=== PATIENT | female | born 1975 | race Caucasian/White ===

== ENCOUNTER 2023-08-16 12:54 | Outpatient (OUT) | payer BC, SELFPAY ==
[2023-08-16 14:22] LABS: Alanine Aminotransferase 22 U/L (14-59); Albumin Globulin Ratio 0.8; Albumin Level 3.6 g/dL (3.4-5.0); Alkaline Phosphatase 126 U/L (46-116); Anion Gap 12.7; Aspartate Amino Transferase 21 U/L (15-37); BUN Creatinine Ratio 13.2; Bilirubin Total 0.8 mg/dL (0.2-1.0); Calcium 9.2 mg/dL (8.5-10.1); Carbon Dioxide 27.5 mmol/L (21.0-32.0); Chloride 103 mmol/L (98-107); Chol HDL Ratio 2.8; Cholesterol 127 mg/dL (<=200); Estimated GFR (African America >60 (>=60); Estimated GFR (Non-African Ame >60 (>=60); Free T3 2.84 pg/mL (2.18-3.98); Globulin 4.3 g/dL; Glucose 73 mg/dL (74-106); HDL Cholesterol 45 mg/dL (40-60); Potassium 4.2 mmol/L (3.5-5.1); Sodium 139 mmol/L (136-145); Thyroid Stimulating Hormone 1.707 uIU/mL (0.358-3.740); Total Protein 7.9 g/dL (6.4-8.2); Triglycerides 75 mg/dL (<=150)
[2023-08-16 15:02] LABS: Basophils Absolute Auto 0.1 10^3/uL (0.0-0.1); Basophils Percent Auto 0.7 % (0.2-2.0); Eosinophils Absolute Auto 0.1 10^3/uL (0.0-0.7); Hematocrit 45.5 % (36.0-48.0); Hemoglobin 15.3 g/dL (12.0-16.0); Immature Granulocytes Abs Auto 0.01 10^3/uL (0.00-0.03); Immature Granulocytes Pct Auto 0.1 % (0.0-0.5); Lymphocytes Absolute Auto 2.4 10^3/uL (1.2-3.8); Mean Corpuscular HGB Conc 33.6 g/dL (29.9-35.2); Mean Corpuscular Hemoglobin 28.8 pg (26.7-34.0); Mean Corpuscular Volume 85.5 fL (81.0-99.0); Mean Platelet Volume 9.6 fL (9.5-13.5); Monocytes Absolute Auto 0.3 10^3/uL (0.3-0.8); Monocytes Percent Auto 3.2 % (1.7-12.0); Neutrophils Absolute Auto 6.1 10^3/uL (1.4-6.5); Platelet Count 232 10^3/uL (150-450); Red Blood Count 5.32 10^6/uL (4.20-5.40); Red Cell Distribution Width 12.5 % (11.0-15.0)
[2023-08-16 15:41] LABS: Estimated Average Glucose 103 mg/dL; Glycohemoglobin A1C 5.2 % (4.5-6.2)
[2023-08-18 12:11] LABS: Insulin 7.7 uIU/mL (2.6-24.9)
== END 2023-08-16 12:55 | disposition home or self-care (01) ==
LOC: LAB 13:01
PROVIDERS: PCP Nurse Practitioner Family; Visit Provider Nurse Practitioner Family
DX: Z00.00 Encounter for general adult medical examination without abnormal findings (principal)
CPT/HCPCS: 36415; 80053; 80061; 82306; 82607; 83036; 83525; 83540; 84436; 84443; 84481; 85025

== ENCOUNTER 2023-09-13 10:30 | Emergency (ER) | payer BC, SELFPAY ==
[2023-09-13] VITALS (14 sets, daily range): BP systolic 102–131; BP diastolic 70–84; PULSE 60–71; RESP 7–22; TEMP 36.6; O2SAT 99–100; BMI 23.4
--- OUTSIDE RECORDS SUMMARY | 2023-09-13 10:37 | XMS_ITS | CCD ---
Author Name Unknown Address [address] [place] [address] Organization [facility] Care Team Providers Care 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 Name Role Phone DARLING ., DR MCGRATH Consulting Unavailable DARLING ., DR MCGRATH Attending Unavailable DARLING ., DR MCGRATH Admitting Unavailable HOUSE, DR GRANT Primary Care Unavailable BETHANY, [place] Consulting Unavailable GALO, ANGELITA Consulting Unavailable HOUSE, DR GRANT Attending Unavailable HOUSE, DR GRANT Admitting Unavailable PEARSON, DR GRANT Primary Care Unavailable PEARSON, DR GRANT Consulting Unavailable PEARSON, DR GRANT Attending Unavailable PEARSON, DR GRANT Admitting Unavailable HOUSE, DR GRANT Primary Care Unavailable HOUSE, DR GRANT Attending Unavailable HOUSE, DR ENOC Peaceitting Unavailable PEARSON, DR GRANT Primary Care Unavailable MAXIMILIANO Hernandez Attending Provider DO Enoc Cardenas Primary Care Provider MAKEDA Jin Referring Provid er MAXIMILIANO Hernandez Attending Provider DO Enoc Cardenas Primary Care Provider MAKEDA Jin Referring Provid er MAKEDA Jin Referring Provid er MD Racheal Fernandez Attending Provider [phone] NO FAMILY, PHYSICIAN Primary Care Provider Unava ilable MD Bill Pnio Attending Provider Unavailable Primary Care Provider Unavailabl Enoc Fuentes DO Primary Care Provider BILL PINO Referring Unavailable MEL PAINTING Attending Unavailable BILL PINO Referring Unavailable NO FAMILY, PHYSICIAN Primary Care Provider Unava ilable MD Bill Pino Attending Provider Bill Pino Admitting Unavail able Bill Pino Attending Unavail able NO FAMILY, PHYSICIAN Primary Care Unavailable Bill Pino Admitting Unavail able Bill Pino Attending Unavail able NO FAMILY, PHYSICIAN Primary Care Unavailable JimRacheal granger Admitting Unavailable Racheal Fernandez Attending Unavailable Estefania Jin Referring Unava ilable NO FAMILY, PHYSICIAN Primary Care Unavailable Bill Pino Admitting Unavail able Bill Pino Attending Unavail able NO FAMILY, PHYSICIAN Primary Care Unavailable Allergies Allergy Classification Reported Allergen(s) Allergy Type Date of Onset Reaction(s) Facility (7 sources) Aspirin; Translations: [ASPIRIN] Drug Allergy 3 Swelling [facility] Repository (8 sources) Latex; Translations: [LATEX] Propensity to adverse reactions 3 [facility] (2 sources) Aspirin Drug Allergy 3 [facility] (1 source) Aspirin Drug Allergy 3 [facility] Repository Medications Current Medications Medication Drug Class(es) Dates Sig (Normalized) Sig (Original) atenolol 100 mg oral tablet (7 sources) beta-Adrenergic Tyra Start: 01-05-20 take 100 mg by mouth once daily Atenolol Active 100 MG PO Daily January 03, 2023 11:00pm atorvastatin 40 mg oral tablet (7 sources) HMG-CoA Reductase Inhibitor Start: 01-05-20 End: 08-31-19 take 40 mg by mouth once daily Atorvastatin Active 40 MG PO Daily January 03, 2023 11:00pm citalopram 20 mg oral tablet (7 sources) Serotonin Reuptake Inhibitor Start: 01-05-20 take 20 mg by mouth once daily Citalopram Active 20 MG PO Daily January 03, 2023 11:00pm clindamycin 300 mg oral capsule (2 sources) Lincosamide Antibacterial Start: 05-16-20 take 600 mg by mouth three times daily Clindamycin Hcl Active 600 MG PO Three times daily 12 May 15, 2023 11:00pm clopidogrel 75 mg oral tablet (7 sources) P2Y12 Platelet Inhibitor Start: 01-05-20 End: 03-03-20 take 75 mg by mouth once daily Clopidogrel Active 75 MG PO Daily January 03, 2023 11:00pm cyanocobalamin (Vitamin B-12) 1,000 mcg/mL oral liquid (1 source) take 1 mL by mouth every 30 days cyanocobalamin (Vitamin B-12) 1,000 mcg/mL oral liquid 1 mL (1,000 mcg) every 30 (thirty) days. 0 Active hydroCHLOROthiazide 12.5 mg oral tablet (7 sources) Thiazide Diuretic Start: 01-05-20 take 12.5 mg by mouth once daily Hydrochlorothiazide Active 12.5 MG PO Daily January 03, 2023 11:00pm magnesium oxide 400 mg oral tablet (5 sources) Start: 04-02-20 take 400 mg by mouth once daily Magnesium Oxide Active 400 MG PO Daily April 01, 2023 11:00pm valsartan 320 mg oral tablet (7 sources) Angiotensin 2 Receptor Tyra Start: 01-05-20 take 320 mg by mouth once daily Valsartan Active 320 MG PO Daily January 03, 2023 11:00pm vitamin b12 1 mg/ml injectable solution (3 sources) Vitamin B12 Start: 05-14-20 inject 1000 ug by intramuscular injection every month Cyanocobalamin (Vitamin B-12) Active 1000 MCG IM every month May 13, 2023 11:00pm Start: 05-14-2023 inject 1000 ug by in tramuscular injection every month Cyanocobalamin (Vitamin B-12) (Cyanacobalamin) 1,000 mcg/mL Solution Active 1000 MCG IM every month May 14, 2023 12:00am Completed/Discontinued Medications Medication Drug Class(es) Dates Sig (Normalized) Sig (Original) 24 hr nicotine 0.875 mg/hr transdermal system (2 sources) Cholinergic Nicotinic Agonist Start: 03-06-2023 End: 07-23-2023 apply 1 dose transdermal route every twenty-four hours nicotine (Nicoderm CQ) 21 mg/24 hr patch apply 1 patch to CLEAN, DRY, AND INTACT SKIN REMOVE AND REPLACE every 24 hours for 4 WEEKS 0 03/06/2023 07/23/2023 Discontinued (Med List Cleanup) Start: 03-04-2023 apply 21 mg transder mal route once daily, then apply 14 mg transdermal route once daily, then apply 7 mg transdermal route once daily nicotine 21-14-7 mg/24 hr patch, TD daily, sequential 21 mg patch once daily for 4 weeks, then 14 mg patch once daily for 2 weeks, then 7 mg patch once daily for 2 weeks 56 each 0 03/04/2023 Active Problems Active Problems Problem Classification Problem Date Documented Date Episodic/Chronic Acute cerebrovascular disease (15 sources) Cerebral infarction, unspecified; Translations: [Other cerebral infarction due to occlusion or stenosis of small artery] Onset: 07-18-2022 02-01-2023 Chronic Disorders of lipid metabolism (13 sources) Hyperlipidemia; Translations: [Hyperlipidemia, unspecified] Onset: 07-23-2023 02-01-2023 Chronic Essential hypertension (18 sources) Essential (primary) hypertension; Translations: [Hypertensive disorder] Onset: 02-01-2022 Chronic Hypertension with complications and secondary hypertension (1 source) Hypertensive urgency; Translations: [HYPERTENSIVE URGENCY] Onset: 07-18-2022 Chronic Late effects of cerebrovascular disease (4 sources) 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; Translations: [HEMIPLG FLW UNS CEREBRVSC DZ LT DOM] Onset: 07-31-2022 Chronic Menopausal disorders (1 source) Menopausal and female climacteric states; Translations: [MENOPAUSAL FE CLIMACTERIC STATES] Onset: 02-06-2022 Chronic Nutritional deficiencies (9 sources) Subacute combined degeneration of spinal cord; Translations: [Deficiency of other specified B group vitamins] 02-01-2023 Episodic Other circulatory disease (4 sources) Presence of other cardiac implants and grafts; Translations: [Other specified cardiac device in situ] Onset: 07-23-2023 07-23-2023 Chronic Paralysis (1 source) Hemiplegia, unspecified affecting left nondominant side; Translations: [HEMIPL UNS AFFECT LT NONDOM SIDE] Onset: 07-18-2022 Chronic Residual codes; unclassified (1 source) Acquired absence of both cervix and uterus; Translations: [ACQUIRED ABSENCE BOTH CERVIX AND UTERUS] Onset: 07-18-2022 Episodic Residual codes; unclassified (5 sources) H/O: miscarriage; Translations: [Personal history of other complications of , childbirth and the puerperium] 02-01-2023 Episodic Residual codes; unclassified (4 sources) Personal history of other complications of , childbirth and the puerperium; Translations: [Personal history of other genital system and obstetric disorders] 02-08-2023 Episodic Residual codes; unclassified (2 sources) Body mass index 20-24 - normal; Translations: [Body mass index (BMI) 24.0-24.9, adult] Onset: 07-23-2023 07-23-2023 Episodic Residual codes; unclassified (2 sources) Body mass index (BMI) 24.0-24.9, adult; Translations: [Body mass index (BMI) 24.0-24.9, adult] Onset: 07-23-2023 Episodic Syncope (9 sources) Syncope; Translations: [Syncope and collapse] 02-01-2023 Episodic Unclassified (1 source) CONTACT W/AND (SUSP) EXPOS COVID-19; Translations: [CONTACT W/AND (SUSP) EXPOS COVID-19] Onset: 07-18-2022 Unclassified (1 source) Encounter for preprocedural laboratory examination; Translations: [Encounter for preprocedural laboratory examination] Onset: 05-14-2023 Unclassified (1 source) Other sequelae of cerebral infarction; Translations: [Other sequelae of cerebral infarction] Onset: 04-30-2023 Past or Other Problems Problem Classification Problem Date Documented Date Episodic/Chronic Mood disorders (1 source) Mood disorders Onset: 03-04-2023 03-04-2023 Other circulatory disease (1 source) History of cerebrovascular accident; Translations: [Personal history of transient ischemic attack (TIA), and cerebral infarction without residual deficits] Onset: 08-28-2022 08-28-2022 Episodic Other connective tissue disease (1 source) Neurological symptom; Translations: [Unspecified symptoms and signs involving the nervous system] Onset: 07-15-2022 07-15-2022 Episodic Other nervous system disorders (5 sources) Anesthesia of skin; Translations: [ANESTHESIA OF SKIN] Onset: 07-15-2022 Episodic Unclassified (1 source) Onset: 04-30-2023 04-30-2023 Results Test Name Value Interpretation Reference Range Facility Basic Metabolic Panelon 10-3 Anion gap [Moles/Vol] 11.8 mmol/L Normal 6.0-15.0 [facility] Comment on above: Performed By: #### C BC, PT, BMP #### [facility] [address] [place] [address] [place] Calcium [Mass/Vol] 9.5 mg/dL Normal 8.6-10.3 [facility] Comment on above: Result Comment: PERF ORMED BY: [place] [address] PATHOLOGIST MUSIC PUBLISHER ANGELA MENDOZA M.D. Performed By: #### C BC, PT, BMP #### [facility] [address] [place] [address] [place] Chloride [Moles/Vol] 104 mmol/L Normal 98-107 [facility] Comment on above: Performed By: #### C BC, PT, BMP #### [facility] [address] [place] [address] [place] CO2 [Moles/Vol] 28.0 mmol/L Normal 21.0-31.0 [facility] Comment on above: Performed By: #### C BC, PT, BMP #### [place] [address] [place] Creatinine [Mass/Vol] 1.00 mg/dL Normal 0.60-1.20 [facility] Comment on above: Performed By: #### C BC, PT, BMP #### [place] [address] [place] GFR/1.73 sq M.predicted MDRD (S/P/Bld) [Vol rate/Area] mL/min/{1.73_m2} Normal [facility] Comment on above: Performed By: #### C BC, PT, BMP #### [facility] [address] [place] [address] [place] Glucose [Mass/Vol] 73 mg/dL Normal 70-100 [facility] Comment on above: Result Comment: [place] om Glucose Reference Range is dependent on time and content of last meal. Glucose of more than 200 mg/dL in a nonstressed, ambulatory subject supports the diagnosis of Diabetes Mellitus. ADA recommended reference range Performed By: #### C BC, PT, BMP #### [facility] [address] Potassium [Moles/Vol] 3.8 mmol/L Normal 3.5-5.1 [facility] Comment on above: Performed By: #### C BC, PT, BMP #### [facility] [address] [place] [address] [place] Sodium [Moles/Vol] 140 mmol/L Normal 136-145 [facility] Comment on above: Performed By: #### C BC, PT, BMP #### [facility] [address] Urea nitrogen [Mass/Vol] 14 mg/dL Normal 7-25 [facility] Comment on above: Performed By: #### C BC, PT, FERMIN #### [facility] [address] Basophils Auto (Bld) [#/Vol] Ordered By: Bill Pino on 05-14-2023 Basophils (Bld) [#/Vol] 0.0 10*3/uL 0.0-0.2 [facility] Basophils/100 WBC Auto (Bld) Ordered By: Bill Pino on 05-14-2023 Basophils/100 WBC (Bld) 0.4 % . [facility] Calcium [Mass/volume] in Ser um or PlasmaOrdered By: Bill Pino on 05-14-2023 Calcium [Mass/Vol] 9.5 mg/dL 8.6-10.3 [facility] Carbon dioxide, total [Moles /volume] in Serum or PlasmaOrdered By: Bill Pino on 05-14-2023 CO2 [Moles/Vol] 28.0 mmol/L 21.0-31.0 [facility] Chloride [Moles/volume] in S nehal or PlasmaOrdered By: Bill Pino on 05-14-2023 Chloride [Moles/Vol] 104 mmol/L 98-107 [facility] Complete Blood Count Auto Di ffon 05-14-2023 Basophils (Bld) [#/Vol] 0.0 10*3/uL Normal 0.0-0.2 [facility] Comment on above: Result Comment: PERF ORMED BY: [place] [address] PATHOLOGIST MUSIC PUBLISHER ANGELA MENDOZA M.D. Performed By: #### C BC, PT, BMP #### [address] Basophils/100 WBC (Bld) 0.4 % Normal . [facility] Comment on above: Performed By: #### C BC, PT, BMP #### [address] Eosinophils (Bld) [#/Vol] 0.0 10*3/uL Normal 0.0-0.45 [facility] Comment on above: Performed By: #### C YAAKOV PT, BMP #### [address] Eosinophils/100 WBC (Bld) 0.7 % Normal . [facility] Comment on above: Performed By: #### C BC, PT, BMP #### [address] Erythrocyte distribution width (RBC) [Ratio] 13.1 % Normal 11.9-15.3 [facility] Comment on above: Performed By: #### C YAAKOV, PT, BMP #### [address] Hematocrit (Bld) [Volume fraction] 39.7 % Normal 34.0-46.4 [facility] Comment on above: Performed By: #### C BC, PT, BMP #### [address] Hemoglobin (Bld) [Mass/Vol] 13.6 g/dL Normal 11.8-15.4 [facility] Comment on above: Performed By: #### C BC, PT, BMP #### [address] Lymphocytes (Bld) [#/Vol] 1.9 10*3/uL Normal 1.00-4.8 [facility] Comment on above: Performed By: #### C BC, PT, BMP #### [facility] [address] [place] [address] [place] Lymphocytes/100 WBC (Bld) 27.3 % Normal . [facility] Comment on above: Performed By: #### C BC, PT, BMP #### [facility] [address] [place] [address] [place] MCH (RBC) [Entitic mass] 28.9 pg Normal 24.7-34.3 [facility] Comment on above: Performed By: #### C BC, PT, BMP #### [facility] [address] MCV (RBC) [Entitic vol] 84.3 fL Normal 80-100 [facility] Comment on above: Performed By: #### C YAAKOV, PT, BMP #### [facility] [address] Mean Corpuscular HGB Conc 34.3 g/dL Normal 32.0-35.0 [facility] Comment on above: Performed By: #### C YAAKOV, PT, BMP #### [facility] [address] [place] [address] [place] Monocytes (Bld) [#/Vol] 0.4 10*3/uL Normal 0.0-0.8 [facility] Comment on above: Performed By: #### C BC, PT, BMP #### [facility] [address] [place] [address] [place] Monocytes/100 WBC (Bld) 5.4 % Normal . [facility] Comment on above: Performed By: #### C BC, PT, BMP #### [facility] [address] [place] [address] [place] Neutrophils (Bld) [#/Vol] 4.6 10*3/uL Normal 1.8-7.7 [facility] Comment on above: Performed By: #### C BC, PT, BMP #### [facility] [address] [place] [address] [place] Neutrophils/100 WBC (Bld) 66.2 % Normal . [facility] Comment on above: Performed By: #### C BC, PT, BMP #### [facility] [address] NRBC% 0.1 /100{WBC} Normal 0-0.5 [facility] Comment on above: Performed By: #### C BC, PT, BMP #### [facility] [address] Platelet mean volume (Bld) [Entitic vol] 8.1 fL Normal 6.3-10.7 [facility] Comment on above: Performed By: #### C BC, PT, BMP #### [facility] [address] Platelets (Bld) [#/Vol] 229 10*3/uL Normal 150-450 [facility] Comment on above: Performed By: #### C BC, PT, BMP #### [address] RBC (Bld) [#/Vol] 4.70 10*6/uL Normal 3.60-5.00 [facility] Comment on above: Performed By: #### C BC, PT, BMP #### [facility] [address] [place] [address] WBC (Bld) [#/Vol] 6.9 10*3/uL Normal 3.8-11.6 [facility] Comment on above: Performed By: #### C BC, PT, BMP #### [facility] [address] [place] [address] Creatinine [Mass/volume] in Serum or PlasmaOrdered By: Bill Pino on 05-14-2023 Creatinine [Mass/Vol] 1.00 mg/dL 0.60-1.20 [facility] Eosinophils Auto (Bld) [#/Vo l]Ordered By: Bill Pino on 05-14-2023 Eosinophils (Bld) [#/Vol] 0.0 10*3/uL 0.0-0.45 [facility] Eosinophils/100 WBC Auto (Bl d)Ordered By: Bill Pino on 05-14-2023 Eosinophils/100 WBC (Bld) 0.7 % . [facility] Erythrocyte distribution wid th Auto (RBC) [Ratio]Ordered By: Bill Pino on 05-14-2023 Erythrocyte distribution width (RBC) [Ratio] 13.1 % 11.9-15.3 [facility] Glucose [Mass/volume] in Ser um or PlasmaOrdered By: Bill Pino on 05-14-2023 Glucose [Mass/Vol] 73 mg/dL 70-100 [facility] Comment on above: ADA recommended refe rence rangeRandom Glucose Reference Range is dependent on time and content of last meal. Glucose of more than 200 mg/dL in a nonstressed, ambulatory subject supports the diagnosis of Diabetes Mellitus. Hematocrit Auto (Bld) [Volum e fraction]Ordered By: Bill Pino on 05-14-2023 Hematocrit (Bld) [Volume fraction] 39.7 % 34.0-46.4 [facility] Hemoglobin [Mass/volume] in BloodOrdered By: Bill Pino on 05-14-2023 Hemoglobin (Bld) [Mass/Vol] 13.6 g/dL 11.8-15.4 [facility] INR in Platelet poor plasma by Coagulation assayOrdered By: Bill Pino on 05-14-2023 INR Coag (PPP) [Relative time] 1.0 {INR} [facility] Comment on above: INR Therapeutic Rang e A) Pre- and Peroperative OAT started two weeks before surgery. NOT HIP SURGERY: 1.5 - 2.5 HIP SURGERY: 2 - 3B) Primary and secondary prevention of venous THROMBOSIS: 2 - 3C) Active venous thrombosis, pulmonary embolismand prevention of recurrent venous thrombosis: 2 - 3D) Prevention of arterial thromboembolismincluding patients with mechanical heart valves: 3 - 4.5 Leukocytes [#/volume] correc rosemarie for nucleated erythrocytes in Blood by Automated counOrdered By: Bill Pino on 05-14-2023 WBC corrected for nucl RBC Auto (Bld) [#/Vol] 6.9 10*3/uL 3.8-11.6 [facility] Lymphocytes Auto (Bld) [#/Vo l]Ordered By: Bill Pino on 05-14-2023 Lymphocytes (Bld) [#/Vol] 1.9 10*3/uL 1.00-4.8 [facility] Lymphocytes/100 WBC Auto (Bl d)Ordered By: Bill Pino on 05-14-2023 Lymphocytes/100 WBC (Bld) 27.3 % . [facility] MCH Auto (RBC) [Entitic mass ]Ordered By: Bill Pino on 05-14-2023 MCH (RBC) [Entitic mass] 28.9 pg 24.7-34.3 [facility] MCHC Auto (RBC) [Mass/Vol]Or dered By: Bill Pino on 05-14-2023 MCHC (RBC) [Mass/Vol] 34.3 g/dL 32.0-35.0 [facility] MCV Auto (RBC) [Entitic vol] Ordered By: Bill Pino on 05-14-2023 MCV (RBC) [Entitic vol] 84.3 fL 80-100 [facility] Monocytes Auto (Bld) [#/Vol] Ordered By: Bill Pino on 05-14-2023 Monocytes (Bld) [#/Vol] 0.4 10*3/uL 0.0-0.8 [facility] Monocytes/100 WBC Auto (Bld) Ordered By: Bill Pino on 05-14-2023 Monocytes/100 WBC (Bld) 5.4 % . [facility] Neutrophils Auto (Bld) [#/Vo l]Ordered By: Bill Pino on 05-14-2023 Neutrophils (Bld) [#/Vol] 4.6 10*3/uL 1.8-7.7 [facility] Neutrophils/100 WBC Auto (Bl d)Ordered By: Bill Pino on 05-14-2023 Neutrophils/100 WBC (Bld) 66.2 % . [facility] No Panel InformationOrdered By: Bill Pino on 05-14-2023 Estimated GFR (CKD-EPI) > 60.0 mL/Min [facility] Creatinine Clearance (Chem N/A [facility] Nucleated erythrocytes [Pres ence] in Blood by Automated countOrdered By: Bill Pino on 05-14-2023 Nucleated RBC Auto Ql (Bld) 0.1 /100{WBC} 0-0.5 [facility] Platelet mean volume Auto (B ld) [Entitic vol]Ordered By: Bill Pino on 05-14-2023 Platelet mean volume (Bld) [Entitic vol] 8.1 fL 6.3-10.7 [facility] Platelets Auto (Bld) [#/Vol] Ordered By: Bill Pino on 05-14-2023 Platelets (Bld) [#/Vol] 229 10*3/uL 150-450 [facility] Potassium [Moles/volume] in Serum or PlasmaOrdered By: Bill Pino on 05-14-2023 Potassium [Moles/Vol] 3.8 mmol/L 3.5-5.1 [facility] Prothrombin Time INRon 05-14 INR Coag (PPP) [Relative time] 1.0 {INR} Normal [facility] Comment on above: Result Comment: INR Therapeutic Range A) Pre- and Peroperative OAT started two weeks before surgery. NOT HIP SURGERY: 1.5 - 2.5 HIP SURGERY: 2 - 3 B) Primary and secondary prevention of venous THROMBOSIS: 2 - 3 C) Active venous thrombosis, pulmonary embolism and prevention of recurrent venous thrombosis: 2 - 3 D) Prevention of arterial thromboembolism including patients with mechanical heart valves: 3 - 4.5 PERFORMED BY: [place] [address] PATHOLOGIST MUSIC PUBLISHER ANGELA MENDZOA M.D. Performed By: #### C BC, PT, BMP #### [facility] [address] [place], [place] [id number] [facility] PT Coag (PPP) [Time] 12.4 s Normal 9.0-12.9 [facility] Comment on above: Result Comment: A he matocrit value greater than 55% may lead to inaccurate results in coagulation testing. Patients having hematocrit values >55% require a special collection tube for coagulation studies. Please contact the laboratory at [phone] for redraw instructions. Performed By: #### C BC, PT, BMP #### [facility] [address] [place], [place] [id number] [facility] Prothrombin time (PT)Ordered By: Bill Pino on 05-14-2023 PT Coag (PPP) [Time] 12.4 s 9.0-12.9 [facility] Comment on above: A hematocrit value g reater than 55% may lead to inaccurate results in coagulation testing. Patients having hematocrit values >55% require a special collection tube for coagulation studies. Please contact the laboratory at [phone] for redraw instructions. RBC Auto (Bld) [#/Vol]Ordere d By: Bill Pino on 05-14-2023 RBC (Bld) [#/Vol] 4.70 10*6/uL 3.60-5.00 [facility] Serum or plasma anion gap de terminationOrdered By: Bill Pino on 05-14-2023 Anion gap [Moles/Vol] 11.8 mmol/L 6.0-15.0 [facility] Sodium [Moles/volume] in Ser um or PlasmaOrdered By: Bill Pino on 05-14-2023 Sodium [Moles/Vol] 140 mmol/L 136-145 [facility] Urea nitrogen [Mass/volume] in Serum or PlasmaOrdered By: Bill Pino on 05-14-2023 Urea nitrogen [Mass/Vol] 14 mg/dL 7-25 [facility] WBC Auto (Bld) [#/Vol]Ordere d By: Bill Pino on 05-14-2023 WBC (Bld) [#/Vol] 6.9 10*3/uL 3.8-11.6 [facility] XR chest 2V*on 05-14-2023 XR chest 2V* [facility] [place] [address] XRay Report Signed Patient: Melvina Jameson MR#: [id number] : 1975 Acct:[id number] Age/Sex: 47 / F ADM Date: 05/14/23 Loc: Room: Type: [facility] Attending Dr: Bill Pino MD Copies to: Bill Pino MD Ordering Provider: Bill Pino MD Date of Service: 05/14/23 XR/XR chest 2V*: pre-assessment of anatomy Chest 2 views CLINICAL HISTORY: Preop loop recorder. COMPARISON: None FINDINGS: Heart normal size. Lungs are clear. No free air. XR/XR chest 2V* IMPRESSION: NO ACUTE CARDIOPULMONARY ABNORMALITY. Impression dictated by: Pablito Collazo Jr., Keaton05/14/2023 2:05 PM Dictation Location: [place] [address] Transcribed By: [facility] 05/14/231404 Dictated By: Pablito Collazo Jr, DO 05/14/231404 Signed By: 05/14/231404 Normal [facility] Homocysteine, Plasma/Serumon 04-06-2023 Homocysteine, Plasma/Serum 14.5 umol/L Normal 0.0-14.5 [facility] Comment on above: Order Comment: REDRA W Result Comment: Perf ormed at: [address] [id number] Casing Inspector: Toni Gonzalez PhD, Phone: [phone] PERFORMED BY: [place] [address] PATHOLOGIST MUSIC PUBLISHER ANGELA MENDOAZ M.D. Performed By: #### C BC, PT, BMP #### [address] Serum or plasma homocysteine measurement (moles/volume)Ordered By: Racheal Fernandez on 04-06-2023 Homocysteine [Moles/Vol] 14.5 umol/L 0.0-14.5 [facility] Comment on above: Performed at: [facility] [address] [id number] Director: Toni Gonzalez PhD, Phone: [phone] Methylmalonic Acidon 023 Methylmalonic Acid 126 Normal 0-378 [facility] Comment on above: Result Comment: This test was developed and its performance characteristics determined by [employer]. It has not been cleared or approved by the Food and Drug Administration. Performed at: [address] [id number] Casing Inspector: Tisha Lo MD, Phone: [phone] PERFORMED BY: [place] [id number] PATHOLOGIST MUSIC PUBLISHER ANGELA MENDOZA M.D. Performed By: #### C BC, PT, BMP #### [address] Serum or plasma methylmalona te measurement (moles/volume)Ordered By: Racheal Fernandez on 03-27-2023 Methylmalonate [Moles/Vol] 126 nmol/L 0-378 [facility] Comment on above: This test was develo ped and its performance characteristicsdetermined by [employer]. It has not been cleared orapproved by the Food and Drug Administration.Performed at: [address] [id number] Director: Tisha Lo MD, Phone: [phone] Activated partial thrombopla stin time (aPTT) in platelet poor plasma by coagulation aOrdered By: Lian Hernandez on 02-01-2023 aPTT Coag (PPP) [Time] 28.5 s 25.1-36.5 [facility] Albumin [Mass/volume] in Ser um or PlasmaOrdered By: Lian Hernandez on 02-01-2023 Albumin [Mass/Vol] 3.7 g/dL 2.9-4.4 [facility] Anti-Thrombin III Antigenon 02-01-2023 Anti-Thrombin III Antigen 118 % Normal 72-124 [facility] Comment on above: Result Comment: This test was developed and its performance characteristics determined by [employer]. It has not been cleared or approved by the Food and Drug Administration. Performed at: [address] [id number] Casing Inspector: Tisha Lo MD, Phone: [phone] PERFORMED BY: [place] [address] PATHOLOGIST MUSIC PUBLISHER ANGELA MENDOZA M.D. Performed By: #### C BC, PT, BMP #### [facility] [address] [place], [place] [id number] [facility] Antithrombin antigen actual/ normal in platelet poor plasma by immunologic methodOrdered By: Lian Hernandez on 02-01-2023 Antithrombin Ag actual/normal IA (PPP) [Relative mass conc] 118 % 72-124 [facility] Comment on above: This test was develo ped and its performance characteristicsdetermined by [facility]. It has not been cleared orapproved by the Food and Drug Administration.Performed at: [address] [id number] Director: Tisha Lo MD, Phone: [phone] Basophils Auto (Bld) [#/Vol] Ordered By: Racheal Fernandez on 02-01-2023 Basophils (Bld) [#/Vol] 0.1 10*3/uL 0.0-0.2 [facility] Basophils/100 WBC Auto (Bld) Ordered By: Racheal Fernandez on 02-01-2023 Basophils/100 WBC (Bld) 0.9 % . [facility] Complete Blood Count Auto Di ffon 02-01-2023 Basophils (Bld) [#/Vol] 0.1 10*3/uL Normal 0.0-0.2 [facility] Comment on above: Result Comment: PERF ORMED BY: [facility] [address] [place] [address] PATHOLOGIST MUSIC PUBLISHER ANGELA MENDOZA M.D. Performed By: #### F ER, [id number], FE and TIBC, CBC #### [facility] [address] [place] [address] [place] Basophils/100 WBC (Bld) 0.9 % Normal . [facility] Comment on above: Performed By: #### F ER, [id number], FE and TIBC, CBC #### [facility] [address] [place] [address] [place] Eosinophils (Bld) [#/Vol] 0.1 10*3/uL Normal 0.0-0.45 [facility] Comment on above: Performed By: #### F ER, [id number], FE and TIBC, CBC #### [facility] [address] [place] [address] [place] Eosinophils/100 WBC (Bld) 1.5 % Normal . [facility] Comment on above: Performed By: #### F ER, [id number], FE and TIBC, CBC #### [address] Erythrocyte distribution width (RBC) [Ratio] 12.8 % Normal 11.9-15.3 [facility] Comment on above: Performed By: #### F ER, [id number], FE and TIBC, CBC #### [address] Hematocrit (Bld) [Volume fraction] 39.0 % Normal 34.0-46.4 [facility] Comment on above: Performed By: #### F ER, [id number], FE and TIBC, CBC #### [address] Hemoglobin (Bld) [Mass/Vol] 13.5 g/dL Normal 11.8-15.4 [facility] Comment on above: Performed By: #### F ER, [id number], FE and TIBC, CBC #### [address] Lymphocytes (Bld) [#/Vol] 2.1 10*3/uL Normal 1.00-4.8 [facility] Comment on above: Performed By: #### F ER, [id number], FE and TIBC, CBC #### [address] Lymphocytes/100 WBC (Bld) 32.6 % Normal . [facility] Comment on above: Performed By: #### F ER, [id number], FE and TIBC, CBC #### [address] MCH (RBC) [Entitic mass] 28.9 pg Normal 24.7-34.3 [facility] Comment on above: Performed By: #### F ER, [id number], FE and TIBC, CBC #### [address] MCV (RBC) [Entitic vol] 83.3 fL Normal 80-100 [facility] Comment on above: Performed By: #### F ER, [id number], FE and TIBC, CBC #### [address] Mean Corpuscular HGB Conc 34.6 g/dL Normal 32.0-35.0 [facility] Comment on above: Performed By: #### F ER, [id number], FE and TIBC, CBC #### [address] Monocytes (Bld) [#/Vol] 0.3 10*3/uL Normal 0.0-0.8 [facility] Comment on above: Performed By: #### F ER, [id number], FE and TIBC, CBC #### [address] Monocytes/100 WBC (Bld) 4.5 % Normal . [facility] Comment on above: Performed By: #### F ER, [id number], FE and TIBC, CBC #### [address] Neutrophils (Bld) [#/Vol] 3.9 10*3/uL Normal 1.8-7.7 [facility] Comment on above: Performed By: #### F ER, [id number], FE and TIBC, CBC #### [address] Neutrophils/100 WBC (Bld) 60.5 % Normal . [facility] Comment on above: Performed By: #### F ER, [id number], FE and TIBC, CBC #### [address] NRBC% 0.2 /100{WBC} Normal 0-0.5 [facility] Comment on above: Performed By: #### F ER, [id number], FE and TIBC, CBC #### [address] Platelet mean volume (Bld) [Entitic vol] 8.1 fL Normal 6.3-10.7 [facility] Comment on above: Performed By: #### F ER, [id number], FE and TIBC, CBC #### [facility] [address] Platelets (Bld) [#/Vol] 237 10*3/uL Normal 150-450 [facility] Comment on above: Performed By: #### F ER, [id number], FE and TIBC, CBC #### [facility] [address] RBC (Bld) [#/Vol] 4.68 10*6/uL Normal 3.60-5.00 [facility] Comment on above: Performed By: #### F ER, [id number], FE and TIBC, CBC #### [facility] [address] WBC (Bld) [#/Vol] 6.4 10*3/uL Normal 3.8-11.6 [facility] Comment on above: Performed By: #### F ER, [id number], FE and TIBC, CBC #### [facility] [address] Eosinophils Auto (Bld) [#/Vo l]Ordered By: Racheal Fernandez on 02-01-2023 Eosinophils (Bld) [#/Vol] 0.1 10*3/uL 0.0-0.45 [facility] Eosinophils/100 WBC Auto (Bl d)Ordered By: Racheal Fernandez on 02-01-2023 Eosinophils/100 WBC (Bld) 1.5 % . [facility] Erythrocyte distribution wid th Auto (RBC) [Ratio]Ordered By: Racheal Fernandez on 02-01-2023 Erythrocyte distribution width (RBC) [Ratio] 12.8 % 11.9-15.3 [facility] Ferritinon 02-01-2023 Ferritin [Mass/Vol] 62.4 ng/mL Normal 11.0-306.8 [facility] Comment on above: Performed By: #### F ER, [id number], FE and TIBC, CBC #### [facility] [address] Ferritin [Mass/volume] in Se rum or PlasmaOrdered By: Racheal Fernandez on 02-01-2023 Ferritin [Mass/Vol] 62.4 ng/mL 11.0-306.8 [facility] Folate [Mass/volume] in Seru m or PlasmaOrdered By: Racheal Fernandez on 02-01-2023 Folate [Mass/Vol] 6.9 ng/mL >5.9 [facility] Comment on above: Folate reference ran ge: >5.9 ng/mlThe WHO technical consultation on folate and vitamin [id number] has determined that folate concentrations lessthan 4 ng/ml are considered deficient. Hematocrit Auto (Bld) [Volum e fraction]Ordered By: Racheal Fernandez on 02-01-2023 Hematocrit (Bld) [Volume fraction] 39.0 % 34.0-46.4 [facility] Hemoglobin [Mass/volume] in BloodOrdered By: Racheal Fernandez on 02-01-2023 Hemoglobin (Bld) [Mass/Vol] 13.5 g/dL 11.8-15.4 [facility] IgA [Mass/volume] in Serum o r PlasmaOrdered By: Lian Hernandez on 02-01-2023 IgA [Mass/Vol] 318 mg/dL 87-352 [facility] IgE [Units/volume] in Serum or PlasmaOrdered By: Lian Hernandez on 02-01-2023 IgE Qn 87 [IU]/mL 6-495 [facility] Comment on above: Performed at: - [facility] [address] [id number] Director: Toni Gonzalez PhD, Phone: [phone] at: - [facility] [address] [id number] Director: Tisha Lo MD, Phone: [phone] IgG [Mass/volume] in Serum o r PlasmaOrdered By: Lian Hernandez on 02-01-2023 IgG [Mass/Vol] 1264 mg/dL [id number] [facility] IgM [Mass/volume] in Serum o r PlasmaOrdered By: Lian Hernandez on 02-01-2023 IgM [Mass/Vol] 196 mg/dL 26-217 [facility] Immunoglobulin light chains. kappa.free [Mass/volume] in SerumOrdered By: Racheal Fernandez on 02-01-2023 Immunoglobulin light chains.kappa.free (S) [Mass/Vol] 35.3 mg/L 3.3-19.4 [facility] Immunoglobulin light chains. kappa.free/Immunoglobulin light chains.lambda.free [MassOrdered By: Racheal Fernandez on 02-01-2023 Immunoglobulin light chains.kappa.free/Immu noglobulin light chains.lambda.free (S) [Mass ratio] 1.59 0.26-1.65 [facility] Comment on above: Performed at: - [facility] [place], [place] [id number] Director: Toni Gonzalez PhD, Phone: [phone] Immunoglobulin light chains. lambda.free [Mass/volume] in Serum or PlasmaOrdered By: Racheal Fernandez on 02-01-2023 Immunoglobulin light chains.lambda.free [Mass/Vol] 22.2 mg/L 5.7-26.3 [facility] Immunoglobulins A/E/G/M, Qno n 02-01-2023 Immunoglobulin A, Serum 318 mg/dL Normal 87-352 [facility] Comment on above: Performed By: #### C BC, PT, BMP #### [facility] [address] [place] [address] [facility] Immunoglobulin E 87 Normal 6-495 [facility] Comment on above: Result Comment: Perf ormed at: - [facility] [address] [place], [place] [id number] Casing Inspector: Toni Gonzalez PhD, Phone: [phone] Performed at: - [facility] [id number] Casing Inspector: Tisha Lo MD, Phone: [phone] Performed By: #### C BC, PT, BMP #### [facility] [address] [place] [address] [place] Immunoglobulin G 1264 mg/dL Normal 586-1602 [facility] Comment on above: Performed By: #### C BC, PT, BMP #### [facility] [address] [place] [address] [place] Immunoglobulin M, Serum 196 mg/dL Normal 26-217 [facility] Comment on above: Performed By: #### C BC, PT, BMP #### [facility] [address] [place] [address] [place] Iron [Mass/volume] in Serum or PlasmaOrdered By: Racheal Fernandez on 02-01-2023 Iron [Mass/Vol] 95 ug/dL 50-212 [facility] Iron and TIBC Profileon 01-13 % Iron Saturation 30.5 % Normal 20-50 [facility] Comment on above: Performed By: #### F ER, [id number], FE and TIBC, CBC #### [facility] [address] [place] [address] [facility] Iron [Mass/Vol] 95 ug/dL Normal 50-212 [facility] Comment on above: Performed By: #### F ER, [id number], FE and TIBC, CBC #### [facility] [address] [place] [address] [place] Total Iron Binding Capacity 311 ug/dL Normal 255-450 [facility] Comment on above: Performed By: #### F ER, [id number], FE and TIBC, CBC #### [facility] [address] [place] [address] [place] Transferrin [Mass/Vol] 222 mg/dL Normal 203-362 [facility] Comment on above: Performed By: #### F ER, [id number], FE and TIBC, CBC #### [facility] [address] [place] [address] [place] Iron binding capacity [Mass/ volume] in Serum or PlasmaOrdered By: Racheal Fernandez on 02-01-2023 Iron binding capacity [Mass/Vol] 311 ug/dL 255-450 [facility] Iron saturation [Mass Fracti on] in Serum or PlasmaOrdered By: Racheal Fernandez on 02-01-2023 Iron saturation [Mass fraction] 30.5 % 20-50 [facility] Laboratory - CoagulationOrde red By: Lian Hernandez on 02-01-2023 PT Coag (PPP) [Time] 12.0 s 9.0-12.9 [facility] Leukocytes [#/volume] correc rosemarie for nucleated erythrocytes in Blood by Automated counOrdered By: Racheal Fernandez on 02-01-2023 WBC corrected for nucl RBC Auto (Bld) [#/Vol] 6.4 10*3/uL 3.8-11.6 [facility] Lymphocytes Auto (Bld) [#/Vo l]Ordered By: Racheal Fernandez on 02-01-2023 Lymphocytes (Bld) [#/Vol] 2.1 10*3/uL 1.00-4.8 [facility] Lymphocytes/100 WBC Auto (Bl d)Ordered By: Racheal Fernandez on 02-01-2023 Lymphocytes/100 WBC (Bld) 32.6 % . [facility] MCH Auto (RBC) [Entitic mass ]Ordered By: Racheal Fernandez on 02-01-2023 MCH (RBC) [Entitic mass] 28.9 pg 24.7-34.3 [facility] MCHC Auto (RBC) [Mass/Vol]Or dered By: Racheal Fernandez on 02-01-2023 MCHC (RBC) [Mass/Vol] 34.6 g/dL 32.0-35.0 [facility] MCV Auto (RBC) [Entitic vol] Ordered By: Racheal Fernandez on 02-01-2023 MCV (RBC) [Entitic vol] 83.3 fL 80-100 [facility] Monocytes Auto (Bld) [#/Vol] Ordered By: Racheal Fernandez on 02-01-2023 Monocytes (Bld) [#/Vol] 0.3 10*3/uL 0.0-0.8 [facility] Monocytes/100 WBC Auto (Bld) Ordered By: Racheal Fernandez on 02-01-2023 Monocytes/100 WBC (Bld) 4.5 % . [facility] Neutrophils Auto (Bld) [#/Vo l]Ordered By: Racheal Fernandez on 02-01-2023 Neutrophils (Bld) [#/Vol] 3.9 10*3/uL 1.8-7.7 [facility] Neutrophils/100 WBC Auto (Bl d)Ordered By: Racheal Fernandez on 02-01-2023 Neutrophils/100 WBC (Bld) 60.5 % . [facility] No Panel InformationOrdered By: Lian Hernandez on 02-01-2023 Protein Electrophoresis M-Javier Not observed g/dL Not Observed [facility] Protein Electrophoresis Note See comment . [facility] Comment on above: Protein electrophore sis scan will follow via computer,mail, or private branch exchange installer delivery.Performed at: [facility] [employer] [place] [id number] Director: Toni Gonzalez PhD, Phone: [phone] Nucleated erythrocytes [Pres ence] in Blood by Automated countOrdered By: Racheal Fernandez on 02-01-2023 Nucleated RBC Auto Ql (Bld) 0.2 /100{WBC} 0-0.5 [facility] Partial Thromboplastin Timeo n 02-01-2023 aPTT Coag (Bld) [Time] 28.5 s Normal 25.1-36.5 [facility] Comment on above: Result Comment: PERF ORMED BY: [place] [address] PATHOLOGIST MUSIC PUBLISHER ANGELA MENDOZA M.D. Performed By: #### A T3AG, IMM GAME, SPE #### [facility] , #### PT, PTT #### [facility] [address] [place] [address] Platelet mean volume Auto (B ld) [Entitic vol]Ordered By: Racheal Fernandez on 02-01-2023 Platelet mean volume (Bld) [Entitic vol] 8.1 fL 6.3-10.7 [facility] Platelet poor plasma interna tional normalized ratio (INR) by coagulation assay (relatOrdered By: Lian Hernandez on 02-01-2023 INR Coag (PPP) [Relative time] 1.0 {INR} [facility] Comment on above: INR Therapeutic Rang e A) Pre- and Peroperative OAT started two weeks before surgery. NOT HIP SURGERY: 1.5 - 2.5 HIP SURGERY: 2 - 3B) Primary and secondary prevention of venous THROMBOSIS: 2 - 3C) Active venous thrombosis, pulmonary embolismand prevention of recurrent venous thrombosis: 2 - 3D) Prevention of arterial thromboembolismincluding patients with mechanical heart valves: 3 - 4.5 Platelets Auto (Bld) [#/Vol] Ordered By: Racheal Fernandez on 02-01-2023 Platelets (Bld) [#/Vol] 237 10*3/uL 150-450 [facility] Protein Electrophoresis, Ser umon 02-01-2023 Albumin [Mass/Vol] 3.7 g/dL Normal 2.9-4.4 [facility] Comment on above: Performed By: #### C BC, PT, BMP #### [facility] [address] Albumin/Globulin [Mass ratio] 1.0 {ratio} Normal 0.7-1.7 [facility] Comment on above: Performed By: #### C BC, PT, BMP #### [facility] [address] Ydgtk-1-Cysedauo 0.3 g/dL Normal 0.0-0.4 [facility] Comment on above: Performed By: #### C BC, PT, BMP #### [facility] [address] Gdhmz-8-Gcomujlq 0.9 g/dL Normal 0.4-1.0 [facility] Comment on above: Performed By: #### C BC, PT, BMP #### [facility] [address] [place] [address] [place] Beta Globulin 1.2 g/dL Normal 0.7-1.3 [facility] Comment on above: Performed By: #### C BC, PT, BMP #### [facility] [address] Gamma Globulin 1.2 g/dL Normal 0.4-1.8 [facility] Comment on above: Performed By: #### C BC, PT, BMP #### [facility] [address] [place] [address] [place] Globulin (S) [Mass/Vol] 3.6 g/dL Normal 2.2-3.9 [facility] Comment on above: Performed By: #### C BC, PT, BMP #### [address] M-Javier Not Observed Normal Not Observed [facility] Comment on above: Performed By: #### C BC, PT, BMP #### [address] Protein [Mass/Vol] 7.3 g/dL Normal 6.0-8.5 [facility] Comment on above: Performed By: #### C BC, PT, BMP #### [address] SPE-Note Normal . [facility] Comment on above: Result Comment: Prot ein electrophoresis scan will follow via computer, mail, or private branch exchange installer delivery. Performed at: [facility] [address] [id number] Casing Inspector: Toni Gonzalez PhD, Phone: [phone] PERFORMED BY: [place] [address] PATHOLOGIST MUSIC PUBLISHER ANGELA MENDOZA M.D. Performed By: #### C BC, PT, BMP #### [address] Protein [Mass/volume] in Ser um or PlasmaOrdered By: Lian Hernandez on 02-01-2023 Protein [Mass/Vol] 7.3 g/dL 6.0-8.5 [facility] Prothrombin Time INRon 02-01 INR Coag (PPP) [Relative time] 1.0 {INR} Normal [facility] Comment on above: Result Comment: INR Therapeutic Range A) Pre- and Peroperative OAT started two weeks before surgery. NOT HIP SURGERY: 1.5 - 2.5 HIP SURGERY: 2 - 3 B) Primary and secondary prevention of venous THROMBOSIS: 2 - 3 C) Active venous thrombosis, pulmonary embolism and prevention of recurrent venous thrombosis: 2 - 3 D) Prevention of arterial thromboembolism including patients with mechanical heart valves: 3 - 4.5 Performed By: #### A T3AG, IMM GAME, SPE #### [facility] , #### PT, PTT #### [facility] [address] PT Coag (PPP) [Time] 12.0 s Normal 9.0-12.9 [facility] Comment on above: Performed By: #### A T3AG, IMM GAME, SPE #### [facility] , #### PT, PTT #### [facility] [address] RBC Auto (Bld) [#/Vol]Ordere d By: Racheal Fernandez on 02-01-2023 RBC (Bld) [#/Vol] 4.68 10*6/uL 3.60-5.00 [facility] Serum globulin measurement ( mass/volume)Ordered By: Lian Hernandez on 02-01-2023 Globulin (S) [Mass/Vol] 3.6 g/dL 2.2-3.9 [facility] Serum or plasma albumin/glob ulin mass ratioOrdered By: Lian Hernandez on 02-01-2023 Albumin/Globulin [Mass ratio] 1.0 {ratio} 0.7-1.7 [facility] Serum or plasma alpha 1 glob ulin measurement by electrophoresis (mass/volume)Ordered By: Lian Hernandez on 02-01-2023 Alpha 1 globulin Elph [Mass/Vol] 0.3 g/dL 0.0-0.4 [facility] Serum or plasma alpha 2 glob ulin measurement by electrophoresis (mass/volume)Ordered By: Lian Hernandez on 02-01-2023 Alpha 2 globulin Elph [Mass/Vol] 0.9 g/dL 0.4-1.0 [facility] Serum or plasma beta globuli n measurement by electrophoresis (mass/volume)Ordered By: Lian Hernandez on 02-01-2023 Beta globulin Elph [Mass/Vol] 1.2 g/dL 0.7-1.3 [facility] Serum or plasma gamma globul in measurement by electrophoresis (mass/volume)Ordered By: Lian Hernandez on 02-01-2023 Gamma globulin Elph [Mass/Vol] 1.2 g/dL 0.4-1.8 [facility] Transferrin [Mass/volume] in Serum or PlasmaOrdered By: Racheal Fernandez on 02-01-2023 Transferrin [Mass/Vol] 222 mg/dL 203-362 [facility] Vit. B12/Folate Profileon Cobalamin (Vitamin B12) [Mass/Vol] 219 pg/mL Normal 180-914 [facility] Comment on above: Performed By: #### F ER, [id number], FE and TIBC, CBC #### [facility] [address] Folate 6.9 ng/mL Normal >5.9 [facility] Comment on above: Result Comment: Zonia te reference range: >5.9 ng/ml The WHO technical consultation on folate and vitamin b12 deficiencies has determined that folate concentrations less than 4 ng/ml are considered deficient. PERFORMED BY: [place] [address] PATHOLOGIST MUSIC PUBLISHER ANGELA MENDOZA M.D. Performed By: #### F ER, [id number], FE and TIBC, CBC #### [facility] [address] [place] [address] Vitamin B12 ser/plasOrdered By: Racheal Fernandez on 02-01-2023 Cobalamin (Vitamin B12) [Mass/Vol] 219 pg/mL 180-914 [facility] WBC Auto (Bld) [#/Vol]Ordere d By: Racheal Fernandez on 02-01-2023 WBC (Bld) [#/Vol] 6.4 10*3/uL 3.8-11.6 [facility] Anticardiolipin Ab, IgA,Qnon 01-07-2023 Anticardiolipin Ab, IgA,Qn <9 Normal 0-11 [facility] Comment on above: Result Comment: Nega tive: <12 Indeterminate: 12 - 20 Low-Med Positive: >20 - 80 High Positive: >80 Performed at: [facility] [address] [place] [id number] Casing Inspector: Toni Gonzalez PhD, Phone: [phone] Performed By: #### C BC, PT, BMP #### [facility] [address] [place] [address] [place] Anticardiolipin Ab, IgG,Qnon 01-07-2023 Anticardiolipin Ab, IgG,Qn <9 Normal 0-14 [facility] Comment on above: Result Comment: Nega tive: <15 Indeterminate: 15 - 20 Low-Med Positive: >20 - 80 High Positive: >80 Performed By: #### C BC, PT, BMP #### [facility] [address] [place] [id number] [place] Anticardiolipin Ab, IgM,Qnon 01-07-2023 Anticardiolipin Ab, IgM,Qn <9 Normal 0-12 [facility] Comment on above: Result Comment: Nega tive: <13 Indeterminate: 13 - 20 Low-Med Positive: >20 - 80 High Positive: >80 Performed By: #### C BC, PT, BMP #### [facility] [address] [place] [id number] [place] Beta 2 Glycoprotein I Ab IgG /Mon 01-07-2023 Beta 2 Glycoprotein I Ab, IgG <9 Normal 0-20 [facility] Comment on above: Result Comment: Resu lt Units: GPI IgG units The reference interval reflects a 3SD or 99th percentile interval, which is thought to represent a potentially clinically significant result in accordance with the International Consensus Statement on the classification criteria for definitive antiphospholipid syndrome (APS). J Thromb Haem 2006;4:295-306. Performed By: #### C BC, PT, BMP #### [facility] [address] [place] [id number] [place] Beta 2 Glycoprotein I Ab, IgM <9 Normal 0-32 [facility] Comment on above: Result Comment: Resu lt Units: GPI IgM units The reference interval reflects a 3SD or 99th percentile interval, which is thought to represent a potentially clinically significant result in accordance with the International Consensus Statement on the classification criteria for definitive antiphospholipid syndrome (APS). J Thromb Haem 2006;4:295-306. Performed at: [address], [place] [id number] Casing Inspector: Tisha Lo MD, Phone: [phone] Performed By: #### C BC, PT, BMP #### [facility] [address] Beta 2 glycoprotein 1 IgG Ab [Units/volume] in SerumOrdered By: Lian Hernandez on 01-07-2023 Beta 2 glycoprotein 1 IgG Qn (S) <9 0-20 [facility] Comment on above: Result Units: GPI Ig G unitsThe reference interval reflects a 3SD or 99th percentileinterval, which is thought to represent a potentiallyclinically significant result in accordance with theInternational Consensus Statement on the classificationcriteria for definitive antiphospholipid syndrome (APS). JThromb Haem 2006;4:295-306. Beta 2 glycoprotein 1 IgM Ab [Units/volume] in SerumOrdered By: Lian Hernandez on 01-07-2023 Beta 2 glycoprotein 1 IgM Qn (S) <9 0-32 [facility] Comment on above: Result Units: GPI Ig M unitsThe reference interval reflects a 3SD or 99th percentileinterval, which is thought to represent a potentiallyclinically significant result in accordance with theInternational Consensus Statement on the classificationcriteria for definitive antiphospholipid syndrome (APS). JThromb Haem 2006;4:295-306.Performed at: [facility] [id number] Director: Tisha Lo MD, Phone: [phone] Cardiolipin IgA Ab [Units/vo lume] in Serum by ImmunoassayOrdered By: Lian Hernandez on 01-07-2023 Cardiolipin IgA IA Qn (S) <9 APL U/mL 0-11 [facility] Comment on above: Negative: <12 Indete rminate: 12 - 20 Low-Med Positive: >20 - 80 High Positive: >80Performed at: [facility] [id number] Director: Toni Gonzalez PhD, Phone: [phone] Cardiolipin IgG Ab [Units/vo lume] in Serum by ImmunoassayOrdered By: Lian Hernandez on 01-07-2023 Cardiolipin IgG IA Qn (S) <9 GPL U/mL 0-14 [facility] Comment on above: Negative: <15 Indete rminate: 15 - 20 Low-Med Positive: >20 - 80 High Positive: >80 Cardiolipin IgM Ab [Units/vo lume] in Serum by ImmunoassayOrdered By: Lian Hernandez on 01-07-2023 Cardiolipin IgM IA Qn (S) <9 MPL U/mL 0-12 [facility] Comment on above: Negative: <13 Indete rminate: 13 - 20 Low-Med Positive: >20 - 80 High Positive: >80 F5 gene mutations found [Frederic ntifier] in Blood or Tissue by Molecular genetics methodOrdered By: Lian Hernandez on 01-07-2023 F5 gene targeted mutation analysis Molgen Nom (Bld/Tiss) See comment . [facility] Comment on above: Result: c.1601G>A (p .[id number]) - Not DetectedThis result is not associated with an increased risk for venousthromboembolism. See Additional Clinical Information andComments.Additional Clinical Information:Venous thromboembolism is a multifactorial diseaseinfluenced by genetic, environmental, and circumstantialrisk factors. The c.1601G>A (p. Ogl572Eyj) variant in theF5 gene, commonly referred to as Factor V Leiden, is agenetic risk factor for venous thromboembolism.Heterozygous carriers of this variant have a 6- to 8-foldincreased risk for venous thromboembolism. Individualshomozygous for this variant (ie, with a copy of the varianton each chromosome) have an approximately 80-fold increasedrisk for venous thromboembolism. Individuals who carry dionicio c.*97G>A variant in the F2 gene and Factor V Leiden havean approximately 20-fold increased risk for venousthromboembolism. Risks are likely to be even higher in morecomplex genotype combinations involving the F2 c.*97G>Avariant and Factor V Leiden (PMID: 47721122). Additionalrisk factors include but are not limited to: deficiency ofprotein C, protein S, or antithrombin III, age, male sex,personal or family history of deep vein thromboembolism,smoking, surgery, prolonged immobilization, malignantneoplasm, tamoxifen treatment, raloxifene treatment, oralcontraceptive use, hormone replacement therapy, andpregnancy. Management of thrombotic risk and thromboticevents should follow established guidelines and fit theclinical circumstance. This result cannot predict theoccurrence or recurrence of a thrombotic event.Comment:Genetic counseling is recommended to discuss thepotential clinical implications of positive results, aswell as recommendations for testing family members.Genetic Coordinators are available for health careproviders to discuss results at [phone] ([phone]).Test Details:Variant Analyzed: c.1601G>A (p. [id number]), referred toas Factor V LeidenMethods/Limitations:DNA analysis of the F5 gene (NM_000130.5) was performedby PCR amplification followed by restriction enzymeanalysis. The diagnostic sensitivity is >99%. Results mustbe combined with clinical information for the most accurateinterpretation. Molecular-based testing is highly accurate,but as in any laboratory test, diagnostic errors may occur.False positive or false negative results may occur forreasons that include genetic variants, blood transfusions,bone marrow transplantation, somatic or tissue-specificmosaicism, mislabeled samples, or erroneous representationof family relationships.This test was developed and its performance characteristicsdetermined by [facility]. It has not been cleared orapproved by the Food and Drug Administration.References:Juliette Smith, Erika STOCKTON, Carmelo R, Martina WW, Victoriano JH; ACMGProfessional Practice and Guidelines Committee. Addendum:[employer] consensus statement onfactor V Leiden mutation testing. [facility]. 2020Sep 16.doi: 10.1038/[id number]-k. PMID: 04562420.Sara MILLAN. Factor V Leiden Thrombophilia. 1998November 25(Updated 2017Jul 18). In: Tony MP, Juanita HH, Mimi RA,et al., editors. Yuliya(R) (Internet). [place] ([place]):[facility], [place]; 4550-5489. Availablefrom: https://www.ncbi.nlm.nih.gov/books/QHF2383/Mil Smith, Erika STOCKTON, Mina X, Felix B, Vaishali EB, Catrina P,Tra CS; ACMG Laboratory Care Transition Mgr Committee.Venous thromboembolism laboratory testing (factor V Leidenand factor II c.*97G>A), 2018 update: a technical standardof the [employer] [employer] and Genomics(ACMG). [facility]. 2018 Jun;20(12):3486-8980. doi:10.1038/[id number]-s. Epub 2017Apr 18. PMID: 29884479. Factor II DNA Analysison Additional Information Theresa Durand, PhD Normal . [facility] Comment on above: Result Comment: Perf ormed at: TG - [facility] [address] [facility], [place], [place] [id number] Casing Inspector: Trever Figueredo [facility], Phone: [phone] PERFORMED BY: [place] [address] PATHOLOGIST MUSIC PUBLISHER ANGELA MENDOZA M.D. Performed By: #### C BC, PT, BMP #### [address] Factor II, DNA Analysis Normal . [facility] Comment on above: Result Comment: Resu lt: c.*97G>A - Not Detected This result is not associated with an increased risk for venous thromboembolism. See Additional Clinical Information and Comments. Additional Clinical Information: Venous thromboembolism is a multifactorial disease influenced by genetic, environmental, and circumstantial risk factors. The c.*97G>A variant in the F2 gene is a genetic risk factor for venous thromboembolism. Heterozygous carriers have a 2- to 4-fold increased risk for venous thromboembolism. Homozygotes for the c.*97G>A variant are rare. The annual risk of VTE in homozygotes has been reported to be 1.1%/year. Individuals who carry both a c.*97G>A variant in the F2 gene and a c.1601G>A (p. Tyf759Amg) variant in the F5 gene (commonly referred to as Factor V Leiden) have an approximately 20- fold increased risk for venous thromboembolism. Risks are likely to be even higher in more complex genotype combinations involving the F2 c.*97G>A variant and Factor V Leiden (PMID: 49319246). Additional risk factors include but are not limited to: deficiency of protein C, protein S, or antithrombin III, age, male sex, personal or family history of deep vein thromboembolism, smoking, surgery, prolonged immobilization, malignant neoplasm, tamoxifen treatment, raloxifene treatment, oral contraceptive use, hormone replacement therapy, and . Management of thrombotic risk and thrombotic events should follow established guidelines and fit the clinical circumstance. This result cannot predict the occurrence or recurrence of a thrombotic event. Comments: Genetic counseling is recommended to discuss the potential clinical implications of positive results, as well as recommendations for testing family members. Genetic Coordinators are available for health care providers to discuss results at [phone] Test Details: Variant analyzed: c.*97G>A, previously referred to as [id number] Methods/Limitations: DNA analysis of the F2 gene (NM_000506.5) was performed by PCR amplification followed by restriction enzyme analysis. The diagnostic sensitivity is >99%. Results must be combined with clinical information for the most accurate interpretation. Molecular-based testing is highly accurate, but as in any laboratory test, diagnostic errors may occur. False positive or false negative results may occur for reasons that include genetic variants, blood transfusions, bone marrow transplantation, somatic or tissue-specific mosaicism, mislabeled samples, or erroneous representation of family relationships. This test was developed and its performance characteristics determined by [facility]. It has not been cleared or approved by the Food and Drug Administration. References: Juliette Smith, Erika STOCKTON, Carmelo R, Martina WW, Victoriano JH; ACMG Professional Practice and Guidelines Committee. Addendum: [employer] consensus statement on factor V Leiden mutation testing. [facility]. 2020Sep 16. doi: 10.1038/[id number]-t. PMID: 33772782. Sara MILLAN. Prothrombin Thrombophilia. 2005Feb 05 [Updated 2020Aug 18]. In: Tony MP, Juanita HH, Mimi RA, et al., editors. Yuliya(R) [Internet]. [place] ([place]): [facility]; 0668-9569. Available from: https://www.ncbi.nlm.nih.gov/books/END7052/ Mil Smith, Erika STOCKTON, Mina X, Felix B, Vaishali EB, Catrina P, Tra CS; ACMG Laboratory Care Transition Mgr Committee. Venous thromboembolism laboratory testing (factor V Leiden and factor II c.*97G>A), 2018 update: a technical standard of the [employer] (ACMG). [facility] Med. 2018 Jun;20(12):4380-6990. doi: 10.1038/[id number]-e. Epub 2017Apr 18. PMID: 76689418. Performed By: #### C BC, PT, BMP #### [facility] [address] Factor V Leiden Mutationon 0 01-07-2023 Factor V Leiden Normal . [facility] Comment on above: Result Comment: Resu lt: c.1601G>A (p.Vlc385Xcw) - Not Detected This result is not associated with an increased risk for venous thromboembolism. See Additional Clinical Information and Comments. Additional Clinical Information: Venous thromboembolism is a multifactorial disease influenced by genetic, environmental, and circumstantial risk factors. The c.1601G>A (p. Fyf505Inx) variant in the F5 gene, commonly referred to as Factor V Leiden, is a genetic risk factor for venous thromboembolism. Heterozygous carriers of this variant have a 6- to 8-fold increased risk for venous thromboembolism. Individuals homozygous for this variant (ie, with a copy of the variant on each chromosome) have an approximately 80-fold increased risk for venous thromboembolism. Individuals who carry both a c.*97G>A variant in the F2 gene and Factor V Leiden have an approximately 20-fold increased risk for venous thromboembolism. Risks are likely to be even higher in more complex genotype combinations involving the F2 c.*97G>A variant and Factor V Leiden (PMID: 34495968). Additional risk factors include but are not limited to: deficiency of protein C, protein S, or antithrombin III, age, male sex, personal or family history of deep vein thromboembolism, smoking, surgery, prolonged immobilization, malignant neoplasm, tamoxifen treatment, raloxifene treatment, oral contraceptive use, hormone replacement therapy, and . Management of thrombotic risk and thrombotic events should follow established guidelines and fit the clinical circumstance. This result cannot predict the occurrence or recurrence of a thrombotic event. Comment: Genetic counseling is recommended to discuss the potential clinical implications of positive results, as well as recommendations for testing family members. Genetic Coordinators are available for health care providers to discuss results at [phone] Test Details: Variant Analyzed: c.1601G>A (p. Kyq975Tiy), referred to as Factor V Leiden Methods/Limitations: DNA analysis of the F5 gene (NM_000130.5) was performed by PCR amplification followed by restriction enzyme analysis. The diagnostic sensitivity is >99%. Results must be combined with clinical information for the most accurate interpretation. Molecular-based testing is highly accurate, but as in any laboratory test, diagnostic errors may occur. False positive or false negative results may occur for reasons that include genetic variants, blood transfusions, bone marrow transplantation, somatic or tissue-specific mosaicism, mislabeled samples, or erroneous representation of family relationships. This test was developed and its performance characteristics determined by [facility]. It has not been cleared or approved by the Food and Drug Administration. References: Juliette Smith, Erika STOCKTON, Carmelo R, Martina WW, Victoriano MARY; ACMG Professional Practice and Guidelines Committee. Addendum: [employer] [employer] consensus statement on factor V Leiden mutation testing. [facility]. 2020Sep 16. doi: 10.1038/[id number]-l. PMID: 24478231. Sara MILLAN. Factor V Leiden Thrombophilia. 1998November 25 (Updated 2017Jul 18). In: Tony MP, Juanita HH, Mimi RA, et al., editors. Yuliya(R) (Internet). [place] ([place]): [facility]; 3564-2614. Available from: https://www.ncbi.nlm.nih.gov/books/FJA2045/ Mil Smith, Erika STOCKTON, Mina X, Felix B, Vaishali EB, Catrina P, Tra CS; ACMG Laboratory Care Transition Mgr Committee. Venous thromboembolism laboratory testing (factor V Leiden and factor II c.*97G>A), 2018 update: a technical standard of the [employer] [employer] (ACMG). [facility] Med. 2017;20(12):0331-0191. doi: 10.1038/[id number]-q. Ep2017Apr 18. PMID: 18986094. Performed By: #### C BC, PT, BMP #### [facility] [address] Reviewed by: Theresa Durand, PhD Normal . [facility] Comment on above: Result Comment: Perf ormed at: TG - [facility] [address] [facility], [place], [place] [id number] Casing Inspector: Trever Figueredo [facility], Phone: [phone] Performed By: #### C BC, PT, BMP #### [facility] [address] Free protein S measurementOr dered By: Lian Hernandez on 01-07-2023 Protein S Free Ag IA Qn (PPP) 109 % 61-136 [facility] Comment on above: Performed at: [facility] [address] [id number] Director: Tisha Lo MD, Phone: [phone] Functional protein C measure mentOrdered By: Lian Hernandez on 01-07-2023 Protein C actual/normal Chromogenic method (PPP) [Rel catalytic activity/Vol] 116 % 73-180 [facility] Comment on above: Performed at: [address] [id number] Director: Tisha Lo MD, Phone: [phone] Lupus Anticoagulant Compon 0 01-07-2023 Dilute Prothrombin Time (dPt) 34.9 Normal 0.0-47.6 [facility] Comment on above: Performed By: #### C BC, PT, BMP #### [facility] [address] dPT Confirm Ratio 1.07 Normal 0.00-1.34 [facility] Comment on above: Performed By: #### C BC, PT, BMP #### [facility] [address] DRVVT Lupus 33.9 Normal 0.0-47.0 [facility] Comment on above: Performed By: #### C BC, PT, BMP #### [facility] [address] [place] [address] Interpretation Comment: Normal . [facility] Comment on above: Result Comment: No l upus anticoagulant was detected. Performed at: BN - [facility] [address] [place], [place] [id number] Casing Inspector: Tisha Lo MD, Phone: [phone] PERFORMED BY: [place] [address] PATHOLOGIST MUSIC PUBLISHER ANGELA MENDOZA M.D. Performed By: #### C BC, PT, BMP #### [address] PTT-LA 29.7 Normal 0.0-43.5 [facility] Comment on above: Performed By: #### C BC, PT, BMP #### [facility] [address] [place] [address] Thrombin Time 16.3 Normal 0.0-23.0 [facility] Comment on above: Performed By: #### C BC, PT, BMP #### [facility] [address] [place] [address] Lupus anticoagulant [Interpr etation] in Platelet poor plasmaOrdered By: Lian Hernandez on 01-07-2023 Lupus anticoagulant (PPP) [Interp] Comment: . [facility] Comment on above: No lupus anticoagula nt was detected.Performed at: [facility] [address] [id number] Director: Tisha Lo MD, Phone: [phone] No Panel InformationOrdered By: Lian Hernandez on 01-07-2023 Factor II DNA Analysis Comment Theresa durand, phd . [facility] Comment on above: Performed at: [facility] [id number] [place], [place] [id number] Director: Trever Figueredo [facility], Phone: [phone] Factor V Leiden Interpretation Theresa durand, phd . [facility] Comment on above: Performed at: [facility] [id number] [place], [place] [id number] Director: Trever Figueredo [facility], Phone: [phone] Factor V Leiden Mutation Note N/A [facility] Functional Protein S 102 % 63-140 [facility] Comment on above: Protein S activity m ay be falsely increased (masking anabnormal, low result) in patients receiving direct Xainhibitor (e.g., rivaroxaban, apixaban, edoxaban) or adirect thrombin inhibitor (e.g., dabigatran) anticoagulanttreatment due to assay interference by these drugs.Performed at: - [address] [id number] Director: Tisha Lo MD, Phone: [phone] Platelet poor plasma ratio o f lupus anticoagulant-sensitive activated partial thromboOrdered By: Lian Hernandez on 01-07-2023 aPTT.lupus sensitive.excess phospholipid actual/normal Coag (PPP) [Relative time] 34.9 sec 0.0-47.6 [facility] Protein C Antigenon 01-08-20 Protein C Antigen 96 % Normal 60-150 [facility] Comment on above: Result Comment: Perf ormed at: [address] [id number] Casing Inspector: Tisha Lo MD, Phone: [phone] PERFORMED BY: [place] [address] PATHOLOGIST MUSIC PUBLISHER ANGELA MENDOZA M.D. Performed By: #### C BC, PT, BMP #### [address] Protein C Functionalon 01-07 Protein C Functional 116 % Normal 73-180 [facility] Comment on above: Result Comment: Perf ormed at: [address] [id number] Casing Inspector: Tisha Lo MD, Phone: [phone] PERFORMED BY: [place] [address] PATHOLOGIST MUSIC PUBLISHER ANGELA MENDOZA M.D. Performed By: #### C BC, PT, BMP #### [facility] [address] [place] [id number] [facility] Protein C antigen assayOrder ed By: Lian Hernandez on 01-07-2023 Protein C Ag actual/normal IA (PPP) [Relative mass conc] 96 % 60-150 [facility] Comment on above: Performed at: - [facility] [address] [id number] Director: Tisha Lo MD, Phone: [phone] Protein S Antigenon 01-08-20 23 Protein S, Free 109 % Normal 61-136 [facility] Comment on above: Result Comment: Perf ormed at: - [facility] [address] [id number] Casing Inspector: Tisha Lo MD, Phone: [phone] PERFORMED BY: [place] [address] PATHOLOGIST MUSIC PUBLISHER ANGELA MENDOZA M.D. Performed By: #### C BC, PT, BMP #### [facility] [address] [place], [place] [id number] [place] Protein S, Total 133 % Normal 60-150 [facility] Comment on above: Result Comment: This test was developed and its performance characteristics determined by [facility]. It has not been cleared or approved by the Food and Drug Administration. Performed By: #### C BC, PT, BMP #### [facility] [address] [place], [place] [address] [place] Protein S Functionalon 01-07 Protein S Functional 102 % Normal 63-140 [facility] Comment on above: Result Comment: Prot ein S activity may be falsely increased (masking an abnormal, low result) in patients receiving direct Xa inhibitor (e.g., rivaroxaban, apixaban, edoxaban) or a direct thrombin inhibitor (e.g., dabigatran) anticoagulant treatment due to assay interference by these drugs. Performed at: - [facility] [address] [id number] Casing Inspector: Tisha Lo MD, Phone: [phone] PERFORMED BY: [place] [address] PATHOLOGIST MUSIC PUBLISHER ANGELA MENDOZA M.D. Performed By: #### C BC, PT, BMP #### [facility] [address] Protein S measurement in phillip telet poor plasma by coagulation assay (units/volume)Ordered By: Lian Hernandez on 01-07-2023 Protein S Coag Qn (PPP) 133 % 60-150 [facility] Comment on above: This test was develo ped and its performance characteristicsdetermined by [facility]. It has not been cleared orapproved by the Food and Drug Administration. Prothrombin gene [id number] mut ation detectionOrdered By: Lian Hernandez on 01-07-2023 F2 gene targeted mutation analysis Molgen Nom (Bld/Tiss) See comment . [facility] Comment on above: Result: c.*97G>A - N ot DetectedThis result is not associated with an increased risk for venousthromboembolism. See Additional Clinical Information andComments.Additional Clinical Information:Venous thromboembolism is a multifactorial disease influenced bygenetic, environmental, and circumstantial risk factors. The c.*97G>Avariant in the F2 gene is a genetic risk factor for venousthromboembolism. Heterozygous carriers have a 2- to 4-fold increasedrisk for venous thromboembolism. Homozygotes for the c.*97G>A variantare rare. The annual risk of VTE in homozygotes has been reported ricki 1.1%/year. Individuals who carry both a c.*97G>A variant in theF2 gene and a c.1601G>A (p. Lxd691Mfw) variant in the F5 gene(commonly referred to as Factor V Leiden) have an approximately 20-fold increased risk for venous thromboembolism. Risks are likely rikci even higher in more complex genotype combinations involving theF2 c.*97G>A variant and Factor V Leiden (PMID: 96393571). Additionalrisk factors include but are not limited to: deficiency of protein C,protein S, or antithrombin III, age, male sex, personal or familyhistory of deep vein thromboembolism, smoking, surgery, prolongedimmobilization, malignant neoplasm, tamoxifen treatment, raloxifenetreatment, oral contraceptive use, hormone replacement therapy, andpregnancy. Management of thrombotic risk and thrombotic events shouldfollow established guidelines and fit the clinical circumstance. Thisresult cannot predict the occurrence or recurrence of a thromboticevent.Comments:Genetic counseling is recommended to discuss the potential clinicalimplications of positive results, as well as recommendations fortesting family members.Genetic Coordinators are available for health care providers to discussresults at [phone] Details:Variant analyzed: c.*97G>A, previously referred to as [id number]/Limitations:DNA analysis of the F2 gene (NM_000506.5) was performed by PCRamplification followed by restriction enzyme analysis. The diagnosticsensitivity is >99%. Results must be combined with clinicalinformation for the most accurate interpretation. Molecular-basedtesting is highly accurate, but as in any laboratory test, diagnosticerrors may occur. False positive or false negative results may occurfor reasons that include genetic variants, blood transfusions, bonemarrow transplantation, somatic or tissue-specific mosaicism,mislabeled samples, or erroneous representation of familyrelationships.This test was developed and its performance characteristics determinedby [employer]. It has not been cleared or approved by the Food and DrugAdministration.References:Juliette S, Erika STOCKTON, Carmelo R, Martina WW, Victoriano JH; [employer] ProfessionalPractice and Guidelines Committee. Addendum: [employer] [employer] consensus statement on factor V Leiden mutationtesting. [facility] Med. 2020Sep 16. doi: 10.1038/[id number]-e.PMID: 38148062.Sara MILLAN. Prothrombin Thrombophilia. 2005Feb 05[Updated 2020Aug 18]. In: Tony MP, Juanita HH, Mimi RA, et al.,editors. Yuliya(R) [Internet]. [place] ([place]): [employer]; 2078-7609. Available from:https://www.ncbi.nlm.nih.gov/books/RHS2965/Mil Smith, Erika STOCKTON, Mina X, Felix B, Vaishali EB, Catrina P, Tra CS;[facility] Laboratory Care Transition Mgr Committee. Venous thromboembolismlaboratory testing (factor V Leiden and factor II c.*97G>A),2018 update: a technical standard of the [employer] [employer] ([employer]MG). [facility] Med. 2018 Jun;20(12):0080-3391.doi: 10.1038/[id number]-t. Epub 2017Apr 18. PMID: [id number]. Screening dilute Everardo's v iper venom time (DRVVT) with reflex to confirmatory testOrdered By: Lian Hernandez on 01-07-2023 dRVVT Coag (PPP) [Time] 33.9 s 0.0-47.0 [facility] Screening lupus anticoagulan t-sensitive activated partial thromboplastin time (aPTT)Ordered By: Lian Hernandez on 01-07-2023 aPTT.lupus sensitive Coag (PPP) [Time] 29.7 sec 0.0-43.5 [facility] TT plasOrdered By: Lian carrero on 01-07-2023 Thrombin time Coag (PPP) [Time] 16.3 sec 0.0-23.0 [facility] aPTT.lupus sensitive/aPTT.froy pus sensitive W excess phospholipid (screen to confirm raOrdered By: Lian Hernandez on 01-07-2023 aPTT.lupus sensitive/aPTT.lupus sensitive W excess phospholipid Coag (PPP) [Ratio] 1.07 Ratio 0.00-1.34 [facility] CBC AUTO DIFFon 07-15-2022 BASO # 0.0 103/ul Normal 0.0-0.1 [facility] Comment on above: Performed By: #### C BC #### [facility] [address] [address] [address] Naina Suarez Basophils/100 WBC (Bld) 0.5 % Normal 0.2-2.0 [facility] Comment on above: Performed By: #### C BC #### [facility] [address] [address] [address] Naina Suarez EO # 0.1 103/ul Normal 0.0-0.7 [facility] Comment on above: Performed By: #### C BC #### [facility] [address] [place] [address] Dr. Naina Suarez Eosinophils/100 WBC (Bld) 1.6 % Normal 0.9-7.0 [facility] Comment on above: Performed By: #### C BC #### [facility] [address] [place] [address] Dr. Naina Suarez Erythrocyte distribution width (RBC) [Ratio] 13.2 % Normal 11.0-15.0 [facility] Comment on above: Performed By: #### C BC #### [facility] [address] [place] [address] Dr. Naina Suarez Hematocrit (Bld) [Volume fraction] 44.5 % Normal 36.0-48.0 [facility] Comment on above: Performed By: #### C BC #### [facility] [address] [place] [address] Dr. Naina Suarez Hemoglobin (Bld) [Mass/Vol] 14.9 g/dL Normal 12.0-16.0 [facility] Comment on above: Performed By: #### C BC #### [facility] [address] [place] [address] Dr. Naina Suarez IG # 0.01 10e3/ul Normal 0.00-0.03 [facility] Comment on above: Performed By: #### C BC #### [facility] [address] [place] [address] Dr. Naina Suarez IG % 0.2 % Normal 0.0-0.5 [facility] Comment on above: Performed By: #### C BC #### [facility] [address] [place] [address] Dr. Naina Suarez LYMPH # 1.7 103/ul Normal 1.2-3.8 [facility] Comment on above: Performed By: #### C BC #### [facility] [address] [place] [address] Dr. Naina Suarez Lymphocytes/100 WBC (Bld) 28.3 % Normal 20.5-60.0 [facility] Comment on above: Performed By: #### C BC #### [facility] [address] [place] [address] Dr. Naina Suarez MANUAL DIFF REQ NO Normal [facility] Comment on above: Performed By: #### C BC #### [facility] [address] [place] [address] Dr. Naina Suarez MCH (RBC) [Entitic mass] 29.3 pg Normal 26.7-34.0 [facility] Comment on above: Performed By: #### C BC #### [facility] [address] [place] [address] Dr. Naina Suarez MCHC (RBC) [Mass/Vol] 33.5 g/dL Normal 29.9-35.2 [facility] Comment on above: Performed By: #### C BC #### [facility] [address] [place] [address] Dr. Naina Suarez MCV (RBC) [Entitic vol] 87.6 fL Normal 81.0-99.0 [facility] Comment on above: Performed By: #### C BC #### [facility] [address] [place] [address] Dr. Naina Suarez MONO # 0.3 103/ul Normal 0.3-0.8 [facility] Comment on above: Performed By: #### C BC #### [facility] [address] [place] [address] Dr. Naina Suarez Monocytes/100 WBC (Bld) 4.7 % Normal 1.7-12.0 [facility] Comment on above: Performed By: #### C BC #### [facility] [address] [place] [address] Dr. Naina Suarez NEUT # 4.0 103/ul Normal 1.4-6.5 [facility] Comment on above: Performed By: #### C BC #### [facility] [address] [place] [address] Dr. Naina Suarez Neutrophils/100 WBC (Bld) 64.7 % Normal 43.0-75.0 [facility] Comment on above: Performed By: #### C BC #### [facility] [address] [place] [address] Dr. Naina Suarez Platelet mean volume (Bld) [Entitic vol] 9.2 fL Critically low 9.5-13.5 [facility] Comment on above: Performed By: #### C BC #### [facility] [address] [address] [address] Naina Suarez PLT 253 103/ul Normal 150-450 [facility] Comment on above: Performed By: #### C BC #### [facility] [address] [address] [address] Naina Suarez RBC 5.08 106/ul Normal 4.20-5.40 [facility] Comment on above: Performed By: #### C BC #### [facility] [address] [address] [address] Naina Suarez WBC 6.1 103/ul Normal 4.0-11.0 [facility] Comment on above: Performed By: #### C BC #### [facility] [address] [place] [address] HEAD WO CONon 07-15-2022 CT HEAD WO CON CT head without cont rast CLINICAL: Headache. Left-sided numbness with headaches and chills. TECHNIQUE: Contiguous transaxial images were obtained from skull base to vertex without administration of intravenous contrast. Dose reduction: mA and/or kV are were adjusted by automated exposure control software based upon patients height and weight. FINDINGS: There are no prior exams for comparison There is no focal scalp soft tissue swelling or acute calvarial fracture. The visualized globes and orbits are grossly normal. Visualized paranasal sinuses are clear. Bilateral mastoid air cells are clear. The ventricles and sulci are normal and symmetric bilaterally. There is a 7 x 11 mm hypoattenuating focus within the right thalamus. There is right paramedian occipital hypoattenuation. There is a left basal ganglia lacunar infarct. There is no acute intracranial hemorrhage. There is no extra-axial fluid collection. IMPRESSION: 1. Hypoattenuation of the right thalamus as well as the right paramedian occipital lobe. Findings are most consistent with late acute-subacute ischemia/infarct within the right [place] distribution. Recommend follow-up brain MRI. 2. No acute intracranial hemorrhage. 3. Old left basal ganglia lacunar infarct. I discussed critical findings with Dr. Hastings in the emergency department at 12:15 PM on 07/15/2022. Electronically authenticated by: MONTANA SIMS Date: 2022-07-15 12:19 Normal [facility] CTA HEAD WO W CONon 07-15-19 23 CTA HEAD WO W CON Begin Addendum # 1 I discussed the above findings via phone call with Dr. Ayden Hastings at 3:03 PM Eastern standard time on 07/15/2022. Original Report CTA HEAD/NECK. HISTORY: Cerebrovascular accident COMPARISON: TECHNIQUE: CT angiogram of the head and neck obtained after administration of 75 mL of nonionic intravenous contrast material, Isovue-300. Multiplanar and volume rendered 3-D reformats were created. NASCET criteria was used for evaluation of luminal stenosis. 3-D vascular images were constructed on a separate workstation. FINDINGS: THORACIC AORTA: Normal. There is a normal anatomy at the origin of the great vessels. RIGHT COMMON CAROTID ARTERY: No significant stenosis. RIGHT EXTERNAL CAROTID ARTERY: No significant stenosis. RIGHT INTERNAL CAROTID ARTERY: No significant stenosis. LEFT COMMON CAROTID ARTERY: No significant stenosis. LEFT EXTERNAL CAROTID ARTERY: No significant stenosis. LEFT INTERNAL CAROTID ARTERY: No significant stenosis. RIGHT VERTEBRAL ARTERY: No significant stenosis. LEFT VERTEBRAL ARTERY: No significant stenosis. [place]: The bilateral intracranial internal carotid arteries, anterior cerebral arteries, middle cerebral arteries and anterior and posterior communicating arteries are normal. POSTERIOR INTRACRANIAL CIRCULATION: There is occlusion of the right [place] P1, P2 and P3. There is some reconstitution of the P4 segment. No intracranial aneurysm measuring least 2 mm identified. No intracranial AVM. LUNG APICES: The lung apices are clear. SOFT TISSUES: The prevertebral soft tissues are normal. No soft tissue inflammation. OSSEOUS STRUCTURES: No acute osseous abnormality throughout the imaged axial skeleton and skull base. IMPRESSION: 1. Occlusion of the right [place] P1, P2 and P3 segments. 2. Acute right [place] distribution infarct without acute hemorrhage. Provider was notified via stat call que. Normal [facility] Covid-19 PCR (CVDTBH)on SARS-CoV-2 (COVID-19) RNA CIARA+probe Ql (Unsp spec) Not detected Normal NOT DETECTED [facility] Comment on above: Result Comment: When diagnostic testing is negative, the possibility of a false negative should be considered in the context of a patient's recent exposures and the presence of clinical signs and symptoms consistent with SARS-CoV-2. This test is not yet approved or cleared by the [place] FDA. When there are no FDA-approved or cleared tests available, and other criteria are met, FDA can make tests available under an emergency access mechanism called an Emergency Use Authorization (EUA). The EUA for this test is supported by the Business Support of Health and Human Service's declaration that circumstances exist to justify the emergency use of in vitro diagnostics for the detection and/or diagnosis of the virus that causes COVID-19. This EUA will remain in effect for the duration of the COVID-19 declaration justifying emergency of IVDs, unless it is terminated or revoked by the FDA (after which the test may no longer be used). Performed By: #### C VDTB ####[facility] [id number] [address]. Naina Suarez PROF CHEM 8 (BAS METB)on Anion gap [Moles/Vol] 11.5 mmol/L Normal [facility] Comment on above: Performed By: #### B MP #### [facility] [address] [place] [address] Dr. Naina Suarez Calcium [Mass/Vol] 8.6 mg/dL Normal 8.5-10.1 [facility] Comment on above: Performed By: #### B MP #### [facility] [address] [place] [address] Dr. Naina Suarez Chloride [Moles/Vol] 104 mmol/L Normal 98-107 [facility] Comment on above: Performed By: #### B MP #### [facility] [address] [place] [address] Dr. Naina Suarez CO2 [Moles/Vol] 26.3 mmol/L Normal 21.0-32.0 [facility] Comment on above: Performed By: #### B MP #### [facility] [address] [place] [address] Dr. Naina Suarez Creatinine [Mass/Vol] 0.81 mg/dL Normal 0.55-1.02 [facility] Comment on above: Performed By: #### B MP #### [facility] [address] [address] [address] Naina Suarez EGFR-AF NORWEGIAN >60 Normal >=60 [facility] Comment on above: Performed By: #### B MP #### [facility] [address] [address] [address] Naina Suarez EGFR-NON AF NORWEGIAN >60 Normal >=60 [facility] Comment on above: Performed By: #### B MP #### [facility] [address] [address] [address] Naina Suarez Glucose [Mass/Vol] 82 mg/dL Normal 74-106 [facility] Comment on above: Performed By: #### B MP #### [facility] [address] [place] [address] Dr. Naina Suarez Potassium [Moles/Vol] 3.8 mmol/L Normal 3.5-5.1 [facility] Comment on above: Performed By: #### B MP #### [facility] [address] [address] [address] Naina Suarez Sodium [Moles/Vol] 138 mmol/L Normal 136-145 [facility] Comment on above: Performed By: #### B MP #### [facility] [address] [address] [address] Naina Suarez Urea nitrogen [Mass/Vol] 8.0 mg/dL Normal 7.0-18.0 [facility] Comment on above: Performed By: #### B MP #### [facility] [address] [address] [address] Naina Suarez Urea nitrogen/Creatinine [Mass ratio] 9.9 mg/mg Normal [facility] Comment on above: Performed By: #### B MP #### [facility] [address] [place] [address] Dr. Naina Suarez FSHon 02-02-2022 FSH 8.6 mIU/mL Normal [facility] Comment on above: Result Comment: Adul t Female: Follicular phase 3.5 - 12.5 Ovulation phase 4.7 - 21.5 Luteal phase 1.7 - 7.7 Postmenopausal 25.8 - 134.8 Performed By: #### L BCFSH #### [facility] [address] [place] [address] Dr. Naina Suarez CBC AUTO DIFFon 02-01-2022 BASO # 0.1 103/ul Normal 0.0-0.1 [facility] Comment on above: Performed By: #### C BC #### [facility] [address] [place] [address] Dr. Naina Suarez Basophils/100 WBC (Bld) 0.6 % Normal 0.2-2.0 [facility] Comment on above: Performed By: #### C BC #### [facility] [address] [place] [address] Dr. Naina Suarez EO # 0.2 103/ul Normal 0.0-0.7 [facility] Comment on above: Performed By: #### C BC #### [facility] [address] [place] [address] Dr. Naina Suarez Eosinophils/100 WBC (Bld) 2.1 % Normal 0.9-7.0 [facility] Comment on above: Performed By: #### C BC #### [facility] [address] [place] [address] Dr. Naina Suarez Erythrocyte distribution width (RBC) [Ratio] 13.3 % Normal 11.0-15.0 [facility] Comment on above: Performed By: #### C BC #### [facility] [address] [place] [address] Dr. Naina Suarez Hematocrit (Bld) [Volume fraction] 44.4 % Normal 36.0-48.0 [facility] Comment on above: Performed By: #### C BC #### [facility] [address] [place] [address] Dr. Naina Suarez Hemoglobin (Bld) [Mass/Vol] 14.8 g/dL Normal 12.0-16.0 [facility] Comment on above: Performed By: #### C BC #### [facility] [address] [place] [address] Dr. Naina Suarez IG # 0.02 10e3/ul Normal 0.00-0.03 [facility] Comment on above: Performed By: #### C BC #### [facility] [address] [place] [address] Dr. Naina Suarez IG % 0.2 % Normal 0.0-0.5 [facility] Comment on above: Performed By: #### C BC #### [facility] [address] [place] [address] Dr. Naina Suarez LYMPH # 2.2 103/ul Normal 1.2-3.8 [facility] Comment on above: Performed By: #### C BC #### [facility] [address] [place] [address] Dr. Naina Suarez Lymphocytes/100 WBC (Bld) 26.2 % Normal 20.5-60.0 [facility] Comment on above: Performed By: #### C BC #### [facility] [address] [place] [address] Dr. Naina Suarez MANUAL DIFF REQ NO Normal [facility] Comment on above: Performed By: #### C BC #### [facility] [address] [place] [address] Dr. Naina Suarez MCH (RBC) [Entitic mass] 29.2 pg Normal 26.7-34.0 [facility] Comment on above: Performed By: #### C BC #### [facility] [address] [place] [address] Dr. Naina Suarez MCHC (RBC) [Mass/Vol] 33.3 g/dL Normal 29.9-35.2 [facility] Comment on above: Performed By: #### C BC #### [facility] [address] [place] [address] Dr. Niana Suarez MCV (RBC) [Entitic vol] 87.7 fL Normal 81.0-99.0 [facility] Comment on above: Performed By: #### C BC #### [facility] [address] [place] [address] Dr. Naina Suarez MONO # 0.5 103/ul Normal 0.3-0.8 [facility] Comment on above: Performed By: #### C BC #### [facility] [address] [place] [address] Dr. Naina Suarez Monocytes/100 WBC (Bld) 5.6 % Normal 1.7-12.0 [facility] Comment on above: Performed By: #### C BC #### [facility] [address] [place] [address] Dr. Naina Suarez NEUT # 5.4 103/ul Normal 1.4-6.5 [facility] Comment on above: Performed By: #### C BC #### [facility] [address] [place] [address] Dr. Naina Suarez Neutrophils/100 WBC (Bld) 65.3 % Normal 43.0-75.0 [facility] Comment on above: Performed By: #### C BC #### [facility] [address] [place] [address] Dr. Naina Suarez Platelet mean volume (Bld) [Entitic vol] 9.4 fL Critically low 9.5-13.5 [facility] Comment on above: Performed By: #### C BC #### [facility] [address] [place] [address] Dr. Naina Suarez PLT 295 103/ul Normal 150-450 [facility] Comment on above: Performed By: #### C BC #### [facility] [address] [place] [address] Dr. Naina Suarez RBC 5.06 106/ul Normal 4.20-5.40 [facility] Comment on above: Performed By: #### C BC #### [facility] [address] [place] [address] Dr. Naina Suarez WBC 8.3 103/ul Normal 4.0-11.0 [facility] Comment on above: Performed By: #### C BC #### [facility] [address] [place] [address] Dr. Naina Suarez PROF 14(COMP METB)on 022 Albumin [Mass/Vol] 3.8 g/dL Normal 3.4-5.0 [facility] Comment on above: Performed By: #### T SH, CMP, T4 #### [facility] [address] [place] [address] Dr. Naina Suarez Albumin/Globulin [Mass ratio] 1.0 {ratio} Normal [facility] Comment on above: Performed By: #### T SH, CMP, T4 #### [facility] [address] [address] [address] Naina Suarez ALP [Catalytic activity/Vol] 101 U/L Normal 46-116 [facility] Comment on above: Performed By: #### T SH, CMP, T4 #### [facility] [address] [place] [address] Dr. Naina Suarez ALT [Catalytic activity/Vol] 23 U/L Normal 14-59 [facility] Comment on above: Performed By: #### T SH, CMP, T4 #### [facility] [address] [place] [address] Dr. Naina Suarez Anion gap [Moles/Vol] 12.4 mmol/L Normal [facility] Comment on above: Performed By: #### T SH, CMP, T4 #### [facility] [address] [place] [address] Dr. Naina Suarez AST [Catalytic activity/Vol] 17 U/L Normal 15-37 [facility] Comment on above: Performed By: #### T SH, CMP, T4 #### [facility] [address] [place] [address] Dr. Naina Suarez Bilirubin [Mass/Vol] 0.3 mg/dL Normal 0.2-1.0 [facility] Comment on above: Performed By: #### T SH, CMP, T4 #### [facility] [address] [place] [address] Dr. Naina Suarez Calcium [Mass/Vol] 9.1 mg/dL Normal 8.5-10.1 [facility] Comment on above: Performed By: #### T SH, CMP, T4 #### [facility] [address] [place] [address] Dr. Naina Suarez Chloride [Moles/Vol] 104 mmol/L Normal 98-107 [facility] Comment on above: Performed By: #### T TOÑITO CMP, T4 #### [facility] [address] [place] [address] Dr. Naina Suarez CO2 [Moles/Vol] 27.6 mmol/L Normal 21.0-32.0 [facility] Comment on above: Performed By: #### T SH, CMP, T4 #### [facility] [address] [address] [address] Naina Suarez Creatinine [Mass/Vol] 0.83 mg/dL Normal 0.55-1.02 [facility] Comment on above: Performed By: #### T TOÑITO CMP, T4 #### [facility] [address] [place] [address] Dr. Naina Suarez EGFR-AF NORWEGIAN >60 Normal >=60 [facility] Comment on above: Performed By: #### T TOÑITO CMP, T4 #### [facility] [address] [place] [address] Dr. Naina Suarez EGFR-NON AF NORWEGIAN >60 Normal >=60 [facility] Comment on above: Performed By: #### T TOÑITO CMP, T4 #### [facility] [address] [place] [address] Dr. Naina Suarez Globulin (S) [Mass/Vol] 3.9 g/dL Normal [facility] Comment on above: Performed By: #### T TOÑITO CMP, T4 #### [facility] [address] [place] [address] Dr. Naina Suarez Glucose [Mass/Vol] 102 mg/dL Normal 74-106 [facility] Comment on above: Performed By: #### T TOÑITO CMP, T4 #### [facility] [address] [place] [address] Dr. Naina Suarez Potassium [Moles/Vol] 4.0 mmol/L Normal 3.5-5.1 [facility] Comment on above: Performed By: #### T SH, CMP, T4 #### [facility] [address] [place] [address] Dr. Naina Suarez Protein [Mass/Vol] 7.7 g/dL Normal 6.4-8.2 [facility] Comment on above: Performed By: #### T TOÑITO CMP, T4 #### [facility] [address] [place] [address] Dr. Naina Suarez Sodium [Moles/Vol] 140 mmol/L Normal 136-145 [facility] Comment on above: Performed By: #### T TOÑITO CMP, T4 #### [facility] [address] [place] [address] Dr. Naina Suarez Urea nitrogen [Mass/Vol] 9.0 mg/dL Normal 7.0-18.0 [facility] Comment on above: Performed By: #### T TOÑITO CMP, T4 #### [facility] [address] [place] [address] Dr. Naina Suarez Urea nitrogen/Creatinine [Mass ratio] 10.8 mg/mg Normal [facility] Comment on above: Performed By: #### T TOÑITO CMP, T4 #### [facility] [address] [place] [address] Dr. Naina Suarez T4on 02-01-2022 T4 [Mass/Vol] 8.60 ug/dL Normal 4.80-13.90 [facility] Comment on above: Performed By: #### T TOÑITO CMP, T4 #### [facility] [address] [place] [address] Dr. Naina Suarez TSHon 02-01-2022 TSH 3.083 uIU/mL Normal 0.358-3.740 [facility] Comment on above: Performed By: #### T TOÑITO CMP, T4 #### [facility] [address] [place] [address] Dr. Naina Suarez Vital Signs Date Time Vital Sign Value Performing Clinician Facility 07-23-2023 14:14-0500 Body height 165.1 cm Mel HOWELL Work Phone: [facility] 07-23-2023 14:14-0500 Body mass index (BMI) [Ratio] 24.79 kg/m2 Mel HOWELL Work Phone: [facility] 07-23-2023 14:14-0500 Body weight 67.59 kg Mel [employer]ting SALES SUPERINTENDENT-TRANSPORTATION SECURITY SCREENER Work Phone: [facility] 07-23-2023 14:14-0500 Diastolic blood pressure 82 mm[Hg] [employer] SALES SUPERINTENDENT-TRANSPORTATION SECURITY SCREENER Work Phone: [facility] 07-23-2023 14:14-0500 Heart rate 68 /min Mel [employer] SALES SUPERINTENDENT-TRANSPORTATION SECURITY SCREENER Work Phone: [facility] 07-23-2023 14:14-0500 Systolic blood pressure 102 mm[Hg] Mle [employer]ting SALES SUPERINTENDENT-TRANSPORTATION SECURITY SCREENER Work Phone: [facility] 05-16-2023 14:45-0400 Diastolic blood pressure 78 mm[Hg] PA-C Estefania Jin Work Phone: [facility] 05-16-2023 14:45-0400 Heart rate 60 /min PA-C Estefania Jin Work Phone: [facility] 05-16-2023 14:45-0400 Respiratory rate 20 /min PA-C Estefania Jin Work Phone: [facility] 05-16-2023 14:45-0400 SaO2% (BldA) [Mass fraction] 100 % PA-Larissa Jin Work Phone: [facility] 05-16-2023 14:45-0400 Systolic blood pressure 126 mm[Hg] PA-C Estefania Jin Work Phone: [facility] 05-16-2023 11:54-0400 Body height 167.64 cm PA-C Estefania Jin Work Phone: [facility] 05-16-2023 11:54-0400 Body temperature 98.3 [degF] PA-C Estefania Jin Work Phone: [facility] 05-16-2023 11:54-0400 Body weight 67 kg MAKEDA Jin Work Phone: [facility] 04-02-2023 14:14-0400 Body temperature 97.3 [degF] DO Enoc House Work Phone: [facility] 04-02-2023 14:14-0400 Body weight 66.22 kg DO Enoc House Work Phone: [facility] 04-02-2023 14:14-0400 Diastolic blood pressure 77 mm[Hg] DO Enoc House Work Phone: [facility] 04-02-2023 14:14-0400 Heart rate 63 /min DO Enoc House Work Phone: [facility] 04-02-2023 14:14-0400 Respiratory rate 16 /min DO Enoc House Work Phone: [facility] 04-02-2023 14:14-0400 SaO2% (BldA) [Mass fraction] 100 % DO Enoc House Work Phone: [facility] 04-02-2023 14:14-0400 Systolic blood pressure 113 mm[Hg] DO Enoc House Work Phone: [facility] 02-01-2023 14:12-0400 Body height 167.59 cm DO Enoc House Work Phone: [facility] 02-01-2023 09:18-0400 Body temperature 98.3 [degF] DO Enoc House Work Phone: [facility] 02-01-2023 09:18-0400 Body weight 67.13 kg DO Enoc House Work Phone: [facility] 02-01-2023 09:18-0400 Diastolic blood pressure 52 mm[Hg] DO Enoc House Work Phone: [facility] 02-01-2023 09:18-0400 Heart rate 66 /min DO Enoc House Work Phone: [facility] 02-01-2023 09:18-0400 Respiratory rate 16 /min DO Enoc Cardenas Work Phone: [facility] 02-01-2023 09:18-0400 Systolic blood pressure 149 mm[Hg] DO [facility] Work Phone: [facility] 01-07-2023 13:19-0400 SaO2% (BldA) [Mass fraction] 100 % DO [facility] Work Phone: [facility] Encounters Encounter Date Encounter Type Care Provider Facility Start: 09-02-2023 End: 09-02[facility] Start: 09-02-2023 End: 09-02-2023 ambulatory PHYSICIAN NO [facility] Work Phone: Start: 09-02-2023 End: 09-02-2023 Patient encounter procedure PHYSICIAN NO [facility]-Pacemaker Check Start: 07-23-2023 End: 07-23-2023 ambulatory [facility] Amb[facility] Start: 07-23-2023 End: 07-23-2023 Office outpatient visit 15 minutes [facility] SALES SUPERINTENDENT-TRANSPORTATION SECURITY SCREENER Work Phone: [facility] Comment on above: Essential hypertensi on (Primary Dx); Cryptogenic stroke (CMS/HCC); Implantable loop recorder present; Mixed hyperlipidemia; BMI 24.0-24.9, adult Start: 07-22-2023 Telephone encounter Claudette Springer RN [facility] Start: 05-23-2023 End: 05-23-2023 ambulatory [facility] Ambulatory Start: 05-16-2023 End: 05-16-2023 ambulatory Bill Pino Facility:[facility] Start: 05-16-2023 End: 05-16-2023 Admission to same day surgery center MAKEDA Jin Work Phone: [facility] Coordinator Work Phone: Start: 05-16-2023 End: 05-16-2023 ambulatory MAKEDA Jin Work Phone: [facility] Work Phone: Start: 05-14-2023 End: 05-14-2023 ambulatory Bill Pino Facility:[facility] Start: 05-14-2023 End: 05-14-2023 ambulatory MAKEDA Jin Work Phone: [facility] Work Phone: Start: 05-14-2023 End: 05-14-2023 Patient encounter procedure MAKEDA Jin Work Phone: [facility] [employer] Work Phone: Start: 04-30-2023 ambulatory Racheal Fernandez Facility:[facility] Start: 04-30-2023 Registered Recurring MAKEDA Jin Work Phone: [facility] Work Phone: Start: 04-02-2023 End: 04-02-2023 ambulatory DO Enoc Cardenas Work Phone: [facility] Work Phone: Start: 04-02-2023 End: 04-02-2023 Registered Recurring DO Enoc House Work Phone: [facility] Work Phone: Start: 02-08-2023 End: 02-08-2023 ambulatory DO Enoc House Work Phone: [facility] Work Phone: Start: 02-08-2023 End: 02-08-2023 Registered Recurring DO Enoc House Work Phone: [facility] Work Phone: Start: 07-31-2022 End: 08-24-[address] ENOC CARDENAS Facility:[facility] Start: 07-15-2022 End: 07-15-[address] AYDEN HASTINGS . Facility:[facility] Start: 02-01-2022 End: 02-02-[address] ENOC CARDENAS Facility:[facility] Procedures Date Procedure Procedure Detail Performing Clinician Start: 07-23-2023 FOLLOW UP IN CARDIOLOGY BILL PINO Start: 05-23-2023 FOLLOW UP IN CARDIOLOGY BILL PINO Start: 05-16-2023 CL LOOP Insert of Ev ent Recorder MAKEDA Jin Work Phone: Start: 05-14-2023 Plain chest X-ray MAKEDA Jin Work Phone: Start: 03-04-2023 Adult depression screening assessment Claudette Springer RN Plan of Treatment Date Care Activity Detail Author Start: 2025 Zoster Vaccines (1 of 2) Zoste r Vaccines (1 of 2) [facility] Start: 04-22-2024 End: 04-22-2024 Patient encounter procedure 04/22/2024 1:20 PM EDT Office Visit [facility] [address] [place] [id number] Bill Pino MD [address] [place] [address] [facility] Start: 03-04-2024 Adult BMI Screening Adult BMI Screen ing [facility] Start: 03-04-2024 Depression Screening Depression Scre ening [facility] Start: 03-04-2024 Tobacco Screening Tobacco Screening [facility] Start: 05-16-2023 [facility] Start: 03-15-2023 COVID-19 Vaccine () COVID-19 Vaccine () [facility] Start: 03-15-2023 Influenza vaccination [facility] Start: 02-01-2023 [facility] Start: 03-02-2021 COVID-19 Vaccine (3 - Pfizer series) COVID-19 Vaccine (3 - Pfizer series) [facility] Start: 2015 Screening for malign ant neoplasm of breast Mammogram [facility] Start: 1997 DTaP/Tdap/Td Vaccine s (1 - Tdap) DTaP/Tdap/Td Vaccines (1 - Tdap) [facility] Start: 1996 Screening for malign ant neoplasm of cervix [facility] Start: 1994 DTaP,Tdap and Td Vaccines (1 - Tdap) DTaP,Tdap and Td Vaccines (1 - Tdap) [facility] [employer] [facility] Start: 1993 Hepatitis C screening Hepatitis C Sc [facility] Start: 1976 MMR Vaccines (1 of 1 - Standard series) MMR Vaccines (1 of 1 - Standard series) [facility] Start: 1975 Hepatitis B Vaccines (1 of 3 - 3-dose series) Hepatitis B Vaccines (1 of 3 - 3-dose series) [facility] Start: 1975 HIV screening HIV Screening [facility] Start: 1975 Lipid panel Lipid Panel [facility] Start: 1975 Screening for malign ant neoplasm of colon [facility] Start: 1975 Tobacco Counseling Tobacco Counselin g [facility] Start: 1975 Yearly Adult Physical Yearly Adult P hysical [facility] Albumin [Mass/volume ] in Serum or Plasma [facility] Albumin/Globulin ratio [facility] Electrophoresis: [id number] [facility] Electrophoresis: [id number] [facility] Electrophoresis: beta-globulin [facility] Electrophoresis: joel ma globulin [facility] Globulin [Mass/volum e] in Serum [facility] Homocysteine [Moles/volume] in Serum or Plasma [facility] Protein [Mass/volume ] in Serum or Plasma [facility] Immunizations Immunization Date Immunization Notes Care Provider Bob pritchard 01-05-2021 COVID-19 mRNA, Comirnaty (NXE) MAKEDA Jin Work Phone: [facility] 12-15-2020 COVID-19 mRNA, Comirnaty (NXE) MAKEDA Jin Work Phone: [facility] Payers Date Payer Category Payer Unknown [id number] 2022 Self-pay 2021 Unknown [id number] 1975 Unknown [id number] 2.16.84 [id number] 1975 Unknown [id number] 2.16.84 [id number] 1975 Unknown [id number] 2.16.84 [id number] 1975 Unknown [id number] 2.16.84 [id number] 1975 Unknown [id number] 2.16.8 [id number] 1975 Unknown [id number] 2.16.8 [id number] 1959 Unknown [id number] Unknown [id number] 2.16.8 [id number] Unknown [id number] 2.16.8 [id number] Unknown [id number] 2.16.8 [id number] Unknown [id number] 2.16.8 [id number] Social History Date Type Detail Facility Start: 01-07-2023 End: 04-02-2023 Tobacco smoking status UTIS Smoker (finding) [facility] Start: 1975 Sex Assigned At Female F [facility] Start: 05-14-2023 End: 05-16-2023 Tobacco smoking status UTIS Ex-smoker (finding) [facility] End: 03-15-2023 History of tobacco use Cigarette Smoker [facility] Work Phone: Start: 07-16-2022 End: 04-30-2023 Tobacco use and exposure Smokeless tobacco non-user [facility] Work Phone: Start: 07-23-2023 Alcohol intake Lifetime non-d cherelle (finding) [facility] Work Phone: Start: 07-18-2022 End: 07-23-2023 History of Social function [facility] Work Phone: Start: 07-18-2022 End: 07-23-2023 Tobacco use panel [facility] Work Phone: Start: 1975 Sex Assigned At Not on file [facility] Work Phone: Start: 2023 End: 07-23-2023 Exposure to SARS-CoV-2 (event) Not sure [facility] Start: 07-16-2022 Tobacco smoking stat us [facility] Start: 03-04-2023 Alcohol intake Ex-drinker (finding) [facility] Adolescent depressio n screening assessment 9 [facility] [employer] [facility] Start: 07-16-2022 Alcohol Comment social [facility] [employer] [facility] Medical Equipment Procedure Code Equipment Code Equipment Origin al Text Equipment Identifier Dates CL LOOP RECORDER ASSERT-IQ EL+ FDA Start: 05-16-2023 Goals Date Patient Goal Desired Activity /State Clinical Notes 01-07-2023 to 07-24-2023 Assessment & Plan Note - LYNDA Martino - 07/24/2023 1:17 PM ESTAssessment & Plan Note - LYNDA Martino - 07/24/2023 1:17 PM ESTPatient Instructions Note Date & Type Note Facility 07-24-2023 Evaluation + Plan note Associated Problem(s): Cardiac and Vasculature Apr [address] Pino She is an individual who in July 2022 suffered a stroke. Review of MRI demonstrates ischemic injury in the lateral right thalamus, posterior limb right internal capsule, inferior medial right posterior temporal lobe, and occipital lobes. This would suggest an embolic event and she underwent thorough evaluation. Specifically she had echocardiography and transesophageal echocardiography with contrast demonstrating no evidence of atrial or ventricular shunting through PFO or ASD or VSD. She also underwent cerebral angiography, CT scan and MRI. No identifiable cause of her stroke. She was seen also in consultation by hematology. They found no findings to explain a prothrombotic state. May 2022 TTE LVEF 60 to 65% No prior ischemic evaluation No documented arrhythmia to date [facility] Work Phone: 07-24-2023 Evaluation + Plan note Associated Problem(s): Implantable loop recorder present May 16, 2023 uneventful implant implantable loop recorder. July 17, 2022 device interrogation no evidence of atrial fibrillation [facility] Work Phone: 07-24-2023 Miscellaneous Notes Associated Problem(s): Cardiac and Vasculature Apr [address] Pino She is an individual who in July 2022 suffered a stroke. Review of MRI demonstrates ischemic injury in the lateral right thalamus, posterior limb right internal capsule, inferior medial right posterior temporal lobe, and occipital lobes. This would suggest an embolic event and she underwent thorough evaluation. Specifically she had echocardiography and transesophageal echocardiography with contrast demonstrating no evidence of atrial or ventricular shunting through PFO or ASD or VSD. She also underwent cerebral angiography, CT scan and MRI. No identifiable cause of her stroke. She was seen also in consultation by hematology. They found no findings to explain a prothrombotic state. May 2022 TTE LVEF 60 to 65% No prior ischemic evaluation No documented arrhythmia to date Associated Problem(s): Implantable loop recorder present May 16, 2023 uneventful implant implantable loop recorder. July 17, 2022 device interrogation no evidence of atrial fibrillation Associated Problem(s): Mixed hyperlipidemia Moderate intensity statin She has a new PCP and will be obtaining annual wellness labs in the near future Associated Problem(s): Essential hypertension Optimal in office documented in this encounter [facility] Work Phone: 07-24-2023 Evaluation + Plan note Associated Problem(s): Mixed hyperlipidemia Moderate intensity statin She has a new PCP and will be obtaining annual wellness labs in the near future [facility] Work Phone: 07-24-2023 Evaluation + Plan note Associated Problem(s): Essential hypertension Optimal in office [facility] Work Phone: 07-23-2023 History of Presen t illness Narrative Chief Complaint No concerns Reason for Visit Patient presents to the office today for outpatient follow-up for cardiovascular procedure follow-up. Last evaluated in clinic by Dr. Viveros April 2023 Presents today ambulatory with steady gait. Accompanied by patient Patient denies any hospitalizations or significant changes to interval medical history since last office follow-up. History of Present Illness Patient is extremely 48-year-old female who presents without active cardiovascular complaints. May 16, 2023 uneventful ILR implant. Site reviewed today and is well-healed and unremarkable. There was a device interrogation sent in last week with no evidence of atrial fibrillation. From an activity standpoint she does housework like vacuuming and mopping, is able to go to the grocery store without any type of exertional complaints. Has no stairs at home. No routine exercise. 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 She denies any type of exertional chest pain, no dyspnea on exertion. She denies any change in exercise capacity or functional tolerance. Patient reports that overall has no complaint(s) of chest pain, chest pressure/discomfort, dyspnea, exertional chest pressure/discomfort, fatigue, irregular heart beat, lower extremity edema, orthopnea, and palpitations The importance of primary prevention reviewed: HTN: Optimally treated HLD: Treated DM: Denies Smoker: Quit smoking April 2023 BMI: Reviewed the merits of healthy lifestyle choices on overall cardiovascular health. No prior ischemic evaluation. Current daily activity greater than 4 METS without concerning symptoms. Echocardiogram normal LVEF, no wall motion abnormality. Review of Systems Cardiovascular: Negative for chest pain, dyspnea on exertion, irregular heartbeat, leg swelling, near-syncope, orthopnea, palpitations, paroxysmal nocturnal dyspnea and syncope. Visit Vitals BP 102/82 (BP Location: Left arm, Patient Position: Sitting) Pulse 68 Ht 1.651 m (5' 5 ) Wt 67.6 kg (149 lb) BMI 24.79 kg/m Smoking Status Former BSA 1.76 m Physical Exam Vitals and nursing note reviewed. HENT: Head: Normocephalic. Cardiovascular: Rate and Rhythm: Normal rate and regular rhythm. Heart sounds: Normal heart sounds. Pulmonary: Effort: Pulmonary effort is normal. Breath sounds: Normal breath sounds. Abdominal: Palpations: Abdomen is soft. Musculoskeletal: Right lower leg: No edema. Left lower leg: No edema. Skin: General: Skin is warm and dry. Neurological: General: No focal deficit present. Mental Status: She is alert. Psychiatric: Mood and Affect: Mood normal. Behavior: Behavior normal. Allergies Allergen Reactions Aspirin Hives Latex Hives Current Outpatient Medications Medication Instructions atenolol (TENORMIN) 100 mg, oral, Daily atorvastatin (LIPITOR) 40 mg, oral, Daily citalopram (CELEXA) 20 mg, oral, Daily clopidogrel (PLAVIX) 75 mg, oral, Every morning cyanocobalamin (VITAMIN B-12) 1,000 mcg, Every 30 days hydroCHLOROthiazide (HYDRODIURIL) 12.5 mg, oral, Daily magnesium oxide (MAG-OX) 400 mg, oral, Daily valsartan (DIOVAN) 320 mg, oral, Daily Assessment: Essential hypertension Optimal in office Mixed hyperlipidemia Moderate intensity statin She has a new PCP and will be obtaining annual wellness labs in the near future Implantable loop recorder present May 16, 2023 uneventful implant implantable loop recorder. July 17, 2022 device interrogation no evidence of atrial fibrillation Cardiac and Vasculature Apr [address] Pino She is an individual who in July 2022 suffered a stroke. Review of MRI demonstrates ischemic injury in the lateral right thalamus, posterior limb right internal capsule, inferior medial right posterior temporal lobe, and occipital lobes. This would suggest an embolic event and she underwent thorough evaluation. Specifically she had echocardiography and transesophageal echocardiography with contrast demonstrating no evidence of atrial or ventricular shunting through PFO or ASD or VSD. She also underwent cerebral angiography, CT scan and MRI. No identifiable cause of her stroke. She was seen also in consultation by hematology. They found no findings to explain a prothrombotic state. May 2022 TTE LVEF 60 to 65% No prior ischemic evaluation No documented arrhythmia to date Plan: Through informed decision making process incorporating patients unique circumstances, the following treatment plan will be initiated: 1. Prescription drug management of cardiovascular medication for efficacy, adherence to treatment, side effect assessment and polypharmacy. Current treatment clinically warranted and to continue without modifications. 2. Return for follow-up; in the interim, contact the office if new symptoms arise. Dr. Pino 9 months Mel Painting MSN, SALES SUPERINTENDENT-TRANSPORTATION SECURITY SCREENER, PMP-[facility] Please excuse any errors in grammar or translation related to this dictation. Voice recognition software was utilized to prepare this document. documented in this encounter [facility] Work Phone: 07-23-2023 Instructions LYNDA Martino - 07/23/2023 3:00 PM EST Please bring all medicines, vitamins, and herbal supplements with you when you come to the office. Prescriptions will not be filled unless you are compliant with your follow up appointments or have a follow up appointment scheduled as per instruction of your physician. Refills should be requested at the time of your visit. PLAN: Through informed decision making process incorporating patients unique circumstances, the following treatment plan will be initiated: 1. Prescription drug management of cardiovascular medication for efficacy, adherence to treatment, side effect assessment and polypharmacy. Current treatment clinically warranted and to continue without modifications. 2. Return for follow-up; in the interim, contact the office if new symptoms arise. Dr. Pino 9 months documented in this encounter [facility] Work Phone: 07-22-2023 Miscellaneous Notes Per Aug 2023 recall, patient is due for routine follow up with [facility]. Please call to schedule appt. Called patient and her number has been disconnected Called significant other and left Vm Attempted patients significant other and no answer Going to mail a letter documented in this encounter [facility] 07-22-2023 Telephone encounter Note Per Aug 2023 recall, patient is due for routine follow up with [facility]. Please call to schedule appt. [facility] [employer] [facility] 07-22-2023 Telephone encounter Note Called patient and her number has been disconnected Called significant other and left [facility] Telephone encounter Note Attempted patients significant other and no answer [facility] to mail a [facility] Progress note Note Date/Time February 01, 2023 9:24[facility] [place] [id number] Hem/Onc Follow Up Note - OP Signed Patient: Melvina Jameson MR#: [id number] : 1975 Acct:[id number] Age/Sex: 47 / F Type: REG RCR Copies to: DO Estefania Evans PA-C~ Subjective Date/Time of Service: Date of Service: 02/01/2023 Time of Service: 09:23 Chief Complaint: Patient is here today for a 3 week follow up visit and go over labwork HPI: 02/01/2023: Melvina is here with her mother for follow-up of results of work-up for hypercoagulability. 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 Hysterectomy for endometriosis but no history of malignancy. She notes that she stopped smoking with her stroke diagnosis. She has residual left hand and arm numbness and lack of coordinationas well as slight left facial droop. No speech deficits and no significant swallow deficits (although declined speech therapy evaluation). She remains on Plavix and notes easy bruisability. She reports that she is tired with frequentlightheadedness and feels cold all the time . She did report a syncopal episode 2 days ago while working in the yard but did not report this to anyone. She reports that she did have prior work-up with echo, event monitor, and has follow-up with neurology next month. I reviewed her laboratories from [facility] showing elevated homocystine of 21. She did not have a recent CBC, iron studies, or B12/folate testing therefore these were ordered today. Hemoglobin normal at 13.5, iron saturation 30.5 with ferritin 62.4. Vitamin B12low end of normal range at 219 and folate normal at 6.9. Due to recent lightheadedness and fatigue, I recommended weekly B12 IM x8 weeks and we will reevaluate at that time to review her symptoms. Her hypercoagulability work-up by MOSES TAYLOR [facility] showed normal lupus anticoagulant testing, normal anticardiolipin and beta-2 glycoprotein testing, normal protein C antigen and activity, normal free and total protein S antigen and activity, and AntithrombinIII is still pending. Serum protein electrophoresis was ordered and not reported. Factor V Leiden and prothrombin gene mutations both returned negative. -- At this time I recommend indefinite clopidogrel with atorvastatin and antihypertensives as prescribed by neurology. We will reassess 2-month homocystine and methylmalonic acid after loading doses of B12. She will be contacted with phone visit to review her results when serum protein electrophoresis resulted to determine if further work-up in hematology is required. Moderate complexity 35-minute follow-up for complex medical testing. INITIAL CONSULT WITH EMMA HERNANDEZ: Melvina Jameson is a 47 year old female seen at the request of Estefania Jin PA-C ([facility]) regarding further evaluation of hypercoagulable condition and history of multiple miscarriages. The patient was apparently in her usual state of health until around July 14, 2022. She reportedly felt fatigued and laid down to take a nap, when she awoke at 7:00 pm she noted acute onset left sided weakness and numbness. She initially thought she pinched a nerve, but her symptoms persisted and she presented to [facility] emergency department on 07/14/2022. 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 She underwent thorough evaluation with no identifiable source; although was noted to have risk factors including: Hypertension, hyperlipidemia, smoking. She was initiated on statin therapy with Lipitor and antiplatelet therapy (Plavix). Hyper coagulable work-up was done on 07/16/2022 which was essentially negative. She has no previous history of thrombosis or malignancy. Echocardiogram was unremarkable with 65% ejection fraction; negative bubble study and negative lower extremity Doppler. 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 Presently, she is being followed by [facility] neurology every 6 months. 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 She has intentionally lost approximately 40 pounds since her stroke 6 months ago; she was previously consuming a [address] Pepper daily; she has decreased this to approximately 5-6 cans. She has reduced her nicotine use to 5cigarettes or less per day with eventual goal to completely stop smoking. She does not drink alcohol. She does use recreational edibles/Gummies at nighttime as needed to assist with sleep, as well as, anxiety/depression. She reports no significant bleeding history; she does note history of 6 early term miscarriages; all less than 12 weeks gestation. Overall, she is 6,para 1. She is now status post hysterectomy for endometriosis. She specificallydenies any issues with headaches, fever/chills, night sweats, unintentional weight loss, abdominal pain, nausea/vomiting, diarrhea/constipation, melena, hematochezia, bright red blood per rectum, skin rash, easy bruising/bleeding, orlower extremity edema. - Summary of Therapies Summary of Therapies: Vitamin B12 1 mg weekly x8 weeks--02/01/2023 ROS Details: All systems reviewed & no additional complaints except as documented Subjective/ROS - Narrative: CONSTITUTIONAL: Persistent fatigue as per HPI, negative for fever or night sweats. HEAD AND NECK: Negative for changes in hearing and vision. Negative for mouth ulcers, nasal congestion and nasal drainage. PULMONARY: Negative for chest pain, cough and dyspnea. CARDIOVASCULAR: Negative for claudication and irregular heartbeat/palpitations. Positive for lightheadedness and syncope 2 days ago. GASTROINTESTINAL: Negative for abdominal pain, constipation, decreased appetite,diarrhea, nausea or vomiting. GENITOURINARY: Negative for dysuria and hematuria. ENDOCRINE: Negative for cold intolerance and heat intolerance. CENTRAL NERVOUS SYSTEM: Negative for gait disturbance and headache. Positive for persistent abnormal coordination of left hand and left facial droop. No significant speech or swallow deficits. PSYCHIATRIC: Negative for anxiety or depression. DERMATOLOGICAL: Negative for pruritus and rash. Negative for suspicious skin lesions. MUSCULOSKELETAL: Negative for back pain and bone/joint symptoms. HEMATOLOGICAL: Negative for bleeding and easy bruising. Negative for history of transfusion or thromboembolic disease ALLERGY: Negative for environmental allergies and food allergies. PMFSH - History Attestation statement: The following information was validated with the patient. Source: Old Records Reviewed - Medical History Medical History: Medical History (Last Reviewed 02/01/23 @ 14:11 by Racheal Fernandez MD) Anxiety Depression Endometriosis History of ischemic right GREENS CUTTER stroke Hyperlipidemia Hypertension - Surgical History Surgical History: Surgical History (Last Reviewed 02/01/23 @ 14:11 by Racheal Fernandez MD) H/O hand surgery H/O: hysterectomy History of hip surgery - Family History Family History: Family History (Last Reviewed 02/01/23 @ 14:11 by Racheal Fernandez MD) Father Lung cancer Grandparent Breast cancer Mother Lupus - Social History Smoking Status: Current every day smoker Tobacco Type: cigarettes Substance Use Type: Marijuana Home Medications & Allergies Allergies aspirin Adverse Reaction (Verified 02/01/23 09:18) Swelling latex Adverse Reaction (Verified 02/01/23 09:18) Itching Home Medications atenolol 100 mg tablet 100 mg PO DAILY 01/04/23 [History Confirmed 02/01/23] atorvastatin 40 mg tablet 40 mg PO DAILY 01/04/23 [History Confirmed 02/01/23] citalopram 20 mg tablet 20 mg PO DAILY 01/04/23 [History Confirmed 02/01/23] clopidogrel 75 mg tablet 75 mg PO DAILY 01/04/23 [History Confirmed 02/01/23] hydrochlorothiazide 12.5 mg tablet 12.5 mg PO DAILY 01/04/23 [History Confirmed 02/01/23] valsartan 320 mg tablet 320 mg PO DAILY 01/04/23 [History Confirmed 02/01/23] Objective - Height/Weight Height/Weight: Weight 67.132 kg - Vital Signs Vital Signs: 02/01/23 09:18 Temperature 98.3 F Pulse Rate [Left Brachial] 66 Respiratory Rate 16 Blood Pressure [Left Arm] 149/52 H Oxygen Delivery Method Room Air Physical Exam Narrative: GENERAL: Alert, pleasant, no acute distress. ECOG PERFORMANCE STATUS: 1 PAIN: 0 out of 10 GENERAL: Well-developed well-nourished in no acute distress, fluent speech HEENT: Head is normocephalic, atraumatic. Very slight facial droop left lower face. No scleral icterus. Oral mucosa is pink and moist. No lesions or exudate. NECK: Supple without adenopathy or thyromegaly. HEART: Regular rate and rhythm. S1 and S2 normal. LUNGS: Lungs clear to auscultation bilaterally. No wheezes or crackles. ABDOMEN: Abdomen soft, nontender, nondistended. No hepatosplenomegaly. Bowel sounds present x4 quadrants. BACK:Full ROM; No CVA tenderness. EXTREMITIES: Warm and dry. No edema, clubbing or cyanosis. 4/5 muscle strength; left upper extremity - sensation intact; otherwise 5/5 muscle strength NEUROLOGICAL: No focal or sensory deficits. Patient with 4+/5 weakness in left upper extremity; reports that it feels like her hand is going to sleep ; alert and oriented x3, ambulates independently - ECOG Performance Status ECOG Score: 1 Results - Labs Labs: 02/01/2023: Hemoglobin normal at 13.5, iron saturation 30.5 with ferritin 62.4. Vitamin B12 low end of normal range at 219 and folate normal at 6.9. 01/07/2023: normal lupus anticoagulant testing, normal anticardiolipin and beta-2glycoprotein testing, normal protein C antigen and activity, normal free and total protein S antigen and activity, and Antithrombin III is still pending. Serum protein electrophoresis was ordered and not reported. Factor V Leiden andprothrombin gene mutations both returned negative. Outside Labs: 07/18/2022: White blood cells 8200, hemoglobin 15.6, hematocrit 45.7, MCV 87, platelet count 240,000 Sodium 137, potassium 3.7, BUN 9, creatinine 0.79, glucose 84, calcium 9.3 Beta-2 glycoprotein antibodies all undetectable NAY screen with reflex negative Homocystine elevated 20.91 TSH 4.14 (normal) Anticardiolipin antibodies all undetectable Dilute Everardo viper venom time negative for lupus anticoagulant Total cholesterol 197, HDL cholesterol 32, LDL 146 Hemoglobin A1c 5.0 - Impressions Outside imaging: MRI brain 07/2022: Acute ischemia involving the lateral right thalamus, punctate focus within the posterior limb right internal capsule, as well as portions of the inferior medial right posterior temporal lobe and occipital lobes [GREENS CUTTER territory] Assessment and Plan (1) Right thalamic stroke As noted above, patient underwent initial hypercoagulable work up while hospitalized at [facility] on 07/16/2022 while she was hospitalized for acute onset left sided weakness; subsequently diagnosed with a right thalamic stroke secondary to GREENS CUTTER occlusion; risk factors include: hyperlipidemia, nicotine use and hypertension. She has history of 6 early term miscarriages; she is 7, para 1. No miscarriages after 20 weeks. No significant bleeding history. Subsequent work up revealed no identifiable cause of stroke and hypercoagulable studies were negative at that time. She had no evidence of atrial fibrillation or lower extremity DVT. No previous history of venous thrombosis. ECHo was unremarkable with EF - 65%; negative bubble study and no evidence of arrhythmia on cardiac Holter monitoring. We will re-evaluate and repeat lupus anticoagulant testing, as the initial testing was done 6 months ago. She maintains Plavix and Lipitor; not taking ASA secondary to allergy. She has significantly changed her diet and has lost ~ 40 pounds (intentionally) since July 2022; she does not drink alcohol and has reduced her nicotine use; now down to smoking ~ 5 cigarettes per day. She previously consumed a 12 pack of regular soda; but has cut back to about 5-6 sodas per day. --Discussed with Dr. Fisher; Will check hypercoagulable work up to include: Lupus anticoagulant panel; factor II?prothrombin gene, factor V Leiden, protein FILM RECORDIST, PT/INR, PTT, Antithrombin III gene mutation, beta-2 glycoprotein's, anticardiolipin antibodies, quantitative immunoglobulins and SPEP. --Follow-up in approximately 3-4 weeks to review. 02/01/2022: Here for evaluation of hypercoagulability work-up. All testing for lupus anticoagulant/anticardiolipin/beta-2 glycoprotein's remain negative. Protein C, protein S, prothrombin gene mutation and factor V Leiden all returnednegative. Antithrombin III is not resulted and is still pending. Serum proteinelectrophoresis was not performed by lab and was sent for repeat testing today. --In review of prior labs at [facility], she was noted to have elevated homocystine. In addition she has persistent fatigue and had a syncopalepisode 2 days ago. I sent vitamin B12 and folate which returned with low normal range vitamin B12 at 217. Given her ongoing neurologic symptoms and fatigue I am setting up weekly B12 1 mg IM x8 weeks and we will follow-up symptoms with her at that time. We will also review serum protein electrophoresis as soon as this is resulted and consider bone marrow biopsy if clonality is identified. The patient is to continue Plavix for management of stroke and follow-up with neurology as previously scheduled in 1 month. 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 She has low normal range B12 and persistent fatigue with syncopal episode earlier this week. I am setting up weekly B12 x8 weeks to see if some of her residual fatigue and neurologic deficits improved. Reevaluate in 8 weeks. (3) Syncope Patient reported a syncopal episode 2 days ago and did not present for evaluation. I advised her that she should go to ER if she has recurrent episode. She has had an event monitor and echocardiogram during work-up for herstroke. She has evaluation with neurology within the month. I also advised keeping a symptom log with her blood pressure log to review with neurology at the time of follow-up. (4) Hypertension Qualifiers: Hypertension type: primary hypertension Qualified Code(s): I10 - Essential (primary) hypertension Still moderately hypertensive on 3 medications; follow up with PCP to address any changes in medication/as needed. I advised keeping home blood pressure log due to syncope earlier this week. We will readdress after B12 repletion noted above. (5) Hyperlipidemia Moderately elevated LDL; low HDL. Maintain statin therapy, as well as, anti platelet therapy with Plavix under the direction of neurology. (6) History of miscarriage 6, para 1; history of 6 early term miscarriages; all <20 weeks gestation. Hypercoagulable work-up was negative for antiphospholipid antibody syndrome. Patient is now status post hysterectomy for endometriosis. - Time with Patient Time Spent with Patient (Follow Up Visit): 35 minutes - Moderate complexity visit for follow-up complex medical testing Coordination of Care & Counseling Time: Greater than 50% of time spent with patient was for coordination of care (as documented) and [id number] counseling of patient and/or family. Dictated By: Racheal Fernandez MD DD/ 0923 Signed By: <Electronically signed by MD Racheal Fernandez> 02/01/23 1430 [facility] Work Phone: [phone] 543-193906-26-2023 Consult note Author Lian Hernandez [facility] January 07, 2023 4:17pm Note Date/Time January 07, 2023 2:34 pm [facility] at [address] [address] Hem/Onc Consult Note - OP Signed Patient: Melvina Jameson MR#: [id number] : 1975 Acct:[id number] Age/Sex: 47 / F Type: REG RCR Copies to: DO Estefania Evans PA-C~ HPI Date/Time of Service: Date of Service: 01/07/2023 Time of Service: 14:33 Referring Provider/PCP: Referring Provider: Estefania Jin PA-C PCP: Enoc Cardenas DO - History of Present Illness Reason for Consultation: 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 The patient was apparently in her usual state of health until around July 14, 2022. She reportedly felt fatigued and laid down to take a nap, when she awoke at 7:00 pm she noted acute onset left sided weakness and numbness. She initially thought she pinched a nerve, but her symptoms persisted and she presented to [facility] emergency department on 07/14/2022. 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 She underwent thorough evaluation with no identifiable source; although was noted to have risk factors including: Hypertension, hyperlipidemia, smoking. She was initiated on statin therapy with Lipitor and antiplatelet therapy (Plavix). Hyper coagulable work-up was done on 07/16/2022 which was essentially negative. She has no previous history of thrombosis or malignancy. Echocardiogram was unremarkable with 65% ejection fraction; negative bubble study and negative lower extremity Doppler. 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 Presently, she is being followed by [facility] neurology every 6 months. 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 She has intentionally lost approximately 40 pounds since her stroke 6 months ago; she was previously consuming a [address] daily; she has decreased this to approximately 5-6 cans. She has reduced her nicotine use to 5cigarettes or less per day with eventual goal to completely stop smoking. She does not drink alcohol. She does use recreational edibles/Gummies at nighttime as needed to assist with sleep, as well as, anxiety/depression. She reports no significant bleeding history; she does note history of 6 early term miscarriages; all less than 12 weeks gestation. Overall, she is 7,para 1. She is now status post hysterectomy for endometriosis. She specificallydenies any issues with headaches, fever/chills, night sweats, unintentional weight loss, abdominal pain, nausea/vomiting, diarrhea/constipation, melena, hematochezia, bright red blood per rectum, skin rash, easy bruising/bleeding, orlower extremity edema. [facility] - Medical History Medical History: Medical History (Last Reviewed 01/07/23 @ 13:13 by Cindy Zacarias) Anxiety Depression Endometriosis History of ischemic right GREENS CUTTER stroke Hyperlipidemia Hypertension - Surgical History Surgical History: Surgical History (Last Reviewed 01/07/23 @ 13:13 by Cindy Zacarias) H/O hand surgery H/O: hysterectomy History of hip surgery - Family History Family History: Family History (Last Updated 01/07/23 @ 13:14 by Cindy Zacarias) Father Lung cancer Grandparent Breast cancer Mother Lupus - Social History Smoking Status: Current every day smoker Tobacco Type: cigarettes Substance Use Type: Marijuana Home Medications & Allergies Allergies aspirin Adverse Reaction (Verified 01/07/23 13:11) Swelling latex Adverse Reaction (Verified 01/07/23 13:11) Itching Home Medications atenolol 100 mg tablet 100 mg PO DAILY 01/04/23 [History Confirmed 01/07/23] atorvastatin 40 mg tablet 40 mg PO DAILY 01/04/23 [History Confirmed 01/07/23] citalopram 20 mg tablet 20 mg PO DAILY 01/04/23 [History Confirmed 01/07/23] clopidogrel 75 mg tablet 75 mg PO DAILY 01/04/23 [History Confirmed 01/07/23] hydrochlorothiazide 12.5 mg tablet 12.5 mg PO DAILY 01/04/23 [History Confirmed 01/07/23] valsartan 320 mg tablet 320 mg PO DAILY 01/04/23 [History Confirmed 01/07/23] Subjective Data - Diagnosis DIAGNOSIS: 1.) Right thalamic stroke 2.) History of miscarriage Subjective/ROS - Narrative: As per the HPI, otherwise 10 point review of systems is negative. Objective - Resuscitation Status Resuscitation Status: Full Code - Height/Weight Height/Weight: Weight 68.492 kg - Vital Signs Vital Signs: 01/07/23 13:19 Temperature 97.8 F Pulse Rate [Left Brachial] 78 Respiratory Rate 16 Blood Pressure [Left Arm] 119/82 02 Sat by Pulse Oximetry 100 Oxygen Delivery Method Room Air Physical Exam Narrative: PHYSICAL EXAMINATION: GENERAL: [Alert, pleasant, no acute distress.] PAIN: [0 ] out of 10[ ] ECOG PERFORMANCE STATUS: [0 ] HEENT: [Head is normocephalic, atraumatic. No scleral icterus. Oral mucosa is pink and moist. No lesions or exudate.] NECK: [Supple without adenopathy or thyromegaly.] HEART: [Regular rate and rhythm. S1 and S2 normal.] LUNGS: [Lungs clear to auscultation bilaterally. No wheezes or crackles.] ABDOMEN: [Abdomen soft, nontender, nondistended. No hepatosplenomegaly. Bowel sounds present x4 quadrants.] BACK: [Full ROM; No CVA tenderness.] EXTREMITIES: [Warm and dry. No edema, clubbing or cyanosis. 4/5 muscle strength; left upper extremity - sensation intact; otherwise 5/5 muscle strength] NEUROLOGICAL: [No focal or sensory deficits. Patient with 4/5/ weakness in left upper extremity; reports that it feels like her hand is going to sleep ; alert and oriented x3] - ECOG Performance Status ECOG Score: 0 Assessment and Plan (1) Right thalamic stroke As noted above, patient underwent initial hypercoagulable work up while hospitalized at [facility] on 07/16/2022 while she was hospitalized for acute onset left sided weakness; subsequently diagnosed with a right thalamic stroke secondary to GREENS CUTTER occlusion; risk factors include: hyperlipidemia, nicotine use and hypertension. She has history of 6 early term miscarriages; she is 7, para 1. No miscarriages after 20 weeks. No significant bleeding history. Subsequent work up revealed no identifiable cause of stroke and hypercoagulable studies were negative at that time. She had no evidence of atrial fibrillation or lower extremity DVT. No previous history of venous thrombosis. ECHo was unremarkable with EF - 65%; negative bubble study and no evidence of arrhythmia on cardiac Holter monitoring. We will re-evaluate and repeat lupus anticoagulant testing, as the initial testing was done 6 months ago. She maintains Plavix and Lipitor; not taking ASA secondary to allergy. She has significantly changed her diet and has lost ~ 40 pounds (intentionally) since July 2022; she does not drink alcohol and has reduced her nicotine use; now down to smoking ~ 5 cigarettes per day. She previously consumed a 12 pack of regular soda; but has cut back to about 5-6 sodas per day. Discussed with Dr. Fisher; Will check hypercoagulable work up to include: Lupus anticoagulant panel; factor II?prothrombin gene, factor V Leiden, protein FILM RECORDIST, PT/INR, PTT, Antithrombin III gene mutation, beta-2 glycoprotein's, anticardiolipin antibodies, quantitative immunoglobulins and SPEP. Follow-up in approximately 3-4 weeks to review. (2) Hypertension Recently under control; follow up with PCP to address any changes in medication/as needed. (3) Hyperlipidemia Moderately elevated LDL; low HDL. Maintain statin therapy, as well as, anti platelet therapy with Plavix under the direction of neurology. (4) History of miscarriage 7, para 1; history of 6 early term miscarriages; all <20 weeks gestation. Patient is now status post hysterectomy for endometriosis. - Time with Patient Coordination of Care & Counseling Time: Greater than 50% of time spent with patient was for coordination of care (as documented) and [id number] counseling of patient and/or family. 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 Syncope acute History of miscarriage chron ic Hyperlipidemia chronic Hypertension chronic Right thalamic stroke chroni c [facility] Work Phone: Evaluation note* Diagnosis Essential hypertension- Primary Unspecified essential hypertension Cryptogenic stroke (CMS/HCC) Implantable loop recorder present Mixed hyperlipidemia BMI 24.0-24.9, adult documented in this encounter [facility] Work Phone: Evaluation noteNo assessment information available [facility] Work Phone: Hospital Discharge instructions Additional Instructions DISCHARGE INSTRUCTIONS FOR Loop Recorder INSTRUCTIONS 1. Incision should be kept clean and dry. Please notify us if the site becomes red, swollen, develops drainage, or if you begin having a fever or chills before your 1 week appointment. 2. May shower- avoid running water directly on your incision. 3. Do NOT stop antibiotics. If you have problems with them, please call. 4. Call with any symptoms of dizziness, lightheadedness, or passing out. 5. You may use the involved arm but you must avoid reaching backwards with the involved arm for [address] your loop recorder card in your wallet/purse to carry with you at all times. 7. You may resume driving. 8. Continue all your home medications and the prescribed antibiotics per the medication reconciliation form. APPOINTMENT: 1. Office visit with nurse for incision check in the [facility] Office on 05/23/2023 at 10:30am. 2. Pacemaker/ICD clinic appointment at [facility] on 08/07/2023 at 9:00am. 3. Office visit with Mel Painting NP at the [facility] Office on 08/12/2023 at 10:30am . [][facility] Work Phone: InstructionsNot on filedocumented in this encounter [facility] SystemProgress note Author Reina Goss [facility] April 02, 2023 2:53pm Note Date/Time April 02, 2023 2:20pm [facility] at [address] [address] Hem/Onc Follow Up Note - OP Signed Patient: Melvina Jameson MR#: [id number] : 1975 Acct:[id number] Age/Sex: 47 / F Type: REG RCR Copies to: DO Estefania Evans PA-C~ Subjective Date/Time of Service: Date of Service: 04/02/2023 Time of Service: 14:19 Chief Complaint: Patient is here today for a 6 week follow up visit for neuromyelopathy d/t Vitamin B12 deficiency HPI: 04/02/2023: Melvina presents for follow-up for her B12 deficiency. She feels better overall, but still has some issues that neurology is working up, as well as continued numbness/tingling in her left arm. She does note sitting/looking ather computer all day for work and discussed getting further work-up and evaluation of her neck and back. She is to get a loop recorder placed soon, and has started taking magnesium for her headaches. She has some stomach cramping with this, but otherwise tolerating ok. Her MMA is reviewed today and WNL. Giventhis, she may initiate monthly B12 injections thru primary care and follow-up with us as needed. 02/01/2023: Melvina is here with her mother for follow-up of results of work-up for hypercoagulability. 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 Hysterectomy for endometriosis but no history of malignancy. She notes that she stopped smoking with her stroke diagnosis. She has residual left hand and arm numbness and lack of coordinationas well as slight left facial droop. No speech deficits and no significant swallow deficits (although declined speech therapy evaluation). She remains on Plavix and notes easy bruisability. She reports that she is tired with frequentlightheadedness and feels cold all the time . She did report a syncopal episode 2 days ago while working in the yard but did not report this to anyone. She reports that she did have prior work-up with echo, event monitor, and has follow-up with neurology next month. I reviewed her laboratories from [facility] showing elevated homocystine of 21. She did not have a recent CBC, iron studies, or B12/folate testing therefore these were ordered today. Hemoglobin normal at 13.5, iron saturation 30.5 with ferritin 62.4. Vitamin B12low end of normal range at 219 and folate normal at 6.9. Due to recent lightheadedness and fatigue, I recommended weekly B12 IM x8 weeks and we will reevaluate at that time to review her symptoms. Her hypercoagulability work-up by [facility] showed normal lupus anticoagulant testing, normal anticardiolipin and beta-2 glycoprotein testing, normal protein C antigen and activity, normal free and total protein S antigen and activity, and AntithrombinIII is still pending. Serum protein electrophoresis was ordered and not reported. Factor V Leiden and prothrombin gene mutations both returned negative. -- At this time I recommend indefinite clopidogrel with atorvastatin and antihypertensives as prescribed by neurology. We will reassess 2-month homocystine and methylmalonic acid after loading doses of B12. She will be contacted with phone visit to review her results when serum protein electrophoresis resulted to determine if further work-up in hematology is required. Moderate complexity 35-minute follow-up for complex medical testing. INITIAL CONSULT WITH EMMA HERNANDEZ: Melvina Jameson is a 47 year old female seen at the request of Estefania Jin PA-C ([facility]) regarding further evaluation of hypercoagulable condition and history of multiple miscarriages. The patient was apparently in her usual state of health until around July 14, 2022. She reportedly felt fatigued and laid down to take a nap, when she awoke at 7:00 pm she noted acute onset left sided weakness and numbness. She initially thought she pinched a nerve, but her symptoms persisted and she presented to [facility] emergency department on 07/14/2022. 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 She underwent thorough evaluation with no identifiable source; although was noted to have risk factors including: Hypertension, hyperlipidemia, smoking. She was initiated on statin therapy with Lipitor and antiplatelet therapy (Plavix). Hyper coagulable work-up was done on 07/16/2022 which was essentially negative. She has no previous history of thrombosis or malignancy. Echocardiogram was unremarkable with 65% ejection fraction; negative bubble study and negative lower extremity Doppler. 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 Presently, she is being followed by [facility] neurology every 6 months. 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 She has intentionally lost approximately 40 pounds since her stroke 6 months ago; she was previously consuming a 12 pack of DrChristine Lafleur daily; she has decreased this to approximately 5-6 cans. She has reduced her nicotine use to 5cigarettes or less per day with eventual goal to completely stop smoking. She does not drink alcohol. She does use recreational edibles/Gummies at nighttime asneeded to assist with sleep, as well as, anxiety/depression. She reports no significant bleeding history; she does note history of 6 early term miscarriages; all less than 12 weeks gestation. Overall, she is 6,para 1. She is now status post hysterectomy for endometriosis. She specificallydenies any issues with headaches, fever/chills, night sweats, unintentional weight loss, abdominal pain, nausea/vomiting, diarrhea/constipation, melena, hematochezia, bright red blood per rectum, skin rash, easy bruising/bleeding, orlower extremity edema. - Summary of Therapies Summary of Therapies: Vitamin B12 1 mg weekly x8 weeks--02/01/2023 ROS Details: All systems reviewed & no additional complaints except as documented PMFSH - Medical History Medical History: Medical History (Last Reviewed 02/01/23 @ 14:11 by Racheal Fernandez MD) Anxiety Depression Endometriosis History of ischemic right GREENS CUTTER stroke Hyperlipidemia Hypertension - Surgical History Surgical History: Surgical History (Last Reviewed 02/01/23 @ 14:11 by Racheal Fernandez MD) H/O hand surgery H/O: hysterectomy History of hip surgery - Family History Family History: Family History (Last Reviewed 02/01/23 @ 14:11 by Racheal Fernandez MD) Father Lung cancer Grandparent Breast cancer Mother Lupus - Social History Smoking Status: Current every day smoker Tobacco Type: cigarettes Substance Use Type: Marijuana Home Medications & Allergies Allergies aspirin Adverse Reaction (Verified 02/01/23 09:18) Swelling latex Adverse Reaction (Verified 02/01/23 09:18) Itching Home Medications atenolol 100 mg tablet 100 mg PO DAILY 01/04/23 [History Confirmed 04/02/23] atorvastatin 40 mg tablet 40 mg PO DAILY 01/04/23 [History Confirmed 04/02/23] citalopram 20 mg tablet 20 mg PO DAILY 01/04/23 [History Confirmed 04/02/23] clopidogrel 75 mg tablet 75 mg PO DAILY 01/04/23 [History Confirmed 04/02/23] hydrochlorothiazide 12.5 mg tablet 12.5 mg PO DAILY 01/04/23 [History Confirmed 04/02/23] valsartan 320 mg tablet 320 mg PO DAILY 01/04/23 [History Confirmed 04/02/23] magnesium oxide 400 mg PO DAILY 04/02/23 [History Confirmed 04/02/23] Objective - Height/Weight Height/Weight: Height 5 ft 5.98 in Weight 66.224 kg - Vital Signs Vital Signs: 04/02/23 14:14 Temperature 97.3 F L Pulse Rate [Left Brachial] 63 Respiratory Rate 16 Blood Pressure [Left Arm] 113/77 02 Sat by Pulse Oximetry 100 Oxygen Delivery Method Room Air Physical Exam Narrative: GENERAL: Well-developed well-nourished in no acute distress, fluent speech HEART: Regular rate and rhythm. S1 and S2 normal. LUNGS: Lungs clear to auscultation bilaterally. No wheezes or crackles. EXTREMITIES: Warm and dry. No edema, clubbing or cyanosis. Results - Labs Labs: Diagram of Most Recent CBC and CMP 02/01/23 10:50 Labs - Last 7 Days 03/27/23 16:33: Methylmalonic Acid 126 Assessment and Plan (1) Right thalamic stroke As noted above, patient underwent initial hypercoagulable work up while hospitalized at [facility] on 07/16/2022 while she was hospitalized for acute onset left sided weakness; subsequently diagnosed with a right thalamic stroke secondary to GREENS CUTTER occlusion; risk factors include: hyperlipidemia, nicotine use and hypertension. She has history of 6 early term miscarriages; she is 7, para 1. No miscarriages after 20 weeks. No significant bleeding history. Subsequent work up revealed no identifiable cause of stroke and hypercoagulable studies were negative at that time. She had no evidence of atrial fibrillation or lower extremity DVT. No previous history of venous thrombosis. ECHo was unremarkable with EF - 65%; negative bubble study and no evidence of arrhythmia on cardiac Holter monitoring. We will re-evaluate and repeat lupus anticoagulant testing, as the initial testing was done 6 months ago. She maintains Plavix and Lipitor; not taking ASA secondary to allergy. She has significantly changed her diet and has lost ~ 40 pounds (intentionally) since July 2022; she does not drink alcohol and has reduced her nicotine use; now down to smoking ~ 5 cigarettes per day. She previously consumed a 12 pack of regular soda; but has cut back to about 5-6 sodas per day. --Discussed with Dr. Fisher; Will check hypercoagulable work up to include: Lupus anticoagulant panel; factor II?prothrombin gene, factor V Leiden, protein FILM RECORDIST, PT/INR, PTT, Antithrombin III gene mutation, beta-2 glycoprotein's, anticardiolipin antibodies, quantitative immunoglobulins and SPEP. --Follow-up in approximately 3-4 weeks to review. 02/01/2022: Here for evaluation of hypercoagulability work-up. All testing for lupus anticoagulant/anticardiolipin/beta-2 glycoprotein's remain negative. Protein C, protein S, prothrombin gene mutation and factor V Leiden all returnednegative. Antithrombin III is not resulted and is still pending. Serum proteinelectrophoresis was not performed by lab and was sent for repeat testing today. --In review of prior labs at [facility], she was noted to have elevated homocystine. In addition she has persistent fatigue and had a syncopalepisode 2 days ago. I sent vitamin B12 and folate which returned with low normal range vitamin B12 at 217. Given her ongoing neurologic symptoms and fatigueI am setting up weekly B12 1 mg IM x8 weeks and we will follow-up symptoms with her at that time. We will also review serum protein electrophoresis as soon as this is resulted and consider bone marrow biopsy if clonality is identified. The patient is to continue Plavix for management of stroke and follow-up with neurology as previously scheduled in 1 month. 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 She has low normal range B12 and persistent fatigue with syncopal episode earlier this week. I am setting up weekly B12 x8 weeks to see if some of her residual fatigue and neurologic deficits improved. Reevaluate in 8 weeks. 04/02/2023: Overall improvement in symptoms. Energy level is ok. She has not had any new syncopal episodes or other new symptoms. We will plan for her to initiate monthly B12 injections with primary care, once she is established. Her left arm numbness/tingling could possibly be related to a neck or back issue, pinched nerve, etc. and she agrees. She will get this looked at and states she does sit and look at her computer all day for work, so very well could be related to this. She may follow-up with us as needed, but does not need routine follow-up. If she cannot get into a new pcp before her next B12 injection is due, we can schedule that here until she gets established. (3) Syncope (4) Hypertension Qualifiers: Hypertension type: primary hypertension Qualified Code(s): I10 - Essential (primary) hypertension (5) Hyperlipidemia (6) History of miscarriage - Time with Patient Time Spent with Patient (Follow Up Visit): 35 minutes - Moderate complexity visit for follow-up complex medical testing Coordination of Care & Counseling Time: Greater than 50% of time spent with patient was for coordination of care (as documented) and [id number] counseling of patient and/or family. Dictated By: Reina Goss APRN DD/ 1419 Signed By: <Electronically signed by MAXIMILIANO Goss> 04/02/23 1453 [facility] Work Phone: Reason for referral (narrative)* Consultation (Routine) - Authorized Specialty Diagnoses / Procedures Referred By Contangela t Referred To Contact Cardiology Diagnoses Implantable loop recorder present Procedures Follow Up In Cardiology Mel Painting APRN-CNP [address] [address] Bill Pino MD 703 [facility] 2, [address] [address] Referral ID Status Reason Start Date Expiration Date V isits Requested Visits Authorized [id number] Authorized 07/23/2023 07/22/2024 1 1 [facility] Work Phone: Summary Purpose Family History No Family History Records Found Relationship Condition Age at Onset Recorded Date/T frieda father Malignant neoplasm of lung Unknown grandparent Malignant neoplasm of breast Unknown Not Specified Lupus Unknown Relationship Condition Age at Onset Recorded Date/T frieda father Malignant neoplasm of lung Unknown grandparent Malignant neoplasm of breast Unknown Not Specified Lupus Unknown grandparent Malignant neoplasm of ovary Unknown Relationship Condition Age at Onset Recorded Date/T frieda father Malignant neoplasm of lung Unknown grandparent Malignant neoplasm of breast Unknown Not Specified Lupus Unknown grandparent Malignant neoplasm of ovary Unknown father Malignant neoplasm Unknown Unknown Advance Directives No Advanced Directives Records Found Advance Directive Response Recorded Date/ Time Advance Directives No January 03 3:46pm Latest Code Status on File Code Status Date Activated Date Inactivated Comments Full Code 07/15/2022 6:22 PM 07/18/2022 5:08 PM Advance Directive Response Recorded Date/ Time Advance Directives No January 03 2:46pm Chief Complaint and Reason for Visit Chief Complaint Cryptogenic stroke Reason for Visit 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 Syncope History of miscarriage Hyperlipidemia Hypertension Right thalamic stroke Chief Complaint Cryptogenic stroke Cryptogenic Stroke Reason for Visit 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 Syncope History of miscarriage Hyperlipidemia Hypertension Right thalamic stroke Chief Complaint Cryptogenic stroke Cryptogenic Stroke Cryptogenic Stroke Reason for Visit 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 Syncope History of miscarriage Hyperlipidemia Hypertension Right thalamic stroke Chief Complaint I63.9 Additional Source Comments INFORMATION SOURCE (unrecogn ized section and content) DATE CREATED AUTHOR 09/15/[address] [facility] pital DATE CREATED AUTHOR AUTHOR'S ORGANIZ ATION 07/28/2023 [facility] DATE CREATED AUTHOR AUTHOR'S ORGANIZ ATION 09/03/2023 [facility] Care Teams (unrecognized sec tion and content) Team Status: Active Member Role Status Dates PHYSICIAN NO FAMILY Primary Care Provider Active Team Status: Inactive Member Role Status Dates PHYSICIAN NO FAMILY Primary Care Provider Active Start: September 02, 2023 End: September 02, 2023 Bill Pino MD Attending Provider Active Start: September 02, 2023 End: September 02, 2023 Team Status: Active Member Role Status Dates Enoc Cardenas DO Primary Care Provider Active Team Status: Active Member Role Status Dates Lian Hernandez APRN Attending Provider Active Enoc Cardenas DO Primary Care Provider Active Estefania Jin PA-C Referring Provider Angela pickett Team Status: Active Member Role Status Dates Estefania Jin PA-C Referring Provider Angela Fernandez MD Attending Provider Active PHYSICIAN NO FAMILY Primary Care Provider Active Team Status: Inactive Member Role Status Dates PHYSICIAN NO FAMILY Primary Care Provider Active Bill Pino MD Attending Provider Active 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 Relationship Specialty Start Date End Date [employer] [address] [place] [address] PCP - General Family Medicine 09/05/22 Goals (unrecognized section and content) Goals may be documented in a n alternate sectionGoals may be documented in an alternate sectionGoals may be documented in an alternate sectionNot on filedocumented as of this encounterGoals may be documented in an alternate section Reason for Visit (unrecogniz ed section and content) Reason Comments Follow-up LOOP recorder follow up Specialty Diagnoses / Procedures Referred By Kasie t Referred To Contact Cardiology Diagnoses Cryptogenic stroke (CMS/HCC) Procedures Follow Up In Cardiology Bill Pino MD 703 [facility] 2, [address] [address] Referral ID Status Reason Start Date Expiration Date V isits Requested Visits Authorized [id number] Authorized 04/30/2023 04/29/2024 1 1 FOR RECORDS PERTAINING TO PATIENTS WHO ARE OR HAVE BEEN ENROLLED IN A CHEMICAL DEPENDENCY/SUBSTANCEABUSE PROGRAM, SOME INFORMATION MAY BE OMITTED. This clinical summary was aggregated from multiple sources. Caution should be exercised in using it in the provision of clinical care. This summary normalizes information from multiple sources, and as a consequence, information in this document may materially change the coding, format and clinical context of patient data. In addition, data may be omitted in some cases. CLINICAL DECISIONS SHOULD BE BASED ON THE PRIMARY CLINICAL RECORDS. [employer] provides no warranty or guarantee of the accuracy or completeness of information in this document.
--- NOTE | 2023-09-13 10:55 | XR_ITS ---
The [address] [address] Patient Name: ARMANDO PINA MRN: [id number] date: 1975 Sex: F Assigned Patient Location: ER Current Patient Location: ER Accession/Order Number: [id number] Exam Date: 09/13/2023 11:39 Report Date: 09/13/2023 12:03 At the request of: ROBEL GARCIA Procedure: XR chest 2V EXAMINATION: XR chest 2V, 09/13/2023 11:39 AM EST HISTORY: lightheaded COMPARISON: None. TECHNIQUE: PA and lateral views of the chest were obtained. FINDINGS: Medical devices: Cardiac loop recorder within the left anterior chest wall. Cardiomediastinal silhouette is within normal limits. The lungs are clear. No pleural effusion or pneumothorax. No acute bony or soft tissue abnormalities. XR/XR chest 2V IMPRESSION: 1. No acute cardiopulmonary abnormality. Electronically authenticated by: DAVID POWERS Date: 09/13/2023 12:03
--- NOTE | 2023-09-13 10:55 | ECG_ITS ---
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
--- NOTE | 2023-09-13 10:56 | ED_ITS ---
HPI - General Adult General Chief complaint: Arrhythmia/Palpitations Stated complaint: DIFFICULTY BREATHING Time Seen by Provider: 09/13/23 10:54 Source: patient and family Mode of arrival: Wheelchair Limitations: no limitations History of Present Illness HPI narrative: Patient is a 48-year-old female who is presenting to the Emergency Room today with chief complaint of lightheaded, dizziness, and mild palpitations. 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 Patient has had a recent history of a stroke or she has left-sided deficits that she is in therapy still 4. Patient has some sensorimotor deficits to her left lower upper extremity with her forearm, wrist and hand. Patient does take Plavix, no aspirin. Patient was at work, no vertigo. No chest pain or shortness of breath. Patient was concerned so she came to the Emergency Room for evaluation. No dull pain, nausea vomiting. No fall, no head injury, no headache. Mother and brother at bedside. Patient's arts manager is Dr. Palmer, Patient's neurologist is in [place]. . All systems are negative except as noted/marked. All systems reviewed and otherwise negative. . Nurses note and vital signs reviewed and patient is not hypoxic. General: The patient appears well and in no apparent distress. Patient is resting comfortably on cart. Patient is not toxic, lethargic, or listless Skin: Warm, dry, no pallor noted. There is no rash noted. No petechiae, purpura. Head: Normocephalic, atraumatic; No carotid bruits bilateral. Eye: Normal conjunctiva, no drainage, EOMI. PERRL Ears, Nose, Mouth, and Throat: oral mucosa is moist. Nares patent. Mouth without vesicles. Cardiovascular: Regular Rate and Rhythm, no murmur, gallop, rub Respiratory: Patient is in no distress, no accessory muscle use, lungs are clear to auscultation, no wheezing, rales or rhonchi Back: non-tender, no CVA tenderness bilaterally to percussion. No CT LS midline pain GI: soft, no tenderness to palpation, no masses appreciated. No rebound, guarding, or rigidity noted. No flank pain bilateral, No distention Musculoskeletal: Patient has full range of motion of all of the extremities, no motor, sensory, or focal neurological deficits Neurological: A&O x3, normal speech, Residual weakness to left forearm, hand and wrist, no new acute strokelike signs or symptoms. Psychiatric: Cooperative Related Data Home Medications Medication Instructions Recorded Confirmed atenolol 100 mg tablet 100 mg PO Q24H 09/13/23 09/13/23 atorvastatin 40 mg tablet 40 mg PO DAILY 09/13/23 09/13/23 citalopram 20 mg tablet 20 mg PO DAILY 09/13/23 09/13/23 clopidogrel 75 mg tablet 75 mg PO DAILY 09/13/23 09/13/23 hydrochlorothiazide 12.5 mg tablet 12.5 mg PO DAILY 09/13/23 09/13/23 valsartan 320 mg tablet 320 mg PO DAILY 09/13/23 09/13/23 Allergies Allergy/AdvReac Type Severity Reaction Status Date / Time acetaminophen Allergy Intermediate Hives Verified 09/13/23 10:40 latex Allergy Mild Hives Verified 09/13/23 10:40 [facility] Social History Smoking status: Current every day smoker Exam Constitutional Vital Signs, click to edit/add: Last Vital Signs Temp 97.8 F 09/13/23 10:34 Pulse 60 09/13/23 11:25 Resp 19 09/13/23 11:21 BP 113/74 09/13/23 11:25 Pulse Ox 99 09/13/23 11:15 O2 Del Method Room Air 09/13/23 10:34 Course Vital Signs Vital signs: Vital Signs Temperature 97.8 F 09/13/23 10:34 Pulse Rate 69 09/13/23 10:34 Respiratory Rate 20 09/13/23 10:34 Blood Pressure 131/84 09/13/23 10:34 Pulse Oximetry 100 09/13/23 10:34 Oxygen Delivery Method Room Air 09/13/23 10:34 Temperature 97.8 F 09/13/23 10:34 Pulse Rate 60 09/13/23 11:25 Respiratory Rate 19 09/13/23 11:21 Blood Pressure 113/74 09/13/23 11:25 Pulse Oximetry 99 09/13/23 11:15 Oxygen Delivery Method Room Air 09/13/23 10:34 Medical Decision Making MDM Narrative Medical decision making narrative: Patient's EKG, chest x-ray, lab work showed no acute findings. Patient has no acute strokelike signs or symptoms. Patient felt that he is that no acute findings were noted. Patient no vertigo. The patient has any other acute concerns, she'll follow up with Dr. Palmer. Patient does take several blood pressure medications, she has not had any changes in her medications recently. Patient feels safe going home. Patient does feel better after 1 L of IV fluid. Lab Data Labs: Lab Results 09/13/23 09/13/23 Range/Units 10:55 11:50 WBC 6.8 (4.0-11.0) 10^3/uL RBC 4.78 (4.20-5.40) 10^6/uL Hgb 13.4 (12.0-16.0) g/dL Hct 40.4 (36.0-48.0) % MCV 84.5 (81.0-99.0) fL MCH 28.0 (26.7-34.0) pg MCHC 33.2 (29.9-35.2) g/dL RDW 12.2 (11.0-15.0) % Plt Count 265 (150-450) 10^3/uL MPV 9.1 L (9.5-13.5) fL Neut % (Auto) 58.3 (43.0-75.0) % Lymph % (Auto) 34.8 (20.5-60.0) % [place] % (Auto) 5.2 (1.7-12.0) % Eos % (Auto) 1.2 (0.9-7.0) % Baso % (Auto) 0.4 (0.2-2.0) % Neut # (Auto) 4.0 (1.4-6.5) 10^3/uL Lymph # (Auto) 2.4 (1.2-3.8) 10^3/uL [place] # (Auto) 0.4 (0.3-0.8) 10^3/uL Eos # (Auto) 0.1 (0.0-0.7) 10^3/uL Baso # (Auto) 0.0 (0.0-0.1) 10^3/uL Abs Immat Gran (auto) 0.01 (0.00-0.03) 10^3/uL Imm/Tot Granulo (auto) 0.1 (0.0-0.5) % Sodium 139 (136-145) mmol/L Potassium 3.8 (3.5-5.1) mmol/L Chloride 101 (98-107) mmol/L Carbon Dioxide 27.5 (21.0-32.0) mmol/L Anion Gap 14.3 BUN 14.0 (7.0-18.0) mg/dL Creatinine 1.07 H (0.55-1.02) mg/dL Est GFR ( Amer) >60 (>=60) Est GFR (Non-Af Amer) 55 L (>=60) BUN/Creatinine Ratio 13.1 Glucose 68 L (74-106) mg/dL Calcium 9.1 (8.5-10.1) mg/dL Total Bilirubin 0.8 (0.2-1.0) mg/dL AST 19 (15-37) U/L ALT 27 (14-59) U/L Alkaline Phosphatase 124 H (46-116) U/L Troponin I High Sens 25.2 (4.0-51.3) pg/mL NT-Pro-B Natriuret Pep 78.0 (<=450.0) pg/mL Total Protein 8.0 (6.4-8.2) g/dL Albumin 3.7 (3.4-5.0) g/dL Globulin 4.3 g/dL Albumin/Globulin Ratio 0.9 Urine Color Yellow (YELLOW) Urine Clarity Clear (CLEAR) Urine pH 8.0 (5.0-9.0) Ur Specific [place] 1.020 (1.005-1.025) Urine Protein Negative (NEG/TRACE) mg/dL Urine Glucose (UA) Negative (NEGATIVE) mg/dL Urine Ketones Negative (NEGATIVE) mg/dL Urine Occult Blood Negative (NEGATIVE) Urine Nitrite Negative (NEGATIVE) Urine Bilirubin Negative (NEGATIVE) Urine Urobilinogen 0.2 (0.2-1.0) EU/dL Ur Leukocyte Esterase Negative (NEGATIVE) Urine RBC 0-2 (0-2) #/HPF Urine WBC 0-2 A (NONE SEEN) #/HPF Ur Squamous Epith Cells Few A (NONE/RARE) #/LPF Urine Crystals None seen (None Seen) #/HPF Urine Bacteria Trace A (NONE SEEN) #/HPF Urine Casts None seen (NONE SEEN) #/LPF Urine Mucus None seen (NONE SEEN) ECG Data Attestation: I personally reviewed and interpreted this ECG as follows: (EKG interpretation. Normal sinus rhythm at 66 beats a minute. Normal axis deviation. No acute ST elevation, no acute ectopy. QTc of 416.) Discharge Plan Discharge Chief Complaint: Arrhythmia/Palpitations Clinical Impression: Palpitations, Dizziness, Light-headedness Patient Disposition: Home, Self-Care Time of Disposition Decision: 12:56 Condition: Good Prescriptions / Home Meds: No Action atorvastatin 40 mg tablet 40 mg PO DAILY atenolol 100 mg tablet 100 mg PO Q24H clopidogrel 75 mg tablet 75 mg PO DAILY citalopram 20 mg tablet 20 mg PO DAILY valsartan 320 mg tablet 320 mg PO DAILY hydrochlorothiazide 12.5 mg tablet 12.5 mg PO DAILY Instructions: Heart Palpitations (ED), Lightheadedness (ED), Dizziness (ED) Additional Instructions: Increase fluids. Follow-up with Dr. Palmer if any other acute concerns. Continue medication as prescribed Referrals: BECK ELIZONDO [Primary Care Provider] - 1 week Discharge Date/Time: 09/13/23 13:07 Stand Alone Forms: Portal Instructions
[2023-09-13 11:02] LABS: Basophils Percent Auto 0.4 % (0.2-2.0); Eosinophils Absolute Auto 0.1 10^3/uL (0.0-0.7); Eosinophils Percent Auto 1.2 % (0.9-7.0); Hematocrit 40.4 % (36.0-48.0); Hemoglobin 13.4 g/dL (12.0-16.0); Immature Granulocytes Abs Auto 0.01 10^3/uL (0.00-0.03); Immature Granulocytes Pct Auto 0.1 % (0.0-0.5); Lymphocytes Absolute Auto 2.4 10^3/uL (1.2-3.8); Lymphocytes Percent Auto 34.8 % (20.5-60.0); Mean Corpuscular HGB Conc 33.2 g/dL (29.9-35.2); Mean Corpuscular Volume 84.5 fL (81.0-99.0); Mean Platelet Volume 9.1 fL (9.5-13.5); Monocytes Absolute Auto 0.4 10^3/uL (0.3-0.8); Monocytes Percent Auto 5.2 % (1.7-12.0); Neutrophils Percent Auto 58.3 % (43.0-75.0); Platelet Count 265 10^3/uL (150-450); Red Blood Count 4.78 10^6/uL (4.20-5.40); Red Cell Distribution Width 12.2 % (11.0-15.0); White Blood Count 6.8 10^3/uL (4.0-11.0)
[2023-09-13] MEDS: 0.9 % SODIUM CHLORIDE 1,000 ML 1000 ML IV (11:25)
[2023-09-13 11:32] LABS: Alanine Aminotransferase 27 U/L (14-59); Albumin Globulin Ratio 0.9; Albumin Level 3.7 g/dL (3.4-5.0); Alkaline Phosphatase 124 U/L (46-116); Anion Gap 14.3; Aspartate Amino Transferase 19 U/L (15-37); BUN Creatinine Ratio 13.1; Bilirubin Total 0.8 mg/dL (0.2-1.0); Calcium 9.1 mg/dL (8.5-10.1); Carbon Dioxide 27.5 mmol/L (21.0-32.0); Chloride 101 mmol/L (98-107); Estimated GFR (African America >60 (>=60); Estimated GFR (Non-African Ame 55 (>=60); Globulin 4.3 g/dL; Glucose 68 mg/dL (74-106); Potassium 3.8 mmol/L (3.5-5.1); Sodium 139 mmol/L (136-145); Troponin I High Sensitivity 25.2 pg/mL (4.0-51.3)
[2023-09-13 12:00] LABS: Bilirubin Urine NEGATIVE (NEGATIVE); Blood Urine NEGATIVE (NEGATIVE); Clarity Urine CLEAR (CLEAR); Color Urine YELLOW (YELLOW); Glucose Urine UA NEGATIVE (NEGATIVE); Ketones Urine NEGATIVE (NEGATIVE); Leukocyte Esterase Urine NEGATIVE (NEGATIVE); Nitrite Urine NEGATIVE (NEGATIVE); Protein Urine NEGATIVE (NEG/TRACE); Urobilinogen Urine 0.2 EU/dL (0.2-1.0)
[2023-09-13 12:09] LABS: RBC Urine 0-2 #/HPF (0-2); WBC Urine 0-2 #/HPF (NONE SEEN)
[2023-09-13 12:10] LABS: Bacteria Urine TRACE #/HPF (NONE SEEN); Cast Seen? NONE SEEN #/LPF (NONE SEEN); Crystals Seen? None Seen #/HPF (None Seen); Mucus Urine NONE SEEN (NONE SEEN); Squamous Epithelial Cell Urine FEW #/LPF (NONE/RARE)
== END 2023-09-13 13:07 | disposition home or self-care (01) ==
PROVIDERS: Emergency Provider Emergency Medicine; PCP Nurse Practitioner Family
DX: R00.2 Palpitations (principal); R42 Dizziness and giddiness; F17.210 Nicotine dependence, cigarettes, uncomplicated; I69.398 Other sequelae of cerebral infarction; Z79.899 Other long term (current) drug therapy; Z79.02 Long term (current) use of antithrombotics/antiplatelets
CPT/HCPCS: 36415; 71046; 80053; 81001; 83880; 84484; 85025; 93005; 99285

== ENCOUNTER 2024-06-09 10:36 | Outpatient (OUT) | payer BC, SELFPAY ==
--- OUTSIDE RECORDS SUMMARY | 2024-06-09 11:01 | XMS_ITS | CCD ---
[facility] Providers Care Taper Machine Name Role Phone DARLING ., DR MCGRATH Consulting Unavailable HAY ., DR MCGRATH Attending Unavailable HAY ., DR MCGRATH Admitting Unavailable HOUSE, DR GRANT Primary Care Unavailable GELBART, [place] Consulting Unavailable GALO, ANGELITA Consulting Unavailable HOUSE, DR GRANT Attending Unavailable HOUSE, DR GRANT Admitting Unavailable HOUSE, DR GRANT Primary Care Unavailable HOUSE, DR GRANT Consulting Unavailable HOUSE, DR GRANT Attending Unavailable HOUSE, DR GRANT Admitting Unavailable HOUSE, DR GRANT Primary Care Unavailable HOUSE, DR GRANT Attending Unavailable HOUSE, DR ENOC Peaceitting Unavailable HOUSE, DR GRANT Primary Care Unavailable MAXIMILIANO Hernandez Attending Provider DO Enoc Cardenas Primary Care Provider [phone] MAKEDA Jin Referring Provid er MAXIMILIANO Hernandez Attending Provider DO Enoc Cardenas Primary Care Provider MAKEDA Jin Referring Provid er MAKEDA Jin Referring Provid er MD Racheal Fernandez Attending Provider [phone] NO FAMILY, PHYSICIAN Primary Care Provider Unava MD Wilberto Ma Attending Provider Unavailable Primary Care Provider Unavailabl e Enoc Cardenas DO Primary Care Provider NO FAMILY, PHYSICIAN Primary Care Provider Unava MD Wilberto Ma Attending Provider NO FAMILY, PHYSICIAN Primary Care Provider Unava MD Wilberto Ma Attending Provider WILBERTO PINO Attending Unavailable WILBERTO PINO Referring Unavailable WILBERTO PINO Referring Unavailable MEL PAINTING Attending Unavailable WILBERTO PINO Referring Unavailable NO FAMILY, PHYSICIAN Primary Care Unavailable Wilberto Pino Admitting Unavail able Wilberto Pino Attending Unavail able Wilberto Pino Admitting Unavail able Wilberto Pino Attending Unavail able NO FAMILY, PHYSICIAN Primary Care Unavailable Mel Painting Admitting Unavailable Mel Painting Attending Unavailable NO FAMILY, PHYSICIAN Primary Care Unavailable NO FAMILY, PHYSICIAN Primary Care Unavailable Wilberto Pino Admitting Unavail able Wilberto Pino Attending Unavail able Allergies Allergy Classification Reported Allergen(s) Allergy Type Date of Onset Reaction(s) Facility (10 sources) Aspirin; Translations: [ASPIRIN] Drug Allergy 3 Swelling [facility] Repository (11 sources) Latex; Translations: [LATEX] Propensity to adverse reactions [address] [facility] (2 sources) Aspirin Drug Allergy 3 [facility] (1 source) Aspirin Drug Allergy 3 [facility] Repository Medications Current Medications Medication Drug Class(es) Dates Sig (Normalized) Sig (Original) atenolol 100 mg oral tablet (10 sources) beta-Adrenergic Tyra Start: 01-04-2023 take 1 tablet by mouth once daily Atenolol 100 mg Tablet Active 100 MG PO Daily January 03, 2023 11:00pm atorvastatin 40 mg oral tablet (10 sources) HMG-CoA Reductase Inhibitor Start: 01-04-2023 End: 08-31-2023 take 1 tablet by mouth once daily Atorvastatin 40 mg Tablet Active 40 MG PO Daily January 03, 2023 11:00pm citalopram 20 mg oral tablet (10 sources) Serotonin Reuptake Inhibitor Start: 01-04-2023 take 1 tablet by mouth once daily Citalopram 20 mg Tablet Active 20 MG PO Daily January 03, 2023 11:00pm clindamycin 300 mg oral capsule (5 sources) Lincosamide Antibacterial Start: 05-16-2023 take 2 capsules by mouth three times daily Clindamycin Hcl 300 mg capsule Active 600 MG PO Three times daily 12 May 15, 2023 11:00pm Start: 05-16-2023 take 600 mg by mouth three times daily Clindamycin Hcl Active 600 MG PO Three times daily 12 May 16, 2023 12:00am clopidogrel 75 mg oral tablet (10 sources) P2Y12 Platelet Inhibitor Start: 01-04-2023 End: 03-03-2024 take 1 tablet by mouth once daily Clopidogrel 75 mg Tablet Active 75 MG PO Daily January 03, 2023 11:00pm cyanocobalamin (Vitamin B-12) 1,000 mcg/mL oral liquid (1 source) take 1 mL by mouth every 30 days cyanocobalamin (Vitamin B-12) 1,000 mcg/mL oral liquid 1 mL (1,000 mcg) every 30 (thirty) days. 0 Active hydroCHLOROthiazide 12.5 mg oral tablet (10 sources) Thiazide Diuretic Start: 01-04-2023 take 1 tablet by mouth once daily Hydrochlorothiazide 12.5 mg Tablet Active 12.5 MG PO Daily January 03, 2023 11:00pm magnesium oxide 400 mg oral tablet (8 sources) Start: 04-02-2023 take 1 tablet by mouth once daily Magnesium Oxide 400 mg magnesium Tablet Active 400 MG PO Daily April 01, 2023 11:00pm valsartan 320 mg oral tablet (10 sources) Angiotensin 2 Receptor Tyra Start: 01-04-2023 take 1 tablet by mouth once daily Valsartan 320 mg Tablet Active 320 MG PO Daily January 03, 2023 11:00pm vitamin b12 1 mg/ml injectable solution (6 sources) Vitamin B12 Start: 05-14-2023 inject 1000 ug by intramuscular injection every month Cyanocobalamin (Vitamin B-12) 1,000 mcg/mL Solution Active 1000 MCG IM every month May 13, 2023 11:00pm Start: 05-14-2023 inject 1000 ug by in tramuscular injection every month Cyanocobalamin (Vitamin B-12) Active [...] Date Documented Date Episodic/Chronic Acute cerebrovascular disease (17 sources) Cerebral infarction, unspecified; Translations: [Other cerebral infarction due to occlusion or stenosis of small artery] Onset: 07-18-2022 02-01-2023 Chronic Conduction disorders (1 source) Encounter for adjustment and management of other cardiac device; Translations: [Encounter for adjustment and management of other cardiac device] Onset: 01-07-2024 Chronic Disorders of lipid metabolism (16 sources) Hyperlipidemia; Translations: [Hyperlipidemia, unspecified] Onset: 07-23-2023 02-01-2023 Chronic Essential hypertension (20 sources) Essential (primary) hypertension; Translations: [Hypertensive disorder] [...] CLIMACTERIC STATES] Onset: 02-06-2022 Chronic Nutritional deficiencies (12 sources) Subacute combined degeneration of spinal cord; Translations: [Deficiency of other specified B group vitamins] 02-01-2023 Episodic Other circulatory disease (4 sources) Presence of other cardiac implants and grafts; Translations: [Other specified cardiac device in situ] Onset: 07-23-2023 07-23-2023 Chronic Other nervous system disorders (4 sources) Anesthesia of skin; Translations: [ANESTHESIA OF SKIN] Onset: 07-15-2022 Episodic Paralysis (1 source) Hemiplegia, unspecified affecting left nondominant side; Translations: [HEMIPL UNS AFFECT LT NONDOM SIDE] Onset: 07-18-2022 Chronic Residual codes; unclassified (1 source) Acquired absence of both cervix and uterus; Translations: [ACQUIRED ABSENCE BOTH CERVIX AND UTERUS] Onset: 07-18-2022 Episodic Residual codes; unclassified (8 sources) H/O: miscarriage; Translations: [Personal history of [...] (BMI) 24.0-24.9, adult] Onset: 07-23-2023 07-23-2023 Episodic Syncope (12 sources) Syncope; Translations: [Syncope and collapse] 02-01-2023 Episodic Unclassified (1 source) CONTACT W/AND (SUSP) EXPOS COVID-19; Translations: [CONTACT W/AND (SUSP) EXPOS COVID-19] Onset: 07-18-2022 Unclassified (1 source) Encounter for adjustment and management of other cardiac device; Translations: [Encounter for adjustment and management of other cardiac device] Onset: 09-02-2023 Past or Other Problems Problem Classification Problem [...] the nervous system] Onset: 07-15-2022 07-15-2022 Episodic Residual codes; unclassified (2 sources) Body mass index (BMI) 24.0-24.9, adult; Translations: [Body mass index (BMI) 24.0-24.9, adult] Onset: 07-23-2023 Episodic Unclassified (1 source) Onset: 04-30-2023 04-30-2023 Results Test Name Value Interpretation Reference Range Facility Basophils Auto (Bld) [#/Vol] Ordered By: Wilberto Pino on 05-14-2023 Basophils (Bld) [#/Vol] 0.0 10*3/uL 0.0-0.2 [facility] Basophils/100 WBC Auto (Bld) Ordered By: Wilberto Pino on 05-14-2023 Basophils/100 WBC (Bld) 0.4 % . [facility] Calcium [Mass/volume] in Ser um or PlasmaOrdered By: Wilberto Pino on 05-14-2023 Calcium [Mass/Vol] 9.5 mg/dL 8.6-10.3 [facility] Carbon dioxide, total [Moles /volume] in Serum or PlasmaOrdered By: Wilberto Pino on 05-14-2023 CO2 [Moles/Vol] 28.0 mmol/L 21.0-31.0 [facility] Chloride [Moles/volume] in S nehal or PlasmaOrdered By: Wilberto Pino on 05-14-2023 Chloride [Moles/Vol] 104 mmol/L 98-107 [facility] Creatinine [Mass/volume] in Serum or PlasmaOrdered By: Wilberto Pino on 05-14-2023 Creatinine [Mass/Vol] 1.00 mg/dL 0.60-1.20 [facility] Eosinophils Auto (Bld) [#/Vo l]Ordered By: Wilberto Pino on 05-14-2023 Eosinophils (Bld) [#/Vol] 0.0 10*3/uL 0.0-0.45 [facility] Eosinophils/100 WBC Auto (Bl d)Ordered By: Wilberto Pino on 05-14-2023 Eosinophils/100 WBC (Bld) 0.7 % . [facility] Erythrocyte distribution wid th Auto (RBC) [Ratio]Ordered By: Wilberto Pino on 05-14-2023 Erythrocyte distribution width (RBC) [Ratio] 13.1 % 11.9-15.3 [facility] Glucose [Mass/volume] in Ser um or PlasmaOrdered By: Wilberto Pino on 05-14-2023 Glucose [Mass/Vol] 73 mg/dL 70-100 [facility] Comment on above: ADA recommended refe rence rangeRandom Glucose Reference Range is dependent on time and content of last meal. Glucose of more than 200 mg/dL in a nonstressed, ambulatory subject supports the diagnosis of Diabetes Mellitus. Hematocrit Auto (Bld) [Volum e fraction]Ordered By: Wilberto Pino on 05-14-2023 Hematocrit (Bld) [Volume fraction] 39.7 % 34.0-46.4 [facility] Hemoglobin [Mass/volume] in BloodOrdered By: Wilberto Pino on 05-14-2023 Hemoglobin (Bld) [Mass/Vol] 13.6 g/dL 11.8-15.4 [facility] INR in Platelet poor plasma by Coagulation assayOrdered By: Wilberto Pino on 05-14-2023 INR Coag (PPP) [Relative time] 1.0 {INR} [facility] Comment on above: INR Therapeutic Rang [...] erythrocytes in Blood by Automated counOrdered By: Wilberto Pino on 05-14-2023 WBC corrected for nucl RBC Auto (Bld) [#/Vol] 6.9 10*3/uL 3.8-11.6 [facility] Lymphocytes Auto (Bld) [#/Vo l]Ordered By: Wilberto Pino on 05-14-2023 Lymphocytes (Bld) [#/Vol] 1.9 10*3/uL 1.00-4.8 [facility] Lymphocytes/100 WBC Auto (Bl d)Ordered By: Wilberto Pino on 05-14-2023 Lymphocytes/100 WBC (Bld) 27.3 % . [facility] MCH Auto (RBC) [Entitic mass ]Ordered By: Wilberto Pino on 05-14-2023 MCH (RBC) [Entitic mass] 28.9 pg 24.7-34.3 [facility] MCHC Auto (RBC) [Mass/Vol]Or dered By: Wilberto Pino on 05-14-2023 MCHC (RBC) [Mass/Vol] 34.3 g/dL 32.0-35.0 [facility] MCV Auto (RBC) [Entitic vol] Ordered By: Wilberto Pino on 05-14-2023 MCV (RBC) [Entitic vol] 84.3 fL 80-100 [facility] Monocytes Auto (Bld) [#/Vol] Ordered By: Wilberto Pino on 05-14-2023 Monocytes (Bld) [#/Vol] 0.4 10*3/uL 0.0-0.8 [facility] Monocytes/100 WBC Auto (Bld) Ordered By: Wilberto Pino on 05-14-2023 Monocytes/100 WBC (Bld) 5.4 % . [facility] Neutrophils Auto (Bld) [#/Vo l]Ordered By: Wilberto Pino on 05-14-2023 Neutrophils (Bld) [#/Vol] 4.6 10*3/uL 1.8-7.7 [facility] Neutrophils/100 WBC Auto (Bl d)Ordered By: Wilberto Pino on 05-14-2023 Neutrophils/100 WBC (Bld) 66.2 % . [facility] No Panel InformationOrdered By: Wilberto Pino on 05-14-2023 Estimated GFR (CKD-EPI) > 60.0 mL/Min [facility] Creatinine Clearance (Chem N/A [facility] Nucleated erythrocytes [Pres ence] in Blood by Automated countOrdered By: Wilberto Pino on 05-14-2023 Nucleated RBC Auto Ql (Bld) 0.1 /100{WBC} 0-0.5 [facility] Platelet mean volume Auto (B ld) [Entitic vol]Ordered By: Wilberto Pino on 05-14-2023 Platelet mean volume (Bld) [Entitic vol] 8.1 fL 6.3-10.7 [facility] Platelets Auto (Bld) [#/Vol] Ordered By: Wilberto Pino on 05-14-2023 Platelets (Bld) [#/Vol] 229 10*3/uL 150-450 [facility] Potassium [Moles/volume] in Serum or PlasmaOrdered By: Wilberto Pino on 05-14-2023 Potassium [Moles/Vol] 3.8 mmol/L 3.5-5.1 [facility] Prothrombin time (PT)Ordered By: Wilberto Pino on 05-14-2023 PT Coag (PPP) [Time] 12.4 s 9.0-12.9 [facility] Comment on above: A hematocrit value g reater than 55% may lead to inaccurate results in coagulation testing. Patients having hematocrit values >55% require a special collection tube for coagulation studies. Please contact the laboratory at [phone] for redraw instructions. RBC Auto (Bld) [#/Vol]Ordere d By: Wilberto Pino on 05-14-2023 RBC (Bld) [#/Vol] 4.70 10*6/uL 3.60-5.00 [facility] Serum or plasma anion gap de terminationOrdered By: Wilberto Pino on 05-14-2023 Anion gap [Moles/Vol] 11.8 mmol/L 6.0-15.0 [facility] Sodium [Moles/volume] in Ser um or PlasmaOrdered By: Wilberto Pino on 05-14-2023 Sodium [Moles/Vol] 140 mmol/L 136-145 [facility] Urea nitrogen [Mass/volume] in Serum or PlasmaOrdered By: Wilberto Pino on 05-14-2023 Urea nitrogen [Mass/Vol] 14 mg/dL 7-25 [facility] WBC Auto (Bld) [#/Vol]Ordere d By: Wilberto Pino on 05-14-2023 WBC (Bld) [#/Vol] 6.9 10*3/uL 3.8-11.6 [facility] Serum or plasma homocysteine measurement (moles/volume)Ordered By: Racheal Fernandez on 04-06-2023 Homocysteine [Moles/Vol] 14.5 umol/L 0.0-14.5 [facility] Comment on above: Performed at: [address] [id number] Director: Toni Gonzalez PhD, Phone: [phone] Serum or plasma methylmalona te measurement (moles/volume)Ordered By: Racheal Fernandez on 03-27-2023 Methylmalonate [Moles/Vol] 126 nmol/L 0-378 [facility] Comment on above: This test was develo ped and its performance characteristicsdetermined by [employer]. It has not been cleared orapproved by the Food and Drug Administration.Performed at: [address] [id number] Director: Tisha Lo MD, Phone: [phone] Activated partial thrombopla stin time (aPTT) in platelet poor plasma by coagulation aOrdered By: Lian Hernandez on 02-01-2023 aPTT Coag (PPP) [Time] 28.5 s 25.1-36.5 [facility] Albumin [Mass/volume] in Ser um or PlasmaOrdered By: Lian Hernandez on 02-01-2023 Albumin [Mass/Vol] 3.7 g/dL 2.9-4.4 [facility] Antithrombin antigen actual/ normal in platelet poor plasma by immunologic methodOrdered By: Lian Hernandez on 02-01-2023 Antithrombin Ag actual/normal IA (PPP) [Relative mass conc] 118 % 72-124 [facility] Comment on above: This test was develo ped and its performance characteristicsdetermined by [employer]. It has not been cleared orapproved by the Food and Drug Administration.Performed at: [address] [id number] Director: Tisha Lo MD, Phone: [phone] Basophils Auto (Bld) [#/Vol] Ordered By: Racheal Fernandez on 02-01-2023 Basophils (Bld) [#/Vol] 0.1 10*3/uL 0.0-0.2 [facility] Basophils/100 WBC Auto (Bld) Ordered By: Racheal Fernandez on 02-01-2023 Basophils/100 WBC (Bld) 0.9 % . [facility] Eosinophils Auto (Bld) [#/Vo l]Ordered By: Racheal Fernandez on 02-01-2023 Eosinophils (Bld) [#/Vol] 0.1 10*3/uL 0.0-0.45 [facility] Eosinophils/100 WBC Auto (Bl d)Ordered By: Racheal Fernandez on 02-01-2023 Eosinophils/100 WBC (Bld) 1.5 % . [facility] Erythrocyte distribution wid th Auto (RBC) [Ratio]Ordered By: Racheal Fernandez on 02-01-2023 Erythrocyte distribution width (RBC) [Ratio] 12.8 % 11.9-15.3 [facility] Ferritin [Mass/volume] in Se rum or PlasmaOrdered By: Racheal Fernandez on 02-01-2023 Ferritin [Mass/Vol] 62.4 ng/mL 11.0-306.8 [facility] Folate [Mass/volume] in Seru m or PlasmaOrdered By: Racheal Fernandez on 02-01-2023 Folate [Mass/Vol] 6.9 ng/mL >5.9 [facility] Comment on above: Folate reference ran ge: >5.9 ng/mlThe WHO technical consultation on folate and vitamin [id number] has determined that folate concentrations lessthan 4 ng/ml are considered deficient. Hematocrit Auto (Bld) [Volum e fraction]Ordered By: Racheal Fernandez on 02-01-2023 Hematocrit (Bld) [Volume fraction] 39.0 % 34.0-46.4 [facility] Hemoglobin [Mass/volume] in BloodOrdered By: Racheal Fernandez on 02-01-2023 Hemoglobin (Bld) [Mass/Vol] 13.5 g/dL 11.8-15.4 [facility] IgA [Mass/volume] in Serum o r PlasmaOrdered By: Lian Hernandez on 02-01-2023 IgA [Mass/Vol] 318 mg/dL 87-352 [facility] IgE [Units/volume] in Serum or PlasmaOrdered By: Lian Hernandez on 02-01-2023 IgE Qn 87 [IU]/mL 6-495 [facility] Comment on above: Performed at: [address] [id number] Director: Toni Gonzalez PhD, Phone: [phone] at: [facility] [id number] Director: Tisha Lo MD, Phone: [phone] IgG [Mass/volume] in Serum o r PlasmaOrdered By: Lian Hernandez on 02-01-2023 IgG [Mass/Vol] 1264 mg/dL 586-1602 [facility] IgM [Mass/volume] in Serum o r PlasmaOrdered By: Lian Hernandez on 02-01-2023 IgM [Mass/Vol] 196 mg/dL 26-217 [facility] Immunoglobulin light chains. kappa.free [Mass/volume] in SerumOrdered By: Racheal Fernnadez on 02-01-2023 Immunoglobulin light chains.kappa.free (S) [Mass/Vol] 35.3 mg/L 3.3-19.4 [facility] Immunoglobulin light chains. kappa.free/Immunoglobulin light chains.lambda.free [MassOrdered By: Racheal Fernandez on 02-01-2023 Immunoglobulin light chains.kappa.free/Immu noglobulin light chains.lambda.free (S) [Mass ratio] 1.59 0.26-1.65 [facility] Comment on above: Performed at: [facility] [id number] [place], [place] [id number] Director: Toni Gonzalez PhD, Phone: [phone] Immunoglobulin light chains. lambda.free [Mass/volume] in Serum or PlasmaOrdered By: Racheal Fernandez on 02-01-2023 Immunoglobulin light chains.lambda.free [Mass/Vol] 22.2 mg/L 5.7-26.3 [facility] Iron [Mass/volume] in Serum or PlasmaOrdered By: Racheal Fernandez on 02-01-2023 Iron [Mass/Vol] 95 ug/dL 50-212 [facility] Iron binding capacity [Mass/ volume] in Serum or PlasmaOrdered By: Racheal Fernandez on 02-01-2023 Iron binding capacity [Mass/Vol] 311 ug/dL 255-450 [facility] Iron saturation [Mass Fracti on] in Serum or PlasmaOrdered By: Racheal Fernandez on 02-01-2023 Iron saturation [Mass fraction] 30.5 % 20-50 [facility] Laboratory - CoagulationOrde red By: Lian Hernandez on 02-01-2023 PT Coag (PPP) [Time] 12.0 s 9.0-12.9 [facility] Leukocytes [#/volume] correc rosemarie for nucleated erythrocytes in Blood by Automated counOrdered By: Racheal Fernandez on 02-01-2023 WBC corrected for nucl RBC Auto (Bld) [#/Vol] 6.4 10*3/uL 3.8-11.6 [facility] Lymphocytes Auto (Bld) [#/Vo l]Ordered By: Racheal Fernandez on 02-01-2023 Lymphocytes (Bld) [#/Vol] 2.1 10*3/uL 1.00-4.8 [facility] Lymphocytes/100 WBC Auto (Bl d)Ordered By: Racheal Fernandez on 02-01-2023 Lymphocytes/100 WBC (Bld) 32.6 % . [facility] MCH Auto (RBC) [Entitic mass ]Ordered By: Racheal Fernandez on 02-01-2023 MCH (RBC) [Entitic mass] 28.9 pg 24.7-34.3 [facility] MCHC Auto (RBC) [Mass/Vol]Or dered By: Racheal Fernandez on 02-01-2023 MCHC (RBC) [Mass/Vol] 34.6 g/dL 32.0-35.0 [facility] MCV Auto (RBC) [Entitic vol] Ordered By: Racheal Fernandez on 02-01-2023 MCV (RBC) [Entitic vol] 83.3 fL 80-100 [facility] Monocytes Auto (Bld) [#/Vol] Ordered By: Racheal Fernandez on 02-01-2023 Monocytes (Bld) [#/Vol] 0.3 10*3/uL 0.0-0.8 [facility] Monocytes/100 WBC Auto (Bld) Ordered By: Racheal Fernandez on 02-01-2023 Monocytes/100 WBC (Bld) 4.5 % . [facility] Neutrophils Auto (Bld) [#/Vo l]Ordered By: Racheal Fernandez on 02-01-2023 Neutrophils (Bld) [#/Vol] 3.9 10*3/uL 1.8-7.7 [facility] Neutrophils/100 WBC Auto (Bl d)Ordered By: Racheal Fernandez on 02-01-2023 Neutrophils/100 WBC (Bld) 60.5 % . [facility] No Panel InformationOrdered By: Lian Hernandez on 02-01-2023 Protein Electrophoresis M-Javier Not observed g/dL Not Observed [facility] Protein Electrophoresis Note See comment . [facility] Comment on above: Protein electrophore sis scan will follow via computer,mail, or cardiology nurse delivery.Performed at: [facility] [place] [place] [id number] Director: Toni Gonzalez PhD, Phone: [phone] Nucleated erythrocytes [Pres ence] in Blood by Automated countOrdered By: Racheal Fernandez on 02-01-2023 Nucleated RBC Auto Ql (Bld) 0.2 /100{WBC} 0-0.5 [facility] Platelet mean volume Auto (B ld) [Entitic vol]Ordered By: Racheal Fernandez on 02-01-2023 Platelet mean volume (Bld) [Entitic vol] 8.1 fL 6.3-10.7 [facility] Platelet poor plasma interna tional normalized ratio (INR) by coagulation assay (relatOrdered By: Lian Hernandez on 02-01-2023 INR Coag (PPP) [Relative time] 1.0 {INR} [facility] Comment on above: INR Therapeutic Rang [...] 02-01-2023 Platelets (Bld) [#/Vol] 237 10*3/uL 150-450 [facility] Protein [Mass/volume] in Ser um or PlasmaOrdered By: Lian Hernandez on 02-01-2023 Protein [Mass/Vol] 7.3 g/dL 6.0-8.5 [facility] RBC Auto (Bld) [#/Vol]Ordere d By: Racheal Fernandez on 02-01-2023 RBC (Bld) [#/Vol] 4.68 10*6/uL 3.60-5.00 [facility] Serum globulin measurement ( mass/volume)Ordered By: Lian Hernandez on 02-01-2023 Globulin (S) [Mass/Vol] 3.6 g/dL 2.2-3.9 [facility] Serum or plasma albumin/glob ulin mass ratioOrdered By: Lian Hernandez on 02-01-2023 Albumin/Globulin [Mass ratio] 1.0 {ratio} 0.7-1.7 [facility] Serum or plasma alpha 1 glob ulin measurement by electrophoresis (mass/volume)Ordered By: Lian Hernandez on 02-01-2023 Alpha 1 globulin Elph [Mass/Vol] 0.3 g/dL 0.0-0.4 [facility] Serum or plasma alpha 2 glob ulin measurement by electrophoresis (mass/volume)Ordered By: Lian Hernandez on 02-01-2023 Alpha 2 globulin Elph [Mass/Vol] 0.9 g/dL 0.4-1.0 [facility] Serum or plasma beta globuli n measurement by electrophoresis (mass/volume)Ordered By: Lian Hernandez on 02-01-2023 Beta globulin Elph [Mass/Vol] 1.2 g/dL 0.7-1.3 [facility] Serum or plasma gamma globul in measurement by electrophoresis (mass/volume)Ordered By: Lian Hernandez on 02-01-2023 Gamma globulin Elph [Mass/Vol] 1.2 g/dL 0.4-1.8 [facility] Transferrin [Mass/volume] in Serum or PlasmaOrdered By: Racheal Fernandez on 02-01-2023 Transferrin [Mass/Vol] 222 mg/dL 203-362 [facility] Vitamin B12 ser/plasOrdered By: Racheal Fernandez on 02-01-2023 Cobalamin (Vitamin B12) [Mass/Vol] 219 pg/mL 180-914 [facility] WBC Auto (Bld) [#/Vol]Ordere d By: Racheal Fernandez on 02-01-2023 WBC (Bld) [#/Vol] 6.4 10*3/uL 3.8-11.6 [facility] Beta 2 glycoprotein 1 IgG Ab [Units/volume] in SerumOrdered By: Lian Hernandez on 01-07-2023 Beta 2 glycoprotein 1 IgG Qn (S) <9 0-20 [facility] Comment on above: Result Units: GPI [...] glycoprotein 1 IgM Qn (S) <9 0-32 [facility] Comment on above: Result Units: GPI Ig M unitsThe reference interval reflects a 3SD or 99th percentileinterval, which is thought to represent a potentiallyclinically significant result in accordance with theInternational Consensus Statement on the classificationcriteria for definitive antiphospholipid syndrome (APS). JThromb Haem 2006;4:295-306.Performed at: [employer] [id number] Director: Tisha Lo MD, Phone: [phone] Cardiolipin IgA Ab [Units/vo lume] in Serum by ImmunoassayOrdered By: Lian Hernandez on 01-07-2023 Cardiolipin IgA IA Qn (S) <9 APL U/mL 0-11 [facility] Comment on above: Negative: <12 Indete rminate: 12 - 20 Low-Med Positive: >20 - 80 High Positive: >80Performed at: [facility] [id number] Director: Toni Gonzalez PhD, Phone: [phone] Cardiolipin IgG Ab [Units/vo lume] in Serum by ImmunoassayOrdered By: Lian Hernandez on 01-07-2023 Cardiolipin IgG IA Qn (S) <9 GPL U/mL 0-14 [facility] Comment on above: Negative: <15 Indete rminate: 15 - 20 Low-Med Positive: >20 - 80 High Positive: >80 Cardiolipin IgM Ab [Units/vo lume] in Serum by ImmunoassayOrdered By: Lian Hernandez on 01-07-2023 Cardiolipin IgM IA Qn (S) <9 MPL U/mL 0-12 [facility] Comment on above: Negative: <13 Indete rminate: 13 - 20 Low-Med Positive: >20 - 80 High Positive: >80 F5 gene mutations found [Frederic ntifier] in Blood or Tissue by Molecular genetics methodOrdered By: Lian Hernandez on 01-07-2023 F5 gene targeted mutation analysis [employer] Nom (Bld/Tiss) See comment . [facility] Comment on above: Result: c.1601G>A (p .[id number]) - Not DetectedThis result is not associated with an increased risk for venousthromboembolism. See Additional Clinical Information andComments.Additional Clinical Information:Venous thromboembolism is a multifactorial diseaseinfluenced by genetic, environmental, and circumstantialrisk factors. The c.1601G>A (p. [id number]) variant in theF5 gene, commonly referred to [...] F2 c.*97G>Avariant and Factor V Leiden (PMID: 56138391). Additionalrisk factors include but are not limited [...] for health careproviders to discuss results at [phone] ([phone]).Test Details:Variant Analyzed: c.1601G>A (p. [id number]), referred toas Factor V LeidenMethods/Limitations:DNA analysis of [...] was developed and its performance characteristicsdetermined by [facility]. It has not been cleared orapproved by the Food and Drug Administration.References:Juliette S, Erika AK, Carmelo R, Martina WW, Victoriano JH; ACMGProfessional Practice and Guidelines Committee. Addendum:[employer] consensus statement onfactor V Leiden mutation testing. [facility]. 2020Sep 16.doi: 10.1038/[id number]-d. PMID: 01603364.Sara MILLAN. Factor V Leiden Thrombophilia. 1998November 25(Updated 2017Jul 18). In: Tony MP, Juanita HH, Mimi RA,et al., editors. Yuliya(R) (Internet). [place] ([place]):[facility], [place]; 1169-0250. Availablefrom: https://www.ncbi.nlm.nih.gov/books/PEL4505/Mil S, Erika AK, Mina X, Felix B, Vaishali EB, Catrina P,Tra CS; [facility] Laboratory Correspondence Clerk Committee.Venous thromboembolism laboratory testing (factor V Leidenand factor II c.*97G>A), 2018 update: a technical standardof the [employer] and Genomics(ACMG). [facility] Med. 2018 Jun;20(12):7589-2709. doi:10.1038/[id number]-z. Epub 2017Apr 18. PMID: 41601814. Free protein S measurementOr dered By: Lian Hernandez on 01-07-2023 Protein S Free Ag IA Qn (PPP) 109 % 61-136 [facility] Comment on above: Performed at: [facility] [address] [id number] Director: Tisha Lo MD, Phone: [phone] Functional protein C measure mentOrdered By: Lian Hernandez on 01-07-2023 Protein C actual/normal Chromogenic method (PPP) [Rel catalytic activity/Vol] 116 % 73-180 [facility] Comment on above: Performed at: [facility] [address] [id number] Director: Tisha Lo MD, Phone: [phone] Lupus anticoagulant [Interpr etation] in Platelet poor plasmaOrdered By: Lian Hernandez on 01-07-2023 Lupus anticoagulant (PPP) [Interp] Comment: . [facility] Comment on above: No lupus anticoagula nt was detected.Performed at: [place] [facility] [address] [id number] Director: Tisha Lo MD, Phone: [phone] No Panel InformationOrdered By: Lian Hernandez on 01-07-2023 Factor II DNA Analysis Comment Theresa durand, phd . [facility] Comment on above: Performed at: - [facility] [id number] [place], [place] [id number] Director: Trever Figueredo [facility], Phone: [phone] Factor V Leiden Interpretation Theresa durand, phd . [facility] Comment on above: Performed at: - [facility] [id number] [place], [place] [id number] Director: Trever Figueredo [facility], Phone: [phone] Factor V Leiden Mutation Note N/A [facility] Functional Protein S 102 % 63-140 [facility] Comment on above: Protein S activity m ay be falsely increased (masking anabnormal, low result) in patients receiving direct Xainhibitor (e.g., rivaroxaban, apixaban, edoxaban) or adirect thrombin inhibitor (e.g., dabigatran) anticoagulanttreatment due to assay interference by these drugs.Performed at: [place] [id number] Director: Tisha Lo MD, Phone: [phone] Platelet poor plasma ratio o f lupus anticoagulant-sensitive activated partial thromboOrdered By: Lian Hernandez on 01-07-2023 aPTT.lupus sensitive.excess phospholipid actual/normal Coag (PPP) [Relative time] 34.9 sec 0.0-47.6 [facility] Protein C antigen assayOrder ed By: Lian Hernandez on 01-07-2023 Protein C Ag actual/normal IA (PPP) [Relative mass conc] 96 % 60-150 [facility] Comment on above: Performed at: - [facility] [address] [id number] Director: Tisha Lo MD, Phone: [phone] Protein S measurement in phillip telet poor plasma by coagulation assay (units/volume)Ordered By: Lian Hernandez on 01-07-2023 Protein S Coag Qn (PPP) 133 % 60-150 [facility] Comment on above: This test was develo ped and its performance characteristicsdetermined by [facility]. It has not been cleared orapproved by the Food and Drug Administration. Prothrombin gene [id number] mut ation detectionOrdered By: Lian Hernandez on 01-07-2023 F2 gene targeted mutation analysis [employer] Nom (Bld/Tiss) See comment . [facility] Comment on above: Result: c.*97G>A - [...] in theF2 gene and a c.1601G>A (p. [id number]) variant in the F5 gene(commonly referred to as Factor V Leiden) have an approximately 20-fold increased risk for venous thromboembolism. Risks are likely ricki even higher in more complex genotype combinations involving theF2 c.*97G>A variant and Factor V Leiden (PMID: 35968491). Additionalrisk factors include but are not limited [...] for health care providers to discussresults at [phone] ([phone]).Test Details:Variant analyzed: c.*97G>A, previously referred to as [id number]/Limitations:DNA analysis of the F2 gene (NM_000506.5) was [...] was developed and its performance characteristics determinedby [facility]. It has not been cleared or approved by the Food and DrugAdministration.References:Juliette S, Erika STOCKTON, Carmelo R, Martina WW, Victoriano JH; ACMG ProfessionalPractice and Guidelines Committee. Addendum: [employer] consensus statement on factor V Leiden mutationtesting. Harm[facility] Med. 2020Sep 16. doi: 10.1038/[id number]-r.PMID: 66637384.Sara MILLAN. Prothrombin Thrombophilia. 2005Feb 05[Updated 2020Aug 18]. In: Tony MP, Juanita HH, Mimi RA, et al.,editors. Yuliya(R) [Internet]. [place] ([place]): [facility]; 1799-1076. Available from:https://www.[facility].nlm.nih.gov/books/DVB4785/Mil S, Erika STOCKTON, Mina X, Felix B, Vaishali EB, Catrina P, Tra CS;ACMG Laboratory Correspondence Clerk Committee. Venous thromboembolismlaboratory testing (factor V Leiden and factor II c.*97G>A),2018 update: a technical standard of the [employer]Gen[employer] and Genomics (ACMG). [facility] Med. 2018 Jun;20(12):6748-0969.doi: 10.1038/[id number]-g. Epub 2017Apr 18. PMID: 56789532. Screening dilute Everardo's v iper venom time (DRVVT) with reflex to confirmatory testOrdered By: Lian Hernandez on 01-07-2023 dRVVT Coag (PPP) [Time] 33.9 s 0.0-47.0 [facility] Screening lupus anticoagulan t-sensitive activated partial thromboplastin time (aPTT)Ordered By: Lian Hernandez on 01-07-2023 aPTT.lupus sensitive Coag (PPP) [Time] 29.7 sec 0.0-43.5 [facility] TT plasOrdered By: Lian carrero on 01-07-2023 Thrombin time Coag (PPP) [Time] 16.3 sec 0.0-23.0 [facility] aPTT.lupus sensitive/aPTT.froy pus sensitive W excess phospholipid (screen to confirm raOrdered By: Lian Hernandez on 01-07-2023 aPTT.lupus sensitive/aPTT.lupus sensitive W excess phospholipid Coag (PPP) [Ratio] 1.07 Ratio 0.00-1.34 [facility] CBC AUTO DIFFon 07-15-2022 BASO # 0.0 103/ul Normal 0.0-0.1 [facility] Comment on above: Performed By: #### C BC #### [facility] [address] [address] [address] Naina Suarez Basophils/100 WBC (Bld) 0.5 % Normal 0.2-2.0 [facility] Comment on above: Performed By: #### C BC #### [facility] [address] [address] [address] Naina Suarez EO # 0.1 103/ul Normal 0.0-0.7 [facility] Comment on above: Performed By: #### C BC #### [facility] [address] [place] [address] Dr. Naina Suarez Eosinophils/100 WBC (Bld) 1.6 % Normal 0.9-7.0 [facility] Comment on above: Performed By: #### C BC #### [facility] [address] [address] [address] Naina Suarez Erythrocyte distribution width (RBC) [Ratio] 13.2 % Normal 11.0-15.0 [facility] Comment on above: Performed By: #### C BC #### [facility] [address] [address] [address] Naina Suarez Hematocrit (Bld) [Volume fraction] 44.5 % Normal 36.0-48.0 [facility] Comment on above: Performed By: #### C BC #### [facility] [address] [place] [address] Dr. Naina Suarez Hemoglobin (Bld) [Mass/Vol] 14.9 g/dL Normal 12.0-16.0 [facility] Comment on above: Performed By: #### C BC #### [facility] [address] [place] [address] Dr. Naina Suarez IG # 0.01 10e3/ul Normal 0.00-0.03 [facility] Comment on above: Performed By: #### C BC #### [facility] [address] [place] [address] Dr. Naina Suarez IG % 0.2 % Normal 0.0-0.5 [facility] Comment on above: Performed By: #### C BC #### [facility] [address] [place] [address] Dr. Naina Suarez LYMPH # 1.7 103/ul Normal 1.2-3.8 [facility] Comment on above: Performed By: #### C BC #### [facility] [address] [place] [address] Dr. Naina Suarez Lymphocytes/100 WBC (Bld) 28.3 % Normal 20.5-60.0 [facility] Comment on above: Performed By: #### C BC #### [facility] [address] [place] [address] Dr. Naina Suarez MANUAL DIFF REQ NO Normal [facility] Comment on above: Performed By: #### C BC #### [facility] [address] [place] [address] Dr. Naina Suarez MCH (RBC) [Entitic mass] 29.3 pg Normal 26.7-34.0 [facility] Comment on above: Performed By: #### C BC #### [facility] [address] [place] [address] Dr. Naina Suarez MCHC (RBC) [Mass/Vol] 33.5 g/dL Normal 29.9-35.2 [facility] Comment on above: Performed By: #### C BC #### [facility] [address] [place] [address] Dr. Naina Suarez MCV (RBC) [Entitic vol] 87.6 fL Normal 81.0-99.0 [facility] Comment on above: Performed By: #### C BC #### [facility] [address] [place] [address] Dr. Naina Suarez MONO # 0.3 103/ul Normal 0.3-0.8 [facility] Comment on above: Performed By: #### C BC #### [facility] [address] [place] [address] Dr. Naina Suarez Monocytes/100 WBC (Bld) 4.7 % Normal 1.7-12.0 [facility] Comment on above: Performed By: #### C BC #### [facility] [address] [place] [address] Dr. Naina Suarez NEUT # 4.0 103/ul Normal 1.4-6.5 [facility] Comment on above: Performed By: #### C BC #### [facility] [address] [place] [address] Dr. Naina Suarez Neutrophils/100 WBC (Bld) 64.7 % Normal 43.0-75.0 [facility] Comment on above: Performed By: #### C BC #### [facility] [address] [place] [address] Dr. Naina Suarez Platelet mean volume (Bld) [Entitic vol] 9.2 fL Critically low 9.5-13.5 [facility] Comment on above: Performed By: #### C BC #### [facility] [address] [place] [address] Dr. Naina Suarez PLT 253 103/ul Normal 150-450 [facility] Comment on above: Performed By: #### C BC #### [facility] [address] [place] [address] Dr. Naina Suarez RBC 5.08 106/ul Normal 4.20-5.40 [facility] Comment on above: Performed By: #### C BC #### [facility] [address] [place] [address] Dr. Naina Suarez WBC 6.1 103/ul Normal 4.0-11.0 [facility] Comment on above: Performed By: #### C #### [facility] [address] [address] [address] HEAD WO CONon [...] with late acute-subacute ischemia/infarct within the right ELECTRO WINNING OPERATOR distribution. Recommend follow-up brain MRI. 2. No acute intracranial hemorrhage. 3. Old left basal ganglia lacunar infarct. I discussed critical findings with Dr. Starkey in the emergency department at 12:15 PM on 07/15/2022. Electronically authenticated by: [place] SIMS Date: 2022-07-15 12:19 Normal [facility] CTA HEAD WO W CONon 07-15-19 23 CTA HEAD WO W CON Begin Addendum # 1 I discussed the above findings via phone call with Dr. Ramila Starkey at 3:03 PM Eastern standard time on [...] stenosis. LEFT VERTEBRAL ARTERY: No significant stenosis. [place]: The bilateral intracranial internal carotid arteries, anterior cerebral arteries, middle cerebral arteries and anterior and posterior communicating arteries are normal. 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 There is some reconstitution of the P4 segment. No intracranial aneurysm measuring least 2 mm identified. No intracranial AVM. LUNG APICES: The lung apices are clear. SOFT TISSUES: The prevertebral soft tissues are normal. No soft tissue inflammation. OSSEOUS STRUCTURES: No acute osseous abnormality throughout the imaged axial skeleton and skull base. IMPRESSION: 1. 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 2. 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 Provider was notified via stat call que. Normal [facility] Covid-19 PCR (CVDTB)on SARS-CoV-2 (COVID-19) RNA CIARA+probe Ql (Unsp spec) Not detected Normal NOT DETECTED [facility] Comment on above: Result Comment: When diagnostic [...] for this test is supported by the [place] of Health and Human Service's declaration that [...] longer be used). Performed By: #### [facility] ####[facility] [id number] [place], [place] [address]UyDr. Naina Suarez PROF CHEM 8 (BAS METB)on Anion gap [Moles/Vol] 11.5 mmol/L Normal Th e [facility] Comment on above: Performed By: #### B MP #### [facility] [address] [address] [address] Naina Suarez Calcium [Mass/Vol] 8.6 mg/dL Normal 8.5-10.1 [facility] Comment on above: Performed By: #### B MP #### [facility] [address] [address] [address] Naina Suarez Chloride [Moles/Vol] 104 mmol/L Normal 98-107 [facility] Comment on above: Performed By: #### B MP #### [facility] [address] [address] [address] Naina Suarez CO2 [Moles/Vol] 26.3 mmol/L Normal 21.0-32.0 [facility] Comment on above: Performed By: #### B MP #### [facility] [address] [address] [address] Naina Suarez Creatinine [Mass/Vol] 0.81 mg/dL Normal 0.55-1.02 [facility] Comment on above: Performed By: #### B MP #### [facility] [address] [address] [address] Naina Suarez EGFR-AF DOMINICAN >60 Normal >=60 [facility] Comment on above: Performed By: #### B MP #### [facility] [address] [address] [address] Naina Suarez EGFR-NON AF DOMINICAN >60 Normal >=60 [facility] Comment on above: Performed By: #### B MP #### [facility] [address] [address] [address] Naina Suarez Glucose [Mass/Vol] 82 mg/dL Normal 74-106 [facility] Comment on above: Performed By: #### B MP #### [facility] [address] [place] [address] Dr. Naina Suarez Potassium [Moles/Vol] 3.8 mmol/L Normal 3.5-5.1 [facility] Comment on above: Performed By: #### B MP #### [facility] [address] [place] [address] Dr. Naina Suarez Sodium [Moles/Vol] 138 mmol/L Normal 136-145 [facility] Comment on above: Performed By: #### B MP #### [facility] [address] [place] [address] Dr. Naina Suarez Urea nitrogen [Mass/Vol] 8.0 mg/dL Normal 7.0-18.0 [facility] Comment on above: Performed By: #### B MP #### [facility] [address] [place] [address] Dr. Naina Suarez Urea nitrogen/Creatinine [Mass ratio] 9.9 mg/mg Normal [facility] Comment on above: Performed By: #### B MP #### [facility] [address] [place] [address] Dr. Naina Suarez FSHon 02-02-2022 FSH 8.6 mIU/mL Normal [facility] Comment on above: Result Comment: Adul t Female: Follicular phase 3.5 - 12.5 Ovulation phase 4.7 - 21.5 Luteal phase 1.7 - 7.7 Postmenopausal 25.8 - 134.8 Performed By: #### [facility] #### [facility] [address] [place] [address] Dr. Naina Suarez CBC AUTO DIFFon 02-01-2022 BASO # 0.1 103/ul Normal 0.0-0.1 [facility] Comment on above: Performed By: #### C BC #### [facility] [address] [place] [address] Dr. Naina Suarez Basophils/100 WBC (Bld) 0.6 % Normal 0.2-2.0 [facility] Comment on above: Performed By: #### C BC #### [facility] [address] [place] [address] Dr. Naina Suarez EO # 0.2 103/ul Normal 0.0-0.7 [facility] Comment on above: Performed By: #### C BC #### [facility] [address] [place] [address] Dr. Naina Suarez Eosinophils/100 WBC (Bld) 2.1 % Normal 0.9-7.0 [facility] Comment on above: Performed By: #### C BC #### [facility] [address] [place] [address] Dr. Naina Suarez Erythrocyte distribution width (RBC) [Ratio] 13.3 % Normal 11.0-15.0 [facility] Comment on above: Performed By: #### C BC #### [facility] [address] [place] [address] Dr. Naina Suarez Hematocrit (Bld) [Volume fraction] 44.4 % Normal 36.0-48.0 [facility] Comment on above: Performed By: #### C BC #### [facility] [address] [place] [address] Dr. Naina Suarez Hemoglobin (Bld) [Mass/Vol] 14.8 g/dL Normal 12.0-16.0 [facility] Comment on above: Performed By: #### C BC #### [facility] [address] [place] [address] Dr. Naina Suarez IG # 0.02 10e3/ul Normal 0.00-0.03 [facility] Comment on above: Performed By: #### C BC #### [facility] [address] [place] [address] Dr. Naina Suarez IG % 0.2 % Normal 0.0-0.5 [facility] Comment on above: Performed By: #### C BC #### [facility] [address] [place] [address] Dr. Naina Suarez LYMPH # 2.2 103/ul Normal 1.2-3.8 [facility] Comment on above: Performed By: #### C BC #### [facility] [address] [place] [address] Dr. Naina Suarez Lymphocytes/100 WBC (Bld) 26.2 % Normal 20.5-60.0 [facility] Comment on above: Performed By: #### C BC #### [facility] [address] [place] [address] Dr. Naina Suarez MANUAL DIFF REQ NO Normal [facility] Comment on above: Performed By: #### C BC #### [facility] [address] [place] [address] Dr. Naina Suarez MCH (RBC) [Entitic mass] 29.2 pg Normal 26.7-34.0 [facility] Comment on above: Performed By: #### C BC #### [facility] [address] [place] [address] Dr. Naina Suarez MCHC (RBC) [Mass/Vol] 33.3 g/dL Normal 29.9-35.2 [facility] Comment on above: Performed By: #### C BC #### [facility] [address] [place] [address] Dr. Naina Suarez MCV (RBC) [Entitic vol] 87.7 fL Normal 81.0-99.0 [facility] Comment on above: Performed By: #### C BC #### [facility] [address] [place] [address] Dr. Naina Suarez MONO # 0.5 103/ul Normal 0.3-0.8 [facility] Comment on above: Performed By: #### C BC #### [facility] [address] [place] [address] Dr. Naina Suarez Monocytes/100 WBC (Bld) 5.6 % Normal 1.7-12.0 [facility] Comment on above: Performed By: #### C BC #### [facility] [address] [place] [address] Dr. Naina Suarez NEUT # 5.4 103/ul Normal 1.4-6.5 [facility] Comment on above: Performed By: #### C BC #### [facility] [address] [place] [address] Dr. Naina Suarez Neutrophils/100 WBC (Bld) 65.3 % Normal 43.0-75.0 [facility] Comment on above: Performed By: #### C BC #### [facility] [address] [address] [address] Naina Suarez Platelet mean volume (Bld) [Entitic vol] 9.4 fL Critically low 9.5-13.5 [facility] Comment on above: Performed By: #### C BC #### [facility] [address] [address] [address] Naina Suarez PLT 295 103/ul Normal 150-450 [facility] Comment on above: Performed By: #### C BC #### [facility] [address] [place] [address] Dr. Naina Suarez RBC 5.06 106/ul Normal 4.20-5.40 [facility] Comment on above: Performed By: #### C BC #### [facility] [address] [place] [address] Dr. Naina Suarez WBC 8.3 103/ul Normal 4.0-11.0 [facility] Comment on above: Performed By: #### C BC #### [facility] [address] [place] [address] Dr. Naina Suarez PROF 14(COMP METB)on 022 Albumin [Mass/Vol] 3.8 g/dL Normal 3.4-5.0 [facility] Comment on above: Performed By: #### T SH, CMP, T4 #### [facility] [address] [place] [address] Dr. Naina Suarez Albumin/Globulin [Mass ratio] 1.0 {ratio} Normal [facility] Comment on above: Performed By: #### T SH, CMP, T4 #### [facility] [address] [place] [address] Dr. Naina Suarez ALP [Catalytic activity/Vol] 101 U/L Normal 46-116 [facility] Comment on above: Performed By: #### T SH, CMP, T4 #### [facility] [address] [place] [address] Dr. Naina Suarez ALT [Catalytic activity/Vol] 23 U/L Normal 14-59 [facility] Comment on above: Performed By: #### T SH, CMP, T4 #### [facility] [address] [address] [address] Naina Suarez Anion gap [Moles/Vol] 12.4 mmol/L Normal Th e [facility] Comment on above: Performed By: #### T SH, CMP, T4 #### [facility] [address] [address] [address] Naina Suarez AST [Catalytic activity/Vol] 17 U/L Normal 15-37 [facility] Comment on above: Performed By: #### T SH, CMP, T4 #### [facility] [facility] [address] [place] [address] Dr. Naina Suarez Bilirubin [Mass/Vol] 0.3 mg/dL Normal 0.2-1.0 [facility] Comment on above: Performed By: #### T SH, CMP, T4 #### [facility] [address] [place] [address] Dr. Naina Suarez Calcium [Mass/Vol] 9.1 mg/dL Normal 8.5-10.1 [facility] Comment on above: Performed By: #### T SH, CMP, T4 #### [facility] [address] [place] [address] Dr. Naina Suarez Chloride [Moles/Vol] 104 mmol/L Normal 98-107 [facility] Comment on above: Performed By: #### T SH, CMP, T4 #### [facility] [address] [place] [address] Dr. Naina Suarez CO2 [Moles/Vol] 27.6 mmol/L Normal 21.0-32.0 [facility] Comment on above: Performed By: #### T SH, CMP, T4 #### [facility] [address] [place] [address] Dr. Naina Suarez Creatinine [Mass/Vol] 0.83 mg/dL Normal 0.55-1.02 [facility] Comment on above: Performed By: #### T SH, CMP, T4 #### [facility] [address] [place] [address] Dr. Naina Suarez EGFR-AF DOMINICAN >60 Normal >=60 [facility] Comment on above: Performed By: #### T SH, CMP, T4 #### [facility] [address] [place] [address] Dr. Naina Suarez EGFR-NON AF DOMINICAN >60 Normal >=60 [facility] Comment on above: Performed By: #### T SH, CMP, T4 #### [facility] [address] [place] [address] Dr. Naina Suarez Globulin (S) [Mass/Vol] 3.9 g/dL Normal [facility] Comment on above: Performed By: #### T SH, CMP, T4 #### [facility] [address] [place] [address] Dr. Naina Suarez Glucose [Mass/Vol] 102 mg/dL Normal 74-106 [facility] Comment on above: Performed By: #### T SH, CMP, T4 #### [facility] [address] [place] [address] Dr. Naina Suarez Potassium [Moles/Vol] 4.0 mmol/L Normal 3.5-5.1 [facility] Comment on above: Performed By: #### T SH, CMP, T4 #### [facility] [address] [place] [address] Dr. Naina Suarez Protein [Mass/Vol] 7.7 g/dL Normal 6.4-8.2 [facility] Comment on above: Performed By: #### T SH, CMP, T4 #### [facility] [address] [place] [address] Dr. Naina Suarez Sodium [Moles/Vol] 140 mmol/L Normal 136-145 [facility] Comment on above: Performed By: #### T SH, CMP, T4 #### [facility] [address] [place] [address] Dr. Naina Suarez Urea nitrogen [Mass/Vol] 9.0 mg/dL Normal 7.0-18.0 [facility] Comment on above: Performed By: #### T SH, CMP, T4 #### [facility] [address] [place] [address] Dr. Naina Suarez Urea nitrogen/Creatinine [Mass ratio] 10.8 mg/mg Normal [facility] Comment on above: Performed By: #### T SH, CMP, T4 #### [facility] [address] [place] [address] Dr. Naina Suarez T4on 02-01-2022 T4 [Mass/Vol] 8.60 ug/dL Normal 4.80-13.90 [facility] Comment on above: Performed By: #### T SH, CMP, T4 #### [facility] [address] [place] [address] Dr. Naina Suarez TSHon 02-01-2022 TSH 3.083 uIU/mL Normal 0.358-3.740 [facility] Comment on above: Performed By: #### T SH, CMP, T4 #### [facility] [address] [place] [address] Dr. Naina Suarez Vital Signs Date Time Vital Sign Value Performing Clinician Facility 07-23-2023 14:14-0500 Body height 165.1 cm Mel Painting [employer] Work Phone: [facility] 07-23-2023 14:14-0500 Body mass index (BMI) [Ratio] 24.79 kg/m2 Mel Painting [employer] Work Phone: [facility] 07-23-2023 14:14-0500 Body weight 67.59 kg Mel Painting [employer] Work Phone: [facility] 07-23-2023 14:14-0500 Diastolic blood pressure 82 mm[Hg] Mel Painting [employer] Work Phone: [facility] 07-23-2023 14:14-0500 Heart rate 68 /min Mel Painting [employer] Work Phone: [facility] 07-23-2023 14:14-0500 Systolic blood pressure 102 mm[Hg] Mel Painting [employer] Work Phone: [facility] 05-16-2023 14:45-0400 Diastolic blood pressure 78 mm[Hg] PA-C Estefania Jin Work Phone: [facility] 05-16-2023 14:45-0400 Heart rate 60 /min PA-C Estefania Jin Work Phone: [facility] 05-16-2023 14:45-0400 Respiratory rate 20 /min PA-C Estefania Jin Work Phone: [facility] 05-16-2023 14:45-0400 SaO2% (BldA) [Mass fraction] 100 % PA-C Estefania Jin Work Phone: [facility] 05-16-2023 14:45-0400 Systolic blood pressure 126 mm[Hg] PA-C Estefania Jin Work Phone: [facility] 05-16-2023 11:54-0400 Body height 167.64 cm PA-C Estefania Jin Work Phone: [facility] 05-16-2023 11:54-0400 Body temperature 98.3 [degF] PA-C Estefania Jin Work Phone: [facility] 05-16-2023 11:54-0400 Body weight 67 kg PA-C Estefania Jin Work Phone: [facility] 04-02-2023 14:14-0400 Body temperature 97.3 [degF] DO Enoc House Work Phone: [facility] 04-02-2023 14:14-0400 Body weight 66.22 kg DO [facility]oc [facility] Work Phone: [facility] 04-02-2023 14:14-0400 Diastolic blood pressure 77 mm[Hg] DO [facility] Work Phone: [facility] 04-02-2023 14:14-0400 Heart rate 63 /min DO [facility] Work Phone: [facility] 04-02-2023 14:14-0400 Respiratory rate 16 /min DO [facility] Work Phone: [facility] 04-02-2023 14:14-0400 SaO2% (BldA) [Mass fraction] 100 % DO [facility] Work Phone: [facility] 04-02-2023 14:14-0400 Systolic blood pressure 113 mm[Hg] DO [facility] Work Phone: [facility] 02-01-2023 14:12-0400 Body height 167.59 cm DO [facility] Work Phone: [facility] 02-01-2023 09:18-0400 Body temperature 98.3 [degF] DO [facility] Work Phone: [facility] 02-01-2023 09:18-0400 Body weight 67.13 kg DO [facility] Work Phone: [facility] 02-01-2023 09:18-0400 Diastolic blood pressure 52 mm[Hg] DO [facility] Work Phone: [facility] 02-01-2023 09:18-0400 Heart rate 66 /min DO [facility] Work Phone: [facility] 02-01-2023 09:18-0400 Respiratory rate 16 /min DO [facility] Work Phone: [facility] 02-01-2023 09:18-0400 Systolic blood pressure 149 mm[Hg] DO [facility] Work Phone: [facility] 01-07-2023 13:19-0400 SaO2% (BldA) [Mass fraction] 100 % DO [facility] Work Phone: [facility] Encounters Encounter Date Encounter Type Care Provider Facility Start: 05-28-2024 End: 05-28-2024 ambulatory Mel Painting Facility:[facility] Start: 05-28-2024 Non-patient / Non-visit [facility] Start: 02-16-2024 End: 02-16-2024 ambulatory PHYSICIAN NO [facility] Work Phone: Start: 02-16-2024 End: 02-16-2024 Patient encounter procedure PHYSICIAN NO [facility]-Pacemaker Check Start: 01-07-2024 End: 01-07-2024 ambulatory PHYSICIAN NO [facility] Start: 01-07-2024 End: 01-07-2024 Patient encounter procedure PHYSICIAN NO [facility]-Pacemaker [facility] Start: 09-02-2023 End: 09-02-2023 Patient encounter procedure PHYSICIAN NO [facility]-Pac[facility] Start: 09-02-2023 End: 09-02-2023 ambulatory PHYSICIAN NO [facility] Work Phone: Start: 07-23-2023 End: 07-23-2023 Office outpatient visit 15 minutes Mel [facility] [employer] 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 Work Phone: [facility] Comment on above: Essential hypertensi on (Primary Dx); Cryptogenic stroke (CMS/HCC); Implantable loop recorder present; Mixed hyperlipidemia; BMI 24.0-24.9, adult Start: 07-23-2023 End: 07-23-2023 ambulatory MEL [facility] Start: 07-22-2023 Telephone encounter Claudette Springer RN [facility] Start: 05-23-2023 End: 05-23-2023 ambulatory [facility] Start: 05-16-2023 End: 05-16-2023 Admission to same day surgery center MAKEDA Jin Work Phone: [facility]-Assistant [employer] Coach Work Phone: Start: 05-16-2023 End: 05-16-2023 ambulatory MAKEDA Jin Work Phone: [facility] Work Phone: Start: 05-14-2023 End: 05-14-2023 ambulatory MAKEDA Jin Work Phone: [facility] Work Phone: Start: 05-14-2023 End: 05-14-2023 Patient encounter procedure MAKEDA Jin Work Phone: [facility]-Pre-Surgical Testing Work Phone: Start: 04-30-2023 End: 04-30-2023 Encounter for other preprocedural examination [facility] Start: 04-30-2023 End: 04-30-2023 ambulatory [facility] Start: 04-30-2023 End: 04-30-2023 Discharged Recurring [facility] Acute Work Phone: Start: 04-30-2023 Registered Recurring MAKEDA Jin Work Phone: [facility] Work Phone: Start: 04-02-2023 End: 04-02-2023 ambulatory DO Enoc [facility] Work Phone: [facility] Work Phone: Start: 04-02-2023 End: 04-02-2023 Registered Recurring DO [facility]oc [facility] Work Phone: [facility] Work Phone: Start: 02-08-2023 End: 02-08-2023 ambulatory DO Enoc [facility] Work Phone: [facility] Work Phone: Start: 02-08-2023 End: 02-08-2023 Registered Recurring DO [facility]oc [facility] Work Phone: [facility] Work Phone: Start: 07-31-2022 End: 08-24-[address] ENOC CARDENAS Facility:[facility] Start: 07-15-2022 End: 07-15-[address] RAMILA King Facility:[facility] Start: 02-01-2022 End: 02-02-[address] ENOC CARDENAS Facility:[facility] Procedures Date Procedure Procedure Detail Performing Clinician Start: 07-23-2023 FOLLOW UP IN CARDIOLOGY WILBERTO PINO Start: 05-23-2023 FOLLOW UP IN CARDIOLOGY WILBERTO PINO Start: 05-16-2023 CL LOOP Insert of Ev ent Recorder MAKEDA Jin Work Phone: Start: 05-14-2023 Plain chest X-ray MAKEDA Jin Work Phone: Start: 04-30-2023 LOOP RECORDER WILBERTO SILVA Start: 04-30-2023 ECG 12-LEAD WILBERTO APPLE Start: 03-04-2023 Adult depression screening assessment Claudette Springer RN Plan of Treatment Date Care Activity Detail Author Start: 2025 Zoster Vaccines (1 of 2) Zoste r Vaccines (1 of 2) [facility] Start: 04-22-2024 End: 04-22-2024 Patient encounter procedure 04/22/2024 1:20 PM EDT Office Visit [facility] [address] [facility] [address] [place] [id number] Wilberto Pino MD [address] [facility] [address] [place] [address] [facility] Start: 03-04-2024 Adult BMI Screening Adult BMI Screen ing [facility] Start: 03-04-2024 Depression Screening Depression Scre ening [facility] Start: 03-04-2024 Tobacco Screening Tobacco Screening [facility] Start: 05-16-2023 [facility] Start: 03-15-2023 COVID-19 Vaccine ( season) COVID-19 Vaccine () [facility] Start: 03-15-2023 Influenza vaccination [facility] Start: 02-01-2023 [facility] Start: 03-02-2021 COVID-19 Vaccine (3 - Pfizer series) COVID-19 Vaccine (3 - Pfizer series) [facility] Start: 2015 Screening for malign ant neoplasm of breast Mammogram [facility] Start: 1997 DTaP/Tdap/Td Vaccine s (1 - Tdap) DTaP/Tdap/Td Vaccines (1 - Tdap) [facility] Start: 1996 Screening for malign ant neoplasm of cervix [facility] Start: 1994 DTaP,Tdap and Td Vaccines (1 - Tdap) DTaP,Tdap and Td Vaccines (1 - Tdap) [facility] Advanced Brain Monitoring [facility] Start: 1993 Hepatitis C screening Hepatitis C Sc reening [facility] Start: 1976 MMR Vaccines (1 of 1 - Standard series) MMR Vaccines (1 of 1 - Standard series) [facility] Start: 1975 Hepatitis B Vaccines (1 of 3 - 3-dose series) Hepatitis B Vaccines (1 of 3 - 3-dose series) [facility] Start: 1975 HIV screening HIV Screening [facility] Start: 1975 Lipid panel Lipid Panel [facility] Start: 1975 Screening for malign ant neoplasm of colon [facility] Start: 1975 Tobacco Counseling Tobacco Counselin g [facility] Start: 1975 Yearly Adult Physical Yearly Adult P hysical [facility] Albumin [Mass/volume ] in Serum or Plasma [facility] Albumin/Globulin ratio [facility] Electrophoresis: [id number] [facility] Electrophoresis: [id number] [facility] Electrophoresis: beta-globulin [facility] Electrophoresis: joel ma globulin [facility] Globulin [Mass/volum e] in Serum [facility] Homocysteine [Moles/volume] in Serum or Plasma [facility] Protein [Mass/volume ] in Serum or Plasma [facility] Immunizations Immunization Date Immunization Notes Care Provider Bob pritchard 01-05-2021 COVID-19 mRNA, Comirnaty (Covarity) MAKEDA iJn Work Phone: [facility] 12-15-2020 COVID-19 mRNA, Comirnaty (Covarity) MAKEDA Jin Work Phone: [facility] Payers Date Payer Category Payer Self-pay 2023 Unknown [id number] 2021 Unknown [id number] 1975 Unknown [id number] 2.16.84 [id number] 1975 Unknown [id number] 2.16.84 [id number] 1975 Unknown [id number] 2.16.84 [id number] 1975 Unknown [id number] 2.16.84 [id number] 1975 Unknown [id number] 2.16.8 [id number] 1975 Unknown [id number] 2.16.8 [id number] 1975 Unknown [id number] 2.16.8 [id number] 1959 Unknown [id number] Unknown [id number] 2.16.8 [id number] Unknown [id number] 2.16.8 [id number] Unknown [id number] 2.16.8 [id number] Unknown [id number] 2.16.8 [id number] Social History Date Type Detail Facility Start: 01-07-2023 End: 04-02-2023 Tobacco smoking status NHIS Smoker (finding) [facility] Start: 1975 Sex Assigned At Female F [facility] Start: 05-14-2023 End: 05-16-2023 Tobacco smoking status NHIS Ex-smoker (finding) [facility] End: 03-15-2023 History of tobacco use Cigarette Smoker [facility] Work Phone: Start: 07-16-2022 End: 04-30-2023 Tobacco use and exposure Smokeless tobacco non-user [facility] Work Phone: Start: 07-23-2023 Alcohol intake Lifetime non-d cherelle (finding) [facility] Work Phone: Start: 07-18-2022 End: 07-23-2023 History of Social function [facility] Work Phone: Start: 07-18-2022 End: 07-23-2023 Tobacco use panel [facility] Work Phone: Start: 1975 Sex Assigned At Not on file [facility] Work Phone: Start: 2023 End: 07-23-2023 Exposure to SARS-CoV-2 (event) Not sure [facility] Start: 07-16-2022 Tobacco smoking stat us NHIS Smokes tobacco daily [facility] Start: 03-04-2023 Alcohol intake Ex-drinker (finding) [facility] Adolescent depressio n screening assessment [address] [facility] Start: 07-16-2022 Alcohol Comment social [facility] Start: 06-03-2024 End: 06-04-2024 Sex Female (finding) [facility] Medical Equipment Procedure Code Equipment Code Equipment Origin al Text Equipment Identifier Dates CL LOOP RECORDER ASSERT-IQ EL+ FDA Start: 05-16-2023 CL LOOP RECORDER ASSERT-IQ EL+ FDA Start: 05-16-2023 CL LOOP RECORDER ASSERT-IQ EL+ FDA Start: 05-16-2023 CL LOOP RECORDER ASSERT-IQ EL+ FDA Start: [...] ischemic evaluation No documented arrhythmia to date [facility] Work Phone: 07-24-2023 Evaluation + Plan note Associated Problem(s): Implantable loop recorder present May 16, 2023 uneventful implant implantable loop recorder. July 17, 2022 device interrogation no evidence of atrial fibrillation [facility] Work Phone: 07-24-2023 Miscellaneous Notes Associated [...] Optimal in office documented in this encounter [facility] Work Phone: 07-24-2023 Evaluation + Plan note Associated Problem(s): Mixed hyperlipidemia Moderate intensity statin She has a new PCP and will be obtaining annual wellness labs in the near future [facility] Work Phone: 07-24-2023 Evaluation + Plan note Associated Problem(s): Essential hypertension Optimal in office [facility] Work Phone: 07-23-2023 History of Presen [...] Dr. 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 Voice recognition software was utilized to prepare this document. documented in this encounter [facility] Work Phone: 07-23-2023 Instructions LYNDA Martino [...] Pino 9 months documented in this encounter [facility] Work Phone: 07-22-2023 Miscellaneous Notes Per Aug 2023 recall, patient is due for routine follow up with [facility]. Please call to schedule appt. Called patient and her number has been disconnected Called significant other and left Vm Attempted patients significant other and no answer Going to mail a letter documented in this encounter [facility] 07-22-2023 Telephone encounter Note Per Aug 2023 recall, patient is due for routine follow up with [facility]. Please call to schedule appt. [facility] 07-22-2023 Telephone encounter Note Called patient and her number has been disconnected Called significant other and left Vm [facility] 07-22-2023 Telephone encounter Note Attempted patients significant other and no answer Going to mail a letter [facility] 04-02-2023 Progress note Note Date/Time April 02, 2023 3:53pm [place] [address] Hem/Onc Follow Up Note - OP Signed Patient: Melvina Jameson MR#: [id number] : 1975 Acct:[id number] Age/Sex: 47 / F Type: REG RCR [...] next month. I reviewed her laboratories from [facility] showing elevated homocystine of 21. She [...] review her symptoms. Her hypercoagulability work-up by ELISA Hernandez showed normal lupus anticoagulant testing, normal anticardiolipin [...] at the request of Estefania Jin PA-C ([facility]) regarding further evaluation of hypercoagulable condition [...] her symptoms persisted and she presented to [facility] emergency department on 07/14/2022. She was urgently transferred to [facility] and subsequently diagnosed with a right ELECTRO WINNING OPERATOR occlusion and right thalamic stroke. She underwent [...] study and negative lower extremity Doppler. 30-day athletic monitor revealed no evidence of atrial fibrillation and/or other arrhythmia. Presently, she is being followed by [facility] neurology every 6 months. 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 She has intentionally lost approximately 40 pounds [...] Anxiety Depression Endometriosis History of ischemic right ELECTRO WINNING OPERATOR stroke Hyperlipidemia Hypertension - Surgical History Surgical [...] initial hypercoagulable work up while hospitalized at [facility] on 07/16/2022 while she was hospitalized for acute onset left sided weakness; subsequently diagnosed with a right thalamic stroke secondary to ELECTRO WINNING OPERATOR occlusion; risk factors include: hyperlipidemia, nicotine use [...] factor II?prothrombin gene, factor V Leiden, protein PULL WORKER, PT/INR, PTT, Antithrombin III gene mutation, beta-2 [...] today. --In review of prior labs at [facility], she was noted to have elevated [...] for coordination of care (as documented) and [id number] counseling of patient and/or family. 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 02/01/2023: Melvina is [...] next month. I reviewed her laboratories from [facility] showing elevated homocystine of 21. She did not have a recent CBC,iron studies, or B12/folate testing therefore these were ordered today. Hemoglobin normal at 13.5, iron saturation 30.5 with ferritin 62.4. Vitamin B12low end of normal range at 219 and folate normalat 6.9. Due to recent lightheadedness and fatigue, I recommended weekly B12 IM x8 weeks and we willreevaluate at that time to review her symptoms. Her hypercoagulability work-up by ELISA Hernandez showed normal lupus anticoagulant testing, normal anticardiolipin [...] female seen at the request of Estefania Medina PA-C ([facility]) regarding further evaluation of hypercoagulable [...] her symptoms persisted and she presented to [facility] emergency department on 07/14/2022. She was urgently transferred to [facility] and subsequently diagnosed with a right ELECTRO WINNING OPERATOR occlusion and right thalamic stroke. She underwent [...] study and negative lower extremity Doppler. 30-day athletic monitor revealed no evidence of atrial fibrillation and/or other arrhythmia. Presently, she is being followed by [facility] neurology every 6 months. 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 She has intentionally lost approximately 40 pounds since her stroke 6 months ago; she was previously consuming a [address] Lafleur daily; she has decreased this to approximately 5-6 cans. She hasreduced her nicotine use to 5cigarettes or less [...] any issues with headaches, fever/chills, night sweats, un intentional weight loss, abdominal pain, nausea/vomiting, diarrhea/constipation, melena, [...] Anxiety Depression Endometriosis History of ischemic right ELECTRO WINNING OPERATOR stroke Hyperlipidemia Hypertension - Surgical History Surgical [...] initial hypercoagulable work up while hospitalized at [facility] on 07/16/2022 while she was hospitalized for acute onset left sided weakness; subsequently diagnosed with a right thalamic stroke secondary to ELECTRO WINNING OPERATOR occlusion; risk factors include: hyperl ipidemia, nicotine use and hypertension. She has history [...] factor II?prothrombin gene, factor V Leiden, protein PULL WORKER, PT/INR, PTT, Antithrombin III gene mutation, beta-2 [...] today. --In review of prior labs at [facility], she was noted to have elevated homocystine. In addition she has persistent fatigue and had a syncopalepisode 2 days ago. I sent vitamin B12 and folate which returned with low normal range vitamin B12 at 217. Given her ongoing neurologic symptoms and fatigueI am setting up weekly B12 1 mg IM x8 weeks and we will follow-up symptoms with her at thattime. We will also review serum protein electrophoresis [...] for coordination of care (as documented) and quje-jb-dcut counseling of patient and/or family. Dictated By: Reina Goss APRN DD/ 1419 Signed By: 04/02/23 1453 [facility]07-21-2023 Progress note Author Racheal Fernandez [facility] Note Date/Time February 01, 2023 3:35 pm [facility] [place] [address] Hem/Onc Follow Up Note - OP Signed Patient: Melvina Jameson MR#: [id number] : 1975 Acct:[id number] Age/Sex: 47 / F Type: REG RCR [...] next month. I reviewed her laboratories from [facility] showing elevated homocystine of 21. She [...] review her symptoms. Her hypercoagulability work-up by ELISA Hernandez showed normal lupus anticoagulant testing, normal anticardiolipin [...] at the request of Estefania Jin PA-C ([facility]) regarding further evaluation of hypercoagulable [...] her symptoms persisted and she presented to [facility] emergency department on 07/14/2022. She was urgently transferred to [facility] and subsequently diagnosed with a right ELECTRO WINNING OPERATOR occlusion and right thalamic stroke. She underwent [...] study and negative lower extremity Doppler. 30-day athletic monitor revealed no evidence of atrial fibrillation and/or other arrhythmia. Presently, she is being followed by [facility] neurology every 6 months. 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 She has intentionally lost approximately 40 pounds [...] Anxiety Depression Endometriosis History of ischemic right ELECTRO WINNING OPERATOR stroke Hyperlipidemia Hypertension - Surgical History Surgical [...] right posterior temporal lobe and occipital lobes [ELECTRO WINNING OPERATOR territory] Assessment and Plan (1) Right thalamic stroke As noted above, patient underwent initial hypercoagulable work up while hospitalized at [facility] on 07/16/2022 while she was hospitalized for acute onset left sided weakness; subsequently diagnosed with a right thalamic stroke secondary to ELECTRO WINNING OPERATOR occlusion; risk factors include: hyperlipidemia, nicotine use [...] factor II?prothrombin gene, factor V Leiden, protein PULL WORKER, PT/INR, PTT, Antithrombin III gene mutation, beta-2 [...] today. --In review of prior labs at [facility], she was noted to have elevated [...] for coordination of care (as documented) and hfie-xd-nckc counseling of patient and/or family. Dictated By: Racheal Fernandez MD DD/ 2 Signed By: <Electronically signed by MD Racheal Fernandez> 02/01/23 1439 [facility] Work Phone: 1(540) 174-171407-21-2023 Progress note Author Racheal Fernandez [facility] February 01, 2023 2:35pm Note Date/Time February 01, 2023 9:24 am [facility] [place] [address] Hem/Onc Follow Up Note - OP Signed Patient: Melvina Jameson MR#: [id number] : 1975 Acct:[id number] Age/Sex: 47 / F Type: REG RCR [...] next month. I reviewed her laboratories from [facility] showing elevated homocystine of 21. She [...] review her symptoms. Her hypercoagulability work-up by ELISA Hernandez showed normal lupus anticoagulant testing, normal anticardiolipin [...] at the request of Estefania Jin PA-C ([facility]) regarding further evaluation of hypercoagulable condition [...] her symptoms persisted and she presented to [facility] emergency department on 07/14/2022. She was urgently transferred to [facility] and subsequently diagnosed with a right ELECTRO WINNING OPERATOR occlusion and right thalamic stroke. She underwent [...] study and negative lower extremity Doppler. 30-day athletic monitor revealed no evidence of atrial fibrillation and/or other arrhythmia. Presently, she is being followed by [facility] neurology every 6 months. 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 She has intentionally lost approximately 40 pounds [...] Anxiety Depression Endometriosis History of ischemic right ELECTRO WINNING OPERATOR stroke Hyperlipidemia Hypertension - Surgical History Surgical [...] right posterior temporal lobe and occipital lobes [ELECTRO WINNING OPERATOR territory] Assessment and Plan (1) Right thalamic stroke As noted above, patient underwent initial hypercoagulable work up while hospitalized at [facility] on 07/16/2022 while she was hospitalized for acute onset left sided weakness; subsequently diagnosed with a right thalamic stroke secondary to ELECTRO WINNING OPERATOR occlusion; risk factors include: hyperlipidemia, nicotine use [...] factor II?prothrombin gene, factor V Leiden, protein PULL WORKER, PT/INR, PTT, Antithrombin III gene mutation, beta-2 [...] today. --In review of prior labs at [facility], she was noted to have elevated [...] for coordination of care (as documented) and tpbf-ll-vtoy counseling of patient and/or family. Dictated By: Racheal Fernandez MD DD/ 2 Signed By: <Electronically signed by MD Racheal Fernandez> 02/01/23 8661 [facility] Work Phone: 1(671) 286-325307-21-2023 [facility] [address] [address] Hem/Onc Follow Up Note - OP Signed Patient: Melvina Jameson MR#: [id number] : 1975 Acct:[id number] Age/Sex: 47 / F Type: REG RCR Copies to: DO Estefania Evans PA-C~ Subjective Date/Time of Service: Date of Service: 02/01/2023 Time of Service: 09: Chief Complaint: Patient is here today for [...] next month. I reviewed her laboratories from [facility] showing elevated homocystine of 21. She did not have a recent CBC,iron studies, or B12/folate testing therefore these were ordered today. Hemoglobin normal at 13.5, iron saturation 30.5 with ferritin 62.4. Vitamin B12low end of normal range at 219 and folate normalat 6.9. Due to recent lightheadedness and fatigue, I recommended weekly B12 IM x8 weeks and we willreevaluate at that time to review her symptoms. Her hypercoagulability work-up by ELISA Hernandez showed normal lupus anticoagulant testing, normal anticardiolipin [...] female seen at the request of Estefania Medina PA-C ([facility]) regarding further evaluation of hypercoagulable [...] her symptoms persisted and she presented to [facility] emergency department on 07/14/2022. She was urgently transferred to [facility] and subsequently diagnosed with a right ELECTRO WINNING OPERATOR occlusion and right thalamic stroke. She underwent [...] study and negative lower extremity Doppler. 30-day athletic monitor revealed no evidence of atrial fibrillation and/or other arrhythmia. Presently, she is being followed by [facility] neurology every 6 months. 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 She has intentionally lost approximately 40 pounds since her stroke 6 months ago; she was previously consuming a [address] Pepper daily; she has decreased this to approximately 5-6 cans. She hasreduced her nicotine use to 5cigarettes or less [...] any issues with headaches, fever/chills, night sweats, un intentional weight loss, abdominal pain, nausea/vomiting, diarrhea/constipation, melena, [...] for abdominal pain, constipation, decreased appetite,diarrhea, nausea orvomiting. GENITOURINARY: Negative for dysuria and hematuria. ENDOCRINE: [...] Anxiety Depression Endometriosis History of ischemic right ELECTRO WINNING OPERATOR stroke Hyperlipidemia Hypertension - Surgical History Surgical [...] normal lupus anticoagulant testing, normal anticardiolipin and beta- 2glycoprotein testing, normal protein C antigen and activity, [...] right posterior temporal lobe and occipital lobes [ELECTRO WINNING OPERATOR territory] Assessment and Plan (1) Right thalamic stroke As noted above, patient underwent initial hypercoagulable work up while hospitalized at [facility] on 07/16/2022 while she was hospitalized for acute onset left sided weakness; subsequently diagnosed with a right thalamic stroke secondary to ELECTRO WINNING OPERATOR occlusion; risk factors include: hyperl ipidemia, nicotine use and hypertension. She has history [...] factor II?prothrombin gene, factor V Leiden, protein PULL WORKER, PT/INR, PTT, Antithrombin III gene mutation, beta-2 [...] today. --In review of prior labs at [facility], she was noted to have elevated [...] is to continue Plavix for management of str bucky and follow-up with neurology as previously scheduled [...] She has had an event monitor and echocardiogramduring work-up for herstroke. She has evaluation with [...] for coordination of care (as documented) and yxaf-oj-tzyx counseling of patient and/or family. Dictated By: Racheal Fernandez MD DD/ 0923 Signed By: 02/01/23 1435 [facility]06-26-2023 Consult note Author Lian Hernandez [facility] Note Date/Time January 07, 2023 5:17 pm [facility] [address] [address] Hem/Onc Consult Note - OP Signed Patient: Melvina Jameson MR#: [id number] : 1975 Acct:[id number] Age/Sex: 47 / F Type: REG RCR Copies to: DO Estefania Evans PA-C~ HPI Date/Time of Service: Date of Service: 01/07/2023 Time of Service: 14:33 Referring Provider/PCP: Referring Provider: Estefania Jin PA-C PCP: Enoc Cardenas DO - History of Present Illness Reason for Consultation: 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 She was urgently transferred to [facility] and subsequently diagnosed with a right ELECTRO WINNING OPERATOR occlusion and right thalamic stroke. She underwent [...] study and negative lower extremity Doppler. 30-day athletic monitor revealed no evidence of atrial fibrillation and/or other arrhythmia. Presently, she is being followed by [facility] neurology every 6 months. 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 She has intentionally lost approximately 40 pounds since her stroke 6 months ago; she was previously consuming a [address] Lafleur daily; she has decreased this to [...] skin rash, easy bruising/bleeding, orlower extremity edema. [facility] - Medical History Medical History: Medical History (Last Reviewed 01/07/23 @ 13:13 by Cindy Zacarias) Anxiety Depression Endometriosis History of ischemic right ELECTRO WINNING OPERATOR stroke Hyperlipidemia Hypertension - Surgical History Surgical [...] initial hypercoagulable work up while hospitalized at [facility] on 07/16/2022 while she was hospitalized for acute onset left sided weakness; subsequently diagnosed with a right thalamic stroke secondary to ELECTRO WINNING OPERATOR occlusion; risk factors include: hyperlipidemia, nicotine use [...] factor II?prothrombin gene, factor V Leiden, protein PULL WORKER, PT/INR, PTT, Antithrombin III gene mutation, beta-2 [...] for coordination of care (as documented) and elzm-nu-nnfp counseling of patient and/or family. Dictated By: Lian Hernandez APRN DD/ 0855 Signed By: <Electronically signed by MAXIMILIANO Hernandez> 01/07/23 1617 [facility] Work Phone: 1(265) 969-581306-26-2023 Consult note Author Lian Hernandez [facility] January 07, 2023 4:17pm Note Date/Time January 07, 2023 2:34 pm [facility] [place] [id number] Hem/Onc Consult Note - OP Signed Patient: Melvina Jameson MR#: [id number] : 1975 Acct:[id number] Age/Sex: 47 / F Type: REG RCR Copies to: DO Estefania Evans PA-C~ HPI Date/Time of Service: Date of Service: 01/07/2023 Time of Service: 14:33 Referring Provider/PCP: Referring Provider: Estefania Jin PA-C PCP: Enoc Cardenas DO - History of Present Illness Reason for Consultation: 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 She was urgently transferred to [facility] and subsequently diagnosed with a right ELECTRO WINNING OPERATOR occlusion and right thalamic stroke. She underwent [...] study and negative lower extremity Doppler. 30-day athletic monitor revealed no evidence of atrial fibrillation and/or other arrhythmia. Presently, she is being followed by [facility] neurology every 6 months. 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 She has intentionally lost approximately 40 pounds since her stroke 6 months ago; she was previously consuming a [address] Lafleur daily; she has decreased this to [...] skin rash, easy bruising/bleeding, orlower extremity edema. [facility] - Medical History Medical History: Medical History (Last Reviewed 01/07/23 @ 13:13 by Cindy Zacarias) Anxiety Depression Endometriosis History of ischemic right ELECTRO WINNING OPERATOR stroke Hyperlipidemia Hypertension - Surgical History Surgical [...] initial hypercoagulable work up while hospitalized at [facility] on 07/16/2022 while she was hospitalized for acute onset left sided weakness; subsequently diagnosed with a right thalamic stroke secondary to ELECTRO WINNING OPERATOR occlusion; risk factors include: hyperlipidemia, nicotine use [...] factor II?prothrombin gene, factor V Leiden, protein PULL WORKER, PT/INR, PTT, Antithrombin III gene mutation, beta-2 [...] for coordination of care (as documented) and xvuz-hd-edhf counseling of patient and/or family. Dictated By: Lian Hernandez APRN DD/ 1436 Signed By: <Electronically signed by MAXIIMLIANO Nairbriencamlile> 01/07/23 1619 [facility] Work Phone: 1([phone]) 733-353606-26-2023 Consult [facility] at [address] [address] Hem/Onc Consult Note - OP Signed Patient: Melvina Jameson MR#: [id number] : 1975 Acct:[id number] Age/Sex: 47 / F Type: REG RCR Copies to: DO Estefania Evans PA-C~ HPI Date/Time of Service: Date of Service: 01/07/2023 Time of Service: 14:33 Referring Provider/PCP: Referring Provider: Estefania Jin PA-C PCP: Enoc Cardenas DO - History of Present Illness Reason for Consultation: 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 She was urgently transferred to [facility] and subsequently diagnosed with a right ELECTRO WINNING OPERATOR occlusion and right thalamic stroke. She underwent [...] study and negative lower extremity Doppler. 30-day athletic monitor revealed no evidence of atrial fibrillation and/or other arrhythmia. Presently, she is being followed by [facility] neurology every 6 months. 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 She has intentionally lost approximately 40 pounds since her stroke 6 months ago; she was previously consuming a [address] Lafleur daily; she has decreased this to approximately 5-6 cans. She hasreduced her nicotine use to 5cigarettes or less [...] any issues with headaches, fever/chills, night sweats, un intentional weight loss, abdominal pain, nausea/vomiting, diarrhea/constipation, melena, hematochezia, bright red blood per rectum, skin rash, easy bruising/bleeding, orlower extremity edema. [facility] - Medical History Medical History: Medical History (Last Reviewed 01/07/23 @ 13:13 by Cindy Zacarias) Anxiety Depression Endometriosis History of ischemic right ELECTRO WINNING OPERATOR stroke Hyperlipidemia Hypertension - Surgical History Surgical [...] initial hypercoagulable work up while hospitalized at [facility] on 07/16/2022 while she was hospitalized for acute onset left sided weakness; subsequently diagnosed with a right thalamic stroke secondary to ELECTRO WINNING OPERATOR occlusion; risk factors include: hyperl ipidemia, nicotine use and hypertension. She has history [...] factor II?prothrombin gene, factor V Leiden, protein PULL WORKER, PT/INR, PTT, Antithrombin III gene mutation, beta-2 [...] miscarriages; all <20 weeks gestation. Patient is nowstatus post hysterectomy for endometriosis. - Time with Patient Coordination of Care & Counseling Time: Greater than 50% of time spent with patient was for coordination of care (as documented) and xhou-dp-zvzv counseling of patient and/or family. 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 Syncope acute History of miscarriage chron ic Hyperlipidemia chronic Hypertension chronic Right thalamic stroke chroni c [facility] Work Phone: Evaluation note* Diagnosis Essential hypertension- Primary Unspecified essential hypertension Cryptogenic stroke (CMS/HCC) Implantable loop recorder present Mixed hyperlipidemia BMI 24.0-24.9, adult documented in this encounter [facility] Work Phone: Evaluation noteNo assessment information available [facility] Work Phone: Hospital Discharge instructions Additional Instructions [...] with nurse for incision check in the [facility] on 05/23/2023 at 10:30am. 2. Pacemaker/ICD clinic appointment at [facility] on 08/07/2023 at 9:00am. 3. Office visit with Mel Painting NP at the [facility] on 08/12/2023 at 10:30am . [][facility] Work Phone: InstructionsNot on filedocumented in this encounter [facility] Author Reina Goss [facility] April 02, 2023 2:53pm Note Date/Time April 02, 2023 2:20pm [facility] [place] [address] Hem/Onc Follow Up Note - OP Signed Patient: Melvina Jameson MR#: [id number] : 1975 Acct:[id number] Age/Sex: 47 / F Type: REG RCR [...] next month. I reviewed her laboratories from [facility] showing elevated homocystine of 21. She [...] review her symptoms. Her hypercoagulability work-up by ELISA Hernandez showed normal lupus anticoagulant testing, normal anticardiolipin [...] at the request of Estefania Jin PA-C ([facility]) regarding further evaluation of hypercoagulable [...] her symptoms persisted and she presented to [facility] emergency department on 07/14/2022. She was urgently transferred to [facility] and subsequently diagnosed with a right ELECTRO WINNING OPERATOR occlusion and right thalamic stroke. She underwent [...] study and negative lower extremity Doppler. 30-day athletic monitor revealed no evidence of atrial fibrillation and/or other arrhythmia. Presently, she is being followed by [facility] neurology every 6 months. 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 She has intentionally lost approximately 40 pounds [...] Anxiety Depression Endometriosis History of ischemic right ELECTRO WINNING OPERATOR stroke Hyperlipidemia Hypertension - Surgical History Surgical [...] initial hypercoagulable work up while hospitalized at [facility] on 07/16/2022 while she was hospitalized for acute onset left sided weakness; subsequently diagnosed with a right thalamic stroke secondary to ELECTRO WINNING OPERATOR occlusion; risk factors include: hyperlipidemia, nicotine use [...] factor II?prothrombin gene, factor V Leiden, protein PULL WORKER, PT/INR, PTT, Antithrombin III gene mutation, beta-2 [...] today. --In review of prior labs at [facility], she was noted to have elevated [...] for coordination of care (as documented) and jqka-jg-thic counseling of patient and/or family. Dictated By: Reina Goss APRN DD/ 1419 Signed By: <Electronically signed by MAXIMILIANO Goss> 04/02/23 1453 [facility] Work Phone: Reason for referral (narrative)* Consultation (Routine) - Authorized Specialty Diagnoses / Procedures Referred By Kasie dickson Referred To Contact Cardiology Diagnoses Implantable loop recorder present Procedures Follow Up In Cardiology Mel Painting APRN-CNP [address] [facility] [address], [address] [address] Wilberto Pino MD [facility] [facility], [address] [address] Referral ID Status Reason Start Date Expiration Date V isits Requested Visits Authorized [id number] Authorized 07/23/2023 07/22/2024 1 1 [facility] Work Phone: Summary Purpose Family History No [...] ovary Unknown father Malignant neoplasm Unknown Unknown Relationship Condition Age at Onset Recorded Date/T frieda father Malignant neoplasm of lung Unknown grandparent Malignant neoplasm of breast Unknown mother Lupus Unknown grandparent Malignant neoplasm of ovary [...] Hypertension Right thalamic stroke Chief Complaint I63.9 Chief Complaint i63.9 i63.9 Chief Complaint Admit Date i63.9 May 28, 2024 8:30am Additional Source Comments INFORMATION SOURCE (unrecogn ized section and content) DATE CREATED AUTHOR 09/15/2022 [facility] DATE CREATED AUTHOR AUTHOR'S ORGANIZ ATION 03/18/2024 [facility] DATE CREATED AUTHOR AUTHOR'S ORGANIZ ATION 06/04/2024 [facility] Care Teams (unrecognized sec tion and content) Team Status: Active Member Role Status Dates PHYSICIAN NO FAMILY Primary Care Provider Active Team Status: Active Member Role Status Dates PHYSICIAN NO FAMILY Primary Care Provider Active Start: May 28, 2024 Mel Painting APRN Other Provider Active Start : May 28, 2024 Jovany Galdamez MD Attending Provider Active Start: May 28, 2024 Team Status: Inactive Member Role Status Dates PHYSICIAN NO FAMILY Primary Care Provider Active Start: September 02, 2023 End: September 02, 2023 Wilberto Pino MD Attending Provider Active Start: September 02, 2023 End: September 02, 2023 Team Status: Active Member Role Status Dates Enoc Cardenas DO Primary Care Provider Active Team Status: Active Member Role Status Dates Lian Hernandez APRN Attending Provider Active Enoc Cardenas DO Primary Care Provider Active Estefania Jin PA-C Referring Provider Kvng pickett Team Status: Active Member Role Status Dates Estefania Jin PA-C Referring Provider Ac piyush Fernandez MD Attending Provider Active PHYSICIAN NO FAMILY Primary Care Provider Active Team Status: Inactive Member Role Status Dates PHYSICIAN NO FAMILY Primary Care Provider Active Wilberto Pino MD Attending Provider Active T[employer] Relationship Specialty Start Date End Date Enoc Cardenas DO [address] [place] [address] PCP - General Family Medicine 09/05/22 Team Status: Inactive Member Role Status Dates PHYSICIAN NO FAMILY Primary Care Provider Active Start: January 07, 2024 End: January 07, 2024 Wilberto Pino MD Attending Provider Active Start: January 07, 2024 End: January 07, 2024 Team Status: Inactive Member Role Status Dates PHYSICIAN NO FAMILY Primary Care Provider Active Start: February 16, 2024 End: February 16, 2024 Wilberto Pino MD Attending Provider Active Start: February 16, 2024 End: February 16, 2024 Goals (unrecognized section and content) Goals may be documented in a n alternate sectionGoals may be documented in an alternate sectionGoals may be documented in an alternate sectionNot on filedocumented as of this encounterGoals may be documented in an alternate sectionGoals may be documented in an alternate sectionGoals may be documented in an alternate sectionGoals may be documented in an alternate section Reason for Visit (unrecogniz ed section and content) Reason Comments Follow-up LOOP recorder follow up Specialty Diagnoses / Procedures Referred By Kasie t Referred To Contact Cardiology Diagnoses Cryptogenic stroke (CMS/HCC) Procedures Follow Up In Cardiology Wilberto Pino MD [address] [facility] [address] [place] [address] Referral ID Status Reason Start Date Expiration Date V isits Requested Visits Authorized [id number] Authorized 04/30/2023 04/29/2024 1 1 FOR RECORDS [...] BE BASED ON THE PRIMARY CLINICAL RECORDS. [email or web address] provides no warranty or guarantee of the accuracy or completeness of information in this document.
[2024-06-09 12:11] LABS: Anion Gap 15.5; BUN Creatinine Ratio 11.6; Calcium 9.9 mg/dL (8.5-10.1); Carbon Dioxide 25.9 mmol/L (21.0-32.0); Chloride 103 mmol/L (98-107); Estimated GFR (African America >60 (>=60 mL/min/1.73m^2); Estimated GFR (Non-African Ame 52 (>=60 mL/min/1.73m^2); Glucose 71 mg/dL (74-106); Magnesium 2.3 mg/dL (1.8-2.4); Potassium 3.4 mmol/L (3.5-5.1); Sodium 141 mmol/L (136-145); Thyroid Stimulating Hormone 2.632 uIU/mL (0.358-3.740)
== END 2024-06-09 10:37 | disposition home or self-care (01) ==
LOC: LAB 10:40
PROVIDERS: PCP Nurse Practitioner Family; Visit Provider Nurse Practitioner
DX: I48.0 Paroxysmal atrial fibrillation (principal); I10 Essential (primary) hypertension
CPT/HCPCS: 36415; 80048; 83735; 84443

== ENCOUNTER 2025-04-07 08:08 | Outpatient (OUT) | payer BC, SELFPAY ==
--- OUTSIDE RECORDS SUMMARY | 2025-04-07 08:16 | XMS_ITS | CCD ---
Author Organization [facility] Care Team Providers Care Residential Real Estate Sales Manager Name Role Phone DARLING ., DR MCGRATH [...] Provider DO Enoc Cardenas Primary Care Provider [phone] MAKEDA Jin Referring Provid er MAXIMILIANO Hernandez Attending Provider DO Enoc Cardenas Primary Care Provider MAKEDA Jin Referring Provid er MAKEDA Jin Referring Provid er MD Racheal Fernandez Attending Provider NO FAMILY, PHYSICIAN Primary Care Provider Unava MD Bill Ma Attending Provider Unavailable Primary Care Provider Unavailabl e NO FAMILY, PHYSICIAN Primary Care Provider Unava MD Bill Ma Attending Provider NO FAMILY, PHYSICIAN Primary Care Provider Unava MD Bill Ma Attending Provider Nataliya Patino Primary Care Provider Enoc Cardenas DO Primary Care Provider MEGHANA SANTIAGO Attending Unavailable NATALIYA ELIZONDO Primary Care Unavailable NO FAMILY, PHYSICIAN Primary Care Unavailable Painting, Arleth K Admitting Unavailable Painting, Arleth K Attending Unavailable NO FAMILY, PHYSICIAN Primary Care Unavailable Painting, Arleth K Admitting Unavailable Painting, Arleth K Attending Unavailable Painting, Arleth K Referring Unavailable NO FAMILY, PHYSICIAN Primary Care Unavailable Bill Palmer Admitting Unavail able Bill Palmer Attending Unavail able NO FAMILY, PHYSICIAN Primary Care Unavailable AndrewuinBill monroy Moreno Admitting Unavail able McGuinBill monroy Attending Unavail able Painting, Arleth K Admitting Unavailable NO FAMILY, PHYSICIAN Primary Care Unavailable Painting, Arleth K Attending Unavailable Painting, Arleth K Admitting Unavailable NO FAMILY, PHYSICIAN Primary Care Unavailable Painting, Arleth K Attending Unavailable NO FAMILY, PHYSICIAN Primary Care Unavailable Painting, Arleth K Admitting Unavailable Painting, Arleth K Attending Unavailable NO FAMILY, PHYSICIAN Primary Care Unavailable Painting, Arleth K Admitting Unavailable Painting, Arleth K Attending Unavailable Enoc Cardenas MD Primary Care Provider Nataliya Patino Primary Care Provider MEGHANA SANTIAGO Referring Unavailable NATALIYA ELIZONDO Primary Care Unavailable Allergies Allergy Classification Reported Allergen(s) Allergy Type Date of Onset Reaction(s) Facility (15 sources) Aspirin; Translations: [ASPIRIN] Drug Allergy 3 [facility] Repository (20 sources) Latex; Translations: [LATEX] Propensity to adverse reactions 3 [facility] (8 sources) Aspirin Drug Allergy 3 [facility] (1 source) Aspirin Drug Allergy 3 [facility] Repository Medications Current Medications Medication Drug Class(es) Dates Sig (Normalized) Sig (Original) apixaban 5 mg oral tablet (6 sources) Factor Xa Inhibitor Start: 06-08-2024 End: 06-08-2025 take 1 tablet by mouth twice daily apixaban (Eliquis) 5 mg tablet Indications: Paroxysmal atrial fibrillation (Multi) , Cryptogenic stroke (Multi) Take 1 tablet (5 mg) by mouth 2 times a day. 180 tablet 3 06/08/2024 06/08/2025 Active atenolol 50 mg oral tablet (19 sources) beta-Adrenergic Nii Start: 07-06-2024 End: 01-02-2025 take 1 tablet by mouth once daily atenolol (Tenormin) 50 mg tablet Indications: Essential hypertension Take 1 tablet (50 mg) by mouth once daily. 45 tablet 1 07/06/2024 Active Start: 01-04-2023 End: 07-06-2024 take 1 tablet by mouth once daily Atenolol 100 mg Tabl et Active 100 MG PO Daily January 04, 2023 12:00am atorvastatin 40 mg oral tablet (20 sources) HMG-CoA Reductase Inhibitor Start: 01-04-2023 End: 08-31-2023 take 1 tablet by mouth once daily atorvastatin (Lipitor) 40 mg tablet Take 1 tablet (40 mg) by mouth once daily. 03/29/2023 Active citalopram 20 mg oral tablet (20 sources) Serotonin Reuptake Inhibitor Start: 01-04-2023 take 1 tablet by mouth once daily citalopram (CeleXA) 20 mg tablet Take 1 tablet (20 mg) by mouth once daily. 04/21/2023 Active clindamycin 300 mg oral capsule (9 sources) Lincosamide Antibacterial Start: 05-16-2023 take 2 capsules by mouth three times daily Clindamycin Hcl 300 mg capsule Active 600 MG PO Three times daily 06 15May 16, 2023 12:00am Start: 05-16-2023 take 600 mg by mouth three times daily Clindamycin Hcl Active 600 MG PO Three times daily 06 15May 16, 2023 12:00am clopidogrel 75 mg oral tablet (15 sources) P2Y12 Platelet Inhibitor Start: 01-04-2023 End: 07-06-2024 take 1 tablet by mouth once daily Clopidogrel 75 mg Tablet Active 75 MG PO Daily January 04, 2023 12:00am folic acid 1 mg oral tablet (5 sources) Start: 07-11-2024 End: 07-11-2025 take 1 tablet by mouth once daily folic acid (Folvite) 1 mg tablet Indications: Elevated homocysteine Take 1 tablet (1 mg) by mouth once daily. 90 tablet 3 07/11/2024 07/11/2025 Active hydroCHLOROthiazide 12.5 mg oral tablet (20 sources) Thiazide Diuretic Start: 01-04-2023 take 1 tablet by mouth once daily hydroCHLOROthiazide (HYDRODiuril) 12.5 mg tablet Take 1 tablet (12.5 mg) by mouth once daily. 04/21/2023 Active magnesium oxide 400 mg oral tablet (20 sources) Start: 04-02-2023 End: 07-06-2025 take 1 tablet by mouth once daily magnesium oxide (Mag-Ox) 400 mg (241.3 mg magnesium) tablet Indications: Paroxysmal atrial fibrillation (Multi) Take 1 tablet (400 mg) by mouth once daily. 90 tablet 3 07/06/2024 07/06/2025 Active valsartan 320 mg oral tablet (20 sources) Angiotensin 2 Receptor Nii Start: 01-04-2023 take 1 tablet by mouth once daily valsartan (Diovan) 320 mg tablet Take 1 tablet (320 mg) by mouth once daily. 04/21/2023 Active vitamin b12 0.25 mg oral tablet (15 sources) Vitamin B12 Start: 07-11-2024 End: 07-11-2025 take 1 tablet by mouth once daily cyanocobalamin (Vitamin B-12) 250 mcg tablet Indications: Elevated homocysteine Take 1 tablet (250 mcg) by mouth once daily. 30 tablet 11 07/11/2024 07/11/2025 Active Start: 05-14-2023 inject 1000 ug by in tramuscular injection every month Cyanocobalamin (Vitamin B-12) 1,000 mcg/mL Solution Active 1000 MCG IM every month May 14, 2023 12:00am Start: 05-14-2023 inject 1000 ug by in tramuscular injection every month Cyanocobalamin (Vitamin B-12) Active 1000 MCG IM every month May 14, 2023 12:00am Completed/Discontinued Medications Medication Drug Class(es) Dates Sig (Normalized) Sig (Original) 10 ml aminophylline 25 mg/ml injection (1 source) Start: 02-03-2025 End: 02-03-2025 50 mg, intravenous, Administer over 1 Minutes, Once, On Sat02/03/25 at 1030, For 1 dose Start: 02-03-2025 End: 02-03-2025 50 mg, intravenous, Administ er over 1 Minutes, Once, On Sat02/03/25 at 1030, For 1 dose cyanocobalamin (Vitamin B-12) 1,000 mcg/mL oral liquid (2 sources) End: 07-06-2024 take 1 mL by mouth every 30 days cyanocobalamin (Vitamin B-12) 1,000 mcg/mL oral liquid 1 mL (1,000 mcg) every 30 (thirty) days. 07/06/2024 Discontinued (Therapy completed) take 1 mL by mouth every 30 days cyanocobalamin (Vitamin B-12) 1,000 mcg/mL oral liquid 1 mL (1,000 mcg) every 30 (thirty) days. 0 Active 24 hr nicotine 0.875 mg/hr transdermal system [...] 2 weeks 56 each 0 03/04/2023 Active regadenoson (Lexiscan) injection 0.4 mg (1 source) Start: 02-03-2025 End: 02-03-2025 0.4 mg, intravenous, Once, O n Sat02/03/25 at 1030, For 1 dose Tc-99m tetrofosmin (Myoview) injection 10 millicurie (1 source) Start: 02-03-2025 End: 02-03-2025 10 millicurie, intravenous, Once in imaging, Starting on Sat02/03/25 at 0759, For 1 dose, Administer 45 to 90 minutes prior to imaging unless otherwise indicated. Tc-99m tetrofosmin (Myoview) injection 30 millicurie (1 source) Start: 02-03-2025 End: 02-03-2025 30 millicurie, intravenous, Once in imaging, Starting on Sat02/03/25 at 0921, For 1 dose, Administer 45 to 90 minutes prior to imaging unless otherwise indicated. Problems Active Problems Problem Classification Problem Date Documented Date Episodic/Chronic Acute cerebrovascular disease (20 sources) Cerebral infarction, unspecified; Translations: [Other cerebral infarction due to occlusion or stenosis of small artery] Onset: 07-18-2022 02-01-2023 Chronic Acute cerebrovascular disease (2 sources) Acute cerebrovascular disease 07-06-2024 Cardiac dysrhythmias (9 sources) Paroxysmal atrial fibrillation; Translations: [Paroxysmal atrial fibrillation] Onset: 07-06-2024 07-06-2024 Chronic Cardiac dysrhythmias (4 sources) Palpitations; Translations: [Palpitations] Onset: 07-06-2024 07-06-2024 Episodic Conduction disorders (1 source) Encounter for adjustment and management of other cardiac device; Translations: [Encounter for adjustment and management of other cardiac device] Onset: 09-29-2024 Chronic Disorders of lipid metabolism (20 sources) Hyperlipidemia; Translations: [Hyperlipidemia, unspecified] Onset: 07-23-2023 [...] [MENOPAUSAL FE CLIMACTERIC STATES] Onset: 02-06-2022 Chronic Nonspecific chest pain (8 sources) Chest pain; Translations: [Chest pain, unspecified] Onset: 07-06-2024 07-06-2024 Episodic Nutritional deficiencies (16 sources) Subacute combined degeneration of spinal cord; Translations: [Deficiency of other specified B group vitamins] 02-01-2023 Episodic Other circulatory disease (10 sources) Presence of other cardiac implants and grafts; Translations: [Other specified cardiac device in situ] Onset: 07-23-2023 07-23-2023 Chronic Other circulatory disease (1 source) Orthostatic hypotension; Translations: [Orthostatic hypotension] 07-06-2024 Episodic Other lower respiratory disease (6 sources) Dyspnea; Translations: [Shortness of breath] Onset: 07-06-2024 07-06-2024 Episodic Other lower respiratory disease (2 sources) Shortness of breath; Translations: [Shortness of breath] Onset: 07-06-2024 Episodic Other nervous system disorders (4 sources) Anesthesia of skin; Translations: [ANESTHESIA OF SKIN] Onset: 07-15-2022 Episodic Paralysis (1 source) Hemiplegia, unspecified affecting left nondominant side; Translations: [HEMIPL UNS AFFECT LT NONDOM SIDE] Onset: 07-18-2022 Chronic Residual codes; unclassified (1 source) Acquired absence of both cervix and uterus; Translations: [ACQUIRED ABSENCE BOTH CERVIX AND UTERUS] Onset: 07-18-2022 Episodic Residual codes; unclassified (12 sources) H/O: miscarriage; Translations: [Personal history of other complications of , childbirth and the puerperium] 02-01-2023 Episodic Residual codes; unclassified (4 sources) Personal history of other complications of , childbirth and the puerperium; Translations: [Personal history of other genital system and obstetric disorders] 02-08-2023 Episodic Residual codes; unclassified (2 sources) Body mass index (BMI) 23.0-23.9, adult; Translations: [Body mass index (BMI) 23.0-23.9, adult] Onset: 07-06-2024 Episodic Syncope (16 sources) Syncope; Translations: [Syncope and collapse] 02-01-2023 Episodic Unclassified (1 source) CONTACT W/AND (SUSP) EXPOS COVID-19; Translations: [CONTACT W/AND (SUSP) EXPOS COVID-19] Onset: 07-18-2022 Past or Other Problems Problem Classification Problem Date Documented Date Episodic/Chronic Administrative/socia l admission (11 sources) First encounter by subject; Translations: [Persons encountering health services in other specified circumstances] Onset: 07-06-2024 07-06-2024 Episodic Conditions associated with dizziness or vertigo (8 sources) Lightheadedness; Translations: [Dizziness and giddiness] Onset: 07-06-2024 07-06-2024 Episodic Mood disorders (1 source) Mood disorders Onset: 03-04-2023 03-04-2023 Other aftercare (7 sources) Long-term current use of anticoagulant; Translations: [director long term care (current) use of anticoagulants] Onset: 07-06-2024 07-06-2024 Episodic Other aftercare (7 sources) Treatment changed; Translations: [Other strategic marketing leader (current) drug therapy] Onset: 07-06-2024 07-06-2024 Episodic Other circulatory disease (1 source) History of cerebrovascular accident; Translations: [Personal history of transient ischemic attack (TIA), and cerebral infarction without residual deficits] Onset: 08-28-2022 08-28-2022 Episodic Other connective tissue disease (1 source) Neurological symptom; Translations: [Unspecified symptoms and signs involving the nervous system] Onset: 07-15-2022 07-15-2022 Episodic Other screening for suspected conditions (not mental disorders or infectious disease) (9 sources) Electrocardiogram abnormal; Translations: [Abnormal electrocardiogram [ECG] [EKG]] Onset: 07-06-2024 07-06-2024 Episodic Residual codes; unclassified (9 sources) Body mass index 20-24 - normal; Translations: [Body mass index (BMI) 24.0-24.9, adult] Onset: 07-23-2023 07-23-2023 Episodic Screening and history of mental health and substance abuse codes (9 sources) Ex-smoker; Translations: [Personal history of nicotine dependence] Onset: 07-06-2024 07-06-2024 Episodic Unclassified (7 sources) Onset: 04-30-2023 04-30-2023 Results Test Name Value Interpretation Reference Range Facility [facility] Heart Perfusion W stress and W radionuclide [place] 02-03-2025 Normal Lexiscan Myov iew cardiac perfusion imaging stress test. No evidence of ischemia or myocardial infarction by perfusion imaging. Normal left ventricular systolic function, ejection fraction 61 %. No exercise provoked significant ischemic ECG changes or chest pain symptoms. Patient was able exercised 43 seconds achieving only 61% maximum predicted heart rate. Because of in adequate heart rate response to exercise the patient switched to Lexiscan to improve the sensitivity of the test. Signed by: Chi Quezada 02/03/2025 6:44 PM Dictation workstation: [id number] [facility] Interpreted By: Trab oulsChi woods and Giannuzzi Michael STUDY: MYOCARDIAL PERFUSION STRESS TEST WITH EXERCISE CONVERTED TO LEXISCAN Performing facility: [facility], [address], [address], [place] [address] [facility] Provider: Meghana Santiago MD, [facility] PCP: Dr. Sorin Elizondo [employer]IC[employer] Supervising provider: Vaibhav Pizarro DO, [facility] INDICATION: Signs/Symptoms: ,I10 Essential (primary) hypertension,I63.9 Cerebral infarction, unspecified,R07.9 Chest pain, unspecified,R06.02 Shortness of breath HISTORY: Gender: F; Age: 49 y/o ; Height: HT 165.1 cm cm; Weight: WT 63.504 kg kg. Abnormal EKG; High Cholesterol; HTN; Arrhythmias;A-fib Palpitations; Loop recorder Chest Pain; SOB; Quit smoking 2 years ago. COMPARISON: No comparison. ACCESSION NUMBER(S): [id number] ORDERING CLINICIAN: MEGHANA SANTIAGO TECHNIQUE: ONE DAY protocol. Stress injection: Date: 02-03-25, 32.2 mCi of Myoview IV at 20 seconds after rapid injection of Lexiscan. Rest injection: Date: 02-03-25, 11.2 mCi of Myoview IV at rest. The patient had a rapid injection of 0.4mg of Lexiscan IV over 10 seconds. Imaging was performed by gated tomographic technique. Aminophylline given 50mg IV. STRESS TEST DATA: Resting heart rate was 60 BPM. Resting blood pressure was 106/76 mmHg. The patient exercised using a Joey exercise protocol. 6:43 minutes exercised. 61% of MPHR achieved for age. 8.10 METS achieved. Maximum heart rate was 106 BPM. Maximum blood pressure was 128/82 mmHg. DTS 6. TREADMILL TEST TERMINATED DUE TO: Fatigue. Test converted to Lexiscan. TEST TERMINATED DUE TO: Protocol completed. FINDINGS: STRESS TEST RESULTS: Resting electrocardiogram revealed normal sinus rhythm. The patient had none diagnostic ST-T changes with maximal stress. The patient did not have chest pains/symptoms during the procedure. There was a normal recovery phase. There were no significant dysrhythmias. Patient did not achieve 85% MPHR so test was immediately converted to Lexiscan. LEXISCAN INFUSION: The patient had a rapid injection of 0.4 mg of Lexiscan IV over 10 seconds. Resting electrocardiogram revealed normal sinus rhythm none diagnostic ST-T changes. The patient had no significant ECG changes with maximal stress. The patient did not have chest pains/symptoms during the procedure. During recovery patient had typical visit with territory symptoms which improved with 50 mg of aminophylline There were no significant dysrhythmias. IMAGING RESULTS: Image quality was good. Rest and stress tomographic images were reviewed and revealed normal perfusion without evidence of ischemia, myocardial infarction, or left ventricular dilatation with stress. Overall left ventricular systolic function appeared to be normal without regional wall motion abnormalities. LV ejection fraction was 61 %. TID is 1.04 and is normal. There were no evidence of attenuation artifact. MMODAL Chi Quezada MD - 02/03/2025 Interpreted By: Chi Quezada and Giannuzzi Michael STUDY: MYOCARDIAL PERFUSION STRESS TEST WITH EXERCISE CONVERTED TO LEXISCAN Performing facility: [facility], [address] [place] [address], [address] Provider: Meghana Santiago MD, [facility] PCP: Dr. Sorin Elizondo [facility] Supervising provider: Vaibhav Pizarro DO, [facility] INDICATION: Signs/Symptoms: ,I10 Essential (primary) hypertension,I63.9 Cerebral infarction, unspecified,R07.9 Chest pain, unspecified,R06.02 Shortness of breath HISTORY: Gender: F; Age: 49 y/o ; Height: HT 165.1 cm cm; Weight: WT 63.504 kg kg. Abnormal EKG; High Cholesterol; HTN; Arrhythmias;A-fib Palpitations; Loop recorder Chest Pain; SOB; Quit smoking 2 years ago. COMPARISON: No comparison. ACCESSION NUMBER(S): [id number] ORDERING CLINICIAN: MEGHANA SANTIAGO TECHNIQUE: ONE DAY protocol. Stress injection: Date: 02-03-25, 32.2 mCi of Myoview IV at 20 seconds after rapid injection of Lexiscan. Rest injection: Date: 02-03-25, 11.2 mCi of Myoview IV at rest. The patient had a rapid injection of 0.4mg of Lexiscan IV over 10 seconds. Imaging was performed by gated tomographic technique. Aminophylline given 50mg IV. STRESS TEST DATA: Resting heart rate was 60 BPM. Resting blood pressure was 106/76 mmHg. The patient exercised using a Joey exercise protocol. 6:43 minutes exercised. 61% of MPHR achieved for age. 8.10 METS achieved. Maximum heart rate was 106 BPM. Maximum blood pressure was 128/82 mmHg. DTS 6. TREADMILL TEST TERMINATED DUE TO: Fatigue. Test converted to Lexiscan. TEST TERMINATED DUE TO: Protocol completed. FINDINGS: STRESS TEST RESULTS: Resting electrocardiogram revealed normal sinus rhythm. The patient had none diagnostic ST-T changes with maximal stress. The patient did not have chest pains/symptoms during the procedure. There was a normal recovery phase. There were no significant dysrhythmias. Patient did not achieve 85% MPHR so test was immediately converted to Lexiscan. LEXISCAN INFUSION: The patient had a rapid injection of 0.4 mg of Lexiscan IV over 10 seconds. Resting electrocardiogram revealed normal sinus rhythm none diagnostic ST-T changes. The patient had no significant ECG changes with maximal stress. The patient did not have chest pains/symptoms during the procedure. During recovery patient had typical visit with territory symptoms which improved with 50 mg of aminophylline There were no significant dysrhythmias. IMAGING RESULTS: Image quality was good. Rest and stress tomographic images were reviewed and revealed normal perfusion without evidence of ischemia, myocardial infarction, or left ventricular dilatation with stress. Overall left ventricular systolic function appeared to be normal without regional wall motion abnormalities. LV ejection fraction was 61 %. TID is 1.04 and is normal. There were no evidence of attenuation artifact. IMPRESSION: Normal Lexiscan Myoview cardiac perfusion imaging stress test. No evidence of ischemia or myocardial infarction by perfusion imaging. Normal left ventricular systolic function, ejection fraction 61 %. No exercise provoked significant ischemic ECG changes or chest pain symptoms. Patient was able exercised 43 seconds achieving only 61% maximum predicted heart rate. Because of in adequate heart rate response to exercise the patient switched to Lexiscan to improve the sensitivity of the test. Signed by: Chi Quezada 02/03/2025 6:44 PM Dictation workstation: [id number] [facility] Work Phone: Radiology Study observation (narrative) [facility] Work Phone: NM Heart Perfusion W stress and W radionuclide IVOrdered By: Chi Quezada on 02-03-2025 [facility] Work Phone: NUCLEAR STRESS TESTon 2024 NUCLEAR STRESS TEST Interpreted By: Chi Ceron and Giannuzzi Michael STUDY: MYOCARDIAL PERFUSION STRESS TEST WITH EXERCISE CONVERTED TO LEXISCAN Performing facility: [facility], [address] [place] [address], [address], [place], [place] [address] Provider: Meghana Santiago MD, [facility]ACC PCP: Dr. Sorin Elizondo [facility] Supervising provider: Vaibhav Pizarro DO, [facility] INDICATION: Signs/Symptoms: ,I10 Essential (primary) hypertension,I63.9 Cerebral infarction, unspecified,R07.9 Chest pain, unspecified,R06.02 Shortness of breath HISTORY: Gender: F; Age: 49 y/o ; Height: HT 165.1 cm cm; Weight: WT 63.504 kg kg. Abnormal EKG; High Cholesterol; HTN; Arrhythmias;A-fib Palpitations; Loop recorder Chest Pain; SOB; Quit smoking 2 years ago. COMPARISON: No comparison. ACCESSION NUMBER(S): [id number] ORDERING CLINICIAN: MEGHANA SANTIAGO TECHNIQUE: ONE DAY protocol. Stress injection: Date: 02-03-25, 32.2 mCi of Myoview IV at 20 seconds after rapid injection of Lexiscan. Rest injection: Date: 02-03-25, 11.2 mCi of Myoview IV at rest. The patient had a rapid injection of 0.4mg of Lexiscan IV over 10 seconds. Imaging was performed by gated tomographic technique. Aminophylline given 50mg IV. STRESS TEST DATA: Resting heart rate was 60 BPM. Resting blood pressure was 106/76 mmHg. The patient exercised using a Joey exercise protocol. 6:43 minutes exercised. 61% of MPHR achieved for age. 8.10 METS achieved. Maximum heart rate was 106 BPM. Maximum blood pressure was 128/82 mmHg. DTS 6. TREADMILL TEST TERMINATED DUE TO: Fatigue. Test converted to Lexiscan. TEST TERMINATED DUE TO: Protocol completed. FINDINGS: STRESS TEST RESULTS: Resting electrocardiogram revealed normal sinus rhythm. The patient had none diagnostic ST-T changes with maximal stress. The patient did not have chest pains/symptoms during the procedure. There was a normal recovery phase. There were no significant dysrhythmias. Patient did not achieve 85% MPHR so test was immediately converted to Lexiscan. LEXISCAN INFUSION: The patient had a rapid injection of 0.4 mg of Lexiscan IV over 10 seconds. Resting electrocardiogram revealed normal sinus rhythm none diagnostic ST-T changes. The patient had no significant ECG changes with maximal stress. The patient did not have chest pains/symptoms during the procedure. During recovery patient had typical visit with territory symptoms which improved with 50 mg of aminophylline There were no significant dysrhythmias. IMAGING RESULTS: Image quality was good. Rest and stress tomographic images were reviewed and revealed normal perfusion without evidence of ischemia, myocardial infarction, or left ventricular dilatation with stress. Overall left ventricular systolic function appeared to be normal without regional wall motion abnormalities. LV ejection fraction was 61 %. TID is 1.04 and is normal. There were no evidence of attenuation artifact. IMPRESSION: Normal Lexiscan Myoview cardiac perfusion imaging stress test. No evidence of ischemia or myocardial infarction by perfusion imaging. Normal left ventricular systolic function, ejection fraction 61 %. No exercise provoked significant ischemic ECG changes or chest pain symptoms. Patient was able exercised 43 seconds achieving only 61% maximum predicted heart rate. Because of in adequate heart rate response to exercise the patient switched to Lexiscan to improve the sensitivity of the test. Signed by: Chi Quezada 02/03/2025 6:44 PM Dictation workstation: [id number] [facility] ECG 12 [place] 07-06-2024 Normal sinus rhythm 66 bpm, normal intervals, inferior lateral ST-T abnormality, isolated ventricular premature beat, compared to the EKG of April 2023, PVC now present, ST-T abnormality was noted then as well. [facility] Work Phone: Basophils Auto (Bld) [#/Vol] Ordered By: Bill Palmer on 05-14-2023 Basophils (Bld) [#/Vol] 0.0 10*3/uL 0.0-0.2 [facility] Basophils/100 WBC Auto (Bld) Ordered By: Bill Palmer on 05-14-2023 Basophils/100 WBC (Bld) 0.4 % . [facility] Calcium [Mass/volume] in Ser um or PlasmaOrdered By: Bill Palmer on 05-14-2023 Calcium [Mass/Vol] 9.5 mg/dL 8.6-10.3 [facility] Carbon dioxide, total [Moles /volume] in Serum or PlasmaOrdered By: Bill Palmer on 05-14-2023 CO2 [Moles/Vol] 28.0 mmol/L 21.0-31.0 [facility] Chloride [Moles/volume] in S nehal or PlasmaOrdered By: Bill Palmer on 05-14-2023 Chloride [Moles/Vol] 104 mmol/L 98-107 [facility] Creatinine [Mass/volume] in Serum or PlasmaOrdered By: Bill Palmer on 05-14-2023 Creatinine [Mass/Vol] 1.00 mg/dL 0.60-1.20 [facility] Eosinophils Auto (Bld) [#/Vo l]Ordered By: Bill Palmer on 05-14-2023 Eosinophils (Bld) [#/Vol] 0.0 10*3/uL 0.0-0.45 [facility] Eosinophils/100 WBC Auto (Bl d)Ordered By: Bill Palmer on 05-14-2023 Eosinophils/100 WBC (Bld) 0.7 % . [facility] Erythrocyte distribution wid th Auto (RBC) [Ratio]Ordered By: Bill Palmer on 05-14-2023 Erythrocyte distribution width (RBC) [Ratio] 13.1 % 11.9-15.3 [facility] Glucose [Mass/volume] in Ser um or PlasmaOrdered By: Bill Palmer on 05-14-2023 Glucose [Mass/Vol] 73 mg/dL 70-100 [facility] Comment on above: ADA recommended refe rence rangeRandom Glucose Reference Range is dependent on time and content of last meal. Glucose of more than 200 mg/dL in a nonstressed, ambulatory subject supports the diagnosis of Diabetes Mellitus. Hematocrit Auto (Bld) [Volum e fraction]Ordered By: Bill Palmer on 05-14-2023 Hematocrit (Bld) [Volume fraction] 39.7 % 34.0-46.4 [facility] Hemoglobin [Mass/volume] in BloodOrdered By: Bill Palmer on 05-14-2023 Hemoglobin (Bld) [Mass/Vol] 13.6 g/dL 11.8-15.4 [facility] INR in Platelet poor plasma by Coagulation assayOrdered By: Bill Palmer on 05-14-2023 INR Coag (PPP) [Relative time] 1.0 {INR} [facility] Comment on above: INR Therapeutic Rang e [...] in Blood by Automated counOrdered By: Bill Palmer on 05-14-2023 WBC corrected for nucl RBC Auto (Bld) [#/Vol] 6.9 10*3/uL 3.8-11.6 [facility] Lymphocytes Auto (Bld) [#/Vo l]Ordered By: Bill Palmer on 05-14-2023 Lymphocytes (Bld) [#/Vol] 1.9 10*3/uL 1.00-4.8 [facility] Lymphocytes/100 WBC Auto (Bl d)Ordered By: Bill Palmer on 05-14-2023 Lymphocytes/100 WBC (Bld) 27.3 % . [facility] MCH Auto (RBC) [Entitic mass ]Ordered By: Bill Palmer on 05-14-2023 MCH (RBC) [Entitic mass] 28.9 pg 24.7-34.3 [facility] MCHC Auto (RBC) [Mass/Vol]Or dered By: Bill Palmer on 05-14-2023 MCHC (RBC) [Mass/Vol] 34.3 g/dL 32.0-35.0 [facility] MCV Auto (RBC) [Entitic vol] Ordered By: Bill Palmer on 05-14-2023 MCV (RBC) [Entitic vol] 84.3 fL 80-100 [facility] Monocytes Auto (Bld) [#/Vol] Ordered By: Bill Palmer on 05-14-2023 Monocytes (Bld) [#/Vol] 0.4 10*3/uL 0.0-0.8 [facility] Monocytes/100 WBC Auto (Bld) Ordered By: Bill Palmer on 05-14-2023 Monocytes/100 WBC (Bld) 5.4 % . [facility] Neutrophils Auto (Bld) [#/Vo l]Ordered By: Bill Palmer on 05-14-2023 Neutrophils (Bld) [#/Vol] 4.6 10*3/uL 1.8-7.7 [facility] Neutrophils/100 WBC Auto (Bl d)Ordered By: Bill Palmer on 05-14-2023 Neutrophils/100 WBC (Bld) 66.2 % . [facility] No Panel InformationOrdered By: Bill Palmer on 05-14-2023 Estimated GFR (CKD-EPI) > 60.0 mL/Min [facility] Creatinine Clearance (Chem N/A [facility] Nucleated erythrocytes [Pres ence] in Blood by Automated countOrdered By: Bill Palmer on 05-14-2023 Nucleated RBC Auto Ql (Bld) 0.1 /100{WBC} 0-0.5 [facility] Platelet mean volume Auto (B ld) [Entitic vol]Ordered By: Bill Palmer on 05-14-2023 Platelet mean volume (Bld) [Entitic vol] 8.1 fL 6.3-10.7 [facility] Platelets Auto (Bld) [#/Vol] Ordered By: Bill Palmer on 05-14-2023 Platelets (Bld) [#/Vol] 229 10*3/uL 150-450 [facility] Potassium [Moles/volume] in Serum or PlasmaOrdered By: Bill Palmer on 05-14-2023 Potassium [Moles/Vol] 3.8 mmol/L 3.5-5.1 [facility] Prothrombin time (PT)Ordered By: Bill Palmer on 05-14-2023 PT Coag (PPP) [Time] 12.4 s 9.0-12.9 [facility] Comment on above: A hematocrit value g reater than 55% may lead to inaccurate results in coagulation testing. Patients having hematocrit values >55% require a special collection tube for coagulation studies. Please contact the laboratory at [phone] for redraw instructions. RBC Auto (Bld) [#/Vol]Ordere d By: Bill Palmer on 05-14-2023 RBC (Bld) [#/Vol] 4.70 10*6/uL 3.60-5.00 [facility] Serum or plasma anion gap de terminationOrdered By: Bill Palmer on 05-14-2023 Anion gap [Moles/Vol] 11.8 mmol/L 6.0-15.0 [facility] Sodium [Moles/volume] in Ser um or PlasmaOrdered By: Bill Palmer on 05-14-2023 Sodium [Moles/Vol] 140 mmol/L 136-145 [facility] Urea nitrogen [Mass/volume] in Serum or PlasmaOrdered By: Bill Palmer on 05-14-2023 Urea nitrogen [Mass/Vol] 14 mg/dL 7-25 [facility] WBC Auto (Bld) [#/Vol]Ordere d By: Bill Palmer on 05-14-2023 WBC (Bld) [#/Vol] 6.9 10*3/uL 3.8-11.6 [facility] Serum or plasma homocysteine measurement (moles/volume)Ordered By: Racheal Fernandez on 04-06-2023 Homocysteine [Moles/Vol] 14.5 umol/L 0.0-14.5 [facility] Comment on above: Performed at: [address] [id number] Director: Toni Gonzalez PhD, Phone: [phone] Serum or plasma methylmalona te measurement (moles/volume)Ordered By: Racheal Fernandez on 03-27-2023 Methylmalonate [Moles/Vol] 126 nmol/L 0-378 [facility] Comment on above: This test was mariel nath and its performance characteristicsdetermined by [employer]. It has not been cleared orapproved by the Food and Drug Administration.Performed at: [address], [place] [id number] Director: Tisha Lo MD, Phone: [phone] Activated partial thrombopla stin time (aPTT) in platelet poor plasma by coagulation aOrdered By: Lian Hernandez on 02-01-2023 aPTT Coag (PPP) [Time] 28.5 s 25.1-36.5 [facility] Albumin [Mass/volume] in Ser um or PlasmaOrdered By: Lian Hernandez on 02-01-2023 Albumin [Mass/Vol] 3.7 g/dL 2.9-4.4 [facility] Antithrombin antigen actual/ normal in platelet poor plasma by immunologic methodOrdered By: Lian Hernandez on 02-01-2023 Antithrombin Ag actual/normal IA (PPP) [Relative mass conc] 118 % 72-124 [facility] Comment on above: This test was develo ped and its performance characteristicsdetermined by [employer]. It has not been cleared orapproved by the Food and Drug Administration.Performed at: [address] [id number] Director: Tisha Lo MD, Phone: [phone] Basophils Auto (Bld) [#/Vol] Ordered By: Racheal Fernandez on 02-01-2023 Basophils (Bld) [#/Vol] 0.1 10*3/uL 0.0-0.2 [facility] Basophils/100 WBC Auto (Bld) Ordered By: Racheal Fernandez on 02-01-2023 Basophils/100 WBC (Bld) 0.9 % . [facility] Eosinophils Auto (Bld) [#/Vo l]Ordered By: Racheal Fernandez on 02-01-2023 Eosinophils (Bld) [#/Vol] 0.1 10*3/uL 0.0-0.45 [facility] Eosinophils/100 WBC Auto (Bl d)Ordered By: Racheal Fernandez on 02-01-2023 Eosinophils/100 WBC (Bld) 1.5 % . [facility] Erythrocyte distribution wid th Auto (RBC) [Ratio]Ordered By: Racheal Fernandez on 02-01-2023 Erythrocyte distribution width (RBC) [Ratio] 12.8 % 11.9-15.3 [facility] Ferritin [Mass/volume] in Se rum or PlasmaOrdered By: Racheal Fernandez on 02-01-2023 Ferritin [Mass/Vol] 62.4 ng/mL 11.0-306.8 [facility] Folate [Mass/volume] in Seru m or PlasmaOrdered By: Racheal Fernandez on 02-01-2023 Folate [Mass/Vol] 6.9 ng/mL >5.9 [facility] Comment on above: Folate reference ran ge: >5.9 ng/mlThe WHO technical consultation on folate and vitamin [id number] has determined that folate concentrations lessthan 4 ng/ml are considered deficient. Hematocrit Auto (Bld) [Volum e fraction]Ordered By: Racheal Fernandez on 02-01-2023 Hematocrit (Bld) [Volume fraction] 39.0 % 34.0-46.4 [facility] Hemoglobin [Mass/volume] in BloodOrdered By: Racheal Fernandez on 02-01-2023 Hemoglobin (Bld) [Mass/Vol] 13.5 g/dL 11.8-15.4 [facility] IgA [Mass/volume] in Serum o r PlasmaOrdered By: Lian Hernandez on 02-01-2023 IgA [Mass/Vol] 318 mg/dL 87-352 [facility] IgE [Units/volume] in Serum or PlasmaOrdered By: Lian Hernandez on 02-01-2023 IgE Qn 87 [IU]/mL 6-495 [facility] Comment on above: Performed at: - [address] [id number] Director: Toni Gonzalez PhD, Phone: [phone] at: - [facility] [address] [id number] Director: Tisha Lo MD, Phone: [phone] IgG [Mass/volume] in Serum o r PlasmaOrdered By: Lian Hernandez on 02-01-2023 IgG [Mass/Vol] 1264 mg/dL 586-1602 [facility] IgM [Mass/volume] in Serum o r PlasmaOrdered By: Lian Hernandez on 02-01-2023 IgM [Mass/Vol] 196 mg/dL 26-217 [facility] Immunoglobulin light chains. kappa.free [Mass/volume] in SerumOrdered By: Racheal Fernandez on 02-01-2023 Immunoglobulin light chains.kappa.free (S) [Mass/Vol] 35.3 mg/L 3.3-19.4 [facility] Immunoglobulin light chains. kappa.free/Immunoglobulin light chains.lambda.free [MassOrdered By: Racheal Fernandez on 02-01-2023 Immunoglobulin light chains.kappa.free/Immu noglobulin light chains.lambda.free (S) [Mass ratio] 1.59 0.26-1.65 [facility] Comment on above: Performed at: [address] [id number] Director: Toni Gonzalez PhD, Phone: [phone] Immunoglobulin light chains. lambda.free [Mass/volume] in Serum or PlasmaOrdered By: Racheal Fernandez on 02-01-2023 Immunoglobulin light chains.lambda.free [Mass/Vol] 22.2 mg/L 5.7-26.3 [facility] Iron [Mass/volume] in Serum or PlasmaOrdered By: Racheal Fernandez on 02-01-2023 Iron [Mass/Vol] 95 ug/dL 50-212 [facility] Iron binding capacity [Mass/ volume] in Serum or PlasmaOrdered By: Racheal Fernandez on 02-01-2023 Iron binding capacity [Mass/Vol] 311 ug/dL 255-450 [facility] Iron saturation [Mass Fracti on] in Serum or PlasmaOrdered By: Racheal Fernandez on 02-01-2023 Iron saturation [Mass fraction] 30.5 % 20-50 [facility] Laboratory - CoagulationOrde red By: Lian Hernandez on 02-01-2023 PT Coag (PPP) [Time] 12.0 s 9.0-12.9 [facility] Leukocytes [#/volume] correc rosemarie for nucleated erythrocytes in Blood by Automated counOrdered By: Racheal Fernandez on 02-01-2023 WBC corrected for nucl RBC Auto (Bld) [#/Vol] 6.4 10*3/uL 3.8-11.6 [facility] Lymphocytes Auto (Bld) [#/Vo l]Ordered By: Racheal Fernandez on 02-01-2023 Lymphocytes (Bld) [#/Vol] 2.1 10*3/uL 1.00-4.8 [facility] Lymphocytes/100 WBC Auto (Bl d)Ordered By: Racheal Fernandez on 02-01-2023 Lymphocytes/100 WBC (Bld) 32.6 % . [facility] MCH Auto (RBC) [Entitic mass ]Ordered By: Racheal Fernandez on 02-01-2023 MCH (RBC) [Entitic mass] 28.9 pg 24.7-34.3 [facility] MCHC Auto (RBC) [Mass/Vol]Or dered By: Racheal Fernandez on 02-01-2023 MCHC (RBC) [Mass/Vol] 34.6 g/dL 32.0-35.0 [facility] MCV Auto (RBC) [Entitic vol] Ordered By: Racheal Fernandez on 02-01-2023 MCV (RBC) [Entitic vol] 83.3 fL 80-100 [facility] Monocytes Auto (Bld) [#/Vol] Ordered By: Racheal Fernandez on 02-01-2023 Monocytes (Bld) [#/Vol] 0.3 10*3/uL 0.0-0.8 [facility] Monocytes/100 WBC Auto (Bld) Ordered By: Racheal Fernandez on 02-01-2023 Monocytes/100 WBC (Bld) 4.5 % . [facility] Neutrophils Auto (Bld) [#/Vo l]Ordered By: Racheal Fernandez on 02-01-2023 Neutrophils (Bld) [#/Vol] 3.9 10*3/uL 1.8-7.7 [facility] Neutrophils/100 WBC Auto (Bl d)Ordered By: Racheal Fernandez on 02-01-2023 Neutrophils/100 WBC (Bld) 60.5 % . [facility] No Panel InformationOrdered By: Lian Hernandez on 02-01-2023 Protein Electrophoresis M-Javier Not observed g/dL Not Observed [facility] Protein Electrophoresis Note See comment . [facility] Comment on above: Protein electrophore sis scan will follow via computer,mail, or manufacturing process engineer delivery.Performed at: [address] [id number] Director: Toni Gonzalez PhD, Phone: [phone] Nucleated erythrocytes [Pres ence] in Blood by Automated countOrdered By: Racheal Fernandez on 02-01-2023 Nucleated RBC Auto Ql (Bld) 0.2 /100{WBC} 0-0.5 [facility] Platelet mean volume Auto (B ld) [Entitic vol]Ordered By: Racheal Fernandez on 02-01-2023 Platelet mean volume (Bld) [Entitic vol] 8.1 fL 6.3-10.7 [facility] Platelet poor plasma interna tional normalized ratio (INR) by coagulation assay (relatOrdered By: Lian Hernandez on 02-01-2023 INR Coag (PPP) [Relative time] 1.0 {INR} [facility] Comment on above: INR Therapeutic Rang e [...] 02-01-2023 Platelets (Bld) [#/Vol] 237 10*3/uL 150-450 [facility] Protein [Mass/volume] in Ser um or PlasmaOrdered By: Lian Hernandez on 02-01-2023 Protein [Mass/Vol] 7.3 g/dL 6.0-8.5 [facility] RBC Auto (Bld) [#/Vol]Ordere d By: Racheal Fernandez on 02-01-2023 RBC (Bld) [#/Vol] 4.68 10*6/uL 3.60-5.00 [facility] Serum globulin measurement ( mass/volume)Ordered By: Lian Hernandez on 02-01-2023 Globulin (S) [Mass/Vol] 3.6 g/dL 2.2-3.9 [facility] Serum or plasma albumin/glob ulin mass ratioOrdered By: Lain Hernandez on 02-01-2023 Albumin/Globulin [Mass ratio] 1.0 {ratio} 0.7-1.7 [facility] Serum or plasma alpha 1 glob ulin measurement by electrophoresis (mass/volume)Ordered By: Lian Hernandez on 02-01-2023 Alpha 1 globulin Elph [Mass/Vol] 0.3 g/dL 0.0-0.4 [facility] Serum or plasma alpha 2 glob ulin measurement by electrophoresis (mass/volume)Ordered By: Lian Hernandez on 02-01-2023 Alpha 2 globulin Elph [Mass/Vol] 0.9 g/dL 0.4-1.0 [facility] Serum or plasma beta globuli n measurement by electrophoresis (mass/volume)Ordered By: Lian Hernandez on 02-01-2023 Beta globulin Elph [Mass/Vol] 1.2 g/dL 0.7-1.3 [facility] Serum or plasma gamma globul in measurement by electrophoresis (mass/volume)Ordered By: Lian Hernandez on 02-01-2023 Gamma globulin Elph [Mass/Vol] 1.2 g/dL 0.4-1.8 [facility] Transferrin [Mass/volume] in Serum or PlasmaOrdered By: Racheal Fernandez on 02-01-2023 Transferrin [Mass/Vol] 222 mg/dL 203-362 [facility] Vitamin B12 ser/plasOrdered By: Racheal Fernandez on 02-01-2023 Cobalamin (Vitamin B12) [Mass/Vol] 219 pg/mL 180-914 [facility] WBC Auto (Bld) [#/Vol]Ordere d By: Racheal Fernandez on 02-01-2023 WBC (Bld) [#/Vol] 6.4 10*3/uL 3.8-11.6 [facility] Beta 2 glycoprotein 1 IgG Ab [Units/volume] in SerumOrdered By: Lian Hernandez on 01-07-2023 Beta 2 glycoprotein 1 IgG Qn (S) <9 0-20 [facility] Comment on above: Result Units: GPI Ig [...] glycoprotein 1 IgM Qn (S) <9 0-32 [facility] Comment on above: Result Units: GPI Ig M unitsThe reference interval reflects a 3SD or 99th percentileinterval, which is thought to represent a potentiallyclinically significant result in accordance with theInternational Consensus Statement on the classificationcriteria for definitive antiphospholipid syndrome (APS). JThromb Haem 2006;4:295-306.Performed at: [facility] [address] [id number] Director: Tisha Lo MD, Phone: [phone] Cardiolipin IgA Ab [Units/vo lume] in Serum by ImmunoassayOrdered By: Lian Hernandez on 01-07-2023 Cardiolipin IgA IA Qn (S) <9 APL U/mL 0-11 [facility] Comment on above: Negative: <12 Indete rminate: 12 - 20 Low-Med Positive: >20 - 80 High Positive: >80Performed at: [facility] [address] [id number] Director: Toni Gonzalez PhD, Phone: [phone] Cardiolipin IgG Ab [Units/vo lume] in Serum by ImmunoassayOrdered By: Lian Hernandez on 01-07-2023 Cardiolipin IgG IA Qn (S) <9 GPL U/mL 0-14 [facility] Comment on above: Negative: <15 Indete rminate: 15 - 20 Low-Med Positive: >20 - 80 High Positive: >80 Cardiolipin IgM Ab [Units/vo lume] in Serum by ImmunoassayOrdered By: Lian Hernandez on 01-07-2023 Cardiolipin IgM IA Qn (S) <9 MPL U/mL 0-12 [facility] Comment on above: Negative: <13 Indete rminate: 13 - 20 Low-Med Positive: >20 - 80 High Positive: >80 F5 gene mutations found [Frederic ntifier] in Blood or Tissue by Molecular genetics methodOrdered By: Lian Hernandez on 01-07-2023 F5 gene targeted mutation analysis [employer] Nom (Bld/Tiss) See comment . [facility] Comment on above: Result: c.1601G>A (p .[id number]) - Not DetectedThis result is not associated with an increased risk for venousthromboembolism. See Additional Clinical Information andComments.Additional Clinical Information:Venous thromboembolism is a multifactorial diseaseinfluenced by genetic, environmental, and circumstantialrisk factors. The c.1601G>A (p. [id number]) variant in theF5 gene, commonly referred to [...] F2 c.*97G>Avariant and Factor V Leiden (PMID: 39639861). Additionalrisk factors include but are not limited [...] for health careproviders to discuss results at [phone] ([phone]).Test Details:Variant Analyzed: c.1601G>A (p. [id number]), referred toas Factor V LeidenMethods/Limitations:DNA analysis of [...] was developed and its performance characteristicsdetermined by [facility]. It has not been cleared orapproved by the Food and Drug Administration.References:Juliette Smith, Erika STOCKTON, Carmelo R, Martina WW, Victoriano MARY; ACMGProfessional Practice and Guidelines Committee. Addendum:[employer] consensus statement onfactor V Leiden mutation testing. [facility]. 2020Sep 16.doi: 10.1038/o59645-243-90056-z. PMID: 99583680.Sara MILLAN. Factor V Leiden Thrombophilia. 1998November 25(Updated 2017Jul 18). In: Tony MP, Juanita HH, Mimi RA,et al., editors. Yuliya(R) (Internet). [place] ([place]):[facility]; 8411-6469. Availablefrom: https://www.ncbi.nlm.nih.gov/books/LOS9486/Mil Smith, Erika STOCKTON, Mina X, Felix B, Vaishali EB, Catrina P,Tra CS; ACMG Laboratory Material Flow Engineer Committee.Venous thromboembolism laboratory testing (factor V Leidenand factor II c.*97G>A), 2018 update: a technical standardof the [place] [employer] and Genomics(ACMG). [facility] [employer]. 2017;20(12):7095-5401. doi:10.1038/[id number]-m. Ep2017Apr 18. PMID: 60274686. Free protein S measurementOr dered By: Lian Hernandez on 01-07-2023 Protein S Free Ag IA Qn (PPP) 109 % 61-136 [facility] Comment on above: Performed at: [facility] [employer] [address] [id number] Director: Tisha Lo MD, Phone: [phone] Functional protein C measure mentOrdered By: Lian Hernandez on 01-07-2023 Protein C actual/normal Chromogenic method (PPP) [Rel catalytic activity/Vol] 116 % 73-180 [facility] Comment on above: Performed at: [facility] [address] [id number] Director: Tisha Lo MD, Phone: [phone] Lupus anticoagulant [Interpr etation] in Platelet poor plasmaOrdered By: Lina Hernandez on 01-07-2023 Lupus anticoagulant (PPP) [Interp] Comment: . [facility] Comment on above: No lupus anticoagula nt was detected.Performed at: [facility] [address] [id number] Director: Tisha Lo MD, Phone: [phone] No Panel InformationOrdered By: Lian Hernandez on 01-07-2023 Factor II DNA Analysis Comment Theresa durand, phd . [facility] Comment on above: Performed at: [facility] [id number] [place], [place] [id number] Director: Trever Figueredo [facility], Phone: [phone] Factor V Leiden Interpretation Theresa durand, phd . [facility] Comment on above: Performed at: [employer] [id number], [place], [place] [id number] Director: Trever Figueredo [facility], Phone: [phone] Factor V Leiden Mutation Note N/A [facility] Functional Protein S 102 % 63-140 [facility] Comment on above: Protein S activity m ay be falsely increased (masking anabnormal, low result) in patients receiving direct Xainhibitor (e.g., rivaroxaban, apixaban, edoxaban) or adirect thrombin inhibitor (e.g., dabigatran) anticoagulanttreatment due to assay interference by these drugs.Performed at: [facility] [id number] Director: Tisha Lo MD, Phone: [phone] Platelet poor plasma ratio o f lupus anticoagulant-sensitive activated partial thromboOrdered By: Lian Hernandez on 01-07-2023 aPTT.lupus sensitive.excess phospholipid actual/normal Coag (PPP) [Relative time] 34.9 sec 0.0-47.6 [facility] Protein C antigen assayOrder ed By: Lian Hernandez on 01-07-2023 Protein C Ag actual/normal IA (PPP) [Relative mass conc] 96 % 60-150 [facility] Comment on above: Performed at: [facility] [address] [id number] Director: Tisha Lo MD, Phone: [phone] Protein S measurement in phillip telet poor plasma by coagulation assay (units/volume)Ordered By: Lian Hernandez on 01-07-2023 Protein S Coag Qn (PPP) 133 % 60-150 [facility] Comment on above: This test was develo ped and its performance characteristicsdetermined by [facility]. It has not been cleared orapproved by the Food and Drug Administration. Prothrombin gene [id number] mut ation detectionOrdered By: Lian Hernandez on 01-07-2023 F2 gene targeted mutation analysis [employer] Nom (Bld/Tiss) See comment . [facility] Comment on above: Result: c.*97G>A - N [...] in theF2 gene and a c.1601G>A (p. Zrx140Gko) variant in the F5 gene(commonly referred to as Factor V Leiden) have an approximately 20-fold increased risk for venous thromboembolism. Risks are likely ricki even higher in more complex genotype combinations involving theF2 c.*97G>A variant and Factor V Leiden (PMID: 68733915). Additionalrisk factors include but are not limited [...] for health care providers to discussresults at [phone] ([phone]).Test Details:Variant analyzed: c.*97G>A, previously referred to as [id number]/Limitations:DNA analysis of the F2 gene (NM_000506.5) was [...] was developed and its performance characteristics determinedby [facility]. It has not been cleared or approved by the Food and DrugAdministration.References:Juliette S, Erika AK, Carmelo R, Martina WW, Victoriano JH; AC ProfessionalPractice and Guidelines Committee. Addendum: [place] [employer] consensus statement on factor V Leiden mutationtesting. [employer] [facility]. 2020Sep 16. doi: 10.1038/[id number]-f.PMID: 73420807.Sara MILLAN. Prothrombin Thrombophilia. 2005Feb 05[Updated 2020Aug 18]. In: Tony MP, Juanita HH, Mimi RA, et al.,editors. Yuliya(R) [Internet]. [place] ([place]): [facility]; 5401-7151. Available from:https://www.[facility].nlm.nih.gov/books/BBD1201/Mil S, Erika AK, Enriquez X, Felix B, Vaishali EB, Catrina P, Tra CS;ACMG Laboratory Material Flow Engineer Committee. Venous thromboembolismlaboratory testing (factor V Leiden and factor II c.*97G>A),2018 update: a technical standard of the [place] [employer] MedicalGenetics and Genomics (ACMG). [facility]. 2017;20(12):5955-1570.doi: 10.1038/[id number]-b. Epub 2017Apr 18. PMID: 03738060. Screening dilute Everardo's v iper venom time (DRVVT) with reflex to confirmatory testOrdered By: Lian Hernandez on 01-07-2023 dRVVT Coag (PPP) [Time] 33.9 s 0.0-47.0 [facility] Screening lupus anticoagulan t-sensitive activated partial thromboplastin time (aPTT)Ordered By: Lian Hernandez on 01-07-2023 aPTT.lupus sensitive Coag (PPP) [Time] 29.7 sec 0.0-43.5 [facility] TT plasOrdered By: Lian carrero on 01-07-2023 Thrombin time Coag (PPP) [Time] 16.3 sec 0.0-23.0 [facility] aPTT.lupus sensitive/aPTT.froy pus sensitive W excess phospholipid (screen to confirm raOrdered By: Lian Hernandez on 01-07-2023 aPTT.lupus sensitive/aPTT.lupus sensitive W excess phospholipid Coag (PPP) [Ratio] 1.07 Ratio 0.00-1.34 [facility] CBC AUTO DIFFon 07-15-2022 BASO # 0.0 103/ul Normal 0.0-0.1 [facility] Comment on above: Performed By: #### C BC #### [facility] [address] [address] [address] Naina Suarez Basophils/100 WBC (Bld) 0.5 % Normal 0.2-2.0 [facility] Comment on above: Performed By: #### C BC #### [facility] [address] [address] [address] Naina Suarez EO # 0.1 103/ul Normal 0.0-0.7 [facility] Comment on above: Performed By: #### C BC #### [facility] [address] [place] [address] Dr. Naina Suarez Eosinophils/100 WBC (Bld) 1.6 % Normal 0.9-7.0 [facility] Comment on above: Performed By: #### C BC #### [facility] [address] [address] [address] Naina Suarez Erythrocyte distribution width (RBC) [Ratio] 13.2 % Normal 11.0-15.0 [facility] Comment on above: Performed By: #### C BC #### [facility] [address] [place] [address] Dr. Naina Suarez Hematocrit (Bld) [Volume fraction] 44.5 % Normal 36.0-48.0 [facility] Comment on above: Performed By: #### C BC #### [facility] [address] [address] [address] Naina Suarez Hemoglobin (Bld) [Mass/Vol] 14.9 g/dL Normal 12.0-16.0 [facility] Comment on above: Performed By: #### C BC #### [facility] [address] [place] [address] Dr. Naina Suarez IG # 0.01 10e3/ul Normal 0.00-0.03 [facility] Comment on above: Performed By: #### C BC #### [facility] [address] [place] [address] Dr. Naina Suarez IG % 0.2 % Normal 0.0-0.5 [facility] Comment on above: Performed By: #### C BC #### [facility] [address] [place] [address] Dr. Naina Suarez LYMPH # 1.7 103/ul Normal 1.2-3.8 [facility] Comment on above: Performed By: #### C BC #### [facility] [address] [place] [address] Dr. Naina Suarez Lymphocytes/100 WBC (Bld) 28.3 % Normal 20.5-60.0 [facility] Comment on above: Performed By: #### C BC #### [facility] [address] [place] [address] Dr. Naina Suarez MANUAL DIFF REQ NO Normal [facility] Comment on above: Performed By: #### C BC #### [facility] [address] [place] [address] Dr. Naina Suarez MCH (RBC) [Entitic mass] 29.3 pg Normal 26.7-34.0 [facility] Comment on above: Performed By: #### C BC #### [facility] [address] [place] [address] Dr. Naina Suarez MCHC (RBC) [Mass/Vol] 33.5 g/dL Normal 29.9-35.2 [facility] Comment on above: Performed By: #### C BC #### [facility] [address] [place] [address] Dr. Naina Suarez MCV (RBC) [Entitic vol] 87.6 fL Normal 81.0-99.0 [facility] Comment on above: Performed By: #### C BC #### [facility] [address] [place] [address] Dr. Naina Suarez MONO # 0.3 103/ul Normal 0.3-0.8 [facility] Comment on above: Performed By: #### C BC #### [facility] [address] [place] [address] Dr. Naina Suarez Monocytes/100 WBC (Bld) 4.7 % Normal 1.7-12.0 [facility] Comment on above: Performed By: #### C BC #### [facility] [address] [place] [address] Dr. Naina Suarez NEUT # 4.0 103/ul Normal 1.4-6.5 [facility] Comment on above: Performed By: #### C BC #### [facility] [address] [place] [address] Dr. Naina Suarez Neutrophils/100 WBC (Bld) 64.7 % Normal 43.0-75.0 [facility] Comment on above: Performed By: #### C BC #### [facility] [address] [place] [address] Dr. Naina Suarez Platelet mean volume (Bld) [Entitic vol] 9.2 fL Critically low 9.5-13.5 [facility] Comment on above: Performed By: #### C BC #### [facility] [address] [place] [address] Dr. Naina Suarez PLT 253 103/ul Normal 150-450 [facility] Comment on above: Performed By: #### C BC #### [facility] [address] [place] [address] Dr. Naina Suarez RBC 5.08 106/ul Normal 4.20-5.40 [facility] Comment on above: Performed By: #### C BC #### [facility] [address] [place] [address] Dr. Naina Suarez WBC 6.1 103/ul Normal 4.0-11.0 [facility] Comment on above: Performed By: #### C BC #### [facility] [address] [place] [address] HEAD WO CONon [...] with late acute-subacute ischemia/infarct within the right WAISTBAND SETTER LOCKSTITCH distribution. Recommend follow-up brain MRI. 2. No acute intracranial hemorrhage. 3. Old left basal ganglia lacunar infarct. I discussed critical findings with Dr. Hastings in the emergency department at 12:15 PM on 07/15/2022. Electronically authenticated by: [place] SIMS Date: 2022-07-15 12:19 Normal [facility] CTA HEAD WO W CONon 07-15-19 23 CTA HEAD WO W CON Begin Addendum # 1 I discussed the above findings via phone call with Dr. Ayedn Hastings at 3:03 PM Eastern standard time [...] stenosis. LEFT VERTEBRAL ARTERY: No significant stenosis. [place]: The bilateral intracranial internal carotid arteries, anterior cerebral arteries, middle cerebral arteries and anterior and posterior communicating arteries are normal. POSTERIOR INTRACRANIAL CIRCULATION: There is occlusion of the right WAISTBAND SETTER LOCKSTITCH P1, P2 and P3. There is some reconstitution of the P4 segment. No intracranial aneurysm measuring least 2 mm identified. No intracranial AVM. LUNG APICES: The lung apices are clear. SOFT TISSUES: The prevertebral soft tissues are normal. No soft tissue inflammation. OSSEOUS STRUCTURES: No acute osseous abnormality throughout the imaged axial skeleton and skull base. IMPRESSION: 1. 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 2. Acute right WAISTBAND SETTER LOCKSTITCH distribution infarct without acute hemorrhage. Provider was notified via stat call que. Normal [facility] Covid-19 PCR (CVDTBH)on SARS-CoV-2 (COVID-19) RNA CIARA+probe Ql (Unsp spec) Not detected Normal NOT DETECTED [facility] Comment on above: Result Comment: When [...] for this test is supported by the Biomass Technician of Health and Human Service's declaration that [...] longer be used). Performed By: #### C VDTBH ####[facility] [id number] [place], [place] [id number]. Naina Suarez PROF CHEM 8 (BAS METB)on Anion gap [Moles/Vol] 11.5 mmol/L Normal Th e [facility] Comment on above: Performed By: #### B MP #### [facility] [address] [place], [place] [address] Dr. Naina Suarez Calcium [Mass/Vol] 8.6 mg/dL Normal 8.5-10.1 [facility] Comment on above: Performed By: #### B MP #### [facility] [address] [address] [address] Naina Suarez Chloride [Moles/Vol] 104 mmol/L Normal 98-107 [facility] Comment on above: Performed By: #### B MP #### [facility] [address] [address] [address] Naina Suarez CO2 [Moles/Vol] 26.3 mmol/L Normal 21.0-32.0 [facility] Comment on above: Performed By: #### B MP #### [facility] [address] [address] [address] Naina Suarez Creatinine [Mass/Vol] 0.81 mg/dL Normal 0.55-1.02 [facility] Comment on above: Performed By: #### B MP #### [facility] [address] [place] [address] Dr. Naina Suarez EGFR-AF ENGLISH >60 Normal >=60 [facility] Comment on above: Performed By: #### B MP #### [facility] [address] [place] [address] Dr. Naina Suarez EGFR-NON AF ENGLISH >60 Normal >=60 [facility] Comment on above: Performed By: #### B MP #### [facility] [address] [place] [address] Dr. Naina Suarez Glucose [Mass/Vol] 82 mg/dL Normal 74-106 [facility] Comment on above: Performed By: #### B MP #### [facility] [address] [place] [address] Dr. Naina Suarez Potassium [Moles/Vol] 3.8 mmol/L Normal 3.5-5.1 [facility] Comment on above: Performed By: #### B MP #### [facility] [address] [place] [address] Dr. Naina Suarez Sodium [Moles/Vol] 138 mmol/L Normal 136-145 [facility] Comment on above: Performed By: #### B MP #### [facility] [address] [place] [address] Dr. Naina Suarez Urea nitrogen [Mass/Vol] 8.0 mg/dL Normal 7.0-18.0 [facility] Comment on above: Performed By: #### B MP #### [facility] [address] [place] [address] Dr. Naina Suarez Urea nitrogen/Creatinine [Mass ratio] 9.9 mg/mg Normal [facility] Comment on above: Performed By: #### B MP #### [facility] [address] [place] [address] Dr. Naina Suarez FSHon 02-02-2022 FSH 8.6 mIU/mL Normal [facility] Comment on above: Result Comment: Adul t Female: Follicular phase 3.5 - 12.5 Ovulation phase 4.7 - 21.5 Luteal phase 1.7 - 7.7 Postmenopausal 25.8 - 134.8 Performed By: #### L BCFS #### [facility] [address] [place] [address] Dr. Naina Suarez CBC AUTO DIFFon 02-01-2022 BASO # 0.1 103/ul Normal 0.0-0.1 [facility] Comment on above: Performed By: #### C BC #### [facility] [address] [place] [address] Dr. Naina Suarez Basophils/100 WBC (Bld) 0.6 % Normal 0.2-2.0 [facility] Comment on above: Performed By: #### C BC #### [facility] [address] [place] [address] Dr. Naina Suarez EO # 0.2 103/ul Normal 0.0-0.7 [facility] Comment on above: Performed By: #### C BC #### [facility] [address] [place] [address] Dr. Naina Suarez Eosinophils/100 WBC (Bld) 2.1 % Normal 0.9-7.0 [facility] Comment on above: Performed By: #### C BC #### [facility] [address] [place] [address] Dr. Naina Suarez Erythrocyte distribution width (RBC) [Ratio] 13.3 % Normal 11.0-15.0 [facility] Comment on above: Performed By: #### C BC #### [facility] [address] [place] [address] Dr. Naina Suarez Hematocrit (Bld) [Volume fraction] 44.4 % Normal 36.0-48.0 [facility] Comment on above: Performed By: #### C BC #### [facility] [address] [place] [address] Dr. Naina Suarez Hemoglobin (Bld) [Mass/Vol] 14.8 g/dL Normal 12.0-16.0 [facility] Comment on above: Performed By: #### C BC #### [facility] [address] [place] [address] Dr. Naina Suarez IG # 0.02 10e3/ul Normal 0.00-0.03 [facility] Comment on above: Performed By: #### C BC #### [facility] [address] [place] [address] Dr. Naina Suarez IG % 0.2 % Normal 0.0-0.5 [facility] Comment on above: Performed By: #### C BC #### [facility] [address] [place] [address] Dr. Naina Suarez LYMPH # 2.2 103/ul Normal 1.2-3.8 [facility] Comment on above: Performed By: #### C BC #### [facility] [address] [place] [address] Dr. Naina Suarez Lymphocytes/100 WBC (Bld) 26.2 % Normal 20.5-60.0 [facility] Comment on above: Performed By: #### C BC #### [facility] [address] [place] [address] Dr. Naina Suarez MANUAL DIFF REQ NO Normal [facility] Comment on above: Performed By: #### C BC #### [facility] [address] [place] [address] Dr. Naina Suarez MCH (RBC) [Entitic mass] 29.2 pg Normal 26.7-34.0 [facility] Comment on above: Performed By: #### C BC #### [facility] [address] [address] [address] Naina Suarez MCHC (RBC) [Mass/Vol] 33.3 g/dL Normal 29.9-35.2 [facility] Comment on above: Performed By: #### C BC #### [facility] [address] [place] [address] Dr. Naina Suarez MCV (RBC) [Entitic vol] 87.7 fL Normal 81.0-99.0 [facility] Comment on above: Performed By: #### C BC #### [facility] [address] [place] [address] Dr. Naina Suarez MONO # 0.5 103/ul Normal 0.3-0.8 [facility] Comment on above: Performed By: #### C BC #### [facility] [address] [place] [address] Dr. Naina Suarez Monocytes/100 WBC (Bld) 5.6 % Normal 1.7-12.0 [facility] Comment on above: Performed By: #### C BC #### [facility] [address] [place] [address] Dr. Naina Suarez NEUT # 5.4 103/ul Normal 1.4-6.5 [facility] Comment on above: Performed By: #### C BC #### [facility] [address] [place] [address] Dr. Naina Suarez Neutrophils/100 WBC (Bld) 65.3 % Normal 43.0-75.0 [facility] Comment on above: Performed By: #### C BC #### [facility] [address] [place] [address] Dr. Naina Suarez Platelet mean volume (Bld) [Entitic vol] 9.4 fL Critically low 9.5-13.5 [facility] Comment on above: Performed By: #### C BC #### [facility] [address] [place] [address] Dr. Naina Suarez PLT 295 103/ul Normal 150-450 [facility] Comment on above: Performed By: #### C BC #### [facility] [address] [address] [address] Naina Suarez RBC 5.06 106/ul Normal 4.20-5.40 [facility] Comment on above: Performed By: #### C BC #### [facility] [address] [place] [address] Dr. Naina Suarez WBC 8.3 103/ul Normal 4.0-11.0 [facility] Comment on above: Performed By: #### C BC #### [facility] [address] [place] [address] Dr. Naina Suarez PROF 14(COMP METB)on 022 Albumin [Mass/Vol] 3.8 g/dL Normal 3.4-5.0 [facility] Comment on above: Performed By: #### T SH, CMP, T4 #### [facility] [address] [place] [address] Dr. Naina Suarez Albumin/Globulin [Mass ratio] 1.0 {ratio} Normal [facility] Comment on above: Performed By: #### T SH, CMP, T4 #### [facility] [address] [place] [address] Dr. Naina Suarez ALP [Catalytic activity/Vol] 101 U/L Normal 46-116 [facility] Comment on above: Performed By: #### T SH, CMP, T4 #### [facility] [address] [place] [address] Dr. Naina Suarez ALT [Catalytic activity/Vol] 23 U/L Normal 14-59 [facility] Comment on above: Performed By: #### T SH, CMP, T4 #### [facility] [address] [place] [address] Dr. Naina Suarez Anion gap [Moles/Vol] 12.4 mmol/L Normal [facility] Comment on above: Performed By: #### T SH, CMP, T4 #### [facility] [address] [place] [address] Dr. Naina Suarez AST [Catalytic activity/Vol] 17 U/L Normal 15-37 [facility] Comment on above: Performed By: #### T SH, CMP, T4 #### [facility] [address] [address] [address] Naina Suarez Bilirubin [Mass/Vol] 0.3 mg/dL Normal 0.2-1.0 [facility] Comment on above: Performed By: #### T SH, CMP, T4 #### [facility] [address] [place] [address] Dr. Naina Suarez Calcium [Mass/Vol] 9.1 mg/dL Normal 8.5-10.1 [facility] Comment on above: Performed By: #### T SH CMP, T4 #### [facility] [address] [place] [address] Dr. Naina Suarez Chloride [Moles/Vol] 104 mmol/L Normal 98-107 [facility] Comment on above: Performed By: #### T TOÑITO CMP, T4 #### [facility] [address] [place] [address] Dr. Naina Suarez CO2 [Moles/Vol] 27.6 mmol/L Normal 21.0-32.0 [facility] Comment on above: Performed By: #### T TOÑITO CMP, T4 #### [facility] [address] [place] [address] Dr. Naina Suarez Creatinine [Mass/Vol] 0.83 mg/dL Normal 0.55-1.02 [facility] Comment on above: Performed By: #### T TOÑITO CMP, T4 #### [facility] [address] [place] [address] Dr. Naina Suarez EGFR-AF ENGLISH >60 Normal >=60 [facility] Comment on above: Performed By: #### T SH, CMP, T4 #### [facility] [address] [place] [address] Dr. Naina Suarez EGFR-NON AF ENGLISH >60 Normal >=60 [facility] Comment on above: Performed By: #### T SH, CMP, T4 #### [facility] [address] [place] [address] Dr. Naina Suarez Globulin (S) [Mass/Vol] 3.9 g/dL Normal [facility] Comment on above: Performed By: #### T TOÑITO CMP, T4 #### [facility] [address] [place] [address] Dr. Naina Suarez Glucose [Mass/Vol] 102 mg/dL Normal 74-106 [facility] Comment on above: Performed By: #### T TOÑITO CMP, T4 #### [facility] [address] [place] [address] Dr. Naina Suarez Potassium [Moles/Vol] 4.0 mmol/L Normal 3.5-5.1 [facility] Comment on above: Performed By: #### T TOÑITO CMP, T4 #### [facility] [address] [place] [address] Dr. Naina Suarez Protein [Mass/Vol] 7.7 g/dL Normal 6.4-8.2 [facility] Comment on above: Performed By: #### T TOÑITO CMP, T4 #### [facility] [address] [place] [address] Dr. Naina Suarez Sodium [Moles/Vol] 140 mmol/L Normal 136-145 [facility] Comment on above: Performed By: #### T TOÑITO CMP, T4 #### [facility] [address] [place] [address] Dr. Naina Suarez Urea nitrogen [Mass/Vol] 9.0 mg/dL Normal 7.0-18.0 [facility] Comment on above: Performed By: #### T TOÑITO CMP, T4 #### [facility] [address] [place] [address] Dr. Naina Suarez Urea nitrogen/Creatinine [Mass ratio] 10.8 mg/mg Normal [facility] Comment on above: Performed By: #### T TOÑITO CMP, T4 #### [facility] [address] [place] [address] Dr. Naina Suarez T4on 02-01-2022 T4 [Mass/Vol] 8.60 ug/dL Normal 4.80-13.90 [facility] Comment on above: Performed By: #### T TOÑITO CMP, T4 #### [facility] [address] [address] [address] Naina Suarez TSHon 02-01-2022 TSH 3.083 uIU/mL Normal 0.358-3.74 0 [facility] Comment on above: Performed By: #### T SH, CMP, T4 #### [facility] [address] [id number] Naina Suarez Vital Signs Date Time Vital Sign Value Performing Clinician Facility 02-03-2025 08:57-0400 Diastolic blood pressure 76 mm[Hg] [address] 02-03-2025 08:57-0400 Heart rate 60 /min [address] 02-03-2025 08:57-0400 Systolic blood pressure 106 mm[Hg] [address] 07-06-2024 15:08-0500 Diastolic blood pressure 60 mm[Hg] Meghana Santiago MD Work Phone: [facility] 07-06-2024 15:08-0500 Systolic blood pressure 98 mm[Hg] Meghana Santiago MD Work Phone: [facility] 07-06-2024 13:54-0500 Body height 165.1 cm Meghana Santiago MD Work Phone: [facility] 07-06-2024 13:54-0500 Body mass index (BMI) [Ratio] 23.3 kg/m2 Meghana Santiago MD Work Phone: [facility] 07-06-2024 13:54-0500 Body weight 63.5 kg Meghana Santiago MD Work Phone: [facility] 07-06-2024 13:54-0500 Heart rate 66 /min Meghana Santiago MD Work Phone: [facility] 07-23-2023 14:14-0500 Body height 165.1 cm [employer] APRN-[employer] Work Phone: [facility] 07-23-2023 14:14-0500 Body mass index (BMI) [Ratio] 24.79 kg/m2 [employer]OWER TECHNICIAN-[employer]ENTION OFFICER Work Phone: [facility] 07-23-2023 14:14-0500 Body weight 67.59 kg [employer] RADIO TOWER TECHNICIAN-[employer]UV[employer]ILE DETENTION OFFICER Work Phone: [facility] 07-23-2023 14:14-0500 Diastolic blood pressure 82 mm[Hg] [employer] RADIO TOWER TECHNICIAN-JUV[employer]ILE DETENTION OFFICER Work Phone: [facility] 07-23-2023 14:14-0500 Heart rate 68 /min [employer] RADIO TOWER TECHNICIAN-JUV[employer]ILE DETENTION OFFICER Work Phone: [facility] 07-23-2023 14:14-0500 Systolic blood pressure 102 mm[Hg] [employer] RADIO TOWER TECHNICIAN-JUVENILE DETENTION OFFICER Work Phone: [facility] 05-16-2023 14:45-0400 Diastolic blood pressure 78 mm[Hg] PA-C Estefania Jin Work Phone: [facility] 05-16-2023 14:45-0400 Heart rate 60 /min PA-C Estefania Jin Work Phone: [facility] 05-16-2023 14:45-0400 Respiratory rate 20 /min PA-Larissa Jin Work Phone: [facility] 05-16-2023 14:45-0400 SaO2% (BldA) [Mass fraction] 100 % PA-Larissa Jin Work Phone: [facility] 05-16-2023 14:45-0400 Systolic blood pressure 126 mm[Hg] PA-Larissa Jin Work Phone: [facility] 05-16-2023 11:54-0400 Body height 167.64 cm MAKEDA Jin Work Phone: [facility] 05-16-2023 11:54-0400 Body temperature 98.3 [degF] PA-C Estefania Jin Work Phone: [facility] 05-16-2023 11:54-0400 Body weight 67 kg MAKEDA Jin Work Phone: [facility] 04-02-2023 14:14-0400 Body temperature 97.3 [degF] DO Enoc House Work Phone: [facility] 04-02-2023 14:14-0400 Body weight 66.22 kg DO Enoc House Work Phone: [facility] 04-02-2023 14:14-0400 Diastolic blood pressure 77 mm[Hg] DO Enoc House Work Phone: [facility] 04-02-2023 14:14-0400 Heart rate 63 /min DO Enoc House Work Phone: [facility] 04-02-2023 14:14-0400 Respiratory rate 16 /min DO Enoc House Work Phone: [facility] 04-02-2023 14:14-0400 SaO2% (BldA) [Mass fraction] 100 % DO Enoc House Work Phone: [facility] 04-02-2023 14:14-0400 Systolic blood pressure 113 mm[Hg] DO Enoc House Work Phone: [facility] 02-01-2023 14:12-0400 Body height 167.59 cm DO Enoc House Work Phone: [facility] 02-01-2023 09:18-0400 Body temperature 98.3 [degF] DO Enoc House Work Phone: [facility] 02-01-2023 09:18-0400 Body weight 67.13 kg DO Enoc House Work Phone: [facility] 02-01-2023 09:18-0400 Diastolic blood pressure 52 mm[Hg] DO Enoc House Work Phone: [facility] 02-01-2023 09:18-0400 Heart rate 66 /min DO Zaya Work Phone: [facility] 02-01-2023 09:18-0400 Respiratory rate 16 /min DO Zaya Work Phone: [facility] 02-01-2023 09:18-0400 Systolic blood pressure 149 mm[Hg] DO Enoc Arara Work Phone: [facility] 01-07-2023 13:19-0400 SaO2% (BldA) [Mass fraction] 100 % DO Enoc Arara Work Phone: [facility] Encounters Encounter Date Encounter Type Care Provider Facility Start: 02-03-2025 End: 02-03-2025 Subsequent hospital visit by physician Caridad Beard Stress Room 1 [facility] Comment on above: Essential hypertensi on; Cryptogenic stroke (Multi); Chest pain, unspecified type; Shortness of breath Start: 02-03-2025 End: 02-03-2025 ambulatory [facility] Start: 12-10-2024 End: 12-10-2024 ambulatory Not Available Start: 12-10-2024 End: 12-10-2024 Patient encounter procedure Farhan Madison DO Work Phone: [facility] Comment on above: Encounter for drug s creening Start: 12-01-2024 End: 12-01-2024 ambulatory Arleth Painting Facility:[facility] Start: 10-30-2024 End: 10-30-2024 ambulatory PHYSICIAN NO FAMILY Facility:[facility] Start: 10-30-2024 Non-patient / Non-visit [facility] Start: 09-29-2024 End: 09-29-2024 ambulatory PHYSICIAN NO FAMILY Facility:[facility] Start: 09-29-2024 Non-patient / Non-visit [facility] Start: 08-28-2024 End: 08-28-2024 ambulatory PHYSICIAN NO FAMILY Facility:[facility] Start: 08-28-2024 Non-patient / Non-visit [facility] Start: 07-28-2024 End: 07-28-2024 ambulatory PHYSICIAN NO FAMILY Facility:[facility] Start: 07-28-2024 Non-patient / Non-visit [facility] Start: 07-06-2024 End: 07-06-2024 Office outpatient visit 25 minutes Meghana Santiago MD Work Phone: [facility] Comment on above: Shortness of breath; Chest pain, unspecified type; Orthostatic hypotension; Essential hypertension; Mixed hyperlipidemia; Cryptogenic stroke (Multi); director long term care current use of anticoagulant therapy; Encounter to establish care with new doctor; Medication course changed; Paroxysmal atrial fibrillation (Multi); Abnormal EKG; BMI 23.0-23.9, adult; Palpitations; Former smoker Start: 07-06-2024 End: 07-06-2024 ambulatory [facility] Start: 05-28-2024 End: 05-28-2024 ambulatory Arleth Painting Facility:[facility] Start: 05-28-2024 Non-patient / Non-visit [facility] Start: 02-16-2024 End: 02-16-2024 ambulatory PHYSICIAN NO [facility] Work Phone: Start: 02-16-2024 End: 02-16-2024 Patient encounter procedure PHYSICIAN NO [facility]Pac[facility] Start: 01-07-2024 End: 01-07-2024 ambulatory PHYSICIAN NO FAMILY Facility:[facility] Start: 01-07-2024 End: 01-07-2024 Patient encounter procedure PHYSICIAN NO [facility] Start: 09-02-2023 End: 09-02-2023 ambulatory PHYSICIAN NO [facility] Work Phone: Start: 09-02-2023 End: 09-02-2023 Patient encounter procedure PHYSICIAN NO [facility] Start: 07-23-2023 End: 07-23-2023 Office outpatient visit 15 minutes Arleth Painting RADIO TOWER TECHNICIAN-JUVENILE DETENTION OFFICER Work Phone: [facility] Comment on above: Essential hypertensi on (Primary Dx); Cryptogenic stroke (CMS/HCC); Implantable loop recorder present; Mixed hyperlipidemia; BMI 24.0-24.9, adult Start: 07-22-2023 Telephone encounter Claudette Zayas Neurology Start: 05-16-2023 End: 05-16-2023 Admission to same day surgery center MAKEDA Jin Work Phone: [facility] [employer] [facility] Work Phone: Start: 05-16-2023 End: 05-16-2023 ambulatory MAKEDA Jin Work Phone: [facility] Work Phone: Start: 05-14-2023 End: 05-14-2023 ambulatory MAKEDA Jin Work Phone: [facility] Work Phone: Start: 05-14-2023 End: 05-14-2023 Patient encounter procedure MAKEDA Jin Work Phone: [facility] Work Phone: Start: 04-30-2023 End: 04-30-2023 ambulatory [facility] Work Phone: Start: 04-30-2023 End: 04-30-2023 Discharged Recurring [facility] Work Phone: Start: 04-30-2023 Registered Recurring MAKEDA Jin Work Phone: [facility] Work Phone: Start: 04-02-2023 End: 04-02-2023 ambulatory DO Enoc House Work Phone: [facility] Work Phone: Start: 04-02-2023 End: 04-02-2023 Registered Recurring DO Enoc House Work Phone: [facility] Work Phone: Start: 02-08-2023 End: 02-08-2023 ambulatory DO Enoc Cardenas Work Phone: [facility] Work Phone: Start: 02-08-2023 End: 02-08-2023 Registered Recurring DO Enoc [facility]ardenas [facility] [place] Work Phone: Start: 07-31-2022 End: 08-24-[address] ENOC CARDENAS Facility:[facility] Start: 07-15-2022 End: 07-15-[address] AYDEN HASTINGS . Facility:[facility] Start: 02-01-2022 End: 02-02-[address] ENOC CARDENAS Facility: Procedures Date Procedure Procedure Detail Performing Clinician Start: 02-03-2025 Cv strs tst xers&/or rx cont ecg trcg only eMghana Santiago MD Work Phone: Start: 07-06-2024 Ecg routine ecg w/le ast 12 lds w/i&r Meghana Santiago MD Work Phone: Start: 05-16-2023 CL LOOP Insert of Ev ent Recorder MAKEDA Jin Work Phone: Start: 05-14-2023 Plain chest X-ray MAKEDA Jin Work Phone: Start: 03-04-2023 Adult depression screening assessment Claudette Springer RN Plan of Treatment Date Care Activity Detail Author Start: 2025 Zoster Vaccines (1 o f 2) Zoster Vaccines (1 of 2) [facility] Start: 03-15-2025 Influenza vaccination Influenza Vacc ine (#1) [facility] Start: 07-06-2024 End: 07-06-2025 NM Heart Perfusion W stress and W radionuclide IV Nuclear Stress Test Cardiac Nuclear Medicine Routine Essential hypertension Cryptogenic stroke (Multi) Chest pain, unspecified type Shortness of breath Expected: 07/06/2024 (Approximate), Expires: 07/06/2025 [facility] Service Area Work Phone: Comment on above: Expected: 07/06/2024 (Approximate), Expires: 07/06/2025 Start: 04-22-2024 End: 04-22-2024 Patient encounter procedure 04/22/2024 1:20 PM EDT Office Visit [facility] [address] [place] [id number] Bill Palmer MD [address] [place] [address] [facility] Start: 03-15-2024 COVID-19 Vaccine ( season) COVID-19 Vaccine ( season) [facility] Start: 03-15-2024 Influenza vaccination Influenza Vacc ine (#1) [facility] Start: 03-04-2024 Adult BMI Screening Adult BMI Screen ing [facility] Start: 03-04-2024 Depression Screening Depression Scre ening [facility] Start: 03-04-2024 Tobacco Screening Tobacco Screening [facility] Start: 05-16-2023 [facility] Start: 03-15-2023 COVID-19 Vaccine ( season) COVID-19 Vaccine ( season) [facility] Start: 03-15-2023 Influenza vaccination [facility] Start: 02-01-2023 [facility] Start: 03-02-2021 COVID-19 Vaccine (3 - Pfizer series) COVID-19 Vaccine (3 - Pfizer series) [facility] Start: 2015 Screening for malign ant neoplasm of breast Mammogram [facility] Start: 1997 DTaP/Tdap/Td Vaccine s (1 - Tdap) DTaP/Tdap/Td Vaccines (1 - Tdap) [facility] Start: 1996 Screening for malign ant neoplasm of cervix [facility] Start: 1994 DTaP,Tdap and Td Vaccines (1 - Tdap) DTaP,Tdap and Td Vaccines (1 - Tdap) [facility] Start: 1994 Hepatitis B Vaccines (1 of 3 - 19+ 3-dose series) Hepatitis B Vaccines (1 of 3 - 19+ 3-dose series) [facility] Start: 1993 Diabetes mellitus screening Diabetes Screening [facility] Start: 1993 Hepatitis C screening Hepatitis C Sc [facility] Start: 1976 MMR Vaccines (1 of 1 - Standard series) MMR Vaccines (1 of 1 - Standard series) [facility] Start: 1975 Hepatitis B Vaccines (1 of 3 - 3-dose series) Hepatitis B Vaccines (1 of 3 - 3-dose series) [facility] Start: 1975 HIV screening HIV Screening [facility] Start: 1975 Lipid panel Lipid Panel [facility] Start: 1975 Screening for malign ant neoplasm of colon [facility] Start: 1975 Tobacco Counseling Tobacco Counselin g [facility] Start: 1975 Yearly Adult Physical Yearly Adult P hysical [facility] Albumin [Mass/volume ] in Serum or Plasma [facility] Albumin/Globulin ratio [facility] Electrophoresis: [id number] [facility] Electrophoresis: [id number] [facility] Electrophoresis: beta-globulin [facility] Electrophoresis: joel ma globulin [facility] Globulin [Mass/volum e] in Serum [facility] Homocysteine [Moles/volume] in Serum or Plasma [facility] Protein [Mass/volume ] in Serum or Plasma [facility] Immunizations Immunization Date Immunization Notes Care Provider Bob pritchard 01-05-2021 COVID-19 mRNA, Comirnaty (Pfizer) MAKEDA Jin Work Phone: [facility] 12-15-2020 COVID-19 mRNA, Comirnaty (Pfizer) MAKEDA Jin Work Phone: [facility] Payers Date Payer Category Payer [employer] Leandro ayala [employer] [facility] [id number] 2024 Unknown [id number] 2024 Self-pay 2023 Unknown [id number] 2021 Unknown [id number]. [id number] 1975 Unknown [id number] 2.16.840.1.809051.3.579. 2.593 1975 Unknown [id number] 2.16.840.1.763679.3.579. 2.593 1975 Unknown [id number] 2.16.840.1.498947.3.579. 2.593 1975 Unknown [id number] 2.16.840.1.120613.3.579. 2.593 1975 Unknown [id number] 2.16.840.1.922952.3.579. 2.1244 1975 Unknown [id number] 2.16.840.1.766298.3.579. 2.1259 1975 Unknown [id number] 2.16.840.1.668996.3.579. 2.1246 1975 Unknown [id number] 2.16.840.1.130750.3.579. 2.1246 1975 Unknown [id number] 2.16.840.1.850504.3.579. 2.1246 1975 Unknown [id number] 2.16.840.1.047247.3.579. 2.1246 1975 Unknown [id number] 2.16.840.1.275170.3.579. 2.1246 1959 Unknown [id number] Unknown [id number] 2.16.840.1.151367.3.579. 2.531 Unknown [id number] 2.16.840.1.317993.3.579. 2.531 Unknown [id number] 2.16.840.1.981715.3.579. 2.531 Unknown [id number] 2.16.840.1.690084.3.579. 2.531 Unknown [id number] 2.16.840.1.845596.3.579. 2.531 Unknown [id number] 2.16.840.1.477287.3.579. 2.531 Unknown [id number] 2.16.840.1.786263.3.579. 2.531 Unknown [id number] 2.16.840.1.945241.3.579. 2.531 Social History Date Type Detail Facility Start: 01-07-2023 End: 04-02-2023 Tobacco smoking status [facility] Smoker (finding) [facility] Start: 1975 Sex Assigned At Female [facility] Start: 05-14-2023 End: 07-06-2024 Tobacco smoking status MDIS Ex-smoker (finding) [facility] End: 03-15-2023 History of tobacco use Cigarette Smoker [facility] Work Phone: Start: 04-30-2023 End: 07-06-2024 Tobacco use and exposure Smokeless tobacco non-user [facility] Work Phone: Start: 07-23-2023 End: 07-06-2024 Alcohol intake Lifetime non-drinker (finding) [facility] Work Phone: Start: 04-30-2023 End: 07-23-2023 History of Social function [facility] Work Phone: Start: 04-30-2023 End: 07-23-2023 Tobacco use panel [facility] Work Phone: Start: 1975 Sex Assigned At Not on file [facility] Work Phone: Start: 2023 End: 07-06-2024 Exposure to SARS-CoV-2 (event) Not sure [facility] Start: 06-03-2024 End: 10-31-2024 Sex Female (finding) [facility] Start: 07-16-2022 Tobacco smoking stat [facility] Smokes tobacco daily [facility] Start: 03-04-2023 Alcohol intake Ex-drinker (finding) [facility] Start: 04-15-2023 Adolescent depressio n screening assessment 9 [facility] Start: 07-16-2022 Alcohol Comment [facility] smoking stat [facility] Tobacco smoking consumption unknown [facility] Medical Equipment Procedure Code Equipment Code Equipment [...] Desired Activity /State Clinical Notes 01-07-2023 to 12-10-2024 Moon Rivera MA - 12/10/2024 4:35 PM Ly Santiago MD - 07/06/2024 2:00 PM ESTPatient InstructionsAssessment & Plan Note - Arleth Painting APRN-JUVENILE DETENTION OFFICER - 07/24/2023 1:17 PM EST Note Date & Type Note Facility 12-10-2024 History of Presen t illness Narrative Pt presents today for a pre-employment drug screen for [place]. Pt verified by photo ID. documented in this encounter [facility] 07-06-2024 History of Presen t illness Narrative Patient is new to this provider. Most recently saw Arleth Painting in July 2023 and I have reviewed her notes. Prior to that saw Dr. Palmer. Subjective : Constant fatigue Lightheaded with changes in posture Presyncope Exertional shortness of breath Rare short-lived palpitations No bleeding diathesis. No weight loss Situational stress Currently without a job Afraid about future job aspects, she apparently returned to work 2 bouts of syncope, and was told that there were additional small strokes, however she does not recall having any brain imaging. She does not have new deficits. She is able to ambulate without assistance. Left arm and leg feel heavy all the time. Difficulty to hold onto any objects with her left hand, but will drop from her hand and unless she sees it dropped, she does not realize that it is dropping. 12 point ROS is negative or non contributory except as noted. History so Far : 1. Abnormal EKG with inferior lateral ST-T abnormality and isolated PVCs, inferolateral ST-T abnormality was noted dating back to 08/2022 2. Exertional shortness of breath 3. Postural lightheadedness with orthostatic hypotension based on office evaluation 07/06/2024 4. Presyncope/syncope 5. Paroxysmal atrial fibrillation by loop recorder interpretation 6. Loop recorder in place 7. Long-term anticoagulation 8. Stroke in 2021 at age 46, affecting left arm left side of face and left leg with mild residual deficits 9. Echocardiogram July 2022-normal LV function, negative bubble study grossly normal valves trace mitral and trace tricuspid regurgitation, normal-sized ascending aorta, normal RV systolic function, LVEF 60 to 65%, negative bubble study 10. Mixed hyperlipidemia 11. Quit smoking April 2023 12. Allergy to aspirin-hives, latex allergy 13. Cerebral MRI with ischemic injury lateral right thalamus posterior limb right internal capsule inferior medial right posterior temporal lobe and occipital lobes suggesting an embolic event 14. Transesophageal echocardiogram, cerebral angiography, hematology oncology consultation did not reveal source. 15. Short bursts of atrial fibrillation were reported on the loop recorder and patient was started on anticoagulation with Eliquis. Objective Wt Readings from Last 3 Encounters: 07/06/24 63.5 kg (140 lb) 07/23/23 67.6 kg (149 lb) 05/23/23 65.8 kg (145 lb) Vitals: 07/06/24 1354 07/06/24 1507 07/06/24 1508 BP: 100/66 124/80 98/60 BP Location: Left arm Left arm Left arm Patient Position: Sitting Sitting Standing Pulse: 66 Weight: 63.5 kg (140 lb) Height: 1.651 m (5' 5 ) Physical Exam: GENERAL APPEARANCE: in no acute distress. CHEST: Symmetric and non-tender. INTEGUMENT: Skin warm and dry HEENT: No gross abnormalities identified.No pallor or scleral icterus. NECK: Supple, no JVD, no bruit. NEURO/PSHCY: Alert and oriented x3; appropriate behavior and responses and responses she has left hemiparesis. LUNGS: Clear to auscultation bilaterally; normal respiratory effort. HEART: Rate and rhythm regular with no evident murmur; no gallop appreciated. ABDOMEN: Soft, non tender. MUSCULOSKELETAL: No gross deformities. EXTREMITIES: Warm There is no edema noted. Meds: Current Outpatient Medications Medication Instructions apixaban (ELIQUIS) 5 mg, oral, 2 times daily atenolol (TENORMIN) 50 mg, oral, Daily atorvastatin (LIPITOR) 40 mg, Daily citalopram (CELEXA) 20 mg, Daily hydroCHLOROthiazide (MICROZIDE) 12.5 mg, Daily magnesium oxide (MAG-OX) 400 mg, oral, Daily valsartan (DIOVAN) 320 mg, Daily Allergies Allergen Reactions Aspirin Hives Latex Hives LABS: Reviewed comprehensive profile CBC, homocystine level from a year ago. Her homocystine level was 14.5 which is upper limits of normal. Homocystine level was 20.9 in July 2022 Patient Active Problem List Diagnosis Date Noted Former smoker 07/06/2024 Encounter to establish care with new doctor 07/06/2024 Lightheaded 07/06/2024 Abnormal EKG 07/06/2024 Medication course changed 07/06/2024 Paroxysmal atrial fibrillation (Multi) 07/06/2024 assisted current use of anticoagulant therapy 07/06/2024 BMI 23.0-23.9, adult 07/23/2023 Essential hypertension 07/23/2023 Mixed hyperlipidemia 07/23/2023 Implantable loop recorder present 07/23/2023 Cryptogenic stroke (Multi) 04/30/2023 Assessment: 1. Shortness of breath Nuclear Stress Test 2. Chest pain, unspecified type Nuclear Stress Test 3. Orthostatic hypotension 4. Essential hypertension Follow Up In Cardiology Nuclear Stress Test atenolol (Tenormin) 50 mg tablet 5. Mixed hyperlipidemia 6. Cryptogenic stroke (Multi) Nuclear Stress Test 7. assisted current use of anticoagulant therapy 8. Encounter to establish care with new doctor 9. Medication course changed 10. Paroxysmal atrial fibrillation (Multi) magnesium oxide (Mag-Ox) 400 mg (241.3 mg magnesium) tablet 11. Abnormal EKG 12. BMI 23.0-23.9, adult 13. Palpitations ECG 12 Lead 14. Former smoker Clinical decision making: Patient is new to this provider. Extensive chart review was done. She has had stroke causing left-sided hemiparesis, with findings on brain MRI in multiple territories suggesting embolic stroke. She has not really had a recurrence since being on anticoagulation therapy. Loop recorder reports short bursts of atrial fibrillation. Her episodes of syncope are most likely vasodepressor or related to orthostatic hypotension and do not necessarily mean new strokes with] my assessment Situational stress Elevated homocystine level Exertional shortness of breath and fatigue-additional workup is warranted, but chronotropic blunting is a possibility Dizziness and presyncope-so far we have documented orthostatic hypotension and we will down titrate her medications. She will need additional workup for CAD, which is negative we can use flecainide or propafenone for her PAF. The episodes are infrequent however she does have symptoms. On the other hand, she may feel better just with down titration of her beta-nii. Recommendations: 1. Decrease atenolol from 100 mg p.o. daily to 50 mg daily 2. Patient was told that if she feels worse with respect to palpitations or shortness of breath on the lower dose of atenolol she can increase the dose back to 100 mg p.o. daily 3. Fall precautions and lifestyle modifications were reviewed 4. Treadmill stress test with perfusion imaging, this will help us identify the choice of antiarrhythmics as needed, and will also serve to evaluate her chest discomfort and shortness of breath Patient feels that she can walk on the treadmill without falling 5. Magnesium oxide 400 mg p.o. daily 6. Follow-up after testing at which time additional recommendations can be made. 7. B6 and folate supplementation Follow up : after testing Scribe Attestation By signing my name below, I, Megan Ramachandran RN , Scribe attest that this documentation has been prepared under the direction and in the presence of Meghana Santiago MD. Provider Attestation - Scribe documentation All medical record entries made by the Scribe were at my direction and personally dictated by me. I have reviewed the chart and agree that the record accurately reflects my personal performance of the history, physical exam, discussion and plan. documented in this encounter [facility] Work Phone: 07-06-2024 Instructions Megan West RN - 07/06/2024 2:00 PM EST Please bring all medicines, vitamins, and herbal supplements with you when you come to the office. Prescriptions will not be filled unless you are compliant with your follow up appointments or have a follow up appointment scheduled as per instruction of your physician. Refills should be requested at the time of your visit. Call [facility] and speak to billing need to speak about [facility] [phone] documented in this encounter [facility] Work Phone: 07-24-2023 Evaluation + Plan note Associated Problem(s): Cardiac and Vasculature Apr [address] Palmer She is an individual who in July [...] ischemic evaluation No documented arrhythmia to date [facility] Work Phone: 07-24-2023 Evaluation + Plan note Associated Problem(s): Implantable loop recorder present May 16, 2023 uneventful implant implantable loop recorder. July 17, 2022 device interrogation no evidence of atrial fibrillation [facility] Work Phone: 07-24-2023 Miscellaneous Notes Associated Problem(s): Cardiac and Vasculature Apr [address] Palmer She is an individual who in July [...] Optimal in office documented in this encounter [facility] Work Phone: 07-24-2023 Evaluation + Plan note Associated Problem(s): Mixed hyperlipidemia Moderate intensity statin She has a new PCP and will be obtaining annual wellness labs in the near future [facility] Work Phone: 07-24-2023 Evaluation + Plan note Associated Problem(s): Essential hypertension Optimal in office [facility] Work Phone: 07-23-2023 History of Presen [...] Vasculature Apr [address] Palmer She is an individual who in July [...] the office if new symptoms arise. Dr. Palmer 9 months Arleth Painting MSN, RADIO TOWER TECHNICIAN-JUVENILE DETENTION OFFICER, PMHNP-[facility] Please excuse any errors in grammar or translation related to this dictation. Voice recognition software was utilized to prepare this document. documented in this encounter [facility] Work Phone: 07-23-2023 Instructions LYNDA Martino [...] the office if new symptoms arise. Dr. Palmer 9 months documented in this encounter [facility] Work Phone: 07-22-2023 Miscellaneous Notes Per Aug 2023 recall, patient is due for routine follow up with [facility]. Please call to schedule appt. Called patient and her number has been disconnected Called significant other and left Vm Attempted patients significant other and no answer Going to mail a letter documented in this encounter [facility] 07-22-2023 Telephone encounter Note Per Aug 2023 recall, patient is due for routine follow up with [facility]. Please call to schedule appt. [facility] 07-22-2023 Telephone encounter Note Called patient and her number has been disconnected Called significant other and left Vm [facility] 07-22-2023 Telephone encounter Note Attempted patients significant other and no answer Going to mail a letter [facility] 04-02-2023 Progress note Note Date/Time April 02, 2023 3:53pm [facility] [place] [address] Hem/Onc Follow Up Note - OP Signed Patient: Melvina Jameson MR#: [id number] : 1975 Acct:[id number] Age/Sex: 47 / F Type: REG RCR [...] next month. I reviewed her laboratories from [facility] showing elevated homocystine of 21. She did [...] at the request of Estefania Jin PA-C ([facility] Neuro[facility]Stroke) regarding further evaluation of hypercoagulable condition [...] her symptoms persisted and she presented to [facility] emergency department on 07/14/2022. She was urgently transferred to [facility] and subsequently diagnosed with a right WAISTBAND SETTER LOCKSTITCH occlusion and right thalamic stroke. She underwent [...] study and negative lower extremity Doppler. 30-day manager cardiac revealed no evidence of atrial fibrillation and/or other arrhythmia. Presently, she is being followed by [facility] neurology every 6 months. 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 She has intentionally lost approximately 40 pounds [...] Anxiety Depression Endometriosis History of ischemic right WAISTBAND SETTER LOCKSTITCH stroke Hyperlipidemia Hypertension - Surgical History Surgical [...] initial hypercoagulable work up while hospitalized at [facility] on 07/16/2022 while she was hospitalized for acute onset left sided weakness; subsequently diagnosed with a right thalamic stroke secondary to WAISTBAND SETTER LOCKSTITCH occlusion; risk factors include: hyperlipidemia, nicotine use [...] factor II?prothrombin gene, factor V Leiden, protein LENS FABRICATING MACHINE TENDER, PT/INR, PTT, Antithrombin III gene mutation, beta-2 [...] today. --In review of prior labs at [facility], she was noted to have elevated homocystine. [...] for coordination of care (as documented) and onkh-aw-zvri counseling of patient and/or family. 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 I reviewed her laboratories from [facility] showing elevated homocystine of 21. She did [...] at the request of Estefania Medina PA-C ([facility]Stroke) regarding further evaluation of hypercoagulable condition [...] her symptoms persisted and she presented to [facility] emergency department on 07/14/2022. She was urgently transferred to [facility] and subsequently diagnosed with a right WAISTBAND SETTER LOCKSTITCH occlusion and right thalamic stroke. She underwent [...] study and negative lower extremity Doppler. 30-day manager cardiac revealed no evidence of atrial fibrillation and/or other arrhythmia. Presently, she is being followed by [facility] neurology every 6 months. 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 She has intentionally lost approximately 40 pounds [...] Anxiety Depression Endometriosis History of ischemic right WAISTBAND SETTER LOCKSTITCH stroke Hyperlipidemia Hypertension - Surgical History Surgical [...] initial hypercoagulable work up while hospitalized at [facility] on 07/16/2022 while she was hospitalized for acute onset left sided weakness; subsequently diagnosed with a right thalamic stroke secondary to WAISTBAND SETTER LOCKSTITCH occlusion; risk factors include: hyperl ipidemia, nicotine [...] factor II?prothrombin gene, factor V Leiden, protein LENS FABRICATING MACHINE TENDER, PT/INR, PTT, Antithrombin III gene mutation, beta-2 [...] today. --In review of prior labs at [facility], she was noted to have elevated homocystine. [...] for coordination of care (as documented) and kdyi-vf-xbss counseling of patient and/or family. Dictated By: Reina Goss APRN DD/ 1419 Signed By: 04/02/23 1453 [facility]07-21-2023 Progress note Author Racheal Fernandez [facility] Note Date/Time February 01, 2023 3:35 pm [facility] [place] [address] Hem/Onc Follow Up Note - OP Signed Patient: Melvina Jameson MR#: [id number] : 1975 Acct:[id number] Age/Sex: 47 / F Type: REG RCR Copies to: DO Estefania Evans PA-C~ Subjective Date/Time of Service: Date of Service: 02/01/2023 Time of Service: Chief Complaint: Patient is here today for [...] next month. I reviewed her laboratories from [facility] showing elevated homocystine of 21. She did [...] her symptoms persisted and she presented to [facility] emergency department on 07/14/2022. She was urgently transferred to [facility] and subsequently diagnosed with a right WAISTBAND SETTER LOCKSTITCH occlusion and right thalamic stroke. She underwent [...] study and negative lower extremity Doppler. 30-day manager cardiac revealed no evidence of atrial fibrillation and/or other arrhythmia. Presently, she is being followed by [facility] neurology every 6 months. 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 She has intentionally lost approximately 40 pounds [...] Anxiety Depression Endometriosis History of ischemic right WAISTBAND SETTER LOCKSTITCH stroke Hyperlipidemia Hypertension - Surgical History Surgical [...] right posterior temporal lobe and occipital lobes [WAISTBAND SETTER LOCKSTITCH territory] Assessment and Plan (1) Right thalamic stroke As noted above, patient underwent initial hypercoagulable work up while hospitalized at [facility] on 07/16/2022 while she was hospitalized for acute onset left sided weakness; subsequently diagnosed with a right thalamic stroke secondary to WAISTBAND SETTER LOCKSTITCH occlusion; risk factors include: hyperlipidemia, nicotine use [...] factor II?prothrombin gene, factor V Leiden, protein LENS FABRICATING MACHINE TENDER, PT/INR, PTT, Antithrombin III gene mutation, beta-2 [...] today. --In review of prior labs at [facility], she was noted to have elevated homocystine. [...] for coordination of care (as documented) and apuc-di-ugcb counseling of patient and/or family. Dictated By: Racheal Fernandez MD DD/ 2 Signed By: <Electronically signed by MD Racheal Fernandez> 02/01/23 8358 [facility] Work Phone: 1(370) 251-257407-21-2023 Progress note Author Racheal Fernandez [facility] February 01, 2023 2:35pm Note Date/Time February 01, 2023 9:24 am [facility] [place] [address] Hem/Onc Follow Up Note - OP Signed Patient: Melvina Jameson MR#: [id number] : 1975 Acct:[id number] Age/Sex: 47 / F Type: REG RCR Copies to: DO Estefania Evnas PA-C~ Subjective Date/Time of Service: Date of [...] next month. I reviewed her laboratories from [facility] showing elevated homocystine of 21. She did [...] at the request of Estefania Jin PA-C ([facility]) regarding further evaluation of hypercoagulable condition [...] her symptoms persisted and she presented to [facility] emergency department on 07/14/2022. She was urgently transferred to [facility] and subsequently diagnosed with a right WAISTBAND SETTER LOCKSTITCH occlusion and right thalamic stroke. She underwent [...] study and negative lower extremity Doppler. 30-day manager cardiac revealed no evidence of atrial fibrillation and/or other arrhythmia. Presently, she is being followed by [facility] neurology every 6 months. 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 She has intentionally lost approximately 40 pounds [...] Negative for environmental allergies and food allergies. PMF - History Attestation statement: The following information was validated with the patient. Source: Old Records Reviewed - Medical History Medical History: Medical History (Last Reviewed 02/01/23 @ 14:11 by Racheal Fernandez MD) Anxiety Depression Endometriosis History of ischemic right WAISTBAND SETTER LOCKSTITCH stroke Hyperlipidemia Hypertension - Surgical History Surgical [...] right posterior temporal lobe and occipital lobes [WAISTBAND SETTER LOCKSTITCH territory] Assessment and Plan (1) Right thalamic stroke As noted above, patient underwent initial hypercoagulable work up while hospitalized at [facility] on 07/16/2022 while she was hospitalized for acute onset left sided weakness; subsequently diagnosed with a right thalamic stroke secondary to WAISTBAND SETTER LOCKSTITCH occlusion; risk factors include: hyperlipidemia, nicotine use [...] factor II?prothrombin gene, factor V Leiden, protein LENS FABRICATING MACHINE TENDER, PT/INR, PTT, Antithrombin III gene mutation, beta-2 [...] today. --In review of prior labs at [facility], she was noted to have elevated homocystine. [...] for coordination of care (as documented) and sxha-zn-nvni counseling of patient and/or family. Dictated By: Racheal Fernandez MD DD/ 2 Signed By: <Electronically signed by MD Racheal Fernandez> 02/01/23 1435 [facility] Work Phone: 1(182) 312-678707-21-2023 [facility] [place] [address] Hem/Onc Follow Up Note - OP Signed Patient: Melvina Jameson MR#: [id number] : 1975 Acct:[id number] Age/Sex: 47 / F Type: REG RCR [...] next month. I reviewed her laboratories from [facility] showing elevated homocystine of 21. She did [...] review her symptoms. Her hypercoagulability work-up by ELSIA Hernandez showed normal lupus anticoagulant testing, normal [...] at the request of Estefania Medina PA-C ([facility] Neuro[facility]Stroke) regarding further evaluation of hypercoagulable condition [...] her symptoms persisted and she presented to [facility] emergency department on 07/14/2022. She was urgently transferred to [facility] and subsequently diagnosed with a right WAISTBAND SETTER LOCKSTITCH occlusion and right thalamic stroke. She underwent [...] study and negative lower extremity Doppler. 30-day manager cardiac revealed no evidence of atrial fibrillation and/or other arrhythmia. Presently, she is being followed by [facility] neurology every 6 months. 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 She has intentionally lost approximately 40 pounds since her stroke 6 months ago; she was previously consuming a 12 pack of DrChristine Pepper daily; she has decreased this to [...] Negative for environmental allergies and food allergies. [facility] - History Attestation statement: The following information was validated with the patient. Source: Old Records Reviewed - Medical History Medical History: Medical History (Last Reviewed 02/01/23 @ 14:11 by Racheal Fernandez MD) Anxiety Depression Endometriosis History of ischemic right WAISTBAND SETTER LOCKSTITCH stroke Hyperlipidemia Hypertension - Surgical History Surgical [...] right posterior temporal lobe and occipital lobes [WAISTBAND SETTER LOCKSTITCH territory] Assessment and Plan (1) Right thalamic stroke As noted above, patient underwent initial hypercoagulable work up while hospitalized at [facility] on 07/16/2022 while she was hospitalized for acute onset left sided weakness; subsequently diagnosed with a right thalamic stroke secondary to WAISTBAND SETTER LOCKSTITCH occlusion; risk factors include: hyperl ipidemia, nicotine [...] factor II?prothrombin gene, factor V Leiden, protein LENS FABRICATING MACHINE TENDER, PT/INR, PTT, Antithrombin III gene mutation, beta-2 [...] today. --In review of prior labs at [facility], she was noted to have elevated homocystine. [...] for coordination of care (as documented) and vlhv-jy-dskv counseling of patient and/or family. Dictated By: Racheal Fernandez MD DD/ Signed By: 02/01/23 1435 [facility]06-26-2023 Consult note Author Lian Hernandez [facility] Note Date/Time January 07, 2023 5:17 pm [facility] at [address] [address] Hem/Onc Consult Note - OP Signed Patient: Melvina Jameson MR#: [id number] : 1975 Acct:[id number] Age/Sex: 47 / F Type: REG RCR Copies to: DO Estefania Evans PA-C~ HPI Date/Time of Service: Date of Service: 01/07/2023 Time of Service: 14:33 Referring Provider/PCP: Referring Provider: Estefania Jin PA-C PCP: Enoc Cardenas DO - History of Present Illness Reason for Consultation: 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 She was urgently transferred to [facility] and subsequently diagnosed with a right WAISTBAND SETTER LOCKSTITCH occlusion and right thalamic stroke. She underwent [...] study and negative lower extremity Doppler. 30-day manager cardiac revealed no evidence of atrial fibrillation and/or other arrhythmia. Presently, she is being followed by [facility] neurology every 6 months. 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 She has intentionally lost approximately 40 pounds [...] skin rash, easy bruising/bleeding, orlower extremity edema. [facility] - Medical History Medical History: Medical History (Last Reviewed 01/07/23 @ 13:13 by Cindy Zacarias) Anxiety Depression Endometriosis History of ischemic right WAISTBAND SETTER LOCKSTITCH stroke Hyperlipidemia Hypertension - Surgical History Surgical [...] initial hypercoagulable work up while hospitalized at [facility] on 07/16/2022 while she was hospitalized for acute onset left sided weakness; subsequently diagnosed with a right thalamic stroke secondary to WAISTBAND SETTER LOCKSTITCH occlusion; risk factors include: hyperlipidemia, nicotine use [...] factor II?prothrombin gene, factor V Leiden, protein LENS FABRICATING MACHINE TENDER, PT/INR, PTT, Antithrombin III gene mutation, beta-2 [...] for coordination of care (as documented) and bdnf-jr-egwy counseling of patient and/or family. Dictated By: Lian Hernandez APRN DD/ 1433 Signed By: <Electronically signed by MAXIMILIANO Hernandez> 01/07/23 1613 [facility] Work Phone: 1(640) 139-371106-26-2023 Consult note Author Lian Hernandez [facility] January 07, 2023 4:17pm Note Date/Time January 07, 2023 2:34 pm [facility] at [address] [address] Hem/Onc Consult Note - OP Signed Patient: Melvina Jameson MR#: [id number] : 1975 Acct:[id number] Age/Sex: 47 / F Type: REG RCR Copies to: DO Estefania Evans PA-C~ HPI Date/Time of Service: Date of Service: 01/07/2023 Time of Service: 14:33 Referring Provider/PCP: Referring Provider: Estefania Jin PA-C PCP: Enoc Cardenas DO - History of Present Illness Reason for Consultation: 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 She was urgently transferred to [facility] and subsequently diagnosed with a right WAISTBAND SETTER LOCKSTITCH occlusion and right thalamic stroke. She underwent [...] study and negative lower extremity Doppler. 30-day manager cardiac revealed no evidence of atrial fibrillation and/or other arrhythmia. Presently, she is being followed by [facility] neurology every 6 months. 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 She has intentionally lost approximately 40 pounds [...] skin rash, easy bruising/bleeding, orlower extremity edema. [facility] - Medical History Medical History: Medical History (Last Reviewed 01/07/23 @ 13:13 by Cindy Zacarias) Anxiety Depression Endometriosis History of ischemic right WAISTBAND SETTER LOCKSTITCH stroke Hyperlipidemia Hypertension - Surgical History Surgical [...] initial hypercoagulable work up while hospitalized at [facility] on 07/16/2022 while she was hospitalized for acute onset left sided weakness; subsequently diagnosed with a right thalamic stroke secondary to WAISTBAND SETTER LOCKSTITCH occlusion; risk factors include: hyperlipidemia, nicotine use [...] factor II?prothrombin gene, factor V Leiden, protein LENS FABRICATING MACHINE TENDER, PT/INR, PTT, Antithrombin III gene mutation, beta-2 [...] for coordination of care (as documented) and sjhf-li-tsys counseling of patient and/or family. Dictated By: Lian Hernandez APRN DD/ 1435 Signed By: <Electronically signed by MAXIMILIANO Hernandez> 01/07/23 0903 [facility] Work Phone: 1(467) 761-992906-26-2023 [facility] [place] [address] Hem/Onc Consult Note - OP Signed Patient: Melvina Jameson MR#: [id number] : 1975 Acct:[id number] Age/Sex: 47 / F Type: REG RCR Copies to: DO Estefania Evans PA-C~ HPI Date/Time of Service: Date of Service: 01/07/2023 Time of Service: 14:33 Referring Provider/PCP: Referring Provider: Estefania Jin PA-C PCP: Enoc Cardenas DO - History of Present Illness Reason for Consultation: Right thalamic stroke with right WAISTBAND SETTER LOCKSTITCH occlusion (diagnosed: 07/15/2022); here for hypercoagulability work up Chief Complaint: Patient is here today for a referral from [facility] for concernfor possible hypercoaguble condition and cryptogenic stroke evaluation HPI: Melvina Jameson is a 47 year old female seen at the request of Estefania Medina PA-C ([facility]) regarding further evaluation of hypercoagulable condition [...] her symptoms persisted and she presented to [facility] emergency department on 07/14/2022. She was urgently transferred to [facility] and subsequently diagnosed with a right WAISTBAND SETTER LOCKSTITCH occlusion and right thalamic stroke. She underwent [...] study and negative lower extremity Doppler. 30-day manager cardiac revealed no evidence of atrial fibrillation and/or other arrhythmia. Presently, she is being followed by [facility] neurology every 6 months. 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 She has intentionally lost approximately 40 pounds [...] skin rash, easy bruising/bleeding, orlower extremity edema. [facility] - Medical History Medical History: Medical History (Last Reviewed 01/07/23 @ 13:13 by Cnidy Zacarias) Anxiety Depression Endometriosis History of ischemic right WAISTBAND SETTER LOCKSTITCH stroke Hyperlipidemia Hypertension - Surgical History Surgical [...] initial hypercoagulable work up while hospitalized at [facility] on 07/16/2022 while she was hospitalized for acute onset left sided weakness; subsequently diagnosed with a right thalamic stroke secondary to WAISTBAND SETTER LOCKSTITCH occlusion; risk factors include: hyperl ipidemia, nicotine [...] factor II?prothrombin gene, factor V Leiden, protein LENS FABRICATING MACHINE TENDER, PT/INR, PTT, Antithrombin III gene mutation, beta-2 [...] for coordination of care (as documented) and ihen-ry-jwig counseling of patient and/or family. 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 Syncope acute History of miscarriage chron ic Hyperlipidemia chronic Hypertension chronic Right thalamic stroke chroni c [facility] Work Phone: Evaluation note* Diagnosis Essential hypertension- Primary Unspecified essential hypertension Cryptogenic stroke (CMS/HCC) Implantable loop recorder present Mixed hyperlipidemia BMI 24.0-24.9, adult documented in this encounter [facility] Work Phone: Evaluation noteNo assessment information available [facility] Work Phone: Evaluation note* Diagnosis Essential hypertension- Primary Unspecified essential hypertension Cryptogenic stroke (Multi) Implantable loop recorder present Mixed hyperlipidemia BMI 24.0-24.9, adult Shortness of breath Chest pain, unspecified type Orthostatic hypotension Essential hypertension Unspecified essential hypertension Mixed hyperlipidemia Cryptogenic stroke (Multi) assisted current use of anticoagulant therapy Encounter to establish care with new doctor Medication course changed Paroxysmal atrial fibrillation (Multi) Atrial fibrillation Abnormal EKG Nonspecific abnormal electrocardiogram (ECG) (EKG) BMI 23.0-23.9, adult Palpitations Former smoker Personal history of tobacco use, presenting hazards to health documented in this encounter [facility] Work Phone: Evaluation note* Diagnosis Encounter for drug screening documented in this encounter [facility] HealthcareEvaluation note* Diagnosis Essential hypertension- Primary Unspecified essential hypertension Cryptogenic stroke (Multi) Implantable loop recorder present Mixed hyperlipidemia BMI 24.0-24.9, adult Essential hypertension Unspecified essential hypertension Cryptogenic stroke (Multi) Chest pain, unspecified type Shortness of breath documented in this encounter [facility] Work Phone: Hospital Discharge instructions Additional Instructions [...] with nurse for incision check in the [facility] on 05/23/2023 at 10:30am. 2. Pacemaker/ICD clinic appointment at [facility] on 08/07/2023 at 9:00am. 3. Office visit with Arleth Painting NP at the [facility] on 08/12/2023 at 10:30am . [][facility] Work Phone: InstructionsNot on filedocumented in this encounter [facility] Author Reina Goss [facility] April 02, 2023 2:53pm Note Date/Time April 02, 2023 2:20pm [facility] [place] [address] Hem/Onc Follow Up Note - OP Signed Patient: Melvina Jameson MR#: [id number] : 1975 Acct:[id number] Age/Sex: 47 / F Type: REG RCR [...] next month. I reviewed her laboratories from [facility] showing elevated homocystine of 21. She did [...] her symptoms persisted and she presented to [facility] emergency department on 07/14/2022. She was urgently transferred to [facility] and subsequently diagnosed with a right WAISTBAND SETTER LOCKSTITCH occlusion and right thalamic stroke. She underwent [...] study and negative lower extremity Doppler. 30-day manager cardiac revealed no evidence of atrial fibrillation and/or other arrhythmia. Presently, she is being followed by [facility] neurology every 6 months. 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 She has intentionally lost approximately 40 pounds [...] Anxiety Depression Endometriosis History of ischemic right WAISTBAND SETTER LOCKSTITCH stroke Hyperlipidemia Hypertension - Surgical History Surgical [...] initial hypercoagulable work up while hospitalized at [facility] on 07/16/2022 while she was hospitalized for acute onset left sided weakness; subsequently diagnosed with a right thalamic stroke secondary to WAISTBAND SETTER LOCKSTITCH occlusion; risk factors include: hyperlipidemia, nicotine use [...] factor II?prothrombin gene, factor V Leiden, protein LENS FABRICATING MACHINE TENDER, PT/INR, PTT, Antithrombin III gene mutation, beta-2 [...] today. --In review of prior labs at [facility], she was noted to have elevated homocystine. [...] for coordination of care (as documented) and [id number]-[id number] counseling of patient and/or family. Dictated By: Reina Goss APRN DD/ 1411 Signed By: <Electronically signed by MAXIMILIANO Goss> 04/02/23 0222 [facility] Work Phone: Reason for referral (narrative)* Consultation (Routine) - Authorized Specialty Diagnoses / Procedures Referred By Contac t Referred To Contact Cardiology Diagnoses Implantable loop recorder present Procedures Follow Up In Cardiology Arleth Painting APRN-CNP [address] [facility] [address] [place] [address] Bill Palmer MD [address] [facility] [address] [place] [address] Referral ID Status Reason Start Date Expiration Date V isits Requested Visits Authorized [id number] Authorized 07/23/2023 07/22/2024 1 1 [facility] Work Phone: Reason for visit Narrative* Cardiac Stress Testing (Routine) - Authorized Specialty Diagnoses / Procedures Referred By Contac t Referred To Contact Cardiology Diagnoses Essential hypertension Cryptogenic stroke (Multi) Chest pain, unspecified type Shortness of breath Procedures Nuclear Stress Test CHG MYOCARDIAL SPECT MULTIPLE STUDIES Meghana Santiago MD [address] [address] Phone: tel: fax: Referral ID Status Reason Start Date Expiration Date Visits Requested Visits Authorized [id number] Authorized Perform Procedure 4 07/06/2025 3 3 [facility] Work Phone: Reason for visit Narrative* Cardiac Stress Testing (Routine) - Authorized Specialty Diagnoses / Procedures Referred By Contac t Referred To Contact Cardiology Diagnoses Essential hypertension Cryptogenic stroke (Multi) Chest pain, unspecified type Shortness of breath Procedures Nuclear Stress Test CHG MYOCARDIAL SPECT MULTIPLE STUDIES Meghana Santiago MD [address] [facility] [address] [place] [address] Phone: tel: fax: Referral ID Status Reason Start Date Expiration Date Visits Requested Visits Authorized [id number] Authorized Perform Procedure 4 07/06/2025 3 3 [facility] Work Phone: Summary Purpose Family History [...] Time Advance Directives No January 03 3:46pm Advance Directive Response Recorded Date/ Time Advance Directives No January 03 2:46pm Latest Code Status on File Code Status Date Activated Date Inactivated Comments Full Code 07/15/2022 6:22 PM 07/18/2022 5:08 PM Chief Complaint and Reason for Visit Chief [...] Admit Date i63.9 May 28, 2024 8:30am Chief Complaint Admit Date i63.9 May 28, 2024 8:30am i63.9 July 28, 2024 1 2:44pm Chief Complaint Admit Date i63.9 July 28, 2024 1 2:44pm i63.9 August 28, 2024 12:29pm Chief Complaint Admit Date i63.9 July 28, 2024 1 2:44pm i63.9 August 28, 2024 12:29pm i63.9 September 29, 2024 10: 45am Chief Complaint Admit Date i63.9 August 28, 2024 12:29pm i63.9 September 29, 2024 10: 45am i63.9 October 30, 2024 10: 33am Additional Source Comments INFORMATION SOURCE (unrecogn ized section and content) DATE CREATED AUTHOR 09/15/2022 [facility] DATE CREATED AUTHOR AUTHOR'S ORGANIZ ATION 09/09/2024 [facility] DATE CREATED AUTHOR AUTHOR'S ORGANIZ ATION 12/11/2024 [facility] DATE CREATED AUTHOR AUTHOR'S ORGANIZ ATION 12/13/2024 [facility] EPIC DATE CREATED AUTHOR AUTHOR'S ORGANIZ ATION 02/06/2025 [facility] Care Teams (unrecognized sec tion and content) Team Status: Active Member Role Status Dates PHYSICIAN NO FAMILY Primary Care Provider Active Team Status: Active Member Role Status Dates PHYSICIAN NO FAMILY Primary Care Provider Active Start: May 28, 2024 Arleth Painting APRN Other Provider Active Start : May 28, 2024 Jovany Galdamez MD Attending Provider Active Start: May 28, 2024 Team Status: Inactive Member Role Status Dates PHYSICIAN NO FAMILY Primary Care Provider Active Start: September 02, 2023 End: September 02, 2023 Bill Palmer MD Attending Provider Active Start: September 02, [...] NO FAMILY Primary Care Provider Active Bill Palmer MD Attending Provider Active Team Status: Inactive Member Role Status Dates PHYSICIAN NO FAMILY Primary Care Provider Active Start: January 07, 2024 End: January 07, 2024 Bill Palmer MD Attending Provider Active Start: January 07, 2024 End: January 07, 2024 Team Status: Inactive Member Role Status Dates PHYSICIAN NO FAMILY Primary Care Provider Active Start: February 16, 2024 End: February 16, 2024 Bill Palmer MD Attending Provider Active Start: February 16, 2024 End: February 16, 2024 Residential Real Estate Sales Manager Relationship Specialty Start Date End Date Nataliya Elizondo APRN-CNP [address] [place] [address] PCP - General 07/06/24 Team Status: Active Member Role Status Dates PHYSICIAN NO FAMILY Primary Care Provider Active Start: July 28, 2024 Arleth Painting APRN Other Provider Active Start : July 28, 2024 Jovany Galdamez MD Attending Provider Active Start: July 28, 2024 Residential Real Estate Sales Manager Relationship Specialty Start Date End Date Enoc Cardenas DO [address] [place] [id number] PCP - General Family Medicine 09/05/22 Team Status: Active Member Role Status Dates PHYSICIAN NO FAMILY Primary Care Provider Active Start: August 28, 2024 Arleth Painting APRN Other Provider Active Start : August 28, 2024 Jovany Galdamez MD Attending Provider Active Start: August 28, 2024 Team Status: Active Member Role Status Dates PHYSICIAN NO FAMILY Primary Care Provider Active Start: September 29, 2024 Arleth Painting APRN Other Provider Active Start : September 29, 2024 Jovany Galdamez MD Attending Provider Active Start: September 29, 2024 Team Status: Active Member Role Status Dates PHYSICIAN NO FAMILY Primary Care Provider Active Start: October 30, 2024 Arleth Painting APRN Referring Provider, Other Provider Active Start: October 30, 2024 Jovany Galdamez MD Attending Provider Active Start: October 30, 2024 Residential Real Estate Sales Manager Relationship Specialty Start Date End Date Enoc Cardenas MD [address] [place] [id number] PCP - General Family Medicine 01/24/23 Residential Real Estate Sales Manager Relationship Specialty Start Date End Date Nataliya Elizondo APRN-CNP [address] [place] [address] PCP - General 07/06/24 Residential Real Estate Sales Manager Relationship Specialty Start Date End Date Nataliya ElizondoLYNDA [address] [place] [address] PCP - General 07/06/24 Residential Real Estate Sales Manager Relationship Specialty Start Date End Date Nataliya ElizondoLYNDA [address] [place] [address] PCP - General 07/06/24 Goals (unrecognized section and content) Goals may [...] up Specialty Diagnoses / Procedures Referred By Contac t Referred To Contact Cardiology Diagnoses Cryptogenic stroke (CMS/HCC) Procedures Follow Up In Cardiology Bill Palmer MD [address] [facility] [address] [address] [place] [address] Referral ID Status Reason Start Date Expiration Date V isits Requested Visits Authorized [id number] Authorized 04/30/2023 04/29/2024 1 1 Reason Comments Follow-up Discuss A-Fib and po ssibility of starting antiarrhythmic Specialty Diagnoses / Procedures Referred By Contac t Referred To Contact Diagnoses Palpitations Procedures ECG 12 Lead Meghana Santiago MD [address] [facility] [address] [place] [address] Phone: tel: fax: Referral ID Status Reason Start Date Expiration Date V isits Requested Visits Authorized [id number] Authorized 07/06/2024 07/06/2025 1 1 FOR RECORDS PERTAINING TO PATIENTS [...] BE BASED ON THE PRIMARY CLINICAL RECORDS. [facility]. provides no warranty or guarantee of the accuracy or completeness of information in this document.
[2025-04-07 08:57] LABS: Hematocrit 42.2 % (36.0-48.0); Hemoglobin 14.2 g/dL (12.0-16.0); Immature Granulocytes Abs Auto 0.01 10^3/uL (0.00-0.03); Immature Granulocytes Pct Auto 0.2 % (0.0-0.5); Lymphocytes Absolute Auto 1.7 10^3/uL (1.2-3.8); Mean Corpuscular HGB Conc 33.6 g/dL (29.9-35.2); Mean Corpuscular Hemoglobin 28.8 pg (26.7-34.0); Mean Corpuscular Volume 85.6 fL (81.0-99.0); Platelet Count 209 10^3/uL (150-450); Red Blood Count 4.93 10^6/uL (4.20-5.40); White Blood Count 5.6 10^3/uL (4.0-11.0)
[2025-04-07 09:14] LABS: Iron 82.0 ug/dL (50.0-170.0)
[2025-04-07 09:28] LABS: Alanine Aminotransferase 30 U/L (14-59); Albumin Globulin Ratio 0.9; Albumin Level 3.8 g/dL (3.4-5.0); Alkaline Phosphatase 109 U/L (46-116); Anion Gap 13.7; Aspartate Amino Transferase 21 U/L (15-37); Blood Urea Nitrogen 14.0 mg/dL (7.0-18.0); Calcium 9.4 mg/dL (8.5-10.1); Carbon Dioxide 27.5 mmol/L (21.0-32.0); Chloride 106 mmol/L (98-107); Cholesterol 206 mg/dL (<=200); Estimated GFR (African America >60 (>=60 mL/min/1.73m^2); Estimated GFR (Non-African Ame >60 (>=60 mL/min/1.73m^2); Free T3 3.27 pg/mL (2.18-3.98); Globulin 4.2 g/dL; Glucose 70 mg/dL (74-106); HDL Cholesterol 47 mg/dL (40-60); Potassium 4.2 mmol/L (3.5-5.1); Sodium 143 mmol/L (136-145); Thyroid Stimulating Hormone 1.960 uIU/mL (0.358-3.740); Total Protein 8.0 g/dL (6.4-8.2); Triglycerides 86 mg/dL (<=150); VLDL CHOLESTEROL 17.2 mg/dL
== END 2025-04-07 08:09 | disposition home or self-care (01) ==
LOC: LAB 08:12
PROVIDERS: PCP Nurse Practitioner Family; Visit Provider Nurse Practitioner Family
DX: Z00.00 Encounter for general adult medical examination without abnormal findings (principal)
CPT/HCPCS: 36415; 80053; 80061; 82306; 83036; 83525; 83540; 84436; 84443; 84481; 85025

== ENCOUNTER 2025-05-21 08:56 | Outpatient (OUT) | payer BC, SELFPAY ==
--- OUTSIDE RECORDS SUMMARY | 2025-05-21 09:01 | XMS_ITS | Clinical Summary ---
Author Organization [facility] Address [address] [place] [address] Care Team Providers Care Absorber Operator Name Role Phone Enoc Cleaning MD Primary Care Provider Social History Tobacco UseTypesPacks/DayYears UsedDateSmoking Tobacco: Never Assessed CommentsUnknownSex and Gender InformationValueDate RecordedSex Assigned at Not on fileLegal HcoAocqty59/13/2023 2:13 PM EDTGender IdentityNot on fileSexual OrientationNot on file Plan of Treatment Not on file Insurance Care Teams Team MemberRelationshipSpecialtyStart DateEnd Date Enoc Cleaning MD [facility]
--- OUTSIDE RECORDS SUMMARY | 2025-05-21 09:01 | XMS_ITS | Clinical Summary ---
Author Organization [employer] [facility] tem Address [id number] [place] [address] Care Team Providers Care Rock Wool Applicator Name Role Phone Enoc Cleaning DO Primary Care Provider [phone] Allergies Active AllergyReactionsCriticalityNoted SpdfEgtvgaojGfzgynp27/02/2023 Medications MedicationSigDispense QuantityRefillsLast FilledStart DateEnd DateStatus atenoloL (TENORMIN) 100 mg tablet Indications:hypertensionTake 1 tablet (100 mg total) by mouth in the morning. Indications: high blood pressure.Active citalopram (CeleXA) 20 mg tablet Take 1 tablet (20 mg total) by mouth in the morning.Active valsartan (DIOVAN) 320 mg tablet Indications:hypertensionTake 1 tablet (320 mg total) by mouth in the morning. Indications: high blood pressure.Active hydroCHLOROthiazide (HYDRODIURIL) 12.5 mg tablet Take 1 tablet (12.5 mg total) by mouth daily.02/26/2023ctive clopidogreL (PLAVIX) 75 mg tablet Take 1 tablet (75 mg total) by mouth in the morning. 90 tablet ctive nicotine 21-14-7 mg/24 hr patch, TD daily, sequential 21 mg patch once daily for 4 weeks, then 14 mg patch once daily for 2 weeks, then 7 mg patch once daily for 2 weeks 56 each 03/04/2023ctive Active Problems ProblemNoted DateDiagnosed DateHistory of ischemic right SECOND BUTLER wkutqe7808/28/2022 Pevtvuckcnle57/14/2023Stroke-like iwsdbkxb90/01/2023 Immunizations No known immunizations Family History Medical HistoryRelationNameCommentsCancerFatherCancerMaternal GrandmotherCancer Paternal GrandmotherStrokePaternal GrandmotherRelationNameStatusCommentsFather Maternal GrandmotherPaternal Grandmother Social History Tobacco UseTypesPacks/DayYears UsedDateSmoking Tobacco: Every DayCigarettes Smokeless Tobacco: Never Tobacco Cessation:Ready to Q uit: Yes; Counseling Given: Not Answered Alcohol UseStandard Drinks/WeekCommentsNot Currently0 (1 standard drink = 0.6 oz pure alcohol)socialPHQ-2AnswerDate RecordedTotal Savnu422/21/2023ChildcareAnswer Date ZcrfwhhjEycrjoguoJsitfov78/12/2019EmploymentAnswerDate RecordedEmployment Pmdxlrm2512/24/2018Hunger ScreeningAnswerDate RecordedWithin the past 12 months we worried whether our food would run out before we got money to buy more.Never True07/18/2022Within the past 12 months the food we bought just didn't last and we didn't have money to get more.Never True07/18/2022CommentsUnknownSex and Gender InformationValueDate RecordedSex Assigned at BirthNot on fileLegal YuuMcaapp29/06/2015 11:42 AM EDTGender IdentityNot on fileSexual OrientationNot on file Last Filed Vital Signs Vital SignReadingTime TakenCommentsBlood Puwubgej416/8703/04/2023 3:00 PM EDT Udlby059603/04/2023 3:00 PM DGJMvpgjfyipiy32.5 ??C (97.7 ??F)07/18/2022 12:00 PM ESTRespiratory Ansl077807/18/2022 12:00 PM ESTOxygen Refgmkhxtp38%07/18/2022 12:00 PM ESTInhaled Oxygen Concentration--Corrbl63 kg (147 lb 9.6 oz)03/04/2023 3:00 PM EQYZykrst062.6 cm (5' 5.98 )03/04/2023 3:00 PM EDTBody Mass Index23.83 03/04/2023 3:00 PM EDT Plan of Treatment Health MaintenanceDue DateLast DoneCommentsTobacco Kycxtszwx21/30/1987DTaP,Tdap and Td Vaccines (1 - Tdap)1994Pap Smear1996Adult BMI Screening /3Depression Lkyglhoix58/3COVID-19 Vaccine ( season)/, 12/15/2020Influenza Dvgtsje9903/15/2025 Medical Devices Not on file Insurance Advance Directives * Full Code (Latest Code Status on File) Date ActivatedDate InactivatedComments07/15/2022 6:22 PM07/18/2022 5:08 PM Care Teams Team MemberRelationshipSpecialtyStart DateEnd Enoc Cleaning DO PCP - GeneralFamily Medicine09/05/22
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
--- OUTSIDE RECORDS SUMMARY | 2025-05-21 09:01 | XMS_ITS | Clinical Summary ---
Author Organization [facility] Address [address] [place] [address] Phone Care Team Providers Care Dinkey Locomotive Engineer Name Role Phone Nataliya Hughes SENIOR MATERIALS ANALYST-JOURNEYMAN MILLWRIGHT Primary Care Provider Allergies Active AllergyReactionsCriticalityNoted EagwUpnkavrqZjvqgheUpdzfJqqhvi19/17/2023 OjcusOikirSykurg25/17/2023 Medications MedicationSigDispense QuantityRefillsLast FilledStart DateEnd DateStatus atorvastatin (Lipitor) 40 mg tablet Take 1 tablet (40 mg) by mouth once daily.03/29/2023ctive citalopram (CeleXA) 20 mg tablet Take 1 tablet (20 mg) by mouth once daily.04/21/2023ctive hydroCHLOROthiazide (HYDRODiuril) 12.5 mg tablet Take 1 tablet (12.5 mg) by mouth once daily.04/21/2023ctive valsartan (Diovan) 320 mg tablet Take 1 tablet (320 mg) by mouth once daily.04/21/2023ctive apixaban (Eliquis) 5 mg tablet Indications:Paroxysmal atrial fibrillation (Multi),Cryptogenic stroke (Multi) Take 1 tablet (5 mg) by mouth 2 times a day. 180 tablet /5Active magnesium oxide (Mag-Ox) 400 mg (241.3 mg magnesium) tablet Indications:Paroxysmal atrial fibrillation (Multi)Take 1 tablet (400 mg) by mouth once daily. 90 tablet /5Active atenolol (Tenormin) 50 mg tablet Indications:Essential hypertensionTake 1 tablet (50 mg) by mouth once daily. 45 tablet ctive folic acid (Folvite) 1 mg tablet Indications:Elevated homocysteineTake 1 tablet (1 mg) by mouth once daily. 90 tablet /[id number] cyanocobalamin (Vitamin B-12) 250 mcg tablet Indications:Elevated homocysteineTake 1 tablet (250 mcg) by mouth once daily. 30 tablet 11109/11/0381585Active Active Problems ProblemNoted DateDiagnosed DateFormer tybfsh9307/06/2024Encounter to establish care with new xkzqmg6807/06/20249343Oswsplptykl98/23/2024bnormal EKG109/06/2023 Medication course brflnzw1407/06/2024aroxysmal atrial thokirkodyrk30/23/2024Long term current use of anticoagulant rtjxkja6007/06/2024MI 23.0-23.9, adult 07/23/2023Essential inrdeesilyep17/09/2024 Assessment & Plan (07/24/2023 1:16 PM EST): Optimal in office Mixed densmfjeutjpio23/09/2024 Assessment & Plan (07/24/2023 1:16 PM EST): Moderate intensity statin She has a new PCP and will be obtaining annual wellness labs in the near future Implantable loop recorder znxynte0907/23/2023 Assessment & Plan (07/24/2023 1:17 PM EST): May 16, 2023 uneventful implant implantable loop recorder. July 17, 2022 device interrogation no evidence of atrial fibrillation Cryptogenic tzafzw5604/30/2023 Family History Medical HistoryRelationNameCommentsCancerFatherFibromyalgiaMotherLupusMother RelationNameStatusCommentsFatherMother Social History Tobacco UseTypesPacks/DayYears UsedDateSmoking Tobacco: FormerCigarettesQuit: 03/15/2023Smokeless Tobacco: Never Tobacco Cessation:Counseling Given: Not Answered Alcohol UseStandard Drinks/WeekCommentsNever0 (1 standard drink = 0.6 oz pure alcohol)PHQ-2AnswerDate RecordedPatient Health Questionnaire-2 Jktdp693 CommentsUnknownSex and Gender InformationValueDate RecordedSex Assigned at BirthNot on fileLegal BygAtdonl00/02/2023 2:10 PM EDTGender IdentityNot on fileSexual OrientationNot on file Last Filed Vital Signs Vital SignReadingTime TakenCommentsBlood Ukcklodb870/76002/03/2025 8:57 AM EDT Ejteq8013/23/2025 8:57 AM QRMOxxoxcxswfq13.8 ??C (98.2 ??F)05/23/2023 4:29 PM ESTRespiratory Rate--Oxygen Saturation--Inhaled Oxygen Concentration--Xeebzd37.5 kg (140 lb)07/06/2024 1:54 PM VKVSeaiat042.1 cm (5' 5 )07/06/2024 1:54 PM EST Body Mass Index23. 1:54 PM EST Plan of Treatment Health MaintenanceDue DateLast DoneCommentsCT Eppbvzpucvpm1975Colonoscopy 1975Colorectal Cancer Hyvcppshi1975FIT-DNA (Cologuard)1975FIT 1975HIV Awzxjeyvq1975Lipid Panel1975 5117Wymxqriovmcbc1975 Yearly Adult Jwgbktil1975MMR Vaccines (1 of 1 - Standard series)1976 Diabetes Blqsgtqwv86/30/1993Hepatitis C Tamyhusyx15/30/1993Hepatitis B Vaccines (1 of 3 - 19+ 3-dose series)1994Cervical Cancer Gdrjscylp88/30/1996 HPV/Coupkb9007/13/1996Pap Smear1996DTaP/Tdap/Td Vaccines (1 - Tdap) 07/13/19975727Gelgcjswh54/30/2015Influenza Vaccine (#1)5COVID-19 Vaccine (1 - season)2025Zoster Vaccines (1 of 2)2025HIB VaccinesAged OutNo longer eligible based on patient's age to complete this topicHPV Vaccines Aged OutNo longer eligible based on patient's age to complete this topic Hepatitis A VaccinesAged OutNo longer eligible based on patient's age to complete this topicIPV VaccinesAged OutNo longer eligible based on patient's age to complete this topicMeningococcal VaccineAged OutNo longer eligible based on patient's age to complete this topicPneumococcal Vaccine: Pediatrics and At-Risk Adult PatientsAged OutNo longer eligible based on patient's age to complete this topicRotavirus VaccinesAged OutNo longer eligible based on patient's age to complete this topic Insurance Care Teams Team MemberRelationshipSpecialtyStart DateEnd Date Nataliya Hughes, SENIOR MATERIALS ANALYST-JOURNEYMAN MILLWRIGHT [address] [place] [address] PCP - Wehzmzm14/23/24
--- OUTSIDE RECORDS SUMMARY | 2025-05-21 09:03 | XMS_ITS | CCD ---
Author Organization [facility] CliniSypa Care Team Providers Care Fringe Maker Name Role Phone DARLING ., DR MCGRATH Consulting Unavailable HAY ., DR MCGRATH Attending Unavailable HAY ., DR MCGRATH Admitting Unavailable HOUSE, DR STUBBS Primary Care Unavailable GELBART, [place] Consulting Unavailable GALO, ANGELITA Consulting Unavailable HOUSE, DR STUBBS Attending Unavailable HOUSE, DR STUBBS Admitting Unavailable HOUSE, DR STUBBS Primary Care Unavailable HOUSE, DR STUBBS Consulting Unavailable HOUSE, DR STUBBS Attending Unavailable HOUSE, DR STUBBS Admitting Unavailable HOUSE, DR STUBBS Primary Care Unavailable HOUSE, DR STUBBS Attending Unavailable HOUSE, DR STUBBS Admitting Unavailable HOUSE, DR STUBBS Primary Care Unavailable MAXIMILIANO Hernandez Attending Provider DO Enoc Cardenas Primary Care Provider MAKEDA Jin Referring Provid er MAXIMILIANO Hernandez Attending Provider DO Enoc Cardenas Primary Care Provider [phone] MAKEDA Jin Referring Provid er MAKEDA Jin [...] able NO FAMILY, PHYSICIAN Primary Care Unavailable McGuinnBill Moreno Admitting Unavail able McGuinBill monroy Attending [...] NATALIYA ELIZONDO Primary Care Unavailable Allergies Allergy ClassificationReported Allergen(s)Allergy TypeDate of OnsetReaction(s) Facility (15 sources)Aspirin; Translations: [ASPIRIN]Drug Vkpqczq06-88-7312OqouxbpuTrr [facility] (20 sources)Latex; Translations: [LATEX]Propensity to adverse reactions 75-75-8903YpdhhXdaftwqvaKettering Health [facility] (8 sources)AspirinDrug Jbwsjxz78-12-6079AnaawAdvzfwwlmyMary [facility] (1 source)AspirinDrug Nvachhb08-59-9250XvxdkxufrAshtabula General Hospital Repository Medications Current Medications MedicationDrug Class(es)DatesSig (Normalized)Sig (Original)apixaban 5 mg oral tablet (6 sources)Factor Xa InhibitorStart: 06-08-2024 End: 28-36-2447hcrk 1 tablet by mouth twice dailyapixaban (Eliquis) 5 mg tablet Indications: Paroxysmal atrial fibrillation (Multi) , Cryptogenic stroke (Multi) Take 1 tablet (5 mg) by mouth 2 times a day. 180 tablet 3 06/08/2024 06/08/2025 Activeatenolol 50 mg oral tablet (19 sources)beta-Adrenergic BlockerStart: 07-06-2024 End: 89-04-0857dgmd 1 tablet by mouth once dailyatenolol (Tenormin) 50 mg tablet Indications: Essential hypertension Take 1 tablet (50 mg) by mouthonce daily. 45 tablet 1 07/06/2024 ActiveStart: 01-04-2023 End: 03-21-0093nymb 1 tablet by mouth once dailyAtenolol 100 mg Tablet Active 100 MG PO Daily January 04, 2023 12:00amatorvastatin 40 mg oral tablet (20 sources)HMG-CoA Reductase InhibitorStart: 01-04-2023 End: 41-03-6362kqip 1 tablet by mouth once dailyatorvastatin (Lipitor) 40 mg tablet Take 1 tablet (40 mg) by mouth once daily. 03/29/2023 Activecitalopram 20 mg oral tablet (20 sources)Serotonin Reuptake InhibitorStart: 33-67-8222vqdd 1 tablet by mouth once dailycitalopram (CeleXA) 20 mg tablet Take 1 tablet (20 mg) by mouth once daily. 04/21/2023 Activeclindamycin 300 mg oral capsule (9 sources)Lincosamide AntibacterialStart: 43-77-4255gvmf 2 capsules by mouth three times dailyClindamycin Hcl 300 mg capsule Active 600 MG PO Three times daily 06 15May 16, 2023 12:00amStart: 38-20-4057oqug 600 mg by mouth three times dailyClindamycin Hcl Active 600 MG PO Three times daily 06 15May 16, 2023 12:00amclopidogrel 75 mg oral tablet (15 sources)P2Y12 Platelet InhibitorStart: 01-04-2023 End: 85-47-4264xrnh 1 tablet by mouth once dailyClopidogrel 75 mg Tablet Active 75 MG PO Daily January 04, 2023 12:00amfolic acid 1 mg oral tablet (5 sources)Start: 07-11-2024 End: 46-95-8698fuaf 1 tablet by mouth once dailyfolic acid (Folvite) 1 mg tablet Indications: Elevated homocysteine Take 1 tablet (1 mg) by mouth once daily. 90 tablet 3 07/11/2024 07/11/2025 ActivehydroCHLOROthiazide 12.5 mg oral tablet (20 sources)Thiazide DiureticStart: 16-05-8650attk 1 tablet by mouth once daily hydroCHLOROthiazide (HYDRODiuril) 12.5 mg tablet Take 1 tablet (12.5 mg) by mouth once daily. 04/21/2023 Activemagnesium oxide 400 mg oral tablet (20 sources)Start: 04-02-2023 End: 03-13-3874qxlm 1 tablet by mouth once dailymagnesium oxide (Mag-Ox) 400 mg (241.3 mg magnesium) tablet Indications: Paroxysmal atrial fibrillation (Multi) Take 1 tablet (400 mg) by mouth once daily. 90 tablet 3 07/06/2024 07/06/2025 Activevalsartan 320 mg oral tablet (20 sources)Angiotensin 2 Receptor BlockerStart: 47-87-0300ztie 1 tablet by mouth once dailyvalsartan (Diovan) 320 mg tablet Take 1 tablet (320 mg) by mouth once daily. 04/21/2023 Activevitamin b12 0.25 mg oral tablet (15 sources)Vitamin R89Blacj: 07-11-2024 End: 46-73-4348dnwr 1 tablet by mouth once dailycyanocobalamin (Vitamin B-12) 250 mcg tablet Indications: Elevated homocysteine Take 1 tablet (250 mcg) by mouth once daily. 30 tablet 11 07/11/2024 07/11/2025 ActiveStart: 05-14-2023 inject 1000 ug by intramuscular injection every monthCyanocobalamin (Vitamin B- 12) 1,000 mcg/mL Solution Active 1000 MCG IM every month May 14, 2023 12:00amStart: 50-75-8669pkgyvz 1000 ug by intramuscular injection every month Cyanocobalamin (Vitamin B-12) Active 1000 MCG IM every month May 14, 2023 12:00am Completed/Discontinued Medications MedicationDrug Class(es)DatesSig (Normalized)Sig (Original)10 ml aminophylline 25 mg/ml injection (1 source)Start: 02-03-2025 End: 72-79-096728 mg, intravenous, Administer over 1 Minutes, Once, On Sat02/03/25 at 1030, For 1 doseStart: 02-03-2025 End: 26-78-064515 mg, intravenous, Administer over 1 Minutes, Once, On Sat02/03/25 at 1030, For 1 dosecyanocobalamin (Vitamin B-12) 1,000 mcg/mL oral liquid (2 sources) End: 80-55-0478oese 1 mL by mouth every 30 dayscyanocobalamin (Vitamin B-12) 1,000 mcg/mL oral liquid 1 mL (1,000 mcg) every 30 (thirty) days. 07/06/2024 Discontinued (Therapy completed)take 1 mL by mouth every 30 dayscyanocobalamin (Vitamin B-12) 1,000 mcg/mL oral liquid 1 mL (1,000 mcg) every 30 (thirty) days. 0 Pgdftf21 hr nicotine 0.875 mg/hr transdermal system (2 sources)Cholinergic Nicotinic AgonistStart: 03-06-2023 End: 24-25-6209cokgh 1 dose transdermal route every twenty-four hoursnicotine (Nicoderm CQ) 21 mg/24 hr patch apply 1 patch to CLEAN, DRY, AND INTACT SKIN REMOVE AND REPLACE every 24 hours for 4 WEEKS 0 03/06/2023 07/23/2023 Discontinued (Med List Cleanup)Start: 83-52-2341snmva 21 mg transdermal route once daily, then apply 14 mg transdermal route once daily, then apply7 mg transdermal route once dailynicotine 21-14-7 mg/24 hr patch, TD daily, sequential 21 mg patch once daily for 4 weeks, then 14 mg patch once daily for 2 weeks, then 7 mg patch once daily for 2 weeks 56 each 0 03/04/2023 Active regadenoson (Lexiscan) injection 0.4 mg (1 source)Start: 02-03-2025 End: .4 mg, intravenous, Once, On Sat02/03/25 at 1030, For 1 doseTc- 99m tetrofosmin (Myoview) injection 10 millicurie (1 source)Start: 02-03-2025 End: millicurie, intravenous, Once in imaging, Starting on Sat02/03/25 at 0759, For 1 dose, Administer 45 to 90 minutes prior to imaging unless otherwise indicated.Tc-99m tetrofosmin (Myoview) injection 30 millicurie (1 source)Start: 02-03-2025 End: millicurie, intravenous, Once in imaging, Starting on Sat02/03/25 at 0921, For 1 dose, Administer 45 to 90 minutes prior to imaging unless otherwise indicated. Problems Active Problems Problem ClassificationProblemDateDocumented DateEpisodic/ChronicAcute cerebrovascular disease (20 sources)Cerebral infarction, unspecified; Translations: [Other cerebral infarction due to occlusion or stenosis of small artery]Onset: 07-18-2022 21-32-2689EjrvhwpEbrwc cerebrovascular disease (2 sources)Acute cerebrovascular iazsoci57-70-6157Hgpoovn dysrhythmias (9 sources)Paroxysmal atrial fibrillation; Translations: [Paroxysmal atrial fibrillation]Onset: 939489-11-4395JqsoybkAzqpuza dysrhythmias (4 sources)Palpitations; Translations: [Palpitations]Onset: EpisodicConduction disorders (1 source)Encounter for adjustment and management of other cardiac device; Translations: [Encounter for adjustment and management of other cardiac device] Onset: 43-11-5147RaiakwjVlywfvztf of lipid metabolism (20 sources)Hyperlipidemia; Translations: [Hyperlipidemia, unspecified]Onset: 161368-69-4157RrvyqydUpfsdnjgq hypertension (20 sources)Essential (primary) hypertension; Translations: [Hypertensive disorder]Onset: 33-86-0266LjuyauoUdazboudfwmi with complications and secondary hypertension (1 source)Hypertensive urgency; Translations: [HYPERTENSIVE URGENCY]Onset: 48-23-1440QaqbtuuFpbx effects of cerebrovascular disease (4 sources)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; Translations: [HEMIPLG FLW UNS CEREBRVSC DZ LT DOM]Onset: 79-69-9027IjwjjlxIrjnwgczau disorders (1 source)Menopausal and female climacteric states; Translations: [MENOPAUSAL FE CLIMACTERIC STATES]Onset: 61-91-7583JqslfuhUvevqktnmmh chest pain (8 sources)Chest pain; Translations: [Chest pain, unspecified]Onset: 07-06-2024 97-98-0134WxnjphepQxzgyklgcky deficiencies (16 sources)Subacute combined degeneration of spinal cord; Translations: [Deficiency of other specified B groupvitamins]18-61-2250DjiugpvkIdcri circulatory disease (10 sources)Presence of other cardiac implants and grafts; Translations: [Other specified cardiac device in situ]Onset: 447956-96-9442WwabjanSqllj circulatory disease (1 source)Orthostatic hypotension; Translations: [Orthostatic hypotension] 92-12-8816SvjvaundObgtn lower respiratory disease (6 sources)Dyspnea; Translations: [Shortness of breath]Onset: 07-06-2024 57-32-0650CoaeecdtGcppr lower respiratory disease (2 sources)Shortness of breath; Translations: [Shortness of breath]Onset: 10-53-9309MairzqxfBcnjy nervous system disorders (4 sources)Anesthesia of skin; Translations: [ANESTHESIA OF SKIN]Onset: 83-94-4922FhyvqcbuEpdyovdbd (1 source)Hemiplegia, unspecified affecting left nondominant side; Translations: [HEMIPL UNS AFFECT LT NONDOMSIDE]Onset: 10-85-5979ZxchlcdFmddntbv codes; unclassified (1 source)Acquired absence of both cervix and uterus; Translations: [ACQUIRED ABSENCE BOTH CERVIX AND UTERUS]Onset: 92-88-3240KiaqxabiYkhdpxco codes; unclassified (12 sources)H/O: miscarriage; Translations: [Personal history of other complications of , childbirth and the puerperium]75-35-6884Nsrkreiu Residual codes; unclassified (4 sources)Personal history of other complications of , childbirth and the puerperium; Translations: [Personal history of other genital system and obstetric disorders]42-56-9021VesqjnzgGothemuo codes; unclassified (2 sources)Body mass index (BMI) 23.0-23.9, adult; Translations: [Body mass index (BMI) 23.0-23.9, adult]Onset: 37-17-0314SredttlzHqvorwu (16 sources)Syncope; Translations: [Syncope and collapse]25-94-0305Kvdogdyq Unclassified (1 source)CONTACT W/AND (SUSP) EXPOS COVID-19; Translations: [CONTACT W/AND (SUSP) EXPOS COVID-19]Onset: 07-18-2022 Past or Other Problems Problem ClassificationProblemDateDocumented DateEpisodic/Chronic Administrative/social admission (11 sources)First encounter by subject; Translations: [Persons encountering health services in other specified circumstances]Onset: EpisodicConditions associated with dizziness or vertigo (8 sources)Lightheadedness; Translations: [Dizziness and giddiness]Onset: 373300-10-4059XejqmjytExik disorders (1 source)Mood disordersOnset: Other aftercare (7 sources)Long-term current use of anticoagulant; 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]Onset: 176107-25-1453WbwihxxuIcpya aftercare (7 sources)Treatment changed; Translations: [Other assisted (current) drug therapy]Onset: 596993-81-1834MugahwgoSmiyx circulatory disease (1 source)History of cerebrovascular accident; Translations: [Personal history of transient ischemic attack (TIA), and cerebral infarction without residual deficits]Onset: 684301-02-2170VfgcarfgGiwps connective tissue disease (1 source)Neurological symptom; Translations: [Unspecified symptoms and signs involving the nervous system]Onset: 214318-39-6014RvrizgtgXugjq screening for suspected conditions (not mental disorders or infectious disease) (9 sources)Electrocardiogram abnormal; Translations: [Abnormal electrocardiogram [ECG] [EKG]]Onset: 450928-95-8900XcbnmuxyYuljzqal codes; unclassified (9 sources)Body mass index 20-24 - normal; Translations: [Body mass index (BMI) 24.0-24.9, adult]Onset: 709240-64-0223AgxsauuyWauqcruep and history of mental health and substance abuse codes (9 sources)Ex-smoker; Translations: [Personal history of nicotine dependence] Onset: 273649-13-5636DfzvhbjaKttidgosvhyk (7 sources)Onset: Results Test NameValueInterpretationReference RangeFacilityNM Heart Perfusion W stress and W radionuclide Laruel 43-58-7094Snausm Lexiscan Myoview cardiac perfusion imaging stress test. [...] Chi Quezada 02/03/2025 6:44 PM Dictation workstation: [id number] By: Chi Quezada, and Charles Stauffer STUDY: MYOCARDIAL PERFUSION STRESS TEST WITH EXERCISE CONVERTED TO LEXISCAN Performing facility: [facility], [address] [place] [address], [address] Provider: Meghana Santiago MD, FACC PCP: Dr. Sorni Elizondo [facility] Supervising provider: Vaibhav Pizarro DO, FACC INDICATION: Signs/Symptoms: ,I10 Essential (primary) hypertension,I63.9 Cerebral infarction, unspecified,R07.9 Chest pain, unspecified,R06.02 Shortness of breath HISTORY: Gender: F; Age: 49 y/o ; Height: HT 165.1 cm cm; Weight: WT 63.504 kg kg. Abnormal EKG; High Cholesterol; HTN; Arrhythmias;A-fib Palpitations; Loop recorder Chest Pain; SOB; Quit smoking 2 years ago. COMPARISON: No comparison. ACCESSION NUMBER(S): [id number] ORDERING CLINICIAN: MGEHANA SANTIAGO TECHNIQUE: ONE DAY protocol. Stress injection: [...] There were no evidence of attenuation artifact. Chi Gonsales MD - 02/03/2025 Interpreted By: Chi Quezada and Giannuzzi Michael STUDY: MYOCARDIAL PERFUSION STRESS TEST WITH EXERCISE CONVERTED TO LEXISCAN Performing facility: [facility], [address] [place] [address], [address], [place] [id number] [facility] Provider: Meghana Santiago MD, FACC PCP: Dr. Sorin Elizondo [facility] Supervising provider: Vaibhav Pizarro DO, [facility] INDICATION: Signs/Symptoms: ,I10 Essential (primary) hypertension,I63.9 Cerebral infarction, unspecified,R07.9 Chest pain, unspecified,R06.02 Shortness of breath HISTORY: Gender: F; Age: 49 y/o ; Height: HT 165.1 cm cm; Weight: WT 63.504 kg kg. Abnormal EKG; High Cholesterol; HTN; Arrhythmias;A-fib Palpitations; Loop recorder Chest Pain; SOB; Quit smoking 2 years ago. COMPARISON: No comparison. ACCESSION NUMBER(S): [id number] ORDERING CLINICIAN: MEGHANA SANTIAGO TECHNIQUE: ONE DAY [...] Chi Quezada 02/03/2025 6:44 PM Dictation workstation: [id number] [facility] Work Phone: Radiology Study observation (narrative)[facility] Work Phone: nm Heart Perfusion W stress and W radionuclide IV Ordered By: Chi Quezada on 07-37-4947PdhkkmdwcoCincinnati [facility] Center Work Phone: NUCLEAR STRESS TESTon 18-98-7486RAMUPOT STRESS TEST Interpreted By: Chi Quezada and Charles Stauffer STUDY: MYOCARDIAL PERFUSION STRESS TEST WITH EXERCISE CONVERTED TO LEXISCAN Performing facility: [facility], [address] [place] [address], [address] Provider: Meghana Santiago MD, FACC PCP: Dr. Sorin Elizondo [facility] Supervising provider: Vaibhav Pizarro DO, [facility] INDICATION: Signs/Symptoms: ,I10 Essential (primary) hypertension,I63.9 Cerebral infarction, unspecified,R07.9 Chest pain, unspecified,R06.02 Shortness of breath HISTORY: Gender: F; Age: 49 y/o ; Height: HT 165.1 cm cm; Weight: WT 63.504 kg kg. Abnormal EKG; High Cholesterol; HTN; Arrhythmias;A-fib Palpitations; Loop recorder Chest Pain; SOB; Quit smoking 2 years ago. COMPARISON: No comparison. ACCESSION NUMBER(S): [id number] ORDERING CLINICIAN: MEGHANA SANTIAGO TECHNIQUE: ONE DAY [...] Chi Quezada 02/03/2025 6:44 PM Dictation workstation: [id number] State Health System ECG 12 [place] 61-55-3467Kncbty sinus rhythm 66 bpm, normal intervals, inferior lateral ST-T abnormality, isolated ventricular premature beat, compared to the EKG of April 2023, PVC now present, ST-T abnormality was noted then as well.[facility] Work Phone: basophils Auto (Bld) [#/Vol]Ordered By: Bill Palmer on 98-38-6447Sdddgiszx (Bld) [#/Vol]0.0 10*3/uL0.0-0.2FGrand Lake Joint Township District Memorial HospitalBasophils/100 WBC Auto (Bld)Ordered By: Bill Palmer on 89-92-4695Pfxwkuern/100 WBC (Bld)0.4 %.[facility] HospitalCalcium [Mass/volume] in Serum or PlasmaOrdered By: Bill Palmer on 75-47-2673Fordxpv [Mass/Vol]9.5 mg/dL8.6-10.3FGrand Lake Joint Township District Memorial HospitalCarbon dioxide, total [Moles/volume] in Serum or PlasmaOrdered By: Bill Palmer on 05-14-2023 CO2 [Moles/Vol]28.0 mmol/L21.0-31.0[facility] HospitalChloride [Moles/volume] in Serum or PlasmaOrdered By: Bill Palmer on 05-14-2023 Chloride [Moles/Vol]104 mmol/R98-075LrgggbkssAshtabula General HospitalCreatinine [Mass/volume] in Serum or PlasmaOrdered By: Bill Palmer on 05-14-2023 Creatinine [Mass/Vol]1.00 mg/dL0.60-1.20[facility] Eosinophils Auto (Bld) [#/Vol]Ordered By: Bill Palmer on 05-14-2023 Eosinophils (Bld) [#/Vol]0.0 10*3/uL0.0-0.45[facility] Eosinophils/100 WBC Auto (Bld)Ordered By: Bill Palmer on 05-14-2023 Eosinophils/100 WBC (Bld)0.7 %.[facility] HospitalErythrocyte distribution width Auto (RBC) [Ratio]Ordered By: Bill Palmer on 05-14-2023 Erythrocyte distribution width (RBC) [Ratio]13.1 %11.9-15.3FGrand Lake Joint Township District Memorial HospitalGlucose [Mass/volume] in Serum or PlasmaOrdered By: Bill Palmer on 69-11-1984Oeiaiqz [Mass/Vol]73 mg/fV33-713HaljxriabAshtabula General HospitalComment on above:ADA recommended reference rangeRandom Glucose Reference Range is dependent on time and content of last meal. Glucose of more than 200 mg/dL in a nonstressed, ambulatory subject supports the diagnosisof Diabetes Mellitus.Hematocrit Auto (Bld) [Volume fraction]Ordered By: Bill Palmer on 77-83-7401Plzwidkwlj (Bld) [Volume fraction]39.7 %34.0-46.4FGrand Lake Joint Township District Memorial HospitalHemoglobin [Mass/volume] in BloodOrdered By: Bill Palmer on 46-31-7754Bixvrdwghs (Bld) [Mass/Vol]13.6 g/dL11.8-15.4FGrand Lake Joint Township District Memorial HospitalINR in Platelet poor plasma by Coagulation assayOrdered By: Bill Palmer on 63-14-7835BSC Coag (PPP) [Relative time]1.0 {INR}[facility] HospitalComment on above:INR Therapeutic Range A) Pre- and Peroperative OAT started two weeks before surgery. NOT HIP SURGERY: 1.5 - 2.5 HIP SURGERY: 2 - 3B) Primary and secondary prevention of venous THROMBOSIS: 2 - 3C) Active venous thrombosis, pulmonary embolismand prevention of recurrent venous thrombosis: 2 - 3D) Prevention of arterial thromboembolismincluding patients with mechanical heart valves: 3 - 4.5Leukocytes [#/volume] corrected for nucleated erythrocytes in Blood by Automated counOrdered By: Bill Palmer on 08-26-5609BQL corrected for nucl RBC Auto (Bld) [#/Vol]6.9 10*3/uL3.8-11.6 [facility] HospitalLymphocytes Auto (Bld) [#/Vol]Ordered By: Bill Palmer on 99-73-7680Ndjolhwhrsf (Bld) [#/Vol]1.9 10*3/uL1.00-4.8 [facility] HospitalLymphocytes/100 WBC Auto (Bld)Ordered By: Bill Palmer on 80-01-6689Wbdluceycqt/100 WBC (Bld)27.3 %.[facility] CampusH Auto (RBC) [Entitic mass]Ordered By: Bill Palmer on 27-05-2749YZB (RBC) [Entitic mass]28.9 pg24.7-34.3FGrand Lake Joint Township District Memorial HospitalMCHC Auto (RBC) [Mass/Vol]Ordered By: Bill Palmer on 22-62-2751UOQC (RBC) [Mass/Vol]34.3 g/dL32.0-35.0[facility] HospitalMCV Auto (RBC) [Entitic vol]Ordered By: Bill Palmer on 13-68-8414WGR (RBC) [Entitic vol]84.3 mC91-052NgehewdeaAshtabula General HospitalMonocytes Auto (Bld) [#/Vol] Ordered By: Bill Palmer on 23-26-0902Fzxsqtzap (Bld) [#/Vol]0.4 10*3/uL 0.0-0.8[facility] HospitalMonocytes/100 WBC Auto (Bld)Ordered By: Bill Palmer on 71-90-3910Lcvppcmme/100 WBC (Bld)5.4 %.[facility] HospitalNeutrophils Auto (Bld) [#/Vol]Ordered By: Bill Palmer on 42-96-5000Uesaojrjguw (Bld) [#/Vol]4.6 10*3/uL1.8-7.7FGrand Lake Joint Township District Memorial HospitalNeutrophils/100 WBC Auto (Bld)Ordered By: Bill Palmer on 05-14-2023 Neutrophils/100 WBC (Bld)66.2 %.[facility] HospitalNo Panel InformationOrdered By: Bill Palmer on 48-55-4498Dfectfccs GFR (CKD-EPI)> 60.0 mL/MinAshtabula General HospitalPharmacy Creatinine Clearance (Chem N/AFGrand Lake Joint Township District Memorial HospitalNucleated erythrocytes [Presence] in Blood by Automated countOrdered By: Bill Palmer on 58-76-7789Bskiprvkn RBC Auto Ql (Bld)0.1 /100{WBC}0-0.5FGrand Lake Joint Township District Memorial HospitalPlatelet mean volume Auto (Bld) [Entitic vol]Ordered By: Bill Palmer on 64-85-1853Lvsgvcps mean volume (Bld) [Entitic vol]8.1 fL6.3-10.7FGrand Lake Joint Township District Memorial Hospital Platelets Auto (Bld) [#/Vol]Ordered By: Bill Palmer on 47-34-8651Lcewiiwwm (Bld) [#/Vol]229 10*3/cM586-967FotcvojniAshtabula General HospitalPotassium [Moles/volume] in Serum or PlasmaOrdered By: Bill Palmer on 05-14-2023 Potassium [Moles/Vol]3.8 mmol/L3.5-5.1FGrand Lake Joint Township District Memorial Hospital Prothrombin time (PT)Ordered By: Bill Palmer on 60-07-0325TX Coag (PPP) [Time]12.4 s9.0-12.9[facility] HospitalComment on above:A hematocrit value greater than 55% may lead to inaccurate results in coagulation testing. Patientshaving hematocrit values >55% require a special collection tube for coagulation studies. Please contact the laboratory at [phone] for redraw instructions.RBC Auto (Bld) [#/Vol]Ordered By: Bill Palmer on 12-44-3119MBG (Bld) [#/Vol]4.70 10*6/uL3.60-5.00[facility] Generalerum or plasma anion gap determinationOrdered By: Bill Palmer on 34-14-6989Nqcrt gap [Moles/Vol]11.8 mmol/L6.0-15.0[facility] Generalodium [Moles/volume] in Serum or PlasmaOrdered By: Bill Palmer on 43-95-8924Uamaxn [Moles/Vol]140 mmol/E855-122XjbdqrelzAshtabula General Hospital Urea nitrogen [Mass/volume] in Serum or PlasmaOrdered By: Bill Palmer on 73-76-0264Xfor nitrogen [Mass/Vol]14 mg/dL7-25[facility] WBC Auto (Bld) [#/Vol]Ordered By: Bill Palmer on 86-48-8748GCP (Bld) [#/Vol] 6.9 10*3/uL3.8-11.6FSouthview Medical Centererum or plasma homocysteine measurement (moles/volume)Ordered By: Racheal Fernandez on 21-63-4433Nnohaeouikwf [Moles/Vol]14.5 umol/L0.0-14.5FGrand Lake Joint Township District Memorial HospitalComment on above: Performed at: [address] [id number] Director: Toni Gonzalez PhD, Phone: [phone] or plasma methylmalonate measurement (moles/volume)Ordered By: Racheal Fernandez on 76-99-7368Synctrvbkbnyzu [Moles/Vol]126 nmol/L0-378[facility] HospitalComment on above:This test was developed and its performance characteristicsdetermined by [employer]. It has not been cleared orapproved by the Food and Drug Administration.Performed at: [address] [id number] Director: Tisha Lo MD, Phone: [phone] partial thromboplastin time (aPTT) in platelet poor plasma by coagulation aOrdered By: Lian Hernandez on 70-82-5726pWNM Coag (PPP) [Time]28.5 s25.1-36.5FGrand Lake Joint Township District Memorial HospitalAlbumin [Mass/volume] in Serum or PlasmaOrdered By: Lian Hernandez on 46-31-3624Aldjjwp [Mass/Vol]3.7 g/dL2.9-4.4FGrand Lake Joint Township District Memorial Hospital Antithrombin antigen actual/normal in platelet poor plasma by immunologic method Ordered By: Lian Hernandez on 48-07-1652Twwxlynfycms Ag actual/normal IA (PPP) [Relative mass conc]118 %72-124[facility] HospitalComment on above:This test was developed and its performance characteristicsdetermined by [employer]. It has not been cleared orapproved by the Food and Drug Administration.Performed at: [address] [id number] Director: Tisha Lo MD, Phone: [phone] Auto (Bld) [#/Vol]Ordered By: Racheal Fernandez on 08-18-4251Snzggwwdn (Bld) [#/Vol]0.1 10*3/uL0.0-0.2FGrand Lake Joint Township District Memorial HospitalBasophils/100 WBC Auto (Bld) Ordered By: Racheal Fernandez on 23-60-6002Wpwzuxufw/100 WBC (Bld)0.9 %.[facility] HospitalEosinophils Auto (Bld) [#/Vol]Ordered By: Racheal Fernandez on 48-02-1516Vsevmbanzyo (Bld) [#/Vol]0.1 10*3/uL0.0-0.45[facility] HospitalEosinophils/100 WBC Auto (Bld)Ordered By: Racheal Fernandez on 02-01-2023 Eosinophils/100 WBC (Bld)1.5 %.[facility] HospitalErythrocyte distribution width Auto (RBC) [Ratio]Ordered By: Racheal Fernandez on 02-01-2023 Erythrocyte distribution width (RBC) [Ratio]12.8 %11.9-15.3FGrand Lake Joint Township District Memorial HospitalFerritin [Mass/volume] in Serum or PlasmaOrdered By: Racheal Fernandez on 94-76-3680Bqevaqrf [Mass/Vol]62.4 ng/mL11.0-306.8[facility] HospitalFolate [Mass/volume] in Serum or PlasmaOrdered By: Racheal Fernandez on 02-01-2023 Folate [Mass/Vol]6.9 ng/mL>5.9[facility] HospitalComment on above: Folate reference range: >5.9 ng/mlThe WHO technical consultation on folate and vitamin a01sryfgqfoxzsm has determined that folate concentrations lessthan 4 ng/ml are considered deficient.Hematocrit Auto (Bld) [Volume fraction]Ordered By: Racheal Fernandez on 24-24-0064Gkkwammwbu (Bld) [Volume fraction]39.0 %34.0-46.4 [facility] HospitalHemoglobin [Mass/volume] in BloodOrdered By: Racheal Fernandez on 27-91-6655Edkmpgyyku (Bld) [Mass/Vol]13.5 g/dL11.8-15.4FGrand Lake Joint Township District Memorial HospitalIgA [Mass/volume] in Serum or PlasmaOrdered By: Lian Hernandez on 38-07-4812HeF [Mass/Vol]318 mg/dB29-934GszomrlylAshtabula General HospitalIgE [Units/volume] in Serum or PlasmaOrdered By: Lian Hernandez on 84-61-5406GoT Qn87 [IU]/mL6-495[facility] HospitalComment on above:Performed at: [address] [id number] Director: Toni Gonzalez PhD, Phone: [phone] at: [address] [id number] Director: Tisha Lo MD, Phone: [phone] [Mass/volume] in Serum or PlasmaOrdered By: Lian Hernandez on 15-86-6890WyA [Mass/Vol]1264 mg/hH630-4356RktmqunobAshtabula General HospitalIgM [Mass/volume] in Serum or PlasmaOrdered By: Lian Hernandez on 08-41-0235QgQ [Mass/Vol]196 mg/sO06-452ZhuwbxgtcAshtabula General HospitalImmunoglobulin light chains.kappa.free [Mass/volume] in SerumOrdered By: Racheal Fernandez on 85-96-7770Jnenelyftujfkc light chains.kappa.free (S) [Mass/Vol]35.3 mg/L3.3-19.4FGrand Lake Joint Township District Memorial HospitalImmunoglobulin light chains.kappa.free/Immunoglobulin light chains.lambda.free [MassOrdered By: Racheal Fernandez on 50-20-7435Icmphnoynlklhj light chains.kappa.free/Immunoglobulin light chains.lambda.free (S) [Mass ratio]1.590.26-1.65[facility] HospitalComment on above:Performed at: [facility] [address] [id number] Director: Toni Gonzalez PhD, Phone: [phone] Immunoglobulin light chains.lambda.free [Mass/volume] in Serum or PlasmaOrdered By: Racheal Fernandez on 13-29-5019Nlzdgchhhshhwc light chains.lambda.free [Mass/Vol] 22.2 mg/L5.7-26.3FGrand Lake Joint Township District Memorial HospitalIron [Mass/volume] in Serum or PlasmaOrdered By: Racheal Fernandez on 17-46-8698Tnsb [Mass/Vol]95 ug/yP71-258MacidrnabAshtabula General HospitalIron binding capacity [Mass/volume] in Serum or Plasma Ordered By: Racheal Fernandez on 12-68-1472Sbyg binding capacity [Mass/Vol]311 ug/dL 255-450[facility] HospitalIron saturation [Mass Fraction] in Serum or PlasmaOrdered By: Racheal Fernandez on 45-81-9177Nmat saturation [Mass fraction]30.5 %20-50[facility] HospitalLaboratory - CoagulationOrdered By: Lian Hernandez on 19-72-0593AB Coag (PPP) [Time]12.0 s9.0-12.9[facility] HospitalLeukocytes [#/volume] corrected for nucleated erythrocytes in Blood by Automated counOrdered By: Racheal Fernandez on 10-45-4637MTM corrected for nucl RBC Auto (Bld) [#/Vol]6.4 10*3/uL3.8-11.6FGrand Lake Joint Township District Memorial HospitalLymphocytes Auto (Bld) [#/Vol]Ordered By: Racheal Fernandez on 02-01-2023 Lymphocytes (Bld) [#/Vol]2.1 10*3/uL1.00-4.8[facility] Lymphocytes/100 WBC Auto (Bld)Ordered By: Racheal Fernandez on 14-92-9234Okxrqyythwr/100 WBC (Bld)32.6 %.[facility] Auto (RBC) [Entitic mass] Ordered By: Racheal Fernandez on 29-45-0802ONZ (RBC) [Entitic mass]28.9 pg24.7-34.3 [facility] CampusHC Auto (RBC) [Mass/Vol]Ordered By: Racheal Fernandez on 76-87-7319QRBJ (RBC) [Mass/Vol]34.6 g/dL32.0-35.0[facility] HospitalMCV Auto (RBC) [Entitic vol]Ordered By: Racheal Fernandez on 08-76-7145ONI (RBC) [Entitic vol]83.3 fO16-461UsloadymjAshtabula General HospitalMonocytes Auto (Bld) [#/Vol]Ordered By: Racheal Fernandez on 55-19-1530Wheytvzfv (Bld) [#/Vol]0.3 10*3/uL 0.0-0.8[facility] HospitalMonocytes/100 WBC Auto (Bld)Ordered By: Racheal Fernandez on 49-50-7866Mwknhdenr/100 WBC (Bld)4.5 %.[facility] HospitalNeutrophils Auto (Bld) [#/Vol]Ordered By: Racheal Fernandez on 02-01-2023 Neutrophils (Bld) [#/Vol]3.9 10*3/uL1.8-7.7FGrand Lake Joint Township District Memorial Hospital Neutrophils/100 WBC Auto (Bld)Ordered By: Racheal Fernandez on 96-67-4888Chnpdzfxxwf/100 WBC (Bld)60.5 %.[facility] HospitalNo Panel InformationOrdered By: Lian Hernandez on 07-59-5947Fmtdinm Electrophoresis M-SpikeNot observed g/dLNot ObservedAshtabula General HospitalProtein Electrophoresis Note See comment.[facility] HospitalComment on above:Protein electrophoresis scan will follow via computer,mail, or research program intern delivery.Performed at: [facility] [address] [id number] Director: Toni Gonzalez PhD, Phone: [phone] erythrocytes [Presence] in Blood by Automated countOrdered By: Racheal Fernandez on 70-84-7407Qpoptdvri RBC Auto Ql (Bld)0.2 /100{WBC}0-0.5FGrand Lake Joint Township District Memorial HospitalPlatelet mean volume Auto (Bld) [Entitic vol]Ordered By: Racheal Fernandez on 22-08-3878Jwosipld mean volume (Bld) [Entitic vol]8.1 fL6.3-10.7FGrand Lake Joint Township District Memorial HospitalPlatelet poor plasma international normalized ratio (INR) by coagulation assay (relatOrdered By: Lian Hernandez on 26-04-3840FUS Coag (PPP) [Relative time]1.0 {INR}[facility] HospitalComment on above: INR Therapeutic Range A) Pre- and Peroperative OAT started two weeks before surgery. NOT HIP SURGERY: 1.5 - 2.5 HIP SURGERY: 2 - 3B) Primary and secondary prevention of venous THROMBOSIS: 2 - 3C) Active venous thrombosis, pulmonary embolismand prevention of recurrent venous thrombosis: 2 - 3D) Prevention of arterial thromboembolismincluding patients with mechanical heart valves: 3 - 4.5 Platelets Auto (Bld) [#/Vol]Ordered By: Racheal Fernandez on 77-77-6883Tqxhthzpw (Bld) [#/Vol]237 10*3/lU260-569NoeffgumoAshtabula General HospitalProtein [Mass/volume] in Serum or PlasmaOrdered By: Lian Hernandez on 26-40-9794Svwxqbj [Mass/Vol]7.3 g/dL6.0-8.5FGrand Lake Joint Township District Memorial HospitalRBC Auto (Bld) [#/Vol] Ordered By: Racheal Fernandez on 28-67-2106NEH (Bld) [#/Vol]4.68 10*6/uL3.60-5.00 [facility] Generalerum globulin measurement (mass/volume)Ordered By: Lian Hernandez on 94-70-9097Iofuvxbh (S) [Mass/Vol]3.6 g/dL2.2-3.9 [facility] Generalerum or plasma albumin/globulin mass ratio Ordered By: Lian Hernandez on 80-11-3721Vvhewvj/Globulin [Mass ratio]1.0 {ratio}0.7-1.7FSouthview Medical Centererum or plasma alpha 1 globulin measurement by electrophoresis (mass/volume)Ordered By: Lian Hernandez on 47-84-0714Kyoxi 1 globulin Elph [Mass/Vol]0.3 g/dL0.0-0.4FSouthview Medical Centererum or plasma alpha 2 globulin measurement by electrophoresis (mass/volume)Ordered By: Lian Hernandez on 82-59-3883Adwfi 2 globulin Elph [Mass/Vol]0.9 g/dL0.4-1.0[facility] Generalerum or plasma beta globulin measurement by electrophoresis (mass/volume)Ordered By: Lian Hernandez on 87-73-6050Yepi globulin Elph [Mass/Vol]1.2 g/dL0.7-1.3FSouthview Medical Centererum or plasma gamma globulin measurement by electrophoresis (mass/volume)Ordered By: Lian Hernandez on 11-08-8089Zypru globulin Elph [Mass/Vol]1.2 g/dL0.4-1.8[facility] Transferrin [Mass/volume] in Serum or PlasmaOrdered By: Racheal Fernandez on 02-01-2023 Transferrin [Mass/Vol]222 mg/pA427-828NkkkgdvteAshtabula General HospitalVitamin B12 ser/plasOrdered By: Racheal Fernandez on 19-21-5340Bkkoyrmpm (Vitamin B12) [Mass/Vol]219 pg/yV988-269SoyfhpujaAshtabula General HospitalWBC Auto (Bld) [#/Vol]Ordered By: Racheal Fernandez on 55-91-2161VMF (Bld) [#/Vol]6.4 10*3/uL3.8-11.6 [facility] HospitalBeta 2 glycoprotein 1 IgG Ab [Units/volume] in SerumOrdered By: Lian Hernandez on 75-42-8778Slqd 2 glycoprotein 1 IgG Qn (S)<90-20[facility] HospitalComment on above:Result Units: GPI IgG unitsThe reference interval reflects a 3SD or 99th percentileinterval, which is thought to represent a potentiallyclinically significant result in accordance with theInternational Consensus Statement on the classificationcriteria for definitive antiphospholipid syndrome (APS).JThromb Haem 2006;4:295-306.Beta 2 glycoprotein 1 IgM Ab [Units/volume] in SerumOrdered By: Lian Hernandez on 19-19-0065Iqyf 2 glycoprotein 1 IgM Qn (S)<90-32[facility] HospitalComment on above:Result Units: GPI IgM unitsThe reference interval reflects a 3SD or 99th percentileinterval, which is thought to represent a potentiallyclinically significant result in accordance with theInternational Consensus Statement on the classificationcriteria for definitive antiphospholipid syndrome (APS).JThromb Haem 2006;4:295-306.Performed at: [address] [id number] Director: Tisha Lo MD, Phone: [phone] IgA Ab [Units/volume] in Serum by ImmunoassayOrdered By: Lian Hernandez on 46-11-3204Sefctplpdpx IgA IA Qn (S)<9 APL U/mL0-[facility] HospitalComment on above:Negative: <12 Indeterminate: 12 - 20 Low-Med Positive: >20 - 80 High Positive: >80Performed at: [address] [id number] Director: Toni Gonzalez PhD, Phone: [phone] IgG Ab [Units/volume] in Serum by ImmunoassayOrdered By: Lian Hernandez on 81-75-0466Xtaedtrnrbi IgG IA Qn (S)<9 GPL U/mL0-[facility] HospitalComment on above:Negative: <15 Indeterminate: 15 - 20 Low-Med Positive: >20 - 80 High Positive: >80Cardiolipin IgM Ab [Units/volume] in Serum by ImmunoassayOrdered By: Lian Hernandez on 33-98-2000Dqyihrmtqaa IgM IA Qn (S)<9 MPL U/mL0-[facility] HospitalComment on above:Negative: <13 Indeterminate: 13 - 20 Low-Med Positive: >20 - 80 High Positive: >80F5 gene mutations found [Identifier] in Blood or Tissue by Molecular genetics method Ordered By: Lian Hernandez on 76-33-9181Y8 gene targeted mutation analysis [facility] Centergen Nom (Bld/Tiss)See comment.[facility] HospitalComment on above:Result: c.1601G>A (p.Pey213Efa) - Not DetectedThis result is not associated with an increased risk for venousthromboembolism. See Additional Clinical Information andComments.Additional Clinical Information:Venous thromboembolism is a multifactorial diseaseinfluenced by genetic, environmental, and circumstantialrisk factors. The c.1601G>A (p. Ewa515Dsx) variant in theF5 gene, commonly referred to as Factor V Leiden, is agenetic risk factor for venous thromboembolism.Heterozygous carriers of this variant have a 6- to 8- foldincreased risk for venous thromboembolism. Individualshomozygous for this variant (ie, with a copy of the varianton each chromosome) have an approximately 80-fold increasedrisk for venous thromboembolism. Individuals who carry dionicio c.*97G>A variant in the F2 gene and Factor V Leiden havean approximately 20-fold increased risk for venousthromboembolism. Risks are likely to be even higher in morecomplex genotype combinations involving the F2 c.*97G>Avariantand Factor V Leiden (PMID: 78923925). Additionalrisk factors include but are not limited [...] for health careproviders to discuss results at [phone] ([phone]).Test Details:Variant Analyzed: c.1601G>A(p. Cys675Xsh), referred toas Factor V LeidenMethods/Limitations:DNA analysis of [...] variants, blood transfusions,bone marrow transplantation, somatic or tissue- specificmosaicism, mislabeled samples, or erroneous representationof family relationships.This test was developed and its performance characteristicsdetermined by [employer]. It has not been cleared orapproved by the Food and Drug Administration.References:Juliette S, Erika AK, Carmelo R, Martina WW, Victoriano JH; [facility] YORKProfessional Practiceand Guidelines Committee. Addendum:[place] [employer] consensus statement onfactor V Leiden mutation testing. [employer]. 2020Sep 16.doi: 10.1038/j60573-869-17524-o. PMID: 94133780.Sara MILLAN. Factor V Leiden Thrombophilia. 1998November 25(Updated 2017Jul 18). In: Tony MP, Juanita HH, Mimi RA,et al., editors. KelseyrafaelamericoPricelineReglaMonitor ([employer]). Agenda (OR):[facility]; 7653-6906. Availablefrom: https://www.ncbi.nlm.nih.gov/books/CGN8473/Mil S, Erika AK, Mina X,Felix B, Vaishali EB, Catrina P,Tra CS; [facility] Laboratory Child Psychology Teacher Committee.Venous thromboembolism laboratory testing (factor V Leidenand factor II c.*97G>A), 2018 update: a technical standardof the [place] [employer] and Genomics(ACMG). [employer] Med. 2017;20(12):5797-3952. doi:10.1038/s35166-845-6491-s. Epub 2017Apr 18. PMID: 55846980.Free protein S measurementOrdered By: Lian Hernandez on 38-88-4628Nunvfhl S Free Ag IA Qn (PPP)109 %61-136[facility] HospitalComment on above:Performed at: [address] [id number] Director: Tisha Lo MD, Phone: [phone] protein C measurementOrdered By: Lian Hernandez on 32-51-0919Axqehog C actual/normal Chromogenic method (PPP) [Rel catalytic activity/Vol]116 %73-180[facility] Comment on above:Performed at: [facility] [address] [id number] Director: Tisha Lo MD, Phone: [phone] anticoagulant [Interpretation] in Platelet poor plasmaOrdered By: Lian Hernandez on 53-29-5325Odycz anticoagulant (PPP) [Interp]Comment:.[facility] HospitalComment on above:No lupus anticoagulant was detected.Performed at: [facility] [id number] Director: Tisha Lo MD, Phone: [phone] Panel Information Ordered By: Lian Hernandez on 33-77-8436Sgjbbz II DNA Analysis Comment Theresa durand, phd.[facility] HospitalComment on above:Performed at: [facility] [id number], [facility], [place] [id number] Director: Trever Figueredo [facility], Phone: [phone] V Leiden Peter durand, phd.[facility] HospitalComment on above:Performed at: [facility] [id number] [employer] [facility], [facility], [place] [id number] Director: Trever Figueredo [facility], Phone: [phone] V Leiden Mutation NoteN/[facility] CenterFunctional Protein S102 %63-140[facility] HospitalComment on above:Protein S activity may be falsely increased (masking anabnormal, low result) in patients receiving direct Xainhibitor (e.g., rivaroxaban, apixaban, edoxaban) or adirect thrombin inhibitor (e.g., dabigatran) anticoagulanttreatment due to assay interference by these drugs.Performed at: [address] [id number] Director: Tisha Lo MD, Phone: [phone] poor plasma ratio of lupus anticoagulant-sensitive activated partial thromboOrdered By: Lian Hernandez on 90-49-7481gPYR.lupus sensitive.excess phospholipid actual/normal Coag (PPP) [Relative time]34.9 sec0.0-47.6FGrand Lake Joint Township District Memorial HospitalProtein C antigen assayOrdered By: Lian Hernandez on 43-37-8385Nzoejct C Ag actual/normal IA (PPP) [Relative mass conc]96 %60-150[facility] HospitalComment on above:Performed at: [facility] [address] [id number] Director: Tisha Lo MD, Phone: [phone] Protein S measurement in platelet poor plasma by coagulation assay (units/volume)Ordered By: Lian Hernandez on 70-97-5707Khvyabo S Coag Qn (PPP)133 %60-150[facility] HospitalComment on above:This test was developed and its performance characteristicsdetermined by [employer]. It has not been cleared orapproved by the Food and Drug Administration.Prothrombin gene [id number] mutation detectionOrdered By: Lian Hernandez on 41-83-8709S8 gene targeted mutation analysis [employer] Nom (Bld/Tiss)See comment.[facility] HospitalComment on above:Result: c.*97G>A - Not DetectedThis result is not associated [...] VTE in homozygotes has been reported ricki 1 .1%/year. Individuals who carry both a c.*97G>A variant in theF2 gene and a c.1601G>A (p. Xeo403Gek) variant in the F5 gene(commonly referred to as Factor V Leiden) have an approximately 20-fold increased risk for venous thromboembolism. Risks are likely ricki even higher in more complex genotype combinations involving theF2 c.*97G>A variant and Factor V Leiden (PMID: 69795353). Additionalrisk factors include but are not limited [...] for health care providers to discussresults at [phone] ([phone]).Test Details:Variant analyzed: c.*97G>A, previously referred to as [id number]/Limitations:DNA analysis of the F2 gene (NM_000506.5) was performed by PCRamplification followed by restriction enzyme analysis. The diagnosticsensitivity is >99%. Results must be combined with clinicalinformation for the most accurate interpretation. Molecular-basedtesting is highly accurate, but asin any laboratory test, diagnosticerrors may occur. False positive or false negative results may occ urfor reasons that include genetic variants, blood transfusions, bonemarrow transplantation, somatic or tissue-specific mosaicism,mislabeled samples, or erroneous representation of familyrelationships.This test was developed and its performance characteristics determinedby [employer]. It has not been cleared or approved by the Food and DrugAdministration.References:Juliette Smith, Erika STOCKTON, Carmelo R, Martina WW, Victoriano JH; [facility] ProfessionalPractice and Guidelines Committee. Addendum: [place] [employer] of[employer]etics consensus statement on factor V Leiden mutationtesting. [employer] Med. 2020Sep 16. doi: 1 0.1038/b44513-223-05394-i.PMID: 32340925.Sara MILLAN. Prothrombin Thrombophilia. 2005Feb 05[Updated 2020Aug 18]. In: Tony MP, Juanita HH, Mimi RA, et al.,editors. Yuliya(R) [Internet]. Agenda (OR): [facility]; 3128-3449. Available from:https://www.ncbi.nlm.nih.gov/book s/TIH2290/Mil Smith, Erika STOCKTON, Mina X, Felix B, Vaishali EB, Catrina P, Tra CS;[employer] Laboratory Child Psychology Teacher Committee. Venous thromboembolismlaboratory testing (factor V Leiden and factor II c.*97G>A),2018 update: a technical standard of the [place] [employer] MedicalGenetics and Genomics (ACMG). [employer] Med. 2018 Jun;20(12):6600-4926.doi: 10.1038/f95007-303-3994-d. Epub 2017Apr 18. PMID: 47000321.Screening dilute Everardo's viper venom time (DRVVT) with reflex to confirmatory testOrdered By: Lian Hernandez on 22-31-2046gHYAX Coag (PPP) [Time]33.9 s0.0-47.0[facility] Generalcreening lupus anticoagulant-sensitive activated partial thromboplastin time (aPTT)Ordered By: Lian Hernandez on 68-82-7992hBNL.lupus sensitive Coag (PPP) [Time]29.7 sec 0.0-43.5FGrand Lake Joint Township District Memorial HospitalTT plasOrdered By: Lian Hernandez on 40-21-4849Lgxacwgt time Coag (PPP) [Time]16.3 sec0.0-23.0[facility] HospitalaPTT.lupus sensitive/aPTT.lupus sensitive W excess phospholipid (screen to confirm raOrdered By: Lian Hernandez on 06-27-2576tPJO.lupus sensitive/aPTT.lupus sensitive W excess phospholipid Coag (PPP) [Ratio]1.07 Ratio0.00-1.34[facility] HospitalCBC AUTO DIFFon 20-78-7381PULA # 0.0 103/ulNormal0.0-0.1[facility] HospitalComment on above:Performed By: #### CBC #### [facility] [address] [address] [address] Naina Novaksophils/100 WBC (Bld)0.5 %Normal0.2-2.0[facility] Comment on above:Performed By: #### CBC #### [facility] [address] [address] [address] Naina Cooley #0.1 103/ulNormal0.0-0.7The [facility]aritan HospitalComment on above: Performed By: #### CBC #### [facility] [address] [address] [address] Naina Echevarriaosinophils/100 WBC (Bld)1.6 %Normal0.9-7.0[facility] Comment on above:Performed By: #### CBC #### [facility] [address] [place] [address] Dr. Naina Echevarriarythrocyte distribution width (RBC) [Ratio]13.2 %Dyaknk11.0-15.0 The [facility]itan HospitalComment on above:Performed By: #### CBC #### [facility] [address] [place] [address] Dr. Naina SuarezHematocrit (Bld) [Volume fraction]44.5 %Jiuafs55.0-48.0The [facility]itan HospitalComment on above:Performed By: #### CBC #### [facility] [address] [place] [address] Dr. Naina SuarezHemoglobin (Bld) [Mass/Vol]14.9 g/nDTurbvq69.0-16.0The [facility]itan HospitalComment on above:Performed By: #### CBC #### [facility] [address] [place] [address] Dr. Naina Sheikh #0.01 10e3/ulNormal0.00-0.03The [facility] HospitalComasc[facility] on above:Performed By: #### CBC #### [facility] [address] [place] [address] Dr. Naina Sheikh %0.2 %Normal0.0-0.5The [facility] HospitalComasc[facility] prov[facility] hospital on above: Performed By: #### CBC #### [facility] [address] [place] [address] Dr. Naina CaponeH #1.7 103/ulNormal1.2-3.8The [facility]itan HospitalComment on above:Performed By: #### CBC #### [facility] [address] [place] [address] Dr. Naina Douglasmphocytes/100 WBC (Bld)28.3 %Yrnkrf19.5-60.0The [facility] HospitalComasc[facility] prov[facility] hospital on above:Performed By: #### CBC #### [facility] [address] [place] [address] Dr. Naina SuarezMANUAL DIFF REQNONormalThe Samaritan HospitalComment on above: Performed By: #### CBC #### [facility] [address] [address] [address] Naina Webb (RBC) [Entitic mass]29.3 dsDbwicx94.7-34.0The [facility]itan HospitalComment on above:Performed By: #### CBC #### [facility] [address] [place] [address] Dr. Naina Webb (RBC) [Mass/Vol]33.5 g/lDCitltt80.9-35.2The [facility] HospitalComment on above:Performed By: #### CBC #### [facility] [address] [place] [address] Dr. Naina Webb (RBC) [Entitic vol]87.6 lAVuqhva27.0-99.0The [facility]itan HospitalComment on above:Performed By: #### CBC #### [facility] [address] [place] [address] Dr. Naina Delgadillo #0.3 103/ulNormal0.3-0.8The [facility]itan HospitalComment on above:Performed By: #### CBC #### [facility] [address] [place] [address] Dr. Naina Clarkeocytes/100 WBC (Bld)4.7 %Normal1.7-12.0[facility] Comment on above:Performed By: #### CBC #### [facility] [address] [place] [address] Dr. Naina ColemanUT #4.0 103/ulNormal1.4-6.5The [facility]itan HospitalComment on above:Performed By: #### CBC #### [facility] [address] [place] [address] Dr. Naina Colemanutrophils/100 WBC (Bld)64.7 %Aqkyvp79.0-75.0The [facility]itan HospitalComment on above:Performed By: #### CBC #### [facility] [address] [place] [address] Dr. Naina Hesslet mean volume (Bld) [Entitic vol]9.2 fLCritically low 9.5-13.5The [facility]itan HospitalComment on above:Performed By: #### CBC #### [facility] [address], [place] [address] Dr. Naina SuarezPLT253 103/bkClazna020-695Zpt [facility] HospitalComascension prov[facility] hospital on above: Performed By: #### CBC #### [facility] [address], [place] [address] Dr. Naina SuarezRBC5.08 106/ulNormal4.20-5.40The [facility]Com[facility] on above:Performed By: #### CBC #### [facility] [address], [place] [address] Dr. Naina SuarezWBC6.1 103/ulNormal4.0-11.0The [facility] on above: Performed By: #### CBC #### [facility] [address] [address] [address] Naina SuarezCT HEAD WO CONon [id number] HEAD WO CONCT head without contrast CLINICAL: Headache. Left-sided numbness with headaches and [...] with late acute-subacute ischemia/infarct within the right END MATCHER distribution. Recommend follow-up brain MRI. 2. No acute intracranial hemorrhage. 3. Old left basal ganglia lacunar infarct. I discussed critical findings with Dr. Hastings in the emergency department at 12:15 PM on 07/15/2022. Electronically authenticated by: [place] SIMS Date: 2022-07-15 12:19NormOhio [facility] Sara Martinez 21-22-4038RBN HEAD WO Sara CON Begin Addendum #1 I discussed the above findings via phone [...] stenosis. LEFT VERTEBRAL ARTERY: No significant stenosis. [place]: The bilateral intracranial internal carotid arteries, anterior cerebral arteries, middle cerebral arteries and anterior and posterior communicating arteries are normal. POSTERIOR INTRACRANIAL CIRCULATION: There is occlusion of the right END MATCHER P1, P2 and P3. There is some reconstitution of the P4 segment. No intracranial aneurysm measuring least 2 mm identified. No intracranial AVM. LUNG APICES: The lung apices are clear. SOFT TISSUES: The prevertebral soft tissues are normal. No soft tissue inflammation. OSSEOUS STRUCTURES: No acute osseous abnormality throughout the imaged axial skeleton and skull base. IMPRESSION: 1. Occlusion of the right END MATCHER P1, P2 and P3 segments. 2. Acute right END MATCHER distribution infarct without acute hemorrhage. Provider was notified via stat call que.NormalThe Samaritan HospitalCovid-19 PCR (CVDTBH)on 42-34-7744LVTJ-CoV-2 (COVID-19) RNA CIARA+probe Ql (Unsp spec)Not detectedNormalNOT DETECTEDThe [facility]aritan HospitalComment on above:Result Comment: When diagnostic testing is negative, the [...] for this test is supported by the [place] of Health and Human Service's declaration that circumstances exist to justify the emergency use of in vitro diagnostics for the detection and/or diagnosis of the virus that causes COVID-19. This EUA will remain in effect for the duration of the COVID-19 declaration justifying emergency of IVDs, unless it is terminated or revoked by the FDA (after which the test may no longer be used).Performed By: #### CVDTBH ####[facility] [address] [address]Dr. Naina SuarezPROF CHEM 8 (BAS METB)on 37-14-2129Aixtr gap [Moles/Vol]11.5 mmol/LNormalMercy Health Perrysburg HospitalComment on above:Performed By: #### BMP #### [facility] [address] [address] [address] Naina SuarezCalcium [Mass/Vol]8.6 mg/dLNormal8.5-10.1[facility] Comment on above:Performed By: #### BMP #### [facility] [address] [address] [address] Naina SuarezChloride [Moles/Vol]104 mmol/HLnffqh61-822NdkMercy Health Perrysburg Hospital Comment on above:Performed By: #### BMP #### [facility] [address] [address] [address] Naina SuarezCO2 [Moles/Vol]26.3 mmol/ODtfnpn61.0-32.0[facility] Comment on above:Performed By: #### BMP #### [facility] [address] [place] [address] Dr. Naina SuarezCreatinine [Mass/Vol]0.81 mg/dLNormal0.55-1.02The [facility] HospitalComment on above:Performed By: #### BMP #### [facility] [address] [address] [address] Naina EchevarriaGFR-AF ANGUILLAN>60Normal>=60The [facility]itan HospitalComment on above:Performed By: #### BMP #### [facility] [address] [address] [address] Naina EchevarriaGFR-NON AF ANGUILLAN>60Normal>=60The [facility]itan HospitalComment on above:Performed By: #### BMP #### [facility] [address] [address] [address] Naina SuarezGlucose [Mass/Vol]82 mg/zPSydirf05-788AinMercy Health Perrysburg Hospital Comment on above:Performed By: #### BMP #### [facility] [address] [place] [address] Dr. Naina SuarezPotassium [Moles/Vol]3.8 mmol/LNormal3.5-5.1[facility] Comment on above:Performed By: #### BMP #### [facility] [address] [place] [address] Dr. Naina SuarezSodium [Moles/Vol]138 mmol/ZTkegfk933-360VtuMercy Health Perrysburg Hospital Comment on above:Performed By: #### BMP #### [facility] [address] [place] [address] Dr. Naina SuarezUrea nitrogen [Mass/Vol]8.0 mg/dLNormal7.0-18.0[facility] HospitalComment on above:Performed By: #### BMP #### [facility] [address] [place] [address] Dr. Naina Woods nitrogen/Creatinine [Mass ratio]9.9 mg/mgNormalThe [facility]itan HospitalComment on above:Performed By: #### BMP #### [facility] [address] [place] [address] Dr. Naina Montoya 82-10-6767SUI1.6 mIU/mLNormalThe [facility]itan HospitalComment on above:Result Comment: Adult Female: Follicular phase 3.5 - 12.5 Ovulation phase 4.7 - 21.5 Luteal phase 1.7 - 7.7 Postmenopausal 25.8 - 134.8Performed By: #### LBCFSH #### [facility] [address] [place] [address] Dr. Naina Avila AUTO DIFFon [id number] #0.1 103/ulNormal0.0-0.1The [facility]itan HospitalComment on above:Performed By: #### CBC #### [facility] [address] [place] [address] Dr. Naina SuarezBasophils/100 WBC (Bld)0.6 %Normal0.2-2.0[facility] Comment on above:Performed By: #### CBC #### [facility] [address] [place] [address] Dr. Naina Cooley #0.2 103/ulNormal0.0-0.7The [facility]itan HospitalComment on above: Performed By: #### CBC #### [facility] [address] [place] [address] Dr. Naina Echevarriaosinophils/100 WBC (Bld)2.1 %Normal0.9-7.0[facility] Comment on above:Performed By: #### CBC #### [facility] [address] [place] [address] Dr. Naina Echevarriarythrocyte distribution width (RBC) [Ratio]13.3 %Viopfb70.0-15.0 The [facility]itan HospitalComment on above:Performed By: #### CBC #### [facility] [address] [place] [address] Dr. Naina SuarezHematocrit (Bld) [Volume fraction]44.4 %Kbofpt01.0-48.0The [facility] HospitalComment on above:Performed By: #### CBC #### [facility] [address] [place] [address] Dr. Naina SuarezHemoglobin (Bld) [Mass/Vol]14.8 g/dBMetqct97.0-16.0The [facility] HospitalComment on above:Performed By: #### CBC #### [facility] [address] [place] [address] Dr. Naina Sheikh #0.02 10e3/ulNormal0.00-0.03The [facility] on above:Performed By: #### CBC #### [facility] [address] [place] [address] Dr. Naina Sheikh %0.2 %Normal0.0-0.5The [facility] HospitalComment on above: Performed By: #### CBC #### [facility] [address] [place] [address] Dr. Naina Sams #2.2 103/ulNormal1.2-3.8The [facility] HospitalCom[facility] on above:Performed By: #### CBC #### [facility] [address] [place] [address] Dr. Naina Caponehocytes/100 WBC (Bld)26.2 %Nprrjs67.5-60.0The [facility] on above:Performed By: #### CBC #### [facility] [address] [place] [address] Dr. Naina DialloUAL DIFF REQNONormalThe [facility] HospitalComasc[facility] hospital on above: Performed By: #### CBC #### [facility] [address] [place] [address] Dr. Naina Webb (RBC) [Entitic mass]29.2 woWhnjea62.7-34.0The [facility] on above:Performed By: #### CBC #### [facility] [address] [place] [address] Dr. Naina Webb (RBC) [Mass/Vol]33.3 g/jNTvnybs23.9-35.2The [facility] on above:Performed By: #### CBC #### [facility] [address] [place] [address] Dr. Niana Webb (RBC) [Entitic vol]87.7 oSKlkfnj06.0-99.0The [facility] HospitalComment on above:Performed By: #### CBC #### [facility] [address] [address] [address] Naina Delgadillo #0.5 103/ulNormal0.3-0.8The [facility] HospitalComment on above:Performed By: #### CBC #### [facility] [address] [address] [address] Naina Clarkeocytes/100 WBC (Bld)5.6 %Normal1.7-12.0[facility] Comment on above:Performed By: #### CBC #### [facility] [address] [place] [address] Dr. Naina Arteaga #5.4 103/ulNormal1.4-6.5The [facility] HospitalComment on above:Performed By: #### CBC #### [facility] [address] [place] [address] Dr. Naina Colemanutrophils/100 WBC (Bld)65.3 %Qnchrf47.0-75.0The [facility] HospitalComment on above:Performed By: #### CBC #### [facility] [address] [place] [address] Dr. Naina Booker mean volume (Bld) [Entitic vol]9.4 fLCritically low 9.5-13.5The [facility] HospitalComment on above:Performed By: #### CBC #### [facility] [address] [place] [address] Dr. Naina SuarezPLT295 103/dhBjnjbb087-698Qmf [facility] HospitalComment on above: Performed By: #### CBC #### [facility] [address] [place] [address] Dr. Naina SuarezRBC5.06 106/ulNormal4.20-5.40The [facility] HospitalComment on above:Performed By: #### CBC #### [facility] [address] [place] [address] Dr. Naina SuarezWBC8.3 103/ulNormal4.0-11.0The [facility] HospitalComment on above: Performed By: #### CBC #### [facility] [address] [address] [address] Naina Ng 14(COMP METB)on 71-46-5779Khkoeii [Mass/Vol]3.8 g/dLNormal 3.4-5.0[facility] Southment on above:Performed By: #### TSH, CMP, T4 #### [facility] [address] [address] [address] Naina SuarezAlbumin/Globulin [Mass ratio]1.0 {ratio}NormalThe [facility]aritan HospitalComment on above:Performed By: #### TSH, CMP, T4 #### [facility] [address] [address] [address] Naina Solis [Catalytic activity/Vol]101 U/CIwmeez87-712Mxm [facility] Hospitalment on above:Performed By: #### TSH, CMP, T4 #### [facility] [address] [address] [address] Naina Becker [Catalytic activity/Vol]23 U/VYjypwx11-18Fna [facility] Hospitalment on above:Performed By: #### TSH, CMP, T4 #### [facility] [address] [address] [address] Naina Og gap [Moles/Vol]12.4 mmol/LNormalThe [facility] Comment on above:Performed By: #### TSH, CMP, T4 #### [facility] [address] [address] [address] Naina SuarezAST [Catalytic activity/Vol]17 U/BZtalzx62-11Gyj [facility] on above:Performed By: #### TSH, CMP, T4 #### [facility] [address] [address] [address] Naina SuarezBilirubin [Mass/Vol]0.3 mg/dLNormal0.2-1.0[facility] Comment on above:Performed By: #### TSH, CMP, T4 #### [facility] [address] [address] [address] Naina SuarezCalcium [Mass/Vol]9.1 mg/dLNormal8.5-10.1[facility] Comment on above:Performed By: #### TSH, CMP, T4 #### [facility] [address] [place] [address] Dr. Naina SuarezChloride [Moles/Vol]104 mmol/MJreojp64-668Vff [facility] Comment on above:Performed By: #### TSH, CMP, T4 #### [facility] [address] [place] [address] Dr. Naina SuarezCO2 [Moles/Vol]27.6 mmol/FBfevpo30.0-32.0[facility] Comment on above:Performed By: #### TSH, CMP, T4 #### [facility] [address] [place] [address] Dr. Naina SuarezCreatinine [Mass/Vol]0.83 mg/dLNormal0.55-1.02The [facility] HospitalComment on above:Performed By: #### TSH, CMP, T4 #### [facility] [address] [place] [address] Dr. Naina EchevarriaGFR-AF ANGUILLAN>60Normal>=60The [facility] HospitalComment on above:Performed By: #### TSH, CMP, T4 #### [facility] [address] [place] [address] Dr. Naina Fernandez-NON AF ANGUILLAN>60Normal>=60The [facility] HospitalComment on above:Performed By: #### TSH, CMP, T4 #### [facility] [address] [place] [address] Dr. Naina SuarezGlobulin (S) [Mass/Vol]3.9 g/dLNormalThe [facility] HospitalComment on above:Performed By: #### TSH, CMP, T4 #### [facility] [address] [place] [address] Dr. Naina SuarezGlucose [Mass/Vol]102 mg/sBLnnaun75-971Prm [facility] Comment on above:Performed By: #### TSH, CMP, T4 #### [facility] [address] [place] [address] Dr. Naina SuarezPotassium [Moles/Vol]4.0 mmol/LNormal3.5-5.1[facility] Comment on above:Performed By: #### TSH, CMP, T4 #### [facility] [address] [place] [address] Dr. Naina SuarezProtein [Mass/Vol]7.7 g/dLNormal6.4-8.2[facility] Comment on above:Performed By: #### TSH, CMP, T4 #### [facility] [address] [place] [address] Dr. Naina SuarezSodium [Moles/Vol]140 mmol/WJfwuws509-904Sxt [facility] Comment on above:Performed By: #### TSH, CMP, T4 #### [facility] [address] [place] [address] Dr. Naina SuarezUrea nitrogen [Mass/Vol]9.0 mg/dLNormal7.0-18.0The [facility] HospitalComment on above:Performed By: #### TSH, CMP, T4 #### [facility] [address] [place] [address] Dr. Naina Woods nitrogen/Creatinine [Mass ratio]10.8 mg/mgNormalThe [facility] HospitalComment on above:Performed By: #### TSH, CMP, T4 #### [facility] [address] [place] [address] Dr. Naina Hendrix 32-10-2655E3 [Mass/Vol]8.60 ug/dLNormal4.80-13.90The [facility] HospitalComment on above:Performed By: #### TSH, CMP, T4 #### [facility] [address] [place] [address] Dr. Naina Rivas 38-45-9558IGT5.083 uIU/mLNormal0.358-3.740The [facility] HospitalComment on above:Performed By: #### TSH, CMP, T4 #### [facility] [address] [place] [address] Dr. Niana Suarez Vital Signs Date TimeVital SignValuePerforming ClqathshyQekxzkze26-97-7220 08:57-0400 Diastolic blood gxixvkuy64 mm[Hg]Caridad [address] [place] [address] 02-03-2025 08:57-0400Heart rate60 /minEly [address] [place] [address] 02-03-2025 08:57-0400Systolic blood slhhjang419 mm[Hg]Caridad [address] [place], [place] [address]012-23-2024 15:08-0500Diastolic blood vmsifzuc28 mm[Hg]Meghana Santiago MD Work Phone: 1(898)[address]12-23-2024 15:08-0500 Systolic blood mm[Hg]Meghana Santiago MD Work Phone: 1(828)[address]12-23-2024 13:54-0500 Body sefeef292.1 cmMeghana Santiago MD Work Phone: 1(969)[address]12-23-2024 13:54-0500 Body mass index (BMI) [Ratio]23.3 kg/t9NvwdzpMeghana Santiago MD Work Phone: 1(674)[address]12-23-2024 13:54-0500 Body nzihfu20.5 kgMeghana Santiago MD Work Phone: 1(016)[address]12-23-2024 13:54-0500 Heart rate66 /minMeghana Santiago MD Work Phone: 1(729)[address]01-09-2024 14:14-0500 Body cebpxn156.1 cmArleth Painting APRN-SALES MANAGEMENT INTERN Work Phone: [phone])[address]01-09-2024 14:14-0500 Body mass index (BMI) [Ratio]24.79 kg/k9TbspbArleth Painting APRN-SALES MANAGEMENT INTERN Work Phone: 1(543)[address]01-09-2024 14:14-0500 Body rrayam18.59 kgArleth Painting APRN-SALES MANAGEMENT INTERN Work Phone: [phone])[address]01-09-2024 14:14-0500 Diastolic blood aadtknok32 mm[Hg]Arleth Painting WIRELESS CELLULAR TECHNICIAN-SALES MANAGEMENT INTERN Work Phone: [facility]01-09-2024 14:14-0500 Heart rate68 /Khang Painting WIRELESS CELLULAR TECHNICIAN-SALES MANAGEMENT INTERN Work Phone: [facility]01-09-2024 14:14-0500 Systolic blood mm[Hg]Arleth Painting WIRELESS CELLULAR TECHNICIAN-SALES MANAGEMENT INTERN Work Phone: [facility]11-02-2023 14:45-0400 Diastolic blood pefpblvo46 mm[Hg]PA-C Estefania Jin Work Phone: 1(832)[address] [place], [place] 4982511-02-2023 14:45-0400 Heart rate60 /Oly-Larissa Jin Work Phone: 1(489)[address] [place], [place] 4982511-02-2023 14:45-0400 Respiratory rate20 /minFRANKY-Larissa Jin Work Phone: 1([phone])[address] [place], [place] 4982511-02-2023 14:45-0400 SaO2% (BldA) [Mass fraction]100 %FRANKY-Larissa Jin Work Phone: 1(600)[address] [place], [place] 4982511-02-2023 14:45-0400 Systolic blood kowfczsf716 mm[Hg]PA-Larissa Jin Work Phone: 1(221)[address] [place], [place] 4982511-02-2023 11:54-0400 Body wxrlor340.64 cmPA-Larissa Jin Work Phone: 1(171)[address] [place], [place] 4982511-02-2023 11:54-0400 Body xiobrlssujm48.3 [degF]FRANKY-Larissa Jin Work Phone: 1(858)[address] [place], [place] 4982511-02-2023 11:54-0400 Body kgPA-Larissa Jin Work Phone: 1(543)[address] [place], [place] 4982509-19-2023 14:14-0400 Body eqnxubrivyt56.3 [degF]DO [facility] Work Phone: 1(358)[address]09-19-2023 14:14-0400 Body hhbnoz37.22 kgDO [facility] Work Phone: 1(849)[address]09-19-2023 14:14-0400 Diastolic blood fcbxwpym50 mm[Hg]DO [facility] Work Phone: 1(179)[address]09-19-2023 14:14-0400 Heart rate63 /minDO [facility] Work Phone: 1(188)[address]09-19-2023 14:14-0400 Respiratory rate16 /minDO [facility] Work Phone: 1(134)[address] [place], [place] 4923209-19-2023 14:14-0400 SaO2% (BldA) [Mass fraction]100 %DO [facility] Work Phone: 1(562)[address] [place], [place] 4923209-19-2023 14:14-0400 Systolic blood exuavofm292 mm[Hg]DO [facility] Work Phone: 1(867)[address]07-21-2023 14:12-0400 Body ljhkus042.59 cmDO [facility] Work Phone: 1(712)[address]07-21-2023 09:18-0400 Body wxpdmodoqbr35.3 [degF]DO [facility] Work Phone: 1(037)3-[address] [place], [place] 1796707-21-2023 09:18-0400 Body .13 kgDO [facility] Work Phone: 1(134)8-[address] [place], [place] 1796707-21-2023 09:18-0400 Diastolic blood gyllayym89 mm[Hg]DO [facility] Work Phone: 1(981)[address]07-21-2023 09:18-0400 Heart rate66 /minDO [facility] Work Phone: 1(669)0-[address] [place], [place] 1796707-21-2023 09:18-0400 Respiratory rate16 /minDO [facility] Work Phone: [facility]07-21-2023 09:18-0400 Systolic blood kdllbpir204 mm[Hg]DO Enoc Cardenas Work Phone: [facility]06-26-2023 13:19-0400 SaO2% (BldA) [Mass fraction]100 %DO [facility] Cardenas Work Phone: [facility] Encounters Encounter DateEncounter TypeCare ProviderFacilityStart: 02-03-2025 End: 43-99-0455Qivbfyqsxp hospital visit by Essence Beard Stress Room 1 [facility]Comment on above:Essential hypertension; Cryptogenic stroke (Multi); Chest pain, unspecified type; Shortness of breathStart: 02-03-2025 End: 49-33-4429kglngbuzmjYTZGOR [facility] Start: 12-10-2024 End: 02-85-5389annvpaaaawKfr AvailableStart: 12-10-2024 End: 65-98-1058Ywsavwy encounter procedureAnthdavis Madison DO Work Phone: [facility] UCComment on above:Encounter for drug screeningStart: 12-01-2024 End: 03-20-1501nifoatmgrgHrnca K SmithFacility:[facility] Start: 10-30-2024 End: 14-94-1745xiulelnbytUYDGIQCGT NO FAMILYFacility:[facility] Generaltart: 04-21-6099Grr-patient / Non-visitFirelands Physician Group-Heart Rhythm ClinicStart: 09-29-2024 End: 50-49-0087xgibiombvtLYITNNIDY NO FAMILYFacility:[facility] Generaltart: 34-93-3370Kvb-patient / Non-visitFirelands Physician Group-Heart Rhythm ClinicStart: 08-28-2024 End: 25-54-5258pjkhofazokPSRNFSEUS NO FAMILYFacility:[facility] Generaltart: 26-47-7069Jki-patient / Non-visitFirelands Physician Group-Heart Rhythm ClinicStart: 07-28-2024 End: 44-48-8280wwzoylxibxSXUIOJAJI NO FAMILYFacility:[facility] Generaltart: 52-76-3701Dka-patient / Non-visitCarolinas [facility]-Heart Rhythm ClinicStart: 07-06-2024 End: 02-29-8260Vgwfcg outpatient visit 25 minutesMeghana Santiago MD Work Phone: uh [facility] PinevilleComment on above:Shortness of breath; Chest pain, unspecified type; Orthostatic hypotension; Essential hypertension; Mixed hyperlipidemia; Cryptogenic stroke (Multi); 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; Encounter to establish care with new doctor; Medication course changed; Paroxysmal atrial fibrillation (Multi); Abnormal EKG; BMI 23.0-23.9, adult; Palpitations; Former smokerStart: 07-06-2024 End: 14-81-2477eosysqqtbmCXBSSH [facility] AmbulatoryStart: 05-28-2024 End: 77-79-5252chcihjrdyyLxhaj K SmithFacility:[facility] Start: 07-67-1435Pvy-patient / Non-visitCarolinas [facility]-Heart Rhythm ClinicStart: 02-16-2024 End: 26-24-1509ncdblkywqhGKQWHSNBW NO [facility] Work Phone: Start: 02-16-2024 End: 40-34-0396Gsoqixh encounter procedurePHYSICIAN NO [facility]-Pacemaker CheckStart: 01-07-2024 End: 00-65-1031bzqoqflckfCIOZTELJM NO FAMILYFacility:[facility] Generaltart: 01-07-2024 End: 42-78-3043Ebfgwvk encounter procedurePHYSICIAN NO [facility]-Pacemaker CheckStart: 09-02-2023 End: 66-32-7003worootrzbiLTJMIFAZT NO [facility] Work Phone: Start: 09-02-2023 End: 60-06-5545Puwliks encounter procedurePHYSICIAN NO [facility]-Pacemaker CheckStart: 07-23-2023 End: 79-07-1237Ehbpzv outpatient visit 15 minutesCristianberta Ramachandran Mert WIRELESS CELLULAR TECHNICIAN-SALES MANAGEMENT INTERN Work Phone: uh [facility] on above:Essential hypertension (Primary Dx); Cryptogenic stroke (CMS/HCC); Implantable loop recorder present; Mixed hyperlipidemia; BMI 24.0-24.9, adultStart: 54-67-9361Hfubsnouq encounterPamartin Perla Physicians NeurologyStart: 05-16-2023 End: 42-43-2912Pdlzzrqpp to same day surgery Cristino Jin Work Phone: [facility]-Hair Spinner Work Phone: Start: 05-16-2023 End: 18-58-7261ksfyhbgfcnKXRohan Jin Work Phone: [facility] Work Phone: Start: 05-14-2023 End: 25-64-2023jdqsayjhrlKJRohan Jin Work Phone: [facility] Work Phone: Start: 05-14-2023 End: 86-72-2224Lxtusfy encounter procedureMAKEDA Jin Work Phone: [facility] [employer] Work Phone: Start: 04-30-2023 End: 93-75-0429rmzmyobueiXevxwqywtC[facility] Work Phone: Start: 04-30-2023 End: 85-92-2579Xkgepogkwb [facility]-Cancer Center Acute Work Phone: Start: 96-88-3808Ddryxgnqwm Lenny Jin Work Phone: [facility]-Cancer Center Work Phone: Start: 04-02-2023 End: 11-21-5471hnahhumolfKQCleveland Clinic [facility] Work Phone: [facility] Work Phone: Start: 04-02-2023 End: 09-27-4953Abiyrybnft RecurringDO Enoc Cardenas Work Phone: [facility]-Cancer Center Work Phone: Start: 02-08-2023 End: 81-96-5892ddpsrohwapRY Charles Carefree Work Phone: [facility] Work Phone: Start: 02-08-2023 End: 57-75-5360Ulsxiodynh Naya Stubbs Carefree Work Phone: [facility]yll[facility] Work Phone: Start: 07-31-2022 End: 13-54-5485qdmvqwelhmAX CHARLES HOUSEFacility:U9Mjlma: 07-15-2022 End: 10-96-4163talepataaoCM AYDEN HASTINGS .Facility:G4Bttwc: 02-01-2022 End: 85-92-9328xdfnbeseqjCM CHARLES MCBEEFacility:H1 Procedures DateProcedureProcedure DetailPerforming ClinicianStart: 72-27-6223Ke strs tst xers&/or rx cont ecg trcg onlyMeghana Santiago MD Work Phone: Start: 58-33-0575Ope routine ecg w/least 12 lds w/i&r Meghana Santiago MD Work Phone: Start: 38-81-8579MB LOOP Insert of Event RecorderMAKEDA Jin Work Phone: Start: 60-84-5297Tlflc chest X-rayFRANKY-Larissa Jin Work Phone: Start: 71-65-9473Ifosv depression screening assessment Claudette Springer RN Plan of Treatment DateCare ActivityDetailAuthorStart: 40-68-9707Ngzepr Vaccines (1 of 2)Zoster Vaccines (1 of 2)[facility]: 35-51-4084Pnemlrvwa vaccinationInfluenza Vaccine (#1)[facility]: 07-06-2024 End: 43-05-3275SR Heart Perfusion W stress and W radionuclide IVNuclear Stress Test Cardiac Nuclear Medicine Routine Essential hypertension Cryptogenic stroke (Multi) Chest pain, unspecified type Shortness of breath Expected: 07/06/2024 (Approximate), Expires: 07/06/2025[facility] Service Area Work Phone: Comment on above:Expected: 07/06/2024 (Approximate), Expires: 07/06/2025Start: 04-22-2024 End: 32-58-7478Vqpxnay encounter zlmoupmrd47/09/2024 1:20 PM EDT Office Visit [facility] [address] [address] [place] [address] Bill Palmer MD [address] [facility] [address] [place] [address] [facility]: 23-04-3476QPQSX-19 Vaccine ( season)COVID-19 Vaccine ( season)[facility]: 28-60-2973Jkfnhueiy vaccinationInfluenza Vaccine (#1)[facility]: 54-70-7175Zaqls BMI ScreeningAdult BMI Screening [facility]: 37-62-8226Fddpgntoxt ScreeningDepression Screening [facility] SystemStart: 42-48-2193Vfllugw ScreeningTobacco Screening [facility]: 03-23-8780BdyimsyuaCleveland Clinic Akron Generaltart: 43-85-3115KXUSU-19 Vaccine ( season)COVID-19 Vaccine ( season)[facility] SystemStart: 32-42-8286Qxxlosulx vaccinationUnDoctors Hospital: 25-54-1973LuirtuxynCleveland Clinic Akron Generaltart: 78-41-1724WYYLH-19 Vaccine (3 - Pfizer series)COVID-19 Vaccine (3 - Pfizer series)[facility]: 44-89-0442Ttqcztrje for malignant neoplasm of breastMammogramSumma Health [facility] Campus: 1997 DTaP/Tdap/Td Vaccines (1 - Tdap)DTaP/Tdap/Td Vaccines (1 - Tdap)[facility]: 73-75-3551Iktukklrs for malignant neoplasm of cervixUnDoctors Hospital: 34-18-1779HByS,Tdap and Td Vaccines (1 - Tdap)DTaP,Tdap and Td Vaccines (1 - Tdap)[facility] Start: 70-94-9911Cjgitquyy B Vaccines (1 of 3 - 19+ 3-dose series)Hepatitis B Vaccines (1 of 3 - 19+ 3-dose series)[facility]: 80-71-4575Tctimurc mellitus screeningDiabetes ScreeningSumma Health [facility] Campus: 14-05-8836Pkthwemya C screeningHepatitis C ScreeningSumma Health [facility] Campus: 56-63-4701JBV Vaccines (1 of 1 - Standard series) MMR Vaccines (1 of 1 - Standard series)[facility]: 70-49-8331Uijdswqxd B Vaccines (1 of 3 - 3-dose series)Hepatitis B Vaccines (1 of 3 - 3-dose series)[facility]: 36-82-4221XBY screeningHIV ScreeningSum[facility] Health [facility]: 51-39-9394Tiuhe panelLipid PanelSumma Health [facility]: 92-59-7735Uqdmarrbe for malignant neoplasm of colonUnDoctors Hospital: 1975 Tobacco CounselingTobacco CounselingOhioHealth Dublin Methodist Hospital SystemStart: 1975 Yearly Adult PhysicalYearly Adult PhysicalUnCincinnati VA Medical Center Albumin [Mass/volume] in Serum or PlasmaAshtabula General Hospital Albumin/Globulin ratioAshtabula General HospitalElectrophoresis: nwleh-9-mdxysjmcGahukvkayAshtabula General HospitalElectrophoresis: vkxgq-8-dllkbwpyWkwmxcdcqAshtabula General HospitalElectrophoresis: beta-globulin [facility] HospitalElectrophoresis: gamma globulinAshtabula General HospitalGlobulin [Mass/volume] in SerumAshtabula General HospitalHomocysteine [Moles/volume] in Serum or PlasmaAshtabula General HospitalProtein [Mass/volume] in Serum or [facility] Immunizations Immunization DateImmunizationNotesCare KtbkoivoWayydhjx17-77-3475KFNEB-71 mRNA, Comirnaty (Pfizer)MAKEDA Jin Work Phone: [facility]06-03-2021COVID-19 mRNA, Comirnaterin (Pfizer)MAKEDA Jin Work Phone: [facility] Payers DatePayer CategoryPayerPolicy [id number] Hospital [id number] 24-25-3485Qvgn-[id number]-[id number]-[id number] .2.840.868533.1..647.2.7.3.160[id number] .0.1.063842.3.579.[id number] 2.0.1.031094.3.579.2.48593-81-7227Nmdirli9839659 2.0.1.894021.3.579.[id number] 2..1.738382.3.579.[id number] 2.0.1.625474.3.579.2.[id number] 2..1.994892.3.579.2.528266-43-8384Gidgvab48105646 2..1.689396.3.57[id number] 2..1.193582.3.579.[id number] 2..1.406510.3.579.2.[id number] 2..1.252390.3.579.2.687995-94-5258Jlbamba82137495 2..1.774360.3.579.2.667509-26-0113Jf[id number] 2.0.1.055472.3.579.2.071Zhmovvu85698821 2..1.837289.3.579.2.531 [id number] 2..1.824345.3.579.2.022Xpmvzsw71365130 2.0.1.808006.3.579.2.779Kgdmmww10380351 2.840.1.916123.3.579.2.531 Hyzmsif82680149 2.840.1.970787.3.579.2.476Rpbmrpg87672053 2.0.1.786035.3.579.2.430Gbrfbzi78658294 2.16.840.1.170065.3.579.2.531 Social History DateTypeDetailFacilityStart: 01-07-2023 End: 86-84-2231Hkaomfo smoking status NHISSmoker (finding)[facility] Generaltart: 62-14-9635Wbs Assigned At BirthFemaleFSouthview Medical Centertart: 05-14-2023 End: 37-74-1210Ekgxpke smoking status NHISEx-smoker (finding)[facility] End: 25-07-9164Vmwsljy of tobacco useCigarette SmokerRiverside Methodist Hospital Work Phone: Start: 04-30-2023 End: 36-37-4644Stclmvd use and exposureSmokeless tobacco non-userUnCincinnati VA Medical Center Work Phone: Start: 07-23-2023 End: 15-87-8462Krwahvb intakeLifetime non-drinker (finding)[facility] Work Phone: Start: 04-30-2023 End: 98-22-7964Krvkhfp of Social functionUnCincinnati VA Medical Center Work Phone: Start: 04-30-2023 End: 78-16-5918Gdmhpoq use panelRiverside Methodist Hospital Work Phone: Start: 56-14-0328Hyp Assigned At BirthNot on file [facility] Work Phone: Start: 2023 End: 52-23-3987Eqeaezhi to SARS-CoV-2 (event)Not sureRiverside Methodist HospitalStart: 06-03-2024 End: 77-09-8927HudEwxmvq (finding)[facility] Generaltart: 69-07-6288Bbovova smoking status NHISSmokes tobacco dailyProWalker County Hospital Health System Start: 56-79-8340Bthyfoy intakeEx-drinker (finding)[facility] Hospitaltart: 57-80-4268Pybluzdbey depression screening mdjvwnakej2WpiVtihthLima City Hospital Start: 69-70-3062Ltrtaqq CommentsocialLima City HospitalTobacco smoking status NHISTobacco smoking consumption unknownAlvin J. Sitem[facility] Center Medical Equipment Procedure CodeEquipment CodeEquipment Original TextEquipment IdentifierDatesCL LOOP RECORDER ASSERT-IQ EL+FDAStart: 15-31-9272HD LOOP RECORDER ASSERT-IQ EL+FDA Start: 58-51-5806LB LOOP RECORDER ASSERT-IQ EL+FDAStart: 28-51-9819JT LOOP RECORDER ASSERT-IQ EL+FDAStart: 61-64-0465PN LOOP RECORDER ASSERT-IQ EL+FDA Start: 50-73-5124MQ LOOP RECORDER ASSERT-IQ EL+FDAStart: 18-39-0083BA LOOP RECORDER ASSERT-IQ EL+FDAStart: 53-68-3073JY LOOP RECORDER ASSERT-IQ EL+FDA Start: 05-16-2023 Goals DatePatient GoalDesired Activity/State Clinical Notes 01-07-2023 to 12-10-2024 Note Date & KleuXfyeCiwvzmju66-43-4883 History of Present illness Narrative* Moon Rivera MA - 12/10/2024 4:35 PM EDT Pt presents today for a pre-employment drug screen for [place]. Pt verified by photo ID. documented in this encounterAlvin J. Siteman Cancer CenterStnebpxgxz09-04-0539 History of Present illness Narrative* Meghana Santiago MD - 07/06/2024 2:00 PM EST Patient is new to this provider. 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 custodial current use of anticoagulant therapy 8. Encounter [...] documented orthostatic hypotension and we will down titrateher medications. She will need additional workup for CAD, which is negative we can use flecainide or propafenone forher PAF. The episodes are infrequent however she [...] Scribe Attestation By signing my name below, IMegan RN , Scribe attest that this documentation has been prepared under the direction and in the presence of Meghana Santiago MD. Provider Attestation - Scribe documentation All medical record entries made by the Scribe were at my direction and personally dictated by me. Ihholly reviewed the chart and agree that the record accurately reflects my personal performance of the history, physical exam, discussion and plan. documented in this encounterRiverside Methodist Hospital Work Phone: 1(770) 667-437912-23-2024 Instructions* Patient Instructions* Megan West RN - 07/06/2024 2:00 PM EST Please bring all medicines, vitamins, and herbal supplements with you when you come to the office. Prescriptions will not be filled unless you are compliant with your follow up appointments or have a follow up appointment scheduled as per instruction of your physician. Refills should be requested at the time of your visit. Call [facility] and speak to billing need to speak about hcap [phone] documented in this encounterRiverside Methodist Hospital Work Phone: 1(147) 947-560901-10-2024 Evaluation + Plan note* Assessment & Plan Note - LYNDA Martino - 07/24/2023 1:17 PM ESTAssociated Problem(s): Cardiac and Vasculature Apr 2023 Cardiology [...] ischemic evaluation No documented arrhythmia to date [facility] Work Phone: 1(788) 877-586201-10-2024 Evaluation + Plan note* Assessment & Plan Note - LYNDA Martino - 07/24/2023 1:17 PM ESTAssociated Problem(s): Implantable loop recorder present May 16, 2023 uneventful implant implantable loop recorder. July 17, 2022 device interrogation no evidence of atrial fibrillation [facility] Work Phone: 1(983) 513-164601-10-2024 Miscellaneous Notes* Assessment & Plan Note - LYNDA Martino - 07/24/2023 1:17 PM ESTAssociated Problem(s): Cardiac and Vasculature Apr 2023 Cardiology [...] ischemic evaluation No documented arrhythmia to date * Assessment & Plan Note - LYNDA Maritno - 07/24/2023 1:17 PM EST Associated Problem(s): Implantable loop recorder present May 16, 2023 uneventful implant implantable loop recorder. July 17, 2022 device interrogation no evidence of atrial fibrillation * Assessment & Plan Note - LYNDA Martino - 07/24/2023 1:16 PM EST Associated Problem(s): Mixed hyperlipidemia Moderate intensity statin She has a new PCP and will be obtaining annual wellness labs in the near future * Assessment & Plan Note - LYNDA Martino - 07/24/2023 1:16 PM EST Associated Problem(s): Essential hypertension Optimal in office documented in this encounterRiverside Methodist Hospital Work Phone: 1(698) 847-736601-10-2024 Evaluation + Plan note* Assessment & Plan Note - LYNAD Martino - 07/24/2023 1:16 PM ESTAssociated Problem(s): Mixed hyperlipidemia Moderate intensity statin She has a new PCP and will be obtaining annual wellness labs in the near future [facility] Work Phone: 1(518) 418-368301-10-2024 Evaluation + Plan note* Assessment & Plan Note - LYNDA Martino - 07/24/2023 1:16 PM ESTAssociated Problem(s): Essential hypertension Optimal in office [facility] Work Phone: 1(345) 470-918501-09-2024 History of Present illness Narrative* LYNDA Martino - 07/23/2023 3:00 PM EST Chief Complaint No concerns Reason for Visit [...] 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 She denies any type of exertional chest pain, no dyspnea on exertion. She denies any change in exercise capacity or functional tolerance. Patient reports that overall has no complaint(s) of chest pain, chest pressure/discomfort, dyspnea,exertional chest pressure/discomfort, fatigue, irregular heart beat, lower [...] making process incorporating patients unique circumstances, the followingtreatment plan will be initiated: 1. Prescription drug management of cardiovascular medication for efficacy, adherence to treatment, side effect assessment and polypharmacy. Current treatment clinically warranted and to continue without modifications. 2. Return for follow-up; in the interim, contact the office if new symptoms arise. Dr. Palmer 9 months [employer] MSN, WIRELESS CELLULAR TECHNICIAN-SALES MANAGEMENT INTERN, PMHNP-[facility] Please excuse any errors in grammar or translation related to this dictation. Voice recognition software was utilized to prepare this document. documented in this [facility] Work Phone: 1(148) 620-597101-09-2024 Instructions* Patient Instructions* LYNDA Martino - 07/23/2023 3:00 PM EST [...] making process incorporating patients unique circumstances, the followingtreatment plan will be initiated: 1. Prescription drug management of cardiovascular medication for efficacy, adherence to treatment, side effect assessment and polypharmacy. Current treatment clinically warranted and to continue without modifications. 2. Return for follow-up; in the interim, contact the office if new symptoms arise. Dr. Palmer 9 months documented in this encounterRiverside Methodist Hospital Work Phone: 1(733) 485-294901-08-2024 Miscellaneous Notes* Telephone Encounter - Claudette Springer RN - 07/22/2023 12:47 PM EST Per Aug 2023 recall, patient is due for routine follow up with [facility]. Please call to schedule appt. * Telephone Encounter - Luh Merino - 07/22/2023 12:47 PM EST Called patient and her number has been disconnected Called significant other and left Vm * Telephone Encounter - Luh Merino - 07/22/2023 12:47 PM EST Attempted patients significant other and no answer Going to mail a letter documented in this encounterTrinity Health SystemFABPulous Winprb20-93-8318 Telephone encounter Note* Telephone Encounter - Claudette Springer RN - 07/22/2023 12:47 PM EST Per Aug 2023 recall, patient is due for routine follow up with [facility]. Please call to schedule appt. [employer]01-08-2024 Telephone encounter Note* Telephone Encounter - Luh Merino - 07/22/2023 12:47 PM EST Called patient and her number has been disconnected Called significant other and left Vm [employer]01-08-2024 Telephone encounter Note* Telephone Encounter - Luh Merino - 07/22/2023 12:47 PM EST Attempted patients significant other and no answer Going to mail a letter [employer]09-19-2023 Progress note Author Reina Rhysglendy [facility] HospitalNote Date/TimeSeptember 2022 3:53pm [facility] [place] [address] Hem/Onc Follow Up Note - OP Signed Patient: Melvina Jameson MR#: [id number] : 1975 Acct:[id number] Age/Sex: 47 / F Type: REG RCR Copies to: DO Estefania Evans PA-C~ Subjective Date/Time of Service: Date of Service: 04/02/2023 Time of Service: 14:19 Chief Complaint: Patient is here today for a 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 I reviewed her laboratories from [facility] showing elevated homocystine of 21. She [...] review her symptoms. Her hypercoagulability work-up by [facility] Mary showed normal lupus anticoagulant testing, normal [...] at the request of Estefania Medina PA-C ([facility]) regarding further evaluation of hypercoagulable [...] her symptoms persisted and she presented to [facility] emergency department on 07/14/2022. 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 She underwent [...] study and negative lower extremity Doppler. 30-day cardiac technician revealed no evidence of atrial fibrillation and/or other arrhythmia. Presently, she is being followed by [facility] neurology every 6 months. 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 She has intentionally lost approximately 40 pounds [...] Anxiety Depression Endometriosis History of ischemic right END MATCHER stroke Hyperlipidemia Hypertension - Surgical History Surgical [...] initial hypercoagulable work up while hospitalized at [facility] on 07/16/2022 while she was hospitalized for acute onset left sided weakness; subsequently diagnosed with a right thalamic stroke secondary to END MATCHER occlusion; risk factors include: hyperl ipidemia, nicotine [...] factor II?prothrombin gene, factor V Leiden, protein NITRATING ACID MIXER, PT/INR, PTT, Antithrombin III gene mutation, beta-2 [...] today. --In review of prior labs at [facility], she was noted to have elevated [...] for coordination of care (as documented) and xdcr-yv-blay counseling of patient and/or family. 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 I reviewed her laboratories from [facility] showing elevated homocystine of 21. She [...] at the request of Estefania Medina PA-C ([facility]) regarding further evaluation of [...] her symptoms persisted and she presented to [facility] emergency department on 07/14/2022. 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 She underwent [...] study and negative lower extremity Doppler. 30-day cardiac technician revealed no evidence of atrial fibrillation and/or other arrhythmia. Presently, she is being followed by [facility] neurology every 6 months. 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 She has intentionally lost approximately 40 pounds [...] Anxiety Depression Endometriosis History of ischemic right END MATCHER stroke Hyperlipidemia Hypertension - Surgical History Surgical [...] initial hypercoagulable work up while hospitalized at [facility] on 07/16/2022 while she was hospitalized for acute onset left sided weakness; subsequently diagnosed with a right thalamic stroke secondary to END MATCHER occlusion; risk factors include: hyperl ipidemia, nicotine [...] factor II?prothrombin gene, factor V Leiden, protein NITRATING ACID MIXER, PT/INR, PTT, Antithrombin III gene mutation, beta-2 [...] today. --In review of prior labs at [facility], she was noted to have elevated [...] for coordination of care (as documented) and nmpg-yb-hulr counseling of patient and/or family. Dictated By: Reina Goss APRN DD/ 1419 Signed By: 04/02/23 1453 [facility]07-21-2023 Progress note Author Racheal Fernandez [facility] HospitalNote Date/TimeJuly 2022 3:35pmThe [facility] at [address] [address] Hem/Onc Follow Up Note - OP Signed Patient: Melvina Jameson MR#: [id number] : 1975 Acct:[id number] Age/Sex: 47 / F Type: REG RCR [...] next month. I reviewed her laboratories from [facility] showing elevated homocystine of 21. She [...] at the request of Estefania Medina PA-C ([facility]) regarding further evaluation of hypercoagulable [...] her symptoms persisted and she presented to [facility] emergency department on 07/14/2022. 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 She underwent [...] study and negative lower extremity Doppler. 30-day cardiac technician revealed no evidence of atrial fibrillation and/or other arrhythmia. Presently, she is being followed by [facility] neurology every 6 months. 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 She has intentionally lost approximately 40 pounds [...] Anxiety Depression Endometriosis History of ischemic right END MATCHER stroke Hyperlipidemia Hypertension - Surgical History Surgical History: Surgical History (Last Reviewed 02/01/23 @ 14:11 by aRcheal Fernandez MD) H/O hand surgery H/O: hysterectomy [...] right posterior temporal lobe and occipital lobes [END MATCHER territory] Assessment and Plan (1) Right thalamic stroke As noted above, patient underwent initial hypercoagulable work up while hospitalized at [facility] on 07/16/2022 while she was hospitalized for acute onset left sided weakness; subsequently diagnosed with a right thalamic stroke secondary to END MATCHER occlusion; risk factors include: hyperl ipidemia, nicotine [...] factor II?prothrombin gene, factor V Leiden, protein NITRATING ACID MIXER, PT/INR, PTT, Antithrombin III gene mutation, beta-2 [...] today. --In review of prior labs at [facility], she was noted to have elevated [...] for coordination of care (as documented) and rblo-bd-dark counseling of patient and/or family. Dictated By: Racheal Fernandez MD DD/ 0923 Signed By: <Electronically signed by MD Racheal Fernandez> 02/01/23 1430 [facility] Work Phone: 1(343) 428-797407-21-2023 Progress note Author Racheal Fernandez [facility] February 01, 2023 2:35pmNote Date/TimeJuly 2022 9:24[facility] at [address] [address] Hem/Onc Follow Up Note - OP Signed Patient: Melvina Jameson MR#: [id number] : 1975 Acct:[id number] Age/Sex: 47 / F Type: REG RCR [...] next month. I reviewed her laboratories from [facility] showing elevated homocystine of 21. She [...] review her symptoms. Her hypercoagulability work-up by [facility] Mary showed normal lupus anticoagulant testing, normal [...] at the request of Estefania Medina PA-C ([facility]) regarding further evaluation of hypercoagulable [...] her symptoms persisted and she presented to [facility] emergency department on 07/14/2022. 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 She underwent [...] study and negative lower extremity Doppler. 30-day cardiac technician revealed no evidence of atrial fibrillation and/or other arrhythmia. Presently, she is being followed by [facility] neurology every 6 months. 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 She has intentionally lost approximately 40 pounds [...] Anxiety Depression Endometriosis History of ischemic right END MATCHER stroke Hyperlipidemia Hypertension - Surgical History Surgical [...] right posterior temporal lobe and occipital lobes [END MATCHER territory] Assessment and Plan (1) Right thalamic stroke As noted above, patient underwent initial hypercoagulable work up while hospitalized at [facility] on 07/16/2022 while she was hospitalized for acute onset left sided weakness; subsequently diagnosed with a right thalamic stroke secondary to END MATCHER occlusion; risk factors include: hyperl ipidemia, nicotine [...] factor II?prothrombin gene, factor V Leiden, protein NITRATING ACID MIXER, PT/INR, PTT, Antithrombin III gene mutation, beta-2 [...] today. --In review of prior labs at [facility], she was noted to have elevated [...] for coordination of care (as documented) and [id number] counseling of patient and/or family. Dictated By: Racheal Fernandez MD DD/ 2 Signed By: <Electronically signed by MD Racheal Fernandez> 02/01/23 5783 [facility] Work Phone: 1(592) 423-600107-21-2023 [facility] [place] [address] Hem/Onc Follow Up Note - OP Signed Patient: Melvina Jameson MR#: [id number] : 1975 Acct:[id number] Age/Sex: 47 / F Type: REG RCR [...] next month. I reviewed her laboratories from [facility] showing elevated homocystine of 21. She [...] at the request of Estefania Medina PA-C ([facility]) regarding further evaluation of hypercoagulable condition and history of multiple miscarriages. The patient was apparently in her usual state of health until around Sudhakar 31st, 2022. She reportedly felt fatigued and laid down to take a nap, when she awoke at 7:00 pm she noted acute onset left sided weakness and numbness. She initially thought she pinched a nerve, but her symptoms persisted and she presented to [facility] emergency department on 07/14/2022. 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 She underwent [...] study and negative lower extremity Doppler. 30-day cardiac technician revealed no evidence of atrial fibrillation and/or other arrhythmia. Presently, she is being followed by [facility] neurology every 6 months. 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 She has intentionally lost approximately 40 pounds [...] Anxiety Depression Endometriosis History of ischemic right END MATCHER stroke Hyperlipidemia Hypertension - Surgical History Surgical [...] right posterior temporal lobe and occipital lobes [END MATCHER territory] Assessment and Plan (1) Right thalamic stroke As noted above, patient underwent initial hypercoagulable work up while hospitalized at [facility] on 07/16/2022 while she was hospitalized for acute onset left sided weakness; subsequently diagnosed with a right thalamic stroke secondary to END MATCHER occlusion; risk factors include: hyperl ipidemia, nicotine [...] factor II?prothrombin gene, factor V Leiden, protein NITRATING ACID MIXER, PT/INR, PTT, Antithrombin III gene mutation, beta-2 [...] today. --In review of prior labs at [facility], she was noted to have elevated [...] for coordination of care (as documented) and ussl-ew-xbfs counseling of patient and/or family. Dictated By: Racheal Fernandez MD DD/ 2 Signed By: 02/01/23 1435 [facility]06-26-2023 Consult note Author Lian Hernandez [facility] HospitalNote Date/TimeJune 2022 5:17pm[facility] [place] [address] Hem/Onc Consult Note - OP Signed Patient: Melvina Jameson MR#: [id number] : 1975 Acct:[id number] Age/Sex: 47 / F Type: REG RCR Copies to: DO Estefania Evans PA-C~ HPI Date/Time of Service: Date of Service: 01/07/2023 Time of Service: 14:33 Referring Provider/PCP: Referring Provider: Estefania Jin PA-C PCP: Enoc Cardenas DO - History of Present Illness Reason for Consultation: Right thalamic stroke with right END MATCHER occlusion (diagnosed: 07/15/2022); here for hypercoagulability work up Chief Complaint: Patient is here today for a referral from [facility] for concernfor possible hypercoaguble condition and cryptogenic stroke evaluation HPI: Melvina Jameson is a 47 year old female seen at the request of Estefania Medina PA-C ([facility]) regarding further evaluation of hypercoagulable [...] her symptoms persisted and she presented to [facility] emergency department on 07/14/2022. 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 She underwent [...] study and negative lower extremity Doppler. 30-day cardiac technician revealed no evidence of atrial fibrillation and/or other arrhythmia. Presently, she is being followed by [facility] neurology every 6 months. 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 She has intentionally lost approximately 40 pounds [...] skin rash, easy bruising/bleeding, orlower extremity edema. [facility] - Medical History Medical History: Medical History (Last Reviewed 01/07/23 @ 13:13 by Cindy Zacarias) Anxiety Depression Endometriosis History of ischemic right END MATCHER stroke Hyperlipidemia Hypertension - Surgical History Surgical [...] initial hypercoagulable work up while hospitalized at [facility] on 07/16/2022 while she was hospitalized for acute onset left sided weakness; subsequently diagnosed with a right thalamic stroke secondary to END MATCHER occlusion; risk factors include: hyperl ipidemia, nicotine [...] factor II?prothrombin gene, factor V Leiden, protein NITRATING ACID MIXER, PT/INR, PTT, Antithrombin III gene mutation, beta-2 [...] for coordination of care (as documented) and ahkw-yc-ossq counseling of patient and/or family. Dictated By: Lian Hernandez APRN DD/ 32 Signed By: <Electronically signed by MAXIMILIANO Hernandez> 01/07/23 1617 [facility] Work Phone: 1(242) 914-215806-26-2023 Consult note Author Lian Hernandez [facility] January 07, 2023 4:17pmNote Date/TimeJune 2022 2:34pm[facility] [place] [address] Hem/Onc Consult Note - OP Signed Patient: Melvina Jameson MR#: [id number] : 1975 Acct:[id number] Age/Sex: 47 / F Type: REG RCR Copies to: DO Estefania Evans PA-C~ HPI Date/Time of Service: Date of Service: 01/07/2023 Time of Service: 14:33 Referring Provider/PCP: Referring Provider: Estefania Jin PA-C PCP: Enoc Cardenas DO - History of Present Illness Reason for Consultation: Right thalamic stroke with right END MATCHER occlusion (diagnosed: 07/15/2022); here for hypercoagulability work up Chief Complaint: Patient is here today for a referral from [facility] for concernfor possible hypercoaguble condition and cryptogenic stroke evaluation HPI: Melvina Jameson is a 47 year old female seen at the request of Estefania Medina PA-C ([facility]) regarding further evaluation of hypercoagulable [...] her symptoms persisted and she presented to [facility] emergency department on 07/14/2022. 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 She underwent [...] study and negative lower extremity Doppler. 30-day cardiac technician revealed no evidence of atrial fibrillation and/or other arrhythmia. Presently, she is being followed by [facility] neurology every 6 months. 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 She has intentionally lost approximately 40 pounds [...] skin rash, easy bruising/bleeding, orlower extremity edema. [facility] - Medical History Medical History: Medical History (Last Reviewed 01/07/23 @ 13:13 by Cindy Zacarias) Anxiety Depression Endometriosis History of ischemic right END MATCHER stroke Hyperlipidemia Hypertension - Surgical History Surgical [...] initial hypercoagulable work up while hospitalized at [facility] on 07/16/2022 while she was hospitalized for acute onset left sided weakness; subsequently diagnosed with a right thalamic stroke secondary to END MATCHER occlusion; risk factors include: hyperl ipidemia, nicotine [...] factor II?prothrombin gene, factor V Leiden, protein NITRATING ACID MIXER, PT/INR, PTT, Antithrombin III gene mutation, beta-2 [...] for coordination of care (as documented) and xmqf-uz-jfih counseling of patient and/or family. Dictated By: Lian Hernandez APRN DD/ 1433 Signed By: <Electronically signed by MAXIMILIANO Hernandez> 01/07/23 1617 [facility] Work Phone: 1([phone]) 103-786106-26-2023 [facility] [place] [address] Hem/Onc Consult Note - OP Signed Patient: Melvina Jameson MR#: [id number] : 1975 Acct:[id number] Age/Sex: 47 / F Type: REG RCR Copies to: DO Estefania Evans PA-C~ HPI Date/Time of Service: Date of Service: 01/07/2023 Time of Service: 14:33 Referring Provider/PCP: Referring Provider: Estefania Jin PA-C PCP: Enoc Cardenas DO - History of Present Illness Reason for Consultation: Right thalamic stroke with right END MATCHER occlusion (diagnosed: 07/15/2022); here for hypercoagulability work up Chief Complaint: Patient is here today for a referral from [facility] for concernfor possible hypercoaguble condition and cryptogenic stroke evaluation HPI: Melvina Jameson is a 47 year old female seen at the request of Estefania Medina PA-C ([facility]) regarding further evaluation of hypercoagulable [...] her symptoms persisted and she presented to [facility] emergency department on 07/14/2022. 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 She underwent [...] study and negative lower extremity Doppler. 30-day cardiac technician revealed no evidence of atrial fibrillation and/or other arrhythmia. Presently, she is being followed by [facility] neurology every 6 months. 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 She has intentionally lost approximately 40 pounds [...] skin rash, easy bruising/bleeding, orlower extremity edema. [facility] - Medical History Medical History: Medical History (Last Reviewed 01/07/23 @ 13:13 by Cindy Zacarias) Anxiety Depression Endometriosis History of ischemic right END MATCHER stroke Hyperlipidemia Hypertension - Surgical History Surgical [...] initial hypercoagulable work up while hospitalized at [facility] on 07/16/2022 while she was hospitalized for acute onset left sided weakness; subsequently diagnosed with a right thalamic stroke secondary to END MATCHER occlusion; risk factors include: hyperl ipidemia, nicotine [...] factor II?prothrombin gene, factor V Leiden, protein NITRATING ACID MIXER, PT/INR, PTT, Antithrombin III gene mutation, beta-2 [...] for coordination of care (as documented) and nmvh-dv-thwe counseling of patient and/or family. 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 acuteSyncopeacuteHistory of miscarriagechronicHyperlipidemiachronicHypertension chronicRight thalamic strokechronic [facility] Work Phone: Evaluation note* Diagnosis Essential hypertension- Primary Unspecified essential hypertension Cryptogenic stroke (CMS/HCC) Implantable loop recorder present Mixed hyperlipidemia BMI 24.0-24.9, adult documented in this encounter [facility] Work Phone: Evaluation noteNo assessment information available [facility] Work Phone: Evaluation note* Diagnosis Essential hypertension- Primary Unspecified essential hypertension Cryptogenic stroke (Multi) Implantable loop recorder present Mixed hyperlipidemia BMI 24.0-24.9, adult Shortness of breath Chest pain, unspecified type Orthostatic hypotension Essential hypertension Unspecified essential hypertension Mixed hyperlipidemia Cryptogenic stroke (Multi) custodial current use of anticoagulant therapy Encounter to establish care with new doctor Medication course changed Paroxysmal atrial fibrillation (Multi) Atrial fibrillation Abnormal EKG Nonspecific abnormal electrocardiogram (ECG) (EKG) BMI 23.0-23.9, adult Palpitations Former smoker Personal history of tobacco use, presenting hazards to health documented in this encounter [facility] Work Phone: Evaluation note* Diagnosis Encounter for drug screening documented in this encounter [facility] HealthcareEvaluation note* Diagnosis Essential hypertension- Primary Unspecified essential hypertension Cryptogenic stroke (Multi) Implantable loop recorder present Mixed hyperlipidemia BMI 24.0-24.9, adult Essential hypertension Unspecified essential hypertension Cryptogenic stroke (Multi) Chest pain, unspecified type Shortness of breath documented in this encounter [facility] Work Phone: Hospital Discharge instructions Additional [...] with nurse for incision check in the [facility] on 05/23/2023 at 10:30am. 2. Pacemaker/ICD clinic appointment at [facility] on 08/07/2023 at 9:00am. 3. Office visit with Arleth Painting NP at the [facility] on 08/12/2023 at 10:30am . [][facility] Work Phone: InstructionsNot on filedocumented in this encounter [facility] note Author Reina Goss [facility] April 02, 2023 2:53pmNote Date/TimeSept2022 2:20pmParis [facility] [place] [address] Hem/Onc Follow Up Note - OP Signed Patient: Melvina Jameson MR#: [id number] : 1975 Acct:[id number] Age/Sex: 47 / F Type: REG RCR Copies to: DO Estefania Evans PA-C~ Subjective Date/Time of Service: Date of Service: 04/02/2023 Time of Service: 14:19 Chief Complaint: Patient is here today for a 6 week follow up visit for neuromyelopathy d/t [id number] deficiency HPI: 04/02/2023: Melvina presents for follow-up [...] next month. I reviewed her laboratories from [facility] showing elevated homocystine of 21. She [...] at the request of Estefania Medina PA-C ([facility]) regarding further evaluation of hypercoagulable [...] her symptoms persisted and she presented to [facility] emergency department on 07/14/2022. 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 She underwent [...] study and negative lower extremity Doppler. 30-day cardiac technician revealed no evidence of atrial fibrillation and/or other arrhythmia. Presently, she is being followed by [facility] neurology every 6 months. 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 She has intentionally lost approximately 40 pounds [...] Anxiety Depression Endometriosis History of ischemic right END MATCHER stroke Hyperlipidemia Hypertension - Surgical History Surgical [...] initial hypercoagulable work up while hospitalized at [facility] on 07/16/2022 while she was hospitalized for acute onset left sided weakness; subsequently diagnosed with a right thalamic stroke secondary to END MATCHER occlusion; risk factors include: hyperl ipidemia, nicotine [...] factor II?prothrombin gene, factor V Leiden, protein NITRATING ACID MIXER, PT/INR, PTT, Antithrombin III gene mutation, beta-2 [...] today. --In review of prior labs at [facility], she was noted to have elevated [...] for coordination of care (as documented) and nwml-sj-ecet counseling of patient and/or family. Dictated By: Reina Goss APRN DD/ 1419 Signed By: <Electronically signed by MAXIMILIANO Goss> 04/02/23 1453 [facility] Work Phone: Reason for referral (narrative)* Consultation (Routine) - AuthorizedSpecialtyDiagnoses / ProceduresReferred By Contact Referred To ContactCardiology Diagnoses Implantable loop recorder present Procedures Follow Up In Cardiology Arleth Painting APRN-CNP [address] [address] Bill Palmer MD [address] [place] [address], [address] [address] Referral IDStatusReasonStart DateExpiration DateVisits RequestedVisits [id number]/ [facility] Work Phone: Reason for visit Narrative* Cardiac Stress Testing (Routine) - AuthorizedSpecialtyDiagnoses / ProceduresReferred By Contact Referred To ContactCardiology Diagnoses Essential hypertension Cryptogenic stroke (Multi) Chest pain, unspecified type Shortness of breath Procedures Nuclear Stress Test CHG MYOCARDIAL SPECT MULTIPLE STUDIES Meghana Santiago MD [address] [address] Phone: tel: fax: Referral IDStatusReasonStart DateExpiration DateVisits RequestedVisits [id number] Perform Procedure [facility] Work Phone: Reason for visit Narrative* Cardiac Stress Testing (Routine) - AuthorizedSpecialtyDiagnoses / ProceduresReferred By Contact Referred To ContactCardiology Diagnoses Essential hypertension Cryptogenic stroke (Multi) Chest pain, unspecified type Shortness of breath Procedures Nuclear Stress Test CHG MYOCARDIAL SPECT MULTIPLE STUDIES Meghana Santiago MD 917 [facility] [address] [place] [address] Phone: tel: fax: Referral IDStatusReasonStart DateExpiration DateVisits RequestedVisits [id number] Perform Procedure [facility] Work Phone: Summary Purpose Family History No Family History Records Found Relationship Condition Age at Onset Recorded Date/T frieda father Malignant neoplasm of lung Unknown grandparentMalignant neoplasm of breastUnknownNot SpecifiedLupusUnknown Relationship Condition Age at Onset Recorded Date/T frieda father Malignant neoplasm of lung Unknown grandparentMalignant neoplasm of breastUnknownNot SpecifiedLupusUnknown grandparentMalignant neoplasm of ovaryUnknown Relationship Condition Age at Onset Recorded Date/T frieda father Malignant neoplasm of lung Unknown grandparentMalignant neoplasm of breastUnknownNot SpecifiedLupusUnknown grandparentMalignant neoplasm of ovaryUnknownfatherMalignant neoplasmUnknown DeceasedUnknown Relationship Condition Age at Onset Recorded Date/T frieda father Malignant neoplasm of lung Unknown grandparentMalignant neoplasm of breastUnknownmotherLupusUnknowngrandparent Malignant neoplasm of ovaryUnknownfatherMalignant neoplasmUnknownDeceasedUnknown Advance Directives No Advanced Directives Records Found Advance Directive Response Recorded Date/ Time Advance Directives No January 03 3:46pm Advance Directive Response Recorded Date/ Time Advance Directives No January 03 2:46pm Code StatusDate ActivatedDate InactivatedCommentsFull Code07/15/2022 6:22 PM 07/18/2022 5:08 PM Chief Complaint and Reason for Visit Chief Complaint Cryptogenic stroke Reason for Visit 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 Syncope History of miscarriage Hyperlipidemia Hypertension Right thalamic stroke Chief Complaint Cryptogenic stroke Cryptogenic StrokeReason for Visit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 Syncope History of miscarriage Hyperlipidemia Hypertension Right thalamic stroke Chief Complaint Cryptogenic stroke Cryptogenic Stroke Cryptogenic StrokeReason for Visit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 Syncope History [...] and content) DATE CREATED AUTHOR 09/15/2022 [facility] DATE CREATED AUTHOR AUTHOR'S ORGANIZ ATION 09/09/2024 [facility] DATE CREATED AUTHOR AUTHOR'S ORGANIZ ATION 12/11/2024 [facility] DATE CREATED AUTHOR AUTHOR'S ORGANIZ ATION 12/13/2024 [facility] DATE CREATED AUTHOR AUTHOR'S ORGANIZ ATION 02/06/2025 [facility] Care Teams (unrecognized sec tion and content) Team Status: Active Member Role Status Dates PHYSICIAN NO FAMILY Primary Care Provider Active Team Status: Active Member Role Status Dates PHYSICIAN NO FAMILY Primary Care Provider Active Start: May 28, 2024 Estella Martino ProviderActiveStart: May 28, 2024 Jovany Galdamez MDAttending ProviderActiveStart: May 28, 2024 Team Status: Inactive Member Role Status Dates PHYSICIAN NO FAMILY Primary Care Provider Active Start: September 02, 2023 End: September 02, 2023Nata Buchanan ProviderActive Start: September 02, 2023 End: September 02, 2023 Team Status: Active Member Role Status Dates Enoc Cardenas DO Primary Care Provider Active Team Status: Active Member Role Status Dates Lian Hernandez APRN Attending Provider Active Grace Evans Care ProviderActiveEstefania Jin PA-C Referring ProviderActive Team Status: Active Member Role Status Dates Estefania Jin PA-C Referring Provider Ac Nata Montgomery ProviderActivePHYSICIPEREZ NO FAMILYPrimary Care Provider Active Team Status: Inactive Member Role Status Dates PHYSICIAN NO FAMILY Primary Care Provider Active Nata Buchanan ProviderActive Team Status: Inactive Member Role Status Dates PHYSICIAN NO FAMILY Primary Care Provider Active Start: January 07, 2024 End: January 07, 2024Nata Buchanan ProviderActiveStart: January 07, 2024 End: January 07, 2024 Team Status: Inactive Member Role Status Dates PHYSICIAN NO FAMILY Primary Care Provider Active Start: February 16, 2024 End: February 16, 2024Nata Buchanan ProviderActiveStart: February 16, 2024 End: February 16, 2024Team MemberRelationshipSpecialtyStart DateEnd Date Nataliya Elizondo APRN-[employer]ALES MANAGEMENT INTERN [address] [place] [address] PCP - Ujjckcm35/23/24 Team Status: Active Member Role Status Dates PHYSICIAN NO FAMILY Primary Care Provider Active Start: July 28, 2024 Arleth Painting APRNOt ProviderActiveStart: July 28, 2024 Jovany Galdamez , PRAKASHttending ProviderActiveStart: July 28, 2024 Team MemberRelationshipSpecialtyStart DateEnd Date Enoc Cardenas DO [address] [place] [id number] PCP - [facility]09/05/22 Team Status: Active Member Role Status Dates PHYSICIAN NO FAMILY Primary Care Provider Active Start: August 28, 2024 Arleth Painting APRNOt ProviderActiveStart: August 28, 2024 Jovany Galdamez , MDAttending ProviderActiveStart: August 28, 2024 Team Status: Active Member Role Status PHYSICIAN NO FAMILY Primary Care Provider Active Start: September 29, 2024 Estella Martino ProviderActiveStart: September 29, 2024 Jovany Galdamez , MDAttending ProviderActiveStart: September 29, 2024 Team Status: Active Member Role Status PHYSICIAN NO FAMILY Primary Care Provider Active Start: October 30, 2024 Arleth Painting , APRNReferring Provider, Other ProviderActiveStart: October 30, 2024 Jovany Galdamez , MDAttending ProviderActiveStart: October 30, 2024 Team MemberRelationshipSpecialtyStart DateEnd Date Enoc Cardenas MD [address] [place] [address] PCP - [facility]01/24/23Team MemberRelationshipSpecialtyStart DateEnd Date Nataliya Elizondo APRN-CNP [address] [place] [address] PCP - Abptmnu28/23/24Team MemberRelationshipSpecialtyStart DateEnd Date Nataliya Elizondo APRN-CNP [address] [place] [address] PCP - Rjdplsc91/23/24Team MemberRelationshipSpecialtyStart DateEnd Date Nataliya Elizondo APRN-[employer] MANAG[employer]N [address] [place] [address] PCP - Dlftmfe34/23/24 Goals (unrecognized section and content) Goals may [...] for Visit (unrecogniz ed section and content) ReasonCommentsFollow-upLOOP recorder follow upSpecialtyDiagnoses / Procedures Referred By ContactReferred To ContactCardiology Diagnoses Cryptogenic stroke (CMS/HCC) Procedures Follow Up In Cardiology Bill Palmer MD [address] [place] [address] Referral IDStatusReasonStart DateExpiration DateVisits RequestedVisits [id number]-ftOqdfesz A-Fib and possibility of starting antiarrhythmicSpecialtyDiagnoses / Procedures Referred By ContactReferred To Contact Diagnoses Palpitations Procedures ECG 12 Lead Meghana Santiago MD 917 [facility] [address] [place] [address] Phone: tel: fax: Referral IDStatusReasonStart DateExpiration DateVisits RequestedVisits [id number] FOR RECORDS PERTAINING TO PATIENTS WHO ARE [...] BE BASED ON THE PRIMARY CLINICAL RECORDS. [facility] provides no warranty or guarantee of the accuracy or completeness of information in this document.
--- NOTE | 2025-05-21 09:06 | XR_ITS ---
[facility] [place] [id number] Patient Name: ARMANDO PINA MRN: [id number] date: 1975 Sex: F Assigned Patient Location: [place] Current Patient Location: [place] Accession/Order Number: [id number] Exam Date: 05/21/2025 09:14 Report Date: 05/21/2025 09:44 At the request of: BECK ELIZONDO Procedure: XR knee LT 3V LEFT KNEE - 3 views COMPARISON: None CLINICAL DATA: Left knee pain for the past couple months. No recent injury. AP, lateral and internal oblique views were obtained. There is no acute fracture or dislocation. No disproportionate joint space narrowing or hypertrophy is seen. There is no knee effusion or soft tissue swelling. XR/XR knee LT 3V IMPRESSION: NO ACUTE BONY FINDINGS. Impression dictated by: Yolanda Cruz M.D. 05/21/2025 9:44 AM Dictation Location: [place] [address] Electronically authenticated by: [id number] Date: 05/21/2025 09:44
== END 2025-05-21 08:57 | disposition home or self-care (01) ==
LOC: US 08:58
PROVIDERS: PCP Nurse Practitioner Family; Visit Provider Nurse Practitioner Family
DX: M25.562 Pain in left knee (principal)
CPT/HCPCS: 73562; 93971